=== PATIENT | male | born 1965 | race Caucasian/White ===

== ENCOUNTER 2016-12-26 12:13 | Outpatient (CLI) | payer MEDICARE ==
[~2016-12-26] VITALS: Ht 175.3 cm; Wt 89.4 kg
[~2016-12-26 12:13] MED LIST: GABAPENTIN; GLIPIZIDE; IMITREX; LEVO500T80 PO; LEVO750T9 PO; LISI-552 PO; LISINOPRIL; METFORMIN; NEURONTIN; OMEP20CA12 PO; OXC10TCR PO; PRD20T PO; SUCR1ORA5 PO; SULF1TAB35 PO; SYMBALTA; TOPAMAX; [UNRECOGNIZED DRUG - OTHER]
[2016-12-26] MEDS ORDERED: FENO160T12 PO (12:31)
[2016-12-26] MEDS ORDERED: DULO30CA48 PO (12:31)
[2016-12-26] MEDS ORDERED: TOPI100T11 PO (12:31)
[2016-12-26] MEDS ORDERED: GABA600T2 PO ×2 (12:31)
[2016-12-26] MEDS ORDERED: GLIP10TA13 PO (12:31)
[2016-12-26] MEDS ORDERED: METF500T4 PO (12:31)
[2016-12-26] MEDS ORDERED: DULO60CA58 PO (12:31)
[2016-12-26] MEDS ORDERED: PANT40TA3 PO (12:31)
[2016-12-26] MEDS ORDERED: IBUP-1780 PO (12:31)
[2016-12-26] MEDS ORDERED: ASPI-586 PO (12:31)
[2016-12-26] MEDS ORDERED: SIMV20TA3 PO (12:31)
[2016-12-26] MEDS ORDERED: OMEP40CA36 PO (12:31)
[2016-12-26 12:38] VITALS: BP 121/87
[2016-12-31] MEDS ORDERED: OXYC5TAB71 PO (11:07)
== END 2016-12-26 13:00 | disposition home or self-care (01) ==
LOC: PREOP 12:13
PROVIDERS: ATTEND Orthopaedic Surgery
DX: Z01.818 Encounter for other preprocedural examination (principal); M75.102 Unspecified rotator cuff tear or rupture of left shoulder, not specified as traumatic; S43.402A Unspecified sprain of left shoulder joint, initial encounter; X58.XXXA Exposure to other specified factors, initial encounter; Y99.8 Other external cause status
CPT/HCPCS: 87081

== ENCOUNTER 2016-12-31 08:20 | Day surgery (SDC) | payer MEDICAID, MEDICARE ==
--- NOTE | 2016-12-22 17:51 | HISTORY AND PHYSICAL ---
DATE OF SERVICE: 12/31/2016 This will be for outpatient surgery on 12/31/16 for left shoulder arthroscopy, rotator cuff repair, biceps tenodesis. HISTORY: The patient is a 51-year-old right hand dominant gentleman with complaints of left shoulder pain, worse with overactivity. He reports pain on the lateral aspect of the shoulders. He reports difficulty with raising his arms above his head. He denies paresthesias. He has undergone treatment with injections which provided temporary relief of the symptoms and reports progressively worsening pain and weakness and due to functional impairment and failure to improve with conservative measures, the patient has elected to proceed with surgical intervention. REVIEW OF SYSTEMS: No chest pain, no shortness of breath, no dysuria. PAST MEDICAL HISTORY: 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, neuropathy, lung cancer, hyperlipidemia, depression, anxiety, reflux. PAST SURGICAL HISTORY: Lung, cholecystectomy, appendectomy, ACL, sinus, left knee internal fixation, left knee arthroscopy, bilateral carpal tunnel. FAMILY HISTORY: Significant for cerebrovascular accident, diabetes, and hypertension. PRIMARY CARE PROVIDER: [facility]. MEDICATIONS: 1. Gabapentin. 2. Metformin. 3. Fenofibrate. 4. Topiramate. 5. Glipizide. 6. Duloxetine. 7. Pantoprazole. 8. Omeprazole. 9. Aspirin. 10. Ibuprofen. 11. Simvastatin. No known drug allergies. The patient smokes 1-1/2 packs per day. Denies alcohol use. PHYSICAL EXAMINATION: The patient is well-developed, well-nourished, no acute distress. HEENT: Normocephalic, atraumatic. Pupils equal, round, and reactive to light. Oropharynx is clear. NECK: Supple. No lymphadenopathy. LUNGS: Clear to auscultation bilaterally. HEART: Regular rate and rhythm. ABDOMEN: Soft, nontender, nondistended. EXTREMITIES: The left shoulder demonstrates active forward elevation by 110 degrees, external rotation of 80 degrees, internal rotation to his upper lumbar spine. He has a positive varus and a positive valgus sign. Positive Hendley's maneuver. Pain with apprehension. Pain with mild weakness with resisted abduction and external rotation. He is nontender to his acromioclavicular joint. IMPRESSION: Left shoulder impingement, possible rotator cuff tear and SLAP tear. PLAN: Left shoulder arthroscopy, acromioplasty, biceps tenodesis, rotator cuff repair. The risks, benefits, options and ramifications to recovery were discussed at length with the patient. He understands and wishes to proceed. Job ID: [id number] DocumentID: [id number] Dictated Date: 12/22/2016 16:38:02 Plating Operator Date: 12/22/2016 17:50:38 Dictated By: ROSALBA HANSON MD
[~2016-12-31] VITALS: Ht 175.3 cm; Wt 89.4 kg
[~2016-12-31 08:20] MED LIST changes: +ASPI-586 PO; +DULO30CA48 PO; +DULO60CA58 PO; +FENO160T12 PO; +GABA600T2 PO; +GLIP10TA13 PO; +IBUP-1780 PO; +METF500T4 PO; +OMEP40CA36 PO; +PANT40TA3 PO; +SIMV20TA3 PO; +TOPI100T11 PO
--- OUTSIDE RECORDS SUMMARY | 2016-12-31 08:28 | XMS REPORT ---
Author ELIZABETH Montero [facility] eClinicalWorks Address Unknown Phone Unavailable Care Team Providers Care Supervisor Harvesting Name Role Phone ELIZABETH ORELLANA CP Unavailable Allergies, Adverse Reactions, Alerts Substance Reaction Event Type Zofran Info Not Available Drug Allergy Penicillin V Potassium Info Not Available Drug Allergy Latex tape Info Not Available Non Drug Allergy Problems Problem Type Condition Code Onset Dates Condition Status Problem Right knee pain 719.46 Active Problem Depression 311 Active Problem Chronic thoracic spine pain 724.1 Active Problem Other chronic pain G89.29 Active Problem Diabetes mellitus type 2 with neurological manifestations 250.60 Active Problem Uncontrolled type 2 diabetes mellitus 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, without long-term current use of insulin E11.65 Active Problem Migraine headache 346.90 Active Problem GERD (gastroesophageal reflux disease) 530.81 Active Problem Hypertension 401.9 Active Problem Hyperlipidemia 272.4 Active Assessment Diabetes mellitus type 2 with neurological manifestations 250.60 Active Assessment Pain in left shoulder M25.512 Active Assessment Hypotension, unspecified hypotension type I95.9 Active Assessment Other chronic pain G89.29 Active Assessment Uncontrolled type 2 diabetes mellitus 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, without long-term current use of insulin E11.65 Active Assessment Pain in right shoulder M25.511 Active Problem Routine adult health maintenance V70.0 Active Medications Medication Code System Code Instructions Start Date End Date Status Dosage Topamax [facility] [address]-47 100 MG Orally Twice a day 1 tablet Omeprazole [facility] [address]-42 40 mg Orally Once a day 1 capsule Prochlorperazine [facility] [address]-18 10 mg Orally Three times a day as needed for nausea 1 tablet Cymbalta [facility] [address]-30 30 MG Orally Once a day 2 capsules Nortriptyline HCl [facility] [address]-62 75 MG Orally Once a day at hs 1 capsule Fenofibrate [facility] [address]-81 160 MG Orally Once a day 1 tablet with a meal Imitrex [facility] [address]-99 50 mg Orally Once a day as needed, max 3/week 1 tablet as needed one time Martha [facility] [address]-38 10-325 MG Orally every 6 hrs Jan 04, 2016 1 tablet as needed Aspirin [facility] [address]-73 81 MG Orally Once a day 1 tablet Diclofenac Sodium [facility] 2001 [address]-18 75 MG Orally Twice a day Feb 04, 2016 Apr 04, 2016 1 tablet with food or milk Metformin HCl [facility] [address]-72 1000 MG Orally Twice a day 1 tablet with meals GlipiZIDE ER [facility] 2001 [address]-73 10 mg Orally Once a day 1 tablet Procedures Procedure Coding System Code Date COMPLETE CBC W/AUTO DIFF WBC CPT-4 27203 Feb 04, 2016 COMPREHEN METABOLIC PANEL CPT-4 14835 Feb 04, 2016 Office Visit, Est Pt., Level 3 CPT-4 96487 Feb 04, 2016 VENIPUNCT, ROUTINE* CPT-4 19590 Feb 04, 2016 LIPID PANEL CPT-4 21065 Feb 04, 2016 Vital Signs Date/Time: Feb 04, 2016 Cardiac Monitoring Heart Rate 78 bpm Weight 193 lbs Height 69 in BMI 28.50 Index Blood Pressure Diastolic 82 mmHg Blood Pressure Systolic 122 mmHg Results Name Result Date Reference Range Unit Abnormality Flag CMP ----Calcium, Serum 9.8 00182407 8.7-10.2 mg/dL ----Carbon Dioxide, Total 21 [id number] 18-29 mmol/L ----ALT (SGPT) 13 [id number] 0-44 IU/L ----Creatinine, Serum 0.98 53590305 0.76-1.27 mg/dL ----AST (SGOT) 13 [id number] 0-40 IU/L ----eGFR If NonAfricn Am 89 [id number] >59 mL/min/1.73 ----Alkaline Phosphatase, S 83 [id number] 39-117 IU/L ----eGFR If Africn Am 103 [id number] >59 mL/min/1.73 ----Bilirubin, Total 0.3 96161151 0.0-1.2 mg/dL ----BUN/Creatinine Ratio 11 20160204 9-20 ----A/G Ratio 1.7 55822053 1.1-2.5 ----Sodium, Serum 140 [id number] 134-144 mmol/L ----Globulin, Total 2.8 14932285 1.5-4.5 g/dL ----Potassium, Serum 5.0 65272739 3.5-5.2 mmol/L ----Glucose, Serum 154 28219342 65-99 mg/dL H ----Chloride, Serum 104 07894632 97-108 mmol/L ----Albumin, Serum 4.7 22866909 3.5-5.5 g/dL ----BUN 11 02508189 6-24 mg/dL ----Protein, Total, Serum 7.5 03519733 6.0-8.5 g/dL ROUTINE VENIPUNCTURE CBC ----MCHC 33.0 56649681 31.5-35.7 g/dL ----MCH 29.1 [id number] 26.6-33.0 pg ----Platelets 397 04191786 150-379 x10E3/uL H ----RDW 13.8 03343783 12.3-15.4 % ----Immature Granulocytes 0 27948534 % ----Immature Grans (Abs) 0.0 48853023 0.0-0.1 x10E3/uL ----Lymphs 35 34653272 % ----Monocytes 5 27741177 % ----Neutrophils 52 77713006 % ----Neutrophils (Absolute) 6.9 64076484 1.4-7.0 x10E3/uL ----Hematocrit 41.2 88403051 37.5-51.0 % ----Lymphs (Absolute) 4.6 01464874 0.7-3.1 x10E3/uL H ----MCV 88 75744945 79-97 fL ----RBC 4.67 82890405 4.14-5.80 x10E6/uL ----Eos 7 93406733 % ----Basos 1 37183193 % ----Hemoglobin 13.6 06912542 12.6-17.7 g/dL ----Baso (Absolute) 0.1 [id number] 0.0-0.2 x10E3/uL ----WBC 13.1 18677914 3.4-10.8 x10E3/uL H ----Monocytes(Absolute) 0.6 62891716 0.1-0.9 x10E3/uL ----Eos (Absolute) 0.9 [id number] 0.0-0.4 x10E3/uL H Summary Purpose eClinicalWorks Submission
--- OUTSIDE RECORDS SUMMARY | 2016-12-31 08:29 | XMS REPORT ---
Author ELIZABETH Montero [facility] eClinicalWorks Address Unknown Phone Unavailable Care Team Providers Care Veterinary Poultry Inspector Name Role Phone ELIZABETH ORELLANA CP Unavailable Allergies No Known Allergies Problems Problem Type Condition Code Onset Dates Condition Status Problem Right knee pain 719.46 Active Problem Depression 311 Active Problem Chronic thoracic spine pain 724.1 Active Problem Routine adult health maintenance V70.0 Active Problem Other chronic pain G89.29 Active Problem Diabetes mellitus type 2 with neurological manifestations 250.60 Active Problem Uncontrolled type 2 diabetes mellitus 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, without long-term current use of insulin E11.65 Active Problem Migraine headache 346.90 Active Problem GERD (gastroesophageal reflux disease) 530.81 Active Problem Hypertension 401.9 Active Problem Hyperlipidemia 272.4 Active Medications Medication Code System Code Instructions Start Date End Date Status Dosage Simvastatin [facility] [address]-60 20 mg Orally Once a day Feb 05, 2016 1 tablet in the evening Results No Known Results Summary Purpose eClinicalWorks Submission
--- OUTSIDE RECORDS SUMMARY | 2016-12-31 08:29 | XMS REPORT ---
Author Author VIJAYA NELSON [facility] eClinicalWorks Address Unknown Phone Unavailable Care Team Providers Care Monument Mason Name Role Phone VIJAYA NELSON CP Unavailable Allergies, Adverse Reactions, Alerts Substance Reaction Event Type Zofran Info Not Available Drug Allergy Penicillin V Potassium Info Not Available Drug Allergy Latex tape Info Not Available Non Drug Allergy Problems Problem Type Condition Code Onset Dates Condition Status Assessment Encounter for dental examination Z01.20 Active Problem Right knee pain 719.46 Active Problem Routine adult health maintenance V70.0 Active Assessment Dental examination Z01.20 Active Problem Hypertension 401.9 Active Problem Hyperlipidemia 272.4 Active Problem Diabetes mellitus type 2 with neurological manifestations 250.60 Active Problem Depression 311 Active Problem Chronic thoracic spine pain 724.1 Active Problem Migraine headache 346.90 Active Problem GERD (gastroesophageal reflux disease) 530.81 Active Medications Medication Code System Code Instructions Start Date End Date Status Dosage Lisinopril [facility] [address]-19 20 MG Orally Once a day 1 tablet Imitrex [facility] [address]-77 50 MG Orally Once a day as needed, max 3/week 1 tablet as needed one time Metformin HCl [facility] [address]-29 1000 MG Orally Twice a day 1 tablet with meals Prochlorperazine [facility] [address]-35 10 MG Orally Three times a day as needed for nausea 1 tablet Neurontin [facility] [address]-65 600 MG Orally 2 times a day 2 tabs qAm , 3 tabs at HS Fenofibrate [facility] [address]-45 160 MG Orally Once a day 1 tablet with a meal Gabapentin NDC 0 not defined Meclizine HCl [facility] [address]-77 25 MG Orally 3 times a day 1 tablet as needed OxyContin [facility] [address]-14 10 MG Orally every 12 hrs 1 tablet Cymbalta [facility] [address]-77 30 MG Orally Once a day 2 capsules Flexeril [facility] [address]-49 10 MG Orally Three times a day May 29, 2015 1 tablet Nortriptyline HCl [facility] [address]-03 75 MG Orally Once a day at hs 1 capsule Oxycodone HCl [facility] [address]-84 5 MG Orally every 4-6 hrs PRN breakthrough pain 1 tablet GlipiZIDE ER [facility] [address]-44 10 MG Orally Once a day 1 tablet Omeprazole [facility] [address]-80 40 MG Orally Once a day 1 capsule Topamax [facility] [address]-11 100 MG Orally Twice a day 1 tablet Aspirin [facility] [address]-41 81 MG Orally Once a day 1 tablet Procedures Procedure Coding System Code Date INTRAORL-PERIAPICAL 1 FILM 06941 CPT-4 D0220 Apr 03, 2015 BITEWING - SINGLE FILM CPT-4 D0270 Apr 03, 2015 LTD ORAL EVALUATION - PROBLEM FOCUS CPT-4 D0140 Apr 03, 2015 Vital Signs Date/Time: Apr 03, 2015 Blood Pressure Diastolic 72 mmHg Blood Pressure Systolic 115 mmHg Results No Known Results Summary Purpose eClinicalWorks Submission
--- OUTSIDE RECORDS SUMMARY | 2016-12-31 08:29 | XMS REPORT ---
Author Author ELIZABETH ORELLANA [facility] Address [address] [place] [address] Care Team Providers Care Patient Resource Specialist Name Role Phone ELIZABETH ORELLANA Unavailable PROBLEMS Type Condition ICD9-CM Code OFN56-OB Code Onset Dates Condition Status SNOMED Code Problem Routine adult health maintenance V70.0 Active 442431228 Problem Chronic thoracic spine pain 724.1 Active 498602137 Problem Right knee pain 719.46 Active 86139517 Problem Diabetes mellitus type 2 with neurological manifestations 250.60 Active 83921866 Problem Hypertension 401.9 Active 23792196 Problem GERD (gastroesophageal reflux disease) 530.81 Active 208820881 Problem Depression 311 Active 124581544 Problem Hyperlipidemia 272.4 Active 23216261 Problem Migraine headache 346.90 Active 56388390 Assessment Primary insomnia F51.01 Dec, Active 8616232 Assessment Neuropathy G62.9 Dec, Active 417717614 Assessment 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 mellitus 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, unspecified fpc insulin use status E11.9 Dec, Active 44519445 Assessment Migraine without status migrainosus, not intractable, unspecified migraine type G43.909 Dec, Active 86397745 Assessment Diabetes mellitus type 2 with neurological manifestations 250.60 Dec, Active 786673945 ALLERGIES Substance Reaction Event Type Date Status Zofran Unknown Drug Allergy Dec, Active Penicillin V Potassium Unknown Drug Allergy Dec, Active Latex tape Unknown Non Drug Allergy Dec, Active SOCIAL HISTORY No smoking Hx information available PLAN OF CARE VITAL SIGNS Height 69 in 2016-01-04 Weight 189 lbs 2016-01-04 Heart Rate 80 bpm 2016-01-04 Respiratory Rate 18 2016-01-04 BMI 27.91 kg/m2 2016-01-04 Blood pressure systolic 120 mmHg 2016-01-04 Blood pressure diastolic 80 mmHg 2016-01-04 MEDICATIONS Medication Instructions Dosage Frequency Start Date End Date Duration Status Neurontin 600 MG Orally 2 times a day 2 capsules 12h 30 days Active Omeprazole 40 mg Orally Once a day 1 capsule 24h 30 days Active Prochlorperazine 10 mg Orally Three times a day as needed for nausea 1 tablet 30 days Active [facility] 10-325 MG Orally every 6 hrs 1 tablet as needed 6h Dec, Active Lisinopril 20 mg Orally Once a day 1 tablet 24h 30 days Active Nortriptyline HCl 75 MG Orally Once a day at hs 1 capsule 30 days Active Cymbalta 30 MG Orally Once a day 2 capsules 24h 30 days Active Metformin HCl 1000 MG Orally Twice a day 1 tablet with meals 12h 30 days Active GlipiZIDE ER 10 mg Orally Once a day 1 tablet 24h 30 days Active Imitrex 50 mg Orally Once a day as needed, max 3/week 1 tablet as needed one time 30 days Active Aspirin 81 MG Orally Once a day 1 tablet 24h Active Fenofibrate 160 MG Orally Once a day 1 tablet with a meal 24h 30 days Active Topamax 100 MG Orally Twice a day 1 tablet 12h 30 days Active RESULTS Name Result Date Reference Range A1C (IN HOUSE) 2016-01-04 A1C IN HOUSE >14 4.3 - 5.6 % Previous A1c na Lot [id number] Exp date 10/2017 PROCEDURES Procedure Date Ordered Related Diagnosis Body Site GLYCATED HEMOGLOBIN TEST Jan 04, 2016 Office Visit, Est Pt., Level 3 Jan 04, 2016 IMMUNIZATIONS No Known Immunizations
--- OUTSIDE RECORDS SUMMARY | 2016-12-31 08:29 | XMS REPORT ---
Author ELIZABETH Montero Organization eClinicalWorks Address Unknown Phone Unavailable Care Team Providers Care Lumber Driver Name Role Phone ELIZABETH ORELLANA CP Unavailable [...] Instructions Start Date End Date Status Dosage [facility] [address]-61 10-325 MG Orally every 6 hrs Jan 04, 2016 1 tablet as needed Results No Known Results Summary Purpose [employer] Submission
--- OUTSIDE RECORDS SUMMARY | 2016-12-31 08:29 | XMS REPORT ---
Author Author MALORIE GALO [facility] eClinicalWorks Address Unknown Phone Unavailable Care Team Providers Care Costume Seamstress Name Role Phone MALORIE GALO CP Unavailable Allergies No Known Allergies Problems Problem Type Condition Code Onset Dates Condition Status Problem Right knee pain 719.46 Active Problem Routine adult health maintenance V70.0 Active Problem Hypertension 401.9 Active Problem Hyperlipidemia 272.4 Active Problem Diabetes mellitus type 2 with neurological manifestations 250.60 Active Problem Depression 311 Active Problem Chronic thoracic spine pain 724.1 Active Problem Migraine headache 346.90 Active Problem GERD (gastroesophageal reflux disease) 530.81 Active Medications No Known Medications Results No Known Results Summary Purpose eClinicalWorks Submission
--- OUTSIDE RECORDS SUMMARY | 2016-12-31 08:29 | XMS REPORT ---
Author ELIZABETH Montero Organization eClinicalWorks Address Unknown Phone Unavailable Care Team Providers Care Caterer'S Aide Name Role Phone ELIZABETH ORELLANA CP Unavailable [...] 401.9 Active Problem Hyperlipidemia 272.4 Active Medications No Known Medications Results No Known Results Summary Purpose eClinicalWorks Submission
--- OUTSIDE RECORDS SUMMARY | 2016-12-31 08:29 | XMS REPORT ---
Author Author ELIZABETH ORELLANA [facility] Address [address] [place] [address] Care Team Providers Care Rent Collector Name Role Phone ELIZABETH ORELLANA Unavailable PROBLEMS Type Condition ICD9-CM Code PSP94-BG Code Onset Dates Condition Status SNOMED Code Problem Chronic thoracic spine pain 724.1 Active 716899899 Problem GERD (gastroesophageal reflux disease) 530.81 Active 123900409 Problem Depression 311 Active 414434657 Problem Routine adult health maintenance V70.0 Active 410859986 Problem Right knee pain 719.46 Active 25573273 Problem Uncontrolled type 2 diabetes mellitus 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, without long-term current use of insulin E11.65 Active 057265921 Problem Other chronic pain G89.29 Active 47139214 Problem Hyperlipidemia 272.4 Active 45229484 Problem Migraine headache 346.90 Active 22256835 Problem Diabetes mellitus type 2 with neurological manifestations 250.60 Active 86917939 Problem Hypertension 401.9 Active 88234813 ALLERGIES Unknown Allergies SOCIAL HISTORY No smoking Hx information available PLAN OF CARE VITAL SIGNS MEDICATIONS Unknown Medications RESULTS No Results PROCEDURES No Known procedures IMMUNIZATIONS No Known Immunizations
--- OUTSIDE RECORDS SUMMARY | 2016-12-31 08:29 | XMS REPORT ---
Author ELIZABETH Montero Organization eClinicalWorks Address Unknown Phone Unavailable Care Team Providers Care Limnologist Name Role Phone ELIZABETH ORELLANA CP Unavailable [...] Instructions Start Date End Date Status Dosage [facility] [address]-72 10-325 MG Orally every 6 hrs Jan 04, 2016 1 tablet as needed Results No Known Results Summary Purpose [employer] Submission
--- OUTSIDE RECORDS SUMMARY | 2016-12-31 08:29 | XMS REPORT ---
Author Author ELIZABETH ORELLANA Organization [facility] Address [address] [place] [address] Care Team Providers Care Storage Receipt Poster Name Role Phone ESTEBAN ELIZABETH Unavailable PROBLEMS Type Condition ICD9-CM Code AIV22-GM Code Onset Dates Condition Status SNOMED Code Problem Other chronic pain G89.29 Active 56055264 Problem 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 mellitus 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, unspecified snf insulin use status E11.9 Active 007559047 Problem Gastritis, unspecified, without bleeding K29.70 Active 9399415 Problem Tear of left rotator cuff, unspecified tear extent M75.102 Active 0464073 Problem Uncontrolled type 2 diabetes mellitus 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, without long-term current use of insulin E11.65 Active 757538807 Problem Mood disorder F39 Active 79765526 Problem Tear of right rotator cuff, unspecified tear extent M75.101 Active 508880620 ALLERGIES Substance Reaction Event Type Date Status Zofran Unknown Drug Allergy Mar, Active Penicillin V Potassium Unknown Drug Allergy Mar, Active Latex tape Unknown Non Drug Allergy Mar, Active SOCIAL HISTORY No smoking Hx information available PLAN OF CARE VITAL SIGNS Height 69 in 2016-04-15 Weight 201 lbs 2016-04-15 Temperature 98.1 degrees Fahrenheit 2016-04-15 Heart Rate 76 bpm 2016-04-15 Respiratory Rate 18 2016-04-15 BMI 29.68 kg/m2 2016-04-15 Blood pressure systolic 134 mmHg 2016-04-15 Blood pressure diastolic 90 mmHg 2016-04-15 MEDICATIONS Medication Instructions Dosage Frequency Start Date End Date Duration Status Imitrex 50 mg Orally Once a day as needed, max 3/week 1 tablet as needed one time 30 days Active Topamax 100 MG Orally Twice a day 1 tablet 12h 30 days Active Omeprazole 40 mg Orally Once a day 1 capsule 24h 30 days Active GlipiZIDE ER 10 mg Orally Once a day 1 tablet 24h 30 days Active Cymbalta 30 MG Orally Once a day 2 capsules 24h 30 days Active Metformin HCl 1000 MG Orally Twice a day 1 tablet with meals 12h 30 days Active Prochlorperazine 10 mg Orally Three times a day as needed for nausea 1 tablet 30 days Active Simvastatin 20 mg Orally Once a day 1 tablet in the evening 24h Jan, 30 day(s) Active [facility] 10-325 MG Orally every 6 hrs 1 tablet as needed 6h Mar, Active Fenofibrate 160 MG Orally Once a day 1 tablet with a meal 24h 30 days Active Nortriptyline HCl 75 MG Orally Once a day at hs 2 capsules Active Aspirin 81 MG Orally Once a day 1 tablet 24h Active RESULTS No Results PROCEDURES Procedure Date Ordered Related Diagnosis Body Site JOINT INJECTION-LARGE JOINT 2016-04-15 N/A DRAIN/INJECT, JOINT/BURSA Apr 15, 2016 Office Visit, Est Pt., Level 2 Apr 15, 2016 IMMUNIZATIONS No Known Immunizations
--- OUTSIDE RECORDS SUMMARY | 2016-12-31 08:29 | XMS REPORT ---
Author Author ELIZABETH ORELLANA Organization [facility] Address [address] [place] [address] Care Team Providers Care Pecan Huller Name Role Phone ESTEBAN ELIZABETH Unavailable PROBLEMS Type Condition ICD9-CM Code LRA32-BT Code Onset Dates Condition Status SNOMED Code Problem Other chronic pain G89.29 Active 46732570 Problem 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 mellitus 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, unspecified terminal carman insulin use status E11.9 Active 645939639 Problem Gastritis, unspecified, without bleeding K29.70 Active 1393136 Problem Tear of left rotator cuff, unspecified tear extent M75.102 Active 3310131 Problem Uncontrolled type 2 diabetes mellitus 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, without long-term current use of insulin E11.65 Active 604834457 Problem Mood disorder F39 Active 20901705 Problem Tear of right rotator cuff, unspecified tear extent M75.101 Active 217602695 ALLERGIES Substance Reaction Event Type Date Status Zofran Unknown Drug Allergy Mar, Active Penicillin V Potassium Unknown Drug Allergy Mar, Active Latex tape Unknown Non Drug Allergy Mar, Active SOCIAL HISTORY No smoking Hx information available PLAN OF CARE Activity Details Follow Up 4 Weeks Reason:insomnia VITAL SIGNS Height 69 in 2016-04-14 Weight 201 lbs 2016-04-14 Temperature 98.0 degrees Fahrenheit 2016-04-14 Heart Rate 78 bpm 2016-04-14 Respiratory Rate 20 2016-04-14 BMI 29.68 kg/m2 2016-04-14 Blood pressure systolic 128 mmHg 2016-04-14 Blood pressure diastolic 78 mmHg 2016-04-14 MEDICATIONS Medication Instructions Dosage Frequency Start Date End Date Duration Status Nortriptyline HCl 75 MG Orally Once a day at hs 2 capsules Active Simvastatin 20 mg Orally Once a day 1 tablet in the evening 24h Jan, 30 day(s) Active Metformin HCl 1000 MG Orally Twice a day 1 tablet with meals 12h 30 days Active Aspirin 81 MG Orally Once a day 1 tablet 24h Active Topamax 100 MG Orally Twice a day 1 tablet 12h 30 days Active [place] 10-325 MG Orally every 6 hrs 1 tablet as needed 6h Mar, Active Fenofibrate 160 MG Orally Once a day 1 tablet with a meal 24h 30 days Active Omeprazole 40 mg Orally Once a day 1 capsule 24h 30 days Active Prochlorperazine 10 mg Orally Three times a day as needed for nausea 1 tablet 30 days Active GlipiZIDE ER 10 mg Orally Once a day 1 tablet 24h 30 days Active Cymbalta 30 MG Orally Once a day 2 capsules 24h 30 days Active Imitrex 50 mg Orally Once a day as needed, max 3/week 1 tablet as needed one time 30 days Active RESULTS No Results PROCEDURES Procedure Date Ordered Related Diagnosis Body Site Office Visit, Est Pt., Level 3 Apr 14, 2016 IMMUNIZATIONS No Known Immunizations
--- OUTSIDE RECORDS SUMMARY | 2016-12-31 08:30 | XMS REPORT ---
Author ELIZABETH Montero Organization [employer] Address Unknown Phone Unavailable Care Team Providers Care Business Banking Relationship Manager Name Role Phone ELIZABETH ORELLANA CP Unavailable [...]
[2016-12-31 08:35] VITALS: BP 140/82
[2016-12-31] MEDS ORDERED: ROPIVACAINE 5MG/ML 30ML VIAL ONE (08:38)
[2016-12-31] MEDS ORDERED: MIDAZOLAM 2 MG/2 ML (VERSED) VIAL ONE (08:39)
[2016-12-31] MEDS ORDERED: BUPIVACAINE 0.25% 30 ML (SENSORCAINE) VIAL ONE (08:46)
[2016-12-31] MEDS ORDERED: NS (IVPB) 50 ML ONE (08:51)
[2016-12-31] MEDS ORDERED: ceFAZolin 1,000 MG (ANCEF) VIAL ONE (08:51)
[2016-12-31] MEDS ORDERED: FAMOTIDINE 20MG/2ML IV (PEPCID) ONE (08:56)
[2016-12-31] MEDS ORDERED: fentaNYL INJECTION 100 MCG/2 ML AMP ONE (08:59)
[2016-12-31] MEDS ORDERED: proPOfol 200 MG/20 ML (DIPRIVAN) VIAL IV ONE (08:59)
[2016-12-31] MEDS ORDERED: LIDOCAINE PF 2% 5 ML (XYLOCAINE) VIAL ONE (08:59)
[2016-12-31] MEDS ORDERED: SEVOFLURANE (ULTANE) 15 ML INHAL SOLN ONE ×4 (08:59→10:15)
[2016-12-31] MEDS ORDERED: LACTATED RINGERS 1,000 ML IV PRN (09:03)
[2016-12-31] MEDS ORDERED: oxyCODONE/APAP 5/325MG (PERCOCET 5) TABLET PO PRN (09:15)
[2016-12-31] MEDS ORDERED: FAMOTIDINE 20MG/2ML IV (PEPCID) IV ONE (09:15)
--- NOTE | 2016-12-31 09:15 | Anesthesia-Peripheral Nerve Bl ---
Procedure Start/Stop Time Date of Procedure: Dec 31, 2016 Start Time: 08:55 Stop Time: 09:05 Peripheral Nerve Block Peripheral Nerve Blockade Risk/Benefits/Alternatives discussed, including IV injection leading to complications or seizures, nerve irritation or damage, pneumothorax, total spinal anesthesia, injection, and/or bleeding. Side Confirmed: LEFT Indication: Surgical Anesthesia Specifically requested for management of pain by: Patient Condition Vital Signs Vital Signs Date Time Temp Pulse Resp B/P (MAP) Pulse Ox O2 Delivery O2 Flow Rate FiO2 12/31/16 08:35 97.3 94 18 140/82 97 Room Air Patient Condition: Sedate/contact maintained Indication post op pain Procedure Prepartation: Alcohol, Chlorhexidine Position: Supine Needle (s) Size: 22g 2" Technique: Injection through needle, Nerve Stimulation Motor response or parethesia o: loss of twitches at .6 ma mA: 0.6 Depth (cm): 1 Sedation Given: Midazolam Dose (mg/mcg): 2 Injectate: ropivacaine Concentration %: .5 Volume (ml): 30 Epinephrine used: No Narrative Injection was made incrementally with constant monitoring. Blood Aspirated: No Events Events: None:easy well tolerated Sucess: Complete Patient Conditon Post Peripheral Nerve Block Post Peripheral Nerve Block Vital Signs: Blood Pressure: Systolic Diastolic Heart Rate Blood Pressure Systolic: 140 Blood Pressure Diastolic: 82 Pulse Rate (adult): 94 MADDY VELEZ CRNA Dec 31, 2016 09:14
--- NOTE | 2016-12-31 09:16 | Progress Note-Pre Operative ---
Pre-Operative Progress Note H&P Reviewed The H&P was reviewed, patient examined and no changes noted. Date Seen by Provider: Dec 31, 2016 Time Seen by Provider: 09:15 Date H&P Reviewed: Dec 31, 2016 Time H&P Reviewed: 09:15 Pre-Operative Diagnosis: left shoulder SLAP tear and rotator cuff tear ROSALBA HANSON MD Dec 31, 2016 09:16
--- NOTE | 2016-12-31 09:17 | Progress Note-Post Operative ---
Post-Operative Progess Note Surgeon (s)/Tie Tamper (s) Surgeon ROSALBA HANSON MD Tie Tamper: Josh Vega Pre-Operative Diagnosis left shoulder SLAP tear and rotator cuff tear Post-Operative Diagnosis left shoulder SLAP tear, impingement and synovitis Procedure & Operative Findings Date of Procedure 12/31/16 Procedure Performed/Findings left shoulder arthroscopic partial synovectomy, acromioplasty and biceps tenodesis Anesthesia Type GETA plus interscalene nerve block Estimated Blood Loss Estimated blood loss (mL): minimal Specimens/Packing Specimens Removed none Packing: none ROSALBA HANSON MD Dec 31, 2016 09:17
[2016-12-31] MEDS ORDERED: fentaNYL INJECTION 100 MCG/2 ML AMP IVP PRN (11:00)
[2016-12-31] MEDS ORDERED: PROMETHAZINE INJ 25 MG/ML (PHENERGAN) AMP IVP PRN (11:00)
[2016-12-31] MEDS ORDERED: HYDROmorphone (DILAUDID) 2 MG/ML VIAL ONE (11:02)
[2016-12-31] MEDS ORDERED: OXYC-529 PO (11:07)
[2016-12-31] MEDS ORDERED: HYDR4TAB49 PO (11:07)
[2016-12-31] MEDS: HYDROmorphone (DILAUDID) 2 MG/ML VIAL IVP PRN ×3 (11:12→11:31)
--- NOTE | 2016-12-31 11:15 | OPERATIVE REPORT ---
DATE OF SERVICE: 12/31/2016 PREOPERATIVE DIAGNOSES: 1. Left shoulder superior labrum anterior and posterior tear. 2. Left shoulder rotator cuff tear. POSTOPERATIVE DIAGNOSES: 1. Left shoulder superior labrum anterior and posterior tear. 2. Left shoulder impingement. 3. Left shoulder synovitis. PROCEDURE: 1. Left shoulder arthroscopic partial synovectomy. 2. Left shoulder arthroscopic acromioplasty. 3. Left shoulder arthroscopic-assisted biceps tenodesis. SURGEON: Adán Lambert MD ADMISSIONS SUPERVISOR: MIKE Florentino who assisted throughout the procedure and closed the incisions. ANESTHESIA: General endotracheal plus interscalene nerve block by Reva Vieyra CRNA. ESTIMATED BLOOD LOSS: Minimal. DRAINS: None. COMPLICATIONS: None. POSTOPERATIVE PLAN: Sling wear with passive range of motion for 2 weeks. The patient was transported to the recovery room awake, and in stable condition. STATEMENT OF MEDICAL NECESSITY: The patient is a 51-year-old right-hand dominant gentleman with complaints of left shoulder pain, worse with overhead activities. He had a positive Neer and positive Vega sign. He had a positive [place] maneuver. He had failed to respond to extensive conservative management and due to functional impairment, the patient elected to proceed with surgical intervention. Examination under anesthesia revealed forward elevation in the shoulder of 170 degrees, external rotation of 85 degrees and internal rotation of 70 degrees. Arthroscopic findings demonstrated a type 2 SLAP tear with marked thickening of the long head of the biceps near its groove with associated synovitis in the area. The rotator cuff demonstrated mild fraying of the anterior aspect of the supraspinatus, otherwise no significant tearing was noted. The remainder of the labrum was intact. There was no significant glenoid or humeral head articular wear, though there was some mild fissuring noted superiorly in the glenoid, but no unstable chondral flaps. PROCEDURE: After risks and benefits of the procedure were discussed and questions were answered and informed consent was signed and placed in the chart, the operative site was confirmed in the preop holding area and initialed by the surgeon and the patient was then transported to the operating room. After adequate levels of regional plus general endotracheal anesthetic were obtained, a timeout was called confirming the operative site. An examination under anesthesia was performed with the above findings noted. The left shoulder aperture was then prepped and draped in the usual sterile fashion. The shoulder joint was injected with 20 mL of fluid as was the subacromial space. A posterior portal was placed into the glenohumeral joint and a diagnostic arthroscopy was carried out with the above findings noted. An anterior portal was created and the biceps was released. The stump was debrided with a shaver and a partial synovectomy was performed. The scope was redirected into the subacromial space and a lateral portal was created, bursectomy was performed and the acromion was planed to a type 1 acromion. The portal sites were closed and an incision was then made just distal to the pectoralis major insertion on the upper medial arm. The underlying soft tissues were carefully dissected. The long head of the biceps was identified and pulled into the wound. There was marked thickening of the proximal aspect of the biceps tendon. This was then whip stitched using a fiberwire suture from the musculotendinous junction extending proximally 2.5 cm. This was then passed through the Endobutton device. A unicortical hole was then made in the bicipital groove just distal to the pectoralis insertion. The Endobutton was then passed and flipped. This brought the tendon down to the cortical surface. This was then oversewn and tied on itself. Excess tendon was removed. The elbow and shoulder were taken through a range of motion and the repair was found to be stable. The wound was copiously irrigated, 2-0 Vicryl was used to reapproximate the subcutaneous tissue and the skin was closed with 4-0 nylon in running alternating horizontal and mattress fashion. A soft dressing and sling were applied and the patient was transported to the recovery room awake, in stable condition. Job ID: [id number] DocumentID: [id number] Dictated Date: 12/31/2016 10:35:19 Perinatal Nurse Date: 12/31/2016 11:15:03 Dictated By: ADÁN LAMBERT MD
[2016-12-31 12:00] VITALS: BP 136/82
[2016-12-31] MEDS ORDERED: ceFAZolin 1 GM/NS 50 ML IVPB IV ONE ×2 (12:15)
[2016-12-31 12:30] VITALS: BP 140/85
== END 2016-12-31 12:50 | disposition home or self-care (01) ==
LOC: SDC 08:20
PROVIDERS: ATTEND Orthopaedic Surgery
DX: M65.812 Other synovitis and tenosynovitis, left shoulder (principal); M75.42 Impingement syndrome of left shoulder; M24.112 Other articular cartilage disorders, left shoulder; E11.40 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 mellitus with diabetic neuropathy, unspecified; E78.5 Hyperlipidemia, unspecified; I10 Essential (primary) hypertension; G47.33 Obstructive sleep apnea (adult) (pediatric); F32.9 Major depressive disorder, single episode, unspecified; F41.9 Anxiety disorder, unspecified; K21.9 Gastro-esophageal reflux disease without esophagitis; Z85.118 Personal history of other malignant neoplasm of bronchus and lung; Z79.899 Other long term (current) drug therapy; Z79.82 Long term (current) use of aspirin; F17.210 Nicotine dependence, cigarettes, uncomplicated
CPT/HCPCS: 82962

== ENCOUNTER 2017-01-22 10:15 | Outpatient (RCR) | payer MEDICARE ==
[~2017-01-22 10:15] MED LIST changes: +HYDR4TAB49 PO; +OXYC5TAB71 PO
== END 2017-01-24 | disposition home or self-care (01) ==
PROVIDERS: ATTEND Orthopaedic Surgery
DX: S43.432D Superior glenoid labrum lesion of left shoulder, subsequent encounter (principal)

== ENCOUNTER 2017-02-16 08:58 | Outpatient (RCR) | payer MEDICARE | END 2017-02-20 13:12 | disposition home or self-care (01) | PROVIDERS: ATTEND Orthopaedic Surgery | DX: Z47.89 Encounter for other orthopedic aftercare (principal); M25.512 Pain in left shoulder ==

== ENCOUNTER 2017-04-30 13:32 | Outpatient (CLI) | payer MEDICARE ==
[~2017-04-30] VITALS: Ht 175.3 cm; Wt 91.2 kg
[~2017-04-30 13:32] MED LIST changes: +OXYC-529 PO; -OXYC5TAB71 PO
[2017-04-30 13:39] VITALS: BP 140/84
[2017-04-30] MEDS ORDERED: HYDR-3820 PO (13:45)
[2017-04-30] MEDS ORDERED: VNL75T PO (13:45)
[2017-04-30] MEDS ORDERED: DICL75TA2 PO (13:45)
[2017-04-30] MEDS ORDERED: LIRA0.6P3 SQ (13:46)
== END 2017-04-30 13:55 | disposition home or self-care (01) ==
LOC: PREOP 13:32
PROVIDERS: ATTEND Orthopaedic Surgery
DX: Z01.818 Encounter for other preprocedural examination (principal); Z11.2 Encounter for screening for other bacterial diseases; M75.102 Unspecified rotator cuff tear or rupture of left shoulder, not specified as traumatic
CPT/HCPCS: 87081

== ENCOUNTER 2017-05-06 07:40 | Day surgery (SDC) | payer MEDICARE ==
--- NOTE | 2017-04-30 15:21 | HISTORY AND PHYSICAL ---
DATE OF SERVICE: ADMISSION HISTORY AND PHYSICAL DATE OF ADMISSION: 05/06/2017. REASON FOR ADMISSION: This will be for preadmission history and physical for surgery date 05/06/2017 for left rotator cuff repair. HISTORY OF PRESENT ILLNESS: The patient is a 51-year-old right hand dominant gentleman, who previously underwent a left biceps tenotomy and was doing well until he had to move. He then experienced increasing left shoulder pain and weakness. He underwent an MRI, which showed a full thickness supraspinatus and infraspinatus tear. Due to functional impairment and failure to improve with conservative measures, the patient elected to proceed with surgical intervention. REVIEW OF SYSTEMS: No chest pain. No shortness of breath. No dysuria. PAST MEDICAL HISTORY: 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, neuropathy, lung cancer, hyperlipidemia, depression, anxiety, reflux. PAST SURGICAL HISTORY: cholecystectomy, appendectomy, right ACL, sinus, bilateral carpal tunnel, left knee ORIF. FAMILY HISTORY: Significant for stroke, hypertension, diabetes. PRIMARY CARE PROVIDER: [facility]. MEDICATIONS: Gabapentin, metformin, fenofibrate, topiramate, glipizide, duloxetine, pantoprazole, omeprazole, aspirin, ibuprofen, simvastatin, oxycodone. ALLERGIES: No known drug allergies. SOCIAL HISTORY: The patient smokes a kzye-omh-b-half of cigarettes a day. Denies alcohol use. PHYSICAL EXAMINATION: GENERAL: The patient is well developed, well nourished, in no acute distress. HEENT: Normocephalic, atraumatic. Pupils are equal, round and reactive to light. Oropharynx is clear. NECK: Supple, no lymphadenopathy. LUNGS: Clear to auscultation bilaterally. HEART: Regular rate and rhythm. ABDOMEN: Soft, nontender, nondistended. EXTREMITIES: The left shoulder demonstrates weakness with abduction and external rotation. He has a positive Neer's and positive Vega sign. He is nontender at his acromioclavicular joint. He has no pain with cross-body adduction. Active forward elevation is 170 degrees, external rotation is 70 degrees, internal rotation is to his mid lumbar spine. IMPRESSION: Left rotator cuff tear. PLAN: Left shoulder arthroscopy with rotator cuff repair. The risks, benefits, options, ramifications and recovery have been discussed at length. The patient understands and wishes to proceed. Job ID: [id number] DocumentID: [id number] Dictated Date: 04/30/2017 09:59:48 Human Resources Analyst Date: 04/30/2017 12:18:45 Dictated By: ROSALBA HANSON MD
[~2017-05-06] VITALS: Ht 175.3 cm; Wt 91.2 kg
[~2017-05-06 07:40] MED LIST changes: +DICL75TA2 PO; +HYDR-3820 PO; +LIRA0.6P3 SQ; +VNL75T PO
[2017-05-06] MEDS ORDERED: LACTATED RINGERS 1,000 ML IV PRN (07:55)
[2017-05-06 08:00] VITALS: BP 132/95
[2017-05-06] MEDS ORDERED: ceFAZolin INJECTION 1,000 MG in NS (IVPB) 50 ML IV ONE (08:00)
[2017-05-06] MEDS ORDERED: ceFAZolin 1,000 MG (ANCEF) VIAL ONE (08:04)
[2017-05-06] MEDS ORDERED: NS (IVPB) 50 ML ONE (08:05)
[2017-05-06] MEDS ORDERED: fentaNYL INJECTION 100 MCG/2 ML AMP IVP ONE (08:15)
[2017-05-06] MEDS ORDERED: MIDAZOLAM 2 MG/2 ML (VERSED) VIAL ONE (08:44)
[2017-05-06] MEDS ORDERED: ROPIVACAINE 5MG/ML 30ML VIAL ONE (08:45)
[2017-05-06] MEDS ORDERED: MUPIROCIN 2% OINT 22 GM (BACTROBAN) TUBE NSEACH SCH (09:00)
--- NOTE | 2017-05-06 09:02 | Progress Note-Pre Operative ---
Pre-Operative Progress Note H&P Reviewed The H&P was reviewed, patient examined and no changes noted. Date Seen by Provider: May 06, 2017 Time Seen by Provider: 09:01 Date H&P Reviewed: May 06, 2017 Time H&P Reviewed: 09:01 Pre-Operative Diagnosis: left rotator cuff tear ROSALBA HANSON MD May 06, 2017 09:02
--- NOTE | 2017-05-06 09:05 | Progress Note-Post Operative ---
Post-Operative Progess Note Surgeon (s)/Glue Reel Operator (s) Surgeon ROSALBA HANSON MD Glue Reel Operator: Josh Vega Pre-Operative Diagnosis left rotator cuff tear Post-Operative Diagnosis left rotator cuff tear left shoulder labral tear Procedure & Operative Findings Date of Procedure 05/06/17 Procedure Performed/Findings left shoulder arthroscopic labral debridement and acromioplasty and open rotator cuff repair Anesthesia Type GETA plus interscalene Estimated Blood Loss Estimated blood loss (mL): minimal Specimens/Packing Specimens Removed none Packing: none ROSALBA HANSON MD May 06, 2017 09:05
[2017-05-06] MEDS ORDERED: FAMOTIDINE 20MG/2ML IV (PEPCID) ONE (09:14)
[2017-05-06] MEDS ORDERED: BUPIVACAINE 0.25% 30 ML (SENSORCAINE) VIAL ONE (09:14)
[2017-05-06] MEDS ORDERED: oxyCODONE/APAP 5/325MG (PERCOCET 5) TABLET PO PRN (09:30)
[2017-05-06] MEDS ORDERED: proPOfol 200 MG/20 ML (DIPRIVAN) VIAL IV ONE (09:48)
[2017-05-06] MEDS ORDERED: LIDOCAINE PF 2% 5 ML (XYLOCAINE) VIAL ONE (09:48)
[2017-05-06] MEDS ORDERED: ROCURONIUM 50 MG/5 ML (ZEMURON) VIAL IV ONE (09:48)
[2017-05-06] MEDS ORDERED: fentaNYL INJECTION 100 MCG/2 ML AMP ONE (09:49)
[2017-05-06] MEDS ORDERED: SEVOFLURANE (ULTANE) 15 ML INHAL SOLN ONE ×5 (09:52→10:53)
[2017-05-06] MEDS ORDERED: DEXAMETHASONE 10 MG/ML (DECADRON) 1 ML VIAL ONE (09:52)
[2017-05-06] MEDS ORDERED: SUCCINYLCHOLINE INJ 100 MG/5 ML SYR ONE (09:52)
[2017-05-06] MEDS ORDERED: ONDANSETRON 4 MG/2 ML (SDV) Z0FRAN ONE (09:52)
[2017-05-06] MEDS ORDERED: GLYCOPYRROLATE 0.2 MG/ML (ROBINUL) 2 ML VIAL ONE (10:26)
[2017-05-06] MEDS ORDERED: NEOSTIGMINE (BLOXIVERZ ) 1 MG/1ML 10 ML VIAL ONE (10:26)
--- NOTE | 2017-05-06 11:00 | Progress Note-Post Operative ---
Post-Operative Progess Note Surgeon (s)/Fish Egg Packer (s) Surgeon ROSALBA HANSON MD Fish Egg Packer: Josh Vega Pre-Operative Diagnosis left rotator cuff tear Post-Operative Diagnosis left rotator cuff and labral tear Procedure & Operative Findings Date of Procedure 05/06/17 Procedure Performed/Findings left shoulder arthroscopic labral debridement, acromioplasty and open rotator cuff repair Anesthesia Type GETA plus interscalene Estimated Blood Loss Estimated blood loss (mL): minimal Specimens/Packing Specimens Removed none Packing: none ROSALBA HASNON MD May 06, 2017 11:00
[2017-05-06] MEDS ORDERED: fentaNYL INJECTION 100 MCG/2 ML AMP IVP PRN (11:30)
[2017-05-06] MEDS ORDERED: MEPERIDINE (DEMEROL) INJ 50 MG/ML IVP PRN (11:30)
[2017-05-06 12:00] VITALS: BP 144/85
[2017-05-06 12:30] VITALS: BP 140/83
[2017-05-06 12:51] VITALS: BP 144/85
--- NOTE | 2017-05-06 20:12 | OPERATIVE REPORT ---
DATE OF SERVICE: 05/06/2017 PREOPERATIVE DIAGNOSES: 1. Left rotator cuff tear. 2. Left shoulder labral tear. POSTOPERATIVE DIAGNOSES: 1. Left rotator cuff tear. 2. Left shoulder labral tear. PROCEDURES: 1. Left shoulder arthroscopic labral debridement. 2. Left shoulder arthroscopic acromioplasty. 3. Left shoulder open rotator cuff repair. SURGEON: Adán Hanson MD. DIRECTOR OF DIGITAL PLATFORMS: MIKE Florentino, who assisted throughout the procedure and closed the incisions. ANESTHESIA: General endotracheal plus interscalene nerve block. ESTIMATED BLOOD LOSS: Minimal. DRAINS: None. COMPLICATIONS: None. POSTOPERATIVE PLAN: Passive range of motion and sling wear for 4 weeks. The patient was transferred to the recovery room, awake and in stable condition. STATEMENT OF MEDICAL NECESSITY: The patient is a 51-year-old right hand dominant gentleman who previously underwent a left shoulder biceps tenodesis. He has been doing very well from this until while moving his place of residence, he was lifting and felt pain in his shoulder and since then he has had weakness and MRI confirmed a full thickness supraspinatus tear and due to failure to improve with conservative measures, the patient elected to proceed with surgical intervention. Examination under anesthesia revealed forward elevation 170 degrees, external rotation of 90 degrees, internal rotation of 70 degrees. Arthroscopic findings demonstrated a 75% tear of the supraspinatus at its midportion insertion site. The remainder of the rotator cuff was intact. The biceps anchor was absent. There was a flap tear of the anterior labrum at the 9 o'clock position. The remainder of the labrum was intact. There was no significant glenoid or humeral head articular wear. There was moderate bursitis in the subacromial space with moderate sloping in the anterolateral acromion. DESCRIPTION OF PROCEDURE: After risks and benefits of procedure were discussed and questions were answered, an informed consent was signed and placed on chart. The operative site was confirmed in the preoperative holding area initialed by the surgeon. The patient was then transported to the operating room and after adequate levels of regional plus general endotracheal anesthetic were obtained, a timeout was called confirming the operative site. The left upper extremity was then prepped and draped in the usual sterile fashion. Shoulder joint was injected with 20 mL of fluid as was the subacromial space. Standard posterior portal was placed under direct visualization. Anterior portal was created in the interval between the subscapularis, glenoid and superior aspect of the labrum at the previous biceps attachment site. The labrum was then debrided with a shaver after performing diagnostic arthroscopy and the scope was redirected into the subacromial space and lateral portal was created. Bursectomy was performed and the acromion was planed to a flat type 1 acromion. Lateral portal was then extended and the deltoid was leaving attached to the acromion. The rotator cuff was sharply incised at its near full thickness tear site and then repaired to a bleeding bony bed using a single corkscrew anchor in a modified Marcellus -- Richard repair. An excellent repair was obtained with no undue tension noted at the arm site. The wound was copiously irrigated. The deltoid was repaired in a cdpm-fx-disn fashion using #2 FiberWire in [id number] interrupted fashion. The wound was further irrigated. A 2-0 Vicryl was used to reapproximate subcutaneous tissue and skin was closed with 4-0 nylon in a running alternating horizontal mattress fashion. The portal sites were closed with 4-0 nylon in a simple interrupted fashion. The incision was infiltrated with plain Marcaine. Shoulder joint was injected with Duramorph. A soft dressing and sling were applied. The patient was transferred to the recovery room awake in stable condition. Job ID: [id number] DocumentID: [id number] Dictated Date: 05/06/2017 10:59:17 Netezza Developer Date: 05/06/2017 20:11:53 Dictated By: ADÁN HANSON MD
[2017-05-07] MEDS ORDERED: 0.9% SODIUM CHLORIDE PF INJ 20 ML VIAL ONE (14:46)
--- OUTSIDE RECORDS SUMMARY | 2017-05-07 18:04 | XMS REPORT ---
Author Author MADDY LOBO [facility] Address [address] [place] [address] Care Team Providers Care Medical Artist Name Role Phone MADDY LOBO Unavailable PROBLEMS Type Condition ICD9-CM Code GDW26-PI Code Onset Dates Condition Status SNOMED Code Problem Other chronic pain G89.29 Active 82573129 Problem 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 mellitus 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, unspecified termite technician insulin use status E11.9 Active 760839694 Problem Gastritis, unspecified, without bleeding K29.70 Active 5711538 Problem Tear of left rotator cuff, unspecified tear extent M75.102 Active 1891109 Problem Uncontrolled type 2 diabetes mellitus 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, without long-term current use of insulin E11.65 Active 969069569 Problem Mood disorder F39 Active 68665034 Problem Tear of right rotator cuff, unspecified tear extent M75.101 Active 451857851 ALLERGIES No Information SOCIAL HISTORY Never Assessed PLAN OF CARE VITAL SIGNS MEDICATIONS Unknown Medications RESULTS No Results PROCEDURES No Known procedures IMMUNIZATIONS No Known Immunizations MEDICAL (GENERAL) HISTORY Type Description Date Medical History type II diabetes Medical History diabetic neuropathy--stage 7-8 per neurologist Medical History hypertension Medical History hyperlipidemia Medical History migraine headaches-recently treated with nreve injections/ botox injections Medical History 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, recurrent infection in 1993 but trach not needed then Medical History gerd Medical History Hx of lung cancer July 2015 Medical History sleep apnea Surgical History cholecystectomy Surgical History appendectomy Surgical History Left leg fracture age 14 Surgical History carpal tunnel release (B) 1999 Surgical History Sinus surgery 2014 Surgical History temporary trachiotomy s/p staph infection of epiglottis 1992 Surgical History ACL repair (R) 2007 Surgical History left knee arthroscopy 1995 Surgical History 20% of left lung removed due to cancer july 2015 Surgical History shoulder surgery 12/31/2016 Hospitalization History [facility]-staph infection of epiglottis 1992 Hospitalization History [facility]-staph infection of epiglottis 1993 Hospitalization History x1 week post op -lung cancer july 2015
--- OUTSIDE RECORDS SUMMARY | 2017-05-07 18:04 | XMS REPORT ---
Author Author ELIZABETH ORELLANA [facility] Address [address] [place] [address] Care Team Providers Care Marzipan Maker Name Role Phone ESTEBAN ELIZABETH Unavailable PROBLEMS Type Condition ICD9-CM Code GKL12-MW Code Onset Dates Condition Status SNOMED Code Problem Uncontrolled type 2 diabetes mellitus 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, without long-term current use of insulin E11.65 Active 289314988 Problem Other chronic pain G89.29 Active 80746675 Problem Hyperlipidemia, unspecified E78.5 Active 59860583 Problem 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 mellitus 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, unspecified caddy master insulin use status E11.9 Active 875947214 Problem Tear of right rotator cuff, unspecified tear extent M75.101 Active 259779714 Problem Tear of left rotator cuff, unspecified tear extent M75.102 Active 5056298 Problem Gastritis, unspecified, without bleeding K29.70 Active 2742913 Problem Mood disorder F39 Active 00133688 ALLERGIES No Information SOCIAL HISTORY Never Assessed PLAN OF CARE VITAL SIGNS MEDICATIONS Medication Instructions Dosage Frequency Start Date End Date Duration Status [place] 10-325 MG Orally every 6 hrs 1 tablet as needed 6h Jun, 28 days Active RESULTS No Results PROCEDURES No Known procedures [...]
--- OUTSIDE RECORDS SUMMARY | 2017-05-07 18:04 | XMS REPORT | Clinical Summary ---
Author Author [facility] Address Unknown Phone Unavailable Support Name Relationship Address Phone , Yaima Ramos ECON [address] [address] , Lucia Ramos ECON [address] [place], [place] Allergies No Known Allergies Current Medications Not on file Active Problems Problem Noted Date Renal failure 12/11/2010 Anoxic brain injury (HCC) 12/11/2010 Pulmonary contusion 12/11/2010 Pulmonary embolus, right (HCC) 11/28/2010 Ribs, multiple fractures 11/11/2010 Overview: R # 1-12, L # 1 Concussion 11/11/2010 Acute alcohol intoxication (HCC) 11/11/2010 Immunizations Name Dates Previously Given Next Due Td(adult), adsorbed 11/26/2010 Social History Tobacco Use Types Packs/Day Years Used Date Current Some Day Smoker Alcohol Use Drinks/Week oz/Week Comments Yes 7 Cans of 4.2 beer Sex Assigned at Date Recorded Not on file Last Filed Vital Signs Vital Sign Reading Time Taken Blood Pressure 83/48 12/13/2010 3:28 PM CDT Pulse 0 12/13/2010 3:42 PM CDT Temperature 37.1 C (98.8 F) 12/13/2010 3:28 PM CDT Respiratory Rate 0 12/13/2010 3:42 PM CDT Oxygen Saturation 100% 12/13/2010 3:28 PM CDT Inhaled Oxygen - - Concentration Weight 93.7 kg (206 lb 9.1 oz) 12/13/2010 6:00 AM CDT Height 167.6 cm (5' 6") 11/22/2010 4:59 AM CDT Body Mass Index 33.34 12/13/2010 6:00 AM CDT Plan of Treatment Not on file Results Not on filefrom Last 3 Months
--- OUTSIDE RECORDS SUMMARY | 2017-05-07 18:04 | XMS REPORT ---
Author Author ELIZABETH ORELLANA [facility] Address [address] [place] [address] Care Team Providers Care Room Attendants Name Role Phone ELIZABETH ORELLANA Unavailable PROBLEMS Type Condition ICD9-CM Code [id number] Code Onset Dates Condition Status SNOMED Code Problem Other chronic pain G89.29 Active 23521832 Problem 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 mellitus 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, unspecified exterminator helper insulin use status E11.9 Active 563999702 Problem Gastritis, unspecified, without bleeding K29.70 Active 7942099 Problem Tear of left rotator cuff, unspecified tear extent M75.102 Active 9303778 Problem Uncontrolled type 2 diabetes mellitus 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, without long-term current use of insulin E11.65 Active 467341167 Problem Mood disorder F39 Active 00317792 Problem Tear of right rotator cuff, unspecified tear extent M75.101 Active 572274862 ALLERGIES Unknown Allergies SOCIAL HISTORY No smoking Hx information available PLAN OF CARE VITAL SIGNS MEDICATIONS Unknown Medications RESULTS No Results PROCEDURES No Known procedures IMMUNIZATIONS No Known Immunizations
--- OUTSIDE RECORDS SUMMARY | 2017-05-07 18:05 | XMS REPORT ---
Author Author MADDY LOBO [facility] Address [address] [place] [address] Care Team Providers Care Ramp Manager Name Role Phone MADDY LOBO Unavailable PROBLEMS Type Condition ICD9-CM Code [id number] Code Onset Dates Condition Status SNOMED Code Problem Uncontrolled type 2 diabetes mellitus 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, without long-term current use of insulin E11.65 Active 854965053 Problem Other chronic pain G89.29 Active 13093831 Problem Hyperlipidemia, unspecified E78.5 Active 51434834 Problem 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 mellitus 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, unspecified marine oil terminal superintendent insulin use status E11.9 Active 383153559 Problem Tear of right rotator cuff, unspecified tear extent M75.101 Active 982538125 Problem Tear of left rotator cuff, unspecified tear extent M75.102 Active 7035441 Problem Gastritis, unspecified, without bleeding K29.70 Active 8780908 Problem Mood disorder F39 Active 40038030 ALLERGIES No Information SOCIAL HISTORY Never Assessed [...]
--- OUTSIDE RECORDS SUMMARY | 2017-05-07 18:05 | XMS REPORT ---
Author Author ELIZABETH ORELLANA [facility] Address [address] [place] [address] Care Team Providers Care Commercial Airplane Pilot Name Role Phone ELIZABETH ORELLANA Unavailable PROBLEMS Type Condition ICD9-CM Code PZL49-[id number] Code Onset Dates Condition Status SNOMED Code Problem Uncontrolled type 2 diabetes mellitus 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, without long-term current use of insulin E11.65 Active 432245018 Problem Other chronic pain G89.29 Active 21222768 Problem Hyperlipidemia, unspecified E78.5 Active 84925411 Problem 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 mellitus 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, unspecified terminal make up operator insulin use status E11.9 Active 010686911 Problem Tear of right rotator cuff, unspecified tear extent M75.101 Active 645520493 Problem Tear of left rotator cuff, unspecified tear extent M75.102 Active 3815423 Problem Gastritis, unspecified, without bleeding K29.70 Active 8560141 Problem Mood disorder F39 Active 31352439 ALLERGIES No Information SOCIAL HISTORY Never Assessed PLAN OF CARE VITAL SIGNS MEDICATIONS Unknown Medications RESULTS Name Result Date Reference Range CBC 2016-09-23 WBC 11.8 3.4-10.8 RBC 5.03 4.14-5.80 Hemoglobin 14.8 12.6-17.7 Hematocrit 45.5 37.5-51.0 MCV 91 79-97 MCH 29.4 26.6-33.0 MCHC 32.5 31.5-35.7 RDW 13.2 12.3-15.4 Platelets 313 150-379 Neutrophils 54 Lymphs 33 Monocytes 6 Eos 6 Basos 1 Immature Cells Neutrophils (Absolute) 6.3 1.4-7.0 Lymphs (Absolute) 3.9 0.7-3.1 Monocytes(Absolute) 0.8 0.1-0.9 Eos (Absolute) 0.7 0.0-0.4 Baso (Absolute) 0.1 0.0-0.2 Immature Granulocytes 0 Immature Grans (Abs) 0.0 0.0-0.1 NRBC Hematology Comments: LIPID PANEL 2016-09-23 Cholesterol, Total 186 100-199 Triglycerides 453 0-149 HDL Cholesterol 32 >39 VLDL Cholesterol Perico 5-40 LDL Cholesterol Calc 0-99 Comment: CMP 2016-09-23 Glucose, Serum 304 65-99 BUN 15 6-24 Creatinine, Serum 1.10 0.76-1.27 eGFR If NonAfricn Am 77 >59 eGFR If Africn Am 89 >59 BUN/Creatinine Ratio 14 9-20 Sodium, Serum 137 134-144 Potassium, Serum 4.2 3.5-5.2 Chloride, Serum 97 96-106 Carbon Dioxide, Total 23 18-29 Calcium, Serum 9.4 8.7-10.2 Protein, Total, Serum 7.4 6.0-8.5 Albumin, Serum 4.7 3.5-5.5 Globulin, Total 2.7 1.5-4.5 A/G Ratio 1.7 1.2-2.2 Bilirubin, Total <0.2 0.0-1.2 Alkaline Phosphatase, S 116 39-117 AST (SGOT) 13 0-40 ALT (SGPT) 15 0-44 PROCEDURES Procedure Date Ordered Result Body Site LAB NOT BILLED BY [facility] September 23, 2016 VENIPUNCT, ROUTINE* September 23, 2016 IMMUNIZATIONS No Known Immunizations MEDICAL (GENERAL) HISTORY [...]
--- OUTSIDE RECORDS SUMMARY | 2017-05-07 18:05 | XMS REPORT ---
Author Author ELIZABETH ORELLANA Organization [facility] Address [address] [place] [address] Care Team Providers Care Vice President Global Digital Marketing Name Role Phone ESTEBAN ELIZABETH Unavailable PROBLEMS Type Condition ICD9-CM Code [id number] Code Onset Dates Condition Status SNOMED Code Problem Other chronic pain G89.29 Active 74892480 Problem 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 mellitus 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, unspecified care home insulin use status E11.9 Active 829651827 Problem Gastritis, unspecified, without bleeding K29.70 Active 5595656 Problem Tear of left rotator cuff, unspecified tear extent M75.102 Active 1259303 Problem Uncontrolled type 2 diabetes mellitus 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, without long-term current use of insulin E11.65 Active 906568241 Problem Mood disorder F39 Active 91309220 Problem Tear of right rotator cuff, unspecified tear extent M75.101 Active 103452575 ALLERGIES No Information SOCIAL HISTORY Never Assessed PLAN OF CARE VITAL SIGNS MEDICATIONS Medication Instructions Dosage Frequency Start Date End Date Duration Status [place] 10-325 MG Orally every 6 hrs 1 tablet as needed 6h May, 28 days Active RESULTS No Results PROCEDURES [...]
--- OUTSIDE RECORDS SUMMARY | 2017-05-07 18:05 | XMS REPORT ---
Author Author ELIZABETH ORELLANA Organization [facility] Address [address] [place] [address] Care Team Providers Care Oncology Coordinator Name Role Phone ESTEBAN ELIZABETH Unavailable PROBLEMS Type Condition ICD9-CM Code PYB87-OA Code Onset Dates Condition Status SNOMED Code Problem Other chronic pain G89.29 Active 09644196 Problem 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 mellitus 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, unspecified fdc insulin use status E11.9 Active 318003705 Problem Gastritis, unspecified, without bleeding K29.70 Active 7563895 Problem Tear of left rotator cuff, unspecified tear extent M75.102 Active 4520938 Problem Uncontrolled type 2 diabetes mellitus 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, without long-term current use of insulin E11.65 Active 678951527 Problem Mood disorder F39 Active 69256507 Problem Tear of right rotator cuff, unspecified tear extent M75.101 Active 185743263 ALLERGIES Substance Reaction Event Type Date Status Zofran Unknown Drug Allergy Apr, Active Penicillin V Potassium Unknown Drug Allergy Apr, Active Latex tape Unknown Non Drug Allergy Apr, Active SOCIAL HISTORY No smoking Hx information available PLAN OF CARE VITAL SIGNS Height 69 in 2016-05-15 Weight 199 lbs 2016-05-15 Temperature 98.1 degrees Fahrenheit 2016-05-15 Heart Rate 82 bpm 2016-05-15 Respiratory Rate 16 2016-05-15 BMI 29.38 kg/m2 2016-05-15 Blood pressure systolic 120 mmHg 2016-05-15 Blood pressure diastolic 80 mmHg 2016-05-15 MEDICATIONS Medication Instructions Dosage Frequency Start Date End Date Duration Status Imitrex 50 mg Orally Once a day as needed, max 3/week 1 tablet as needed one time 30 days Active Prochlorperazine 10 mg Orally Three times a day as needed for nausea 1 tablet 30 days Active Metformin HCl 1000 MG Orally Twice a day 1 tablet with meals 12h 30 days Active Nortriptyline HCl 75 MG Orally Once a day at hs 2 capsules Active Omeprazole 40 mg Orally Once a day 1 capsule 24h 30 days Active Aspirin 81 MG Orally Once a day 1 tablet 24h Active GlipiZIDE ER 10 mg Orally Once a day 1 tablet 24h 30 days Active [place] 10-325 MG Orally every 6 hrs 1 tablet as needed 6h Apr, Active Simvastatin 20 mg Orally Once a day 1 tablet in the evening 24h Jan, 30 day(s) Active Fenofibrate 160 MG Orally Once a day 1 tablet with a meal 24h 30 days Active Cymbalta 30 MG Orally Once a day 2 capsules 24h 30 days Active Topamax 100 MG Orally Twice a day 1 tablet 12h 30 days Active RESULTS Name Result Date Reference Range A1C (IN HOUSE) 2016-05-15 A1C IN HOUSE 9.4 4.3 - 5.6 % Previous A1c 14 Lot [id number] Exp date 02/2018 MICROALBUMIN, URINE (IN HOUSE) 2016-05-15 MICROALBUMIN Abnormal Lot # [id number] Exp date 11/2016 Clarity clear Color yellow ALB 30mg/l CRE 50mg/dl A:C (IN HOUSE) 30-300mg/g Control Control Lot # Exp date [employer] 2016-05-15 PROCEDURES Procedure Date Ordered Related Diagnosis Body Site GLYCATED HEMOGLOBIN TEST May 15, 2016 No Charge May 15, 2016 MICROALBUMIN, SEMIQUANT May 15, 2016 IMMUNIZATIONS No Known Immunizations
--- OUTSIDE RECORDS SUMMARY | 2017-05-07 18:06 | XMS REPORT | Continuity of Care Document ---
Author Author [facility] Organization [facility] Address Unknown Phone Unavailable Allergies Active Description Code Type Severity Reaction Onset Reported/Identified Relationship to Patient Clinical Status Yes latex [id number] Drug Allergy Moderate RASH 12/26/2016 Yes morphine [id number] Drug Allergy Unknown BECK 12/26/2016 Yes ondansetron [id number] Drug Allergy Unknown N/A 12/26/2016 Yes Penicillins [id number] Drug Allergy Unknown N/A 12/26/2016 Medications There is no data. Problems Date Dx Coded Attending Type Code Diagnosis Diagnosed By 12/04/2014 LAINEY HICKS, AMADOR Garces Ot 338.29 OTHER CHRONIC PAIN 12/04/2014 LAINEY HICKS, AMADOR Garces Ot 346.90 MIGRAINE UNSPECIFIED W/O INTRACT MGRN W/ 12/04/2014 AMADOR RETANA MD Ot 784.0 HEADACHE 12/26/2014 PLACIDO GOMEZ MD Ot 473.9 CHRONIC SINUSITIS NOS 12/26/2014 PLACIDO GOMEZ MD Ot 786.2 COUGH 12/26/2014 PLACIDO GOMEZ MD Ot 847.0 SPRAIN OF NECK 12/26/2014 PLACIDO GOMEZ MD Ot E000.8 OTHER EXTERNAL CAUSE STATUS 12/26/2014 PLACIDO GOMEZ MD Ot E927.0 OVEREXERTION FROM SUDDEN STRENUOUS MOVEM 06/19/2015 AMADOR RETANA MD Ot D72.829 ELEVATED WHITE BLOOD CELL COUNT, UNSPECI 06/19/2015 AMADOR RETANA MD Ot K20.9 ESOPHAGITIS, UNSPECIFIED 06/19/2015 AMADOR RETANA MD Ot K76.0 FATTY (CHANGE OF) LIVER, NOT ELSEWHERE C 06/19/2015 AMADOR RETANA MD Ot R07.89 OTHER CHEST PAIN 06/19/2015 AMADOR RETANA MD Ot R91.1 SOLITARY PULMONARY NODULE 11/23/2015 SELENA AVENDANO APRN Ot E11.65 TYPE 2 DIABETES MELLITUS WITH HYPERGLYCE 11/23/2015 SELENA AVENDANO APRN Ot L02.212 CUTANEOUS ABSCESS OF BACK [ANY PART, EXC 11/23/2015 SELENA AVENDANO APRN Ot Z79.899 OTHER PRIZE JACKER (CURRENT) DRUG THERAPY 11/23/2015 SELENA AVENDANO APRN Ot Z86.14 PERSONAL HISTORY OF METHICILLIN RESIS ST 12/29/2015 SELENA AVENDANO APRN, Ot E11.65 TYPE 2 DIABETES MELLITUS WITH HYPERGLYCE 12/29/2015 SELENA AVENDANO APRN Ot L02.212 CUTANEOUS ABSCESS OF BACK [ANY PART, EXC 12/29/2015 SELENA AVENDANO APRN, Ot Z79.899 OTHER USP (CURRENT) DRUG THERAPY 12/29/2015 SELENA AVENDANO APRN, Ot Z86.14 PERSONAL HISTORY OF METHICILLIN RESIS ST 12/26/2016 ROSALBA HANSON MD, Ot M75.102 UNSP ROTATR-CUFF TEAR/RUPTR OF LEFT SHOU 12/26/2016 ROSALBA HANSON MD, Ot S43.402A UNSPECIFIED SPRAIN OF LEFT SHOULDER JOIN 12/26/2016 ROSALBA HANSON MD, Ot X58.XXXA EXPOSURE TO OTHER SPECIFIED FACTORS, INI 12/26/2016 ROSALBA HANSON MD, Ot Y99.8 OTHER EXTERNAL CAUSE STATUS 12/26/2016 ROSALBA HANSON MD, Ot Z01.818 ENCOUNTER FOR OTHER PREPROCEDURAL EXAMIN 12/31/2016 ROSALBA HANSON MD, Ot E11.40 TYPE 2 DIABETES MELLITUS WITH DIABETIC N 12/31/2016 ROSALBA HANSON MD, Ot E78.5 HYPERLIPIDEMIA, UNSPECIFIED 12/31/2016 ROSALBA HANSON MD, Ot F17.210 NICOTINE DEPENDENCE, CIGARETTES, UNCOMPL 12/31/2016 ROSALBA HANSON MD, Ot F32.9 MAJOR DEPRESSIVE DISORDER, SINGLE EPISOD 12/31/2016 ROSALBA HANSON MD, Ot F41.9 ANXIETY DISORDER, UNSPECIFIED 12/31/2016 ROSALBA HANSON MD, Ot G47.33 OBSTRUCTIVE SLEEP APNEA (ADULT) (PEDIATR 12/31/2016 ROSALBA HANSON MD, Ot I10 ESSENTIAL (PRIMARY) HYPERTENSION 12/31/2016 ROSALBA HANSON MD, Ot K21.9 GASTRO-ESOPHAGEAL REFLUX DISEASE WITHOUT 12/31/2016 ROSALBA HANSON MD, Ot 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, LEF 12/31/2016 ROSALBA HANSON MD, Ot M65.812 OTHER SYNOVITIS AND TENOSYNOVITIS, LEFT 12/31/2016 ROSALBA HANSON MD, Ot M75.42 IMPINGEMENT SYNDROME OF LEFT SHOULDER 12/31/2016 ROSALBA HANSON MD, Ot Z79.82 PRIZE JACKER (CURRENT) USE OF ASPIRIN 12/31/2016 ROSALBA HANSON MD, Ot Z79.899 OTHER PRIZE JACKER (CURRENT) DRUG THERAPY 12/31/2016 ROSALBA HANSON MD, Ot Z85.118 PERSONAL HISTORY OF MALIGNANT NEOPLASM O 01/01/2017 ROSALBA HANSON MD, Ot M75.102 UNSP ROTATR-CUFF TEAR/RUPTR OF LEFT SHOU 01/01/2017 ROSALBA HANSON MD, Ot S43.402A UNSPECIFIED SPRAIN OF LEFT SHOULDER JOIN 01/01/2017 ROSALBA HANSON MD, Ot X58.XXXA EXPOSURE TO OTHER SPECIFIED FACTORS, INI 01/01/2017 ROSALBA HANSON MD, Ot Y99.8 OTHER EXTERNAL CAUSE STATUS 01/01/2017 ROSALBA HANSON MD, Ot Z01.818 ENCOUNTER FOR OTHER PREPROCEDURAL EXAMIN 01/01/2017 ROSALBA HANSON MD, Ot E11.40 TYPE 2 DIABETES MELLITUS WITH DIABETIC N 01/01/2017 ROSALBA HANSON MD, Ot E78.5 HYPERLIPIDEMIA, UNSPECIFIED 01/01/2017 ROSALBA HANSON MD, Ot F17.210 NICOTINE DEPENDENCE, CIGARETTES, UNCOMPL 01/01/2017 ROSALBA HANSON MD, Ot F32.9 MAJOR DEPRESSIVE DISORDER, SINGLE EPISOD 01/01/2017 ROSALBA HANSON MD, Ot F41.9 ANXIETY DISORDER, UNSPECIFIED 01/01/2017 ROSALBA HANSON MD, Ot G47.33 OBSTRUCTIVE SLEEP APNEA (ADULT) (PEDIATR 01/01/2017 ROSALBA HANSON MD, Ot I10 ESSENTIAL (PRIMARY) HYPERTENSION 01/01/2017 ROSALBA HANSON MD, Ot K21.9 GASTRO-ESOPHAGEAL REFLUX DISEASE WITHOUT 01/01/2017 ROSALBA HANSON MD, Ot 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, LEF 01/01/2017 ROSALBA HANSON MD, Ot M65.812 OTHER SYNOVITIS AND TENOSYNOVITIS, LEFT 01/01/2017 ROSALBA HANSON MD, Ot M75.42 IMPINGEMENT SYNDROME OF LEFT SHOULDER 01/01/2017 ROSALBA HANSON MD, Ot Z79.82 PRIZE JACKER (CURRENT) USE OF ASPIRIN 01/01/2017 ROSALBA HANSON MD, Ot Z79.899 OTHER USP (CURRENT) DRUG THERAPY 01/01/2017 ROSALBA HANSON MD, Ot Z85.118 PERSONAL HISTORY OF MALIGNANT NEOPLASM O 01/02/2017 ROSALBA HANSON MD, Ot M25.512 PAIN IN LEFT SHOULDER 01/02/2017 ROSALBA HANSON MD, Ot Z47.89 ENCOUNTER FOR OTHER ORTHOPEDIC AFTERCARE 01/06/2017 ROSALBA HANSON MD, Ot E11.40 TYPE 2 DIABETES MELLITUS WITH DIABETIC N 01/06/2017 ROSALBA HANSON MD, Ot E78.5 HYPERLIPIDEMIA, UNSPECIFIED 01/06/2017 ROSALBA HANSON MD, Ot F17.210 NICOTINE DEPENDENCE, CIGARETTES, UNCOMPL 01/06/2017 ROSALBA HANSON MD, Ot F32.9 MAJOR DEPRESSIVE DISORDER, SINGLE EPISOD 01/06/2017 ROSALBA HANSON MD, Ot F41.9 ANXIETY DISORDER, UNSPECIFIED 01/06/2017 ROSALBA HANSON MD, Ot G47.33 OBSTRUCTIVE SLEEP APNEA (ADULT) (PEDIATR 01/06/2017 ROSALBA HANSON MD, Ot I10 ESSENTIAL (PRIMARY) HYPERTENSION 01/06/2017 ROSALBA HANSON MD, Ot K21.9 GASTRO-ESOPHAGEAL REFLUX DISEASE WITHOUT 01/06/2017 ROSALBA HANSON MD, Ot 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, LEF 01/06/2017 ROSALBA HANSON MD, Ot M65.812 OTHER SYNOVITIS AND TENOSYNOVITIS, LEFT 01/06/2017 ROSALBA HANSON MD, Ot M75.42 IMPINGEMENT SYNDROME OF LEFT SHOULDER 01/06/2017 RSOALBA HANSON MD, Ot Z79.82 PRIZE JACKER (CURRENT) USE OF ASPIRIN 01/06/2017 ROSALBA HANSON MD, Ot Z79.899 OTHER PRIZE JACKER (CURRENT) DRUG THERAPY 01/06/2017 ROSALBA HANSON MD, Ot Z85.118 PERSONAL HISTORY OF MALIGNANT NEOPLASM O 01/09/2017 ROSALBA HANSON MD, Ot E11.40 TYPE 2 DIABETES MELLITUS WITH DIABETIC N 01/09/2017 ROSALBA HANSON MD, Ot E78.5 HYPERLIPIDEMIA, UNSPECIFIED 01/09/2017 ROSALBA HANSON MD, Ot F17.210 NICOTINE DEPENDENCE, CIGARETTES, UNCOMPL 01/09/2017 ROSALBA HANSON MD, Ot F32.9 MAJOR DEPRESSIVE DISORDER, SINGLE EPISOD 01/09/2017 ROSALBA HANSON MD, Ot F41.9 ANXIETY DISORDER, UNSPECIFIED 01/09/2017 ROSALBA HANSON MD, Ot G47.33 OBSTRUCTIVE SLEEP APNEA (ADULT) (PEDIATR 01/09/2017 ROSALBA HANSON MD, Ot I10 ESSENTIAL (PRIMARY) HYPERTENSION 01/09/2017 ROSALBA HANSON MD, Ot K21.9 GASTRO-ESOPHAGEAL REFLUX DISEASE WITHOUT 01/09/2017 ROSALBA HANSON MD, Ot 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, LEF 01/09/2017 ROSALBA HANSON MD, Ot M65.812 OTHER SYNOVITIS AND TENOSYNOVITIS, LEFT 01/09/2017 ROSLABA HANSON MD, Ot M75.42 IMPINGEMENT SYNDROME OF LEFT SHOULDER 01/09/2017 ROSALBA HANSON MD, Ot Z79.82 PRIZE JACKER (CURRENT) USE OF ASPIRIN 01/09/2017 ROSALBA HANSON MD, Ot Z79.899 OTHER USP (CURRENT) DRUG THERAPY 01/09/2017 ROSALBA HANSON MD, Ot Z85.118 PERSONAL HISTORY OF MALIGNANT NEOPLASM O 01/24/2017 ROSALBA HANSON MD, Ot M25.512 PAIN IN LEFT SHOULDER 01/24/2017 ROSALBA HANSON MD, Ot S43.432D SUPERIOR GLENOID LABRUM LESION OF LEFT S 01/24/2017 ROSALBA HANSON MD, Ot Z47.89 ENCOUNTER FOR OTHER ORTHOPEDIC AFTERCARE 01/26/2017 ROSALBA HANSON MD, Ot M25.512 PAIN IN LEFT SHOULDER 01/26/2017 ROSALBA HANSON MD, Ot Z47.89 ENCOUNTER FOR OTHER ORTHOPEDIC AFTERCARE 01/30/2017 ROSALBA HANSON MD, Ot S43.432D SUPERIOR GLENOID LABRUM LESION OF LEFT S 02/20/2017 ROSALBA HANSON MD, Ot M25.512 PAIN IN LEFT SHOULDER 02/20/2017 ROSALBA HANSON MD, Ot Z47.89 ENCOUNTER FOR OTHER ORTHOPEDIC AFTERCARE 05/04/2017 ROSALBA HANSON MD, Ot M75.102 UNSP ROTATR-CUFF TEAR/RUPTR OF LEFT SHOU 05/04/2017 ROSALBA HANSON MD, Ot Z01.818 ENCOUNTER FOR OTHER PREPROCEDURAL EXAMIN 05/04/2017 ROSALBA HANSON MD, Ot Z11.2 ENCOUNTER FOR SCREENING FOR OTHER BACTER Procedures There is no data. Results Test Result Range Complete blood count (CBC) with automated white blood cell (WBC) differential - 11/23/15 14:50 Blood leukocytes automated count (number/volume) 16.7 10*3/uL 4.3-11.0 Blood erythrocytes automated count (number/volume) 4.57 10*6/uL 4.35-5.85 Venous blood hemoglobin measurement (mass/volume) 13.7 g/dL 13.3-17.7 Blood hematocrit (volume fraction) 40 % 40-54 Automated erythrocyte mean corpuscular volume 87 [foz_us] 80-99 Automated erythrocyte mean corpuscular hemoglobin (mass per erythrocyte) 30 pg 25-34 Automated erythrocyte mean corpuscular hemoglobin concentration measurement ( mass/volume) 34 g/dL 32-36 Automated erythrocyte distribution width ratio 12.6 % 10.0-14.5 Automated blood platelet count (count/volume) 240 10*3/uL 130-400 Automated blood platelet mean volume measurement 11.3 [foz_us] 7.4-10.4 Automated blood neutrophils/100 leukocytes 77 % 42-75 Automated blood lymphocytes/100 leukocytes 14 % 12-44 Blood monocytes/100 leukocytes 7 % 0-12 Automated blood eosinophils/100 leukocytes 3 % 0-10 Automated blood basophils/100 leukocytes 0 % 0-10 Blood neutrophils automated count (number/volume) 12.8 10*3 1.8-7.8 Blood lymphocytes automated count (number/volume) 2.3 10*3 1.0-4.0 Blood monocytes automated count (number/volume) 1.1 10*3 0.0-1.0 Automated eosinophil count 0.4 10*3/uL 0.0-0.3 Automated blood basophil count (count/volume) 0.1 10*3/uL 0.0-0.1 Blood manual differential performed detection - 11/23/15 14:50 Blood monocytes/100 leukocytes 1 % NRG Manual blood segmented neutrophils/100 leukocytes 87 % NRG Blood band neutrophils/100 leukocytes 0 % NRG Manual blood lymphocytes/100 leukocytes 5 % NRG Manual eosinophils/100 leukocytes in nose 3 % NRG Manual blood basophils/100 leukocytes 0 % NRG Blood lymphocytes variant/100 leukocytes 4 % NR Blood erythrocyte morphology finding identification NORMAL NR Comprehensive metabolic panel - 11/23/15 14:50 Serum or plasma sodium measurement (moles/volume) 132 mmol/L 135-145 Serum or plasma potassium measurement (moles/volume) 4.0 mmol/L 3.6-5.0 Serum or plasma chloride measurement (moles/volume) 99 mmol/L 98-107 Carbon dioxide 22 mmol/L 21-32 Serum or plasma anion gap determination (moles/volume) 11 mmol/L 5-14 Serum or plasma urea nitrogen measurement (mass/volume) 14 mg/dL 7-18 Serum or plasma creatinine measurement (mass/volume) 1.27 mg/dL 0.60-1.30 Serum or plasma urea nitrogen/creatinine mass ratio 11 NRG Serum or plasma creatinine measurement with calculation of estimated glomerular filtration rate 60 NRG Serum or plasma glucose measurement (mass/volume) 683 mg/dL 70-105 Serum or plasma calcium measurement (mass/volume) 8.9 mg/dL 8.5-10.1 Serum or plasma total bilirubin measurement (mass/volume) 0.3 mg/dL 0.1-1.0 Serum or plasma alkaline phosphatase measurement (enzymatic activity/volume) 123 U/L 40-136 Serum or plasma aspartate aminotransferase measurement (enzymatic activity/ volume) 8 U/L 5-34 Serum or plasma alanine aminotransferase measurement (enzymatic activity/volume ) 12 U/L 0-55 Serum or plasma protein measurement (mass/volume) 7.2 g/dL 6.4-8.2 Serum or plasma albumin measurement (mass/volume) 4.2 g/dL 3.2-4.5 Gram stain microscopy - 11/23/15 16:00 GRAM STAIN RESULT FEW GRAM POSITIVE COCCI RESEMBLING STAPH [facility] Bacteria identification in wound by culture - 11/23/15 16:00 Bacteria identification in wound by culture [id number] [facility] FREE TEXT EXTERNAL SENSITIVITY REPORTED 11/23 15:30 NRG QUANTITY OF GROWTH Abundant Growth NR MRSA AGAR MRSA isolated (Screening test for MRSA is positive) NRG CALL POSITIVES (F1 HELP) CALLED TO BLUE IN ER 11/23 08:10 NRG Bacterial susceptibility panel - 11/23/15 16:00 Oxacillin susceptibility test by minimum inhibitory concentration > = NRG Gentamicin susceptibility test by minimum inhibitory concentration < = NRG Clindamycin susceptibility test by minimum inhibitory concentration <= NRG Erythromycin susceptibility test by minimum inhibitory concentration >= NRG Trimethoprim/sulfamethoxazole susceptibility test by minimum inhibitoryconcentration 20 NRG Vancomycin susceptibility test by minimum inhibitory concentration < = NRG Levofloxacin susceptibility test by minimum inhibitory concentration 4 NRG Rifampin susceptibility test by minimum inhibitory concentration <= NRG Tetracycline susceptibility test by minimum inhibitory concentration <= NRG Ciprofloxacin susceptibility test by minimum inhibitory concentration R NRG Capillary blood glucose measurement by glucometer (mass/volume) - 11/23/15 16: 36 Capillary blood glucose measurement by glucometer (mass/volume) 341 mg/dL 70-110 Complete urinalysis with reflex to culture - 11/23/15 17:15 Urine color determination YELLOW NRG Urine clarity determination CLEAR NRG Urine pH measurement by test strip 5 5-9 Specific gravity of urine by test strip 1.015 1.016- 1.022 Urine protein assay by test strip, semi-quantitative NEGATIVE NEGATIVE Urine glucose detection by automated test strip 4+ NEGATIVE Erythrocytes detection in urine sediment by light microscopy NEGATIVE NEGATIVE Urine ketones detection by automated test strip NEGATIVE NEGATIVE Urine nitrite detection by test strip NEGATIVE NEGATIVE Urine total bilirubin detection by test strip NEGATIVE NEGATIVE Urine urobilinogen measurement by automated test strip (mass/volume) NORMAL NORMAL Urine leukocyte esterase detection by dipstick NEGATIVE NEGATIVE Automated urine sediment erythrocyte count by microscopy (number/high power field) NONE NRG Automated urine sediment leukocyte count by microscopy (number/high power field ) NONE NRG Bacteria detection in urine sediment by light microscopy NEGATIVE NRG Squamous epithelial cells detection in urine sediment by light microscopy NONE NRG Crystals detection in urine sediment by light microscopy NONE NRG Casts detection in urine sediment by light microscopy NONE NRG Mucus detection in urine sediment by light microscopy NEGATIVE NRG Complete urinalysis with reflex to culture NO NRG Capillary blood glucose measurement by glucometer (mass/volume) - 11/23/15 17: 25 Capillary blood glucose measurement by glucometer (mass/volume) 265 mg/dL 70-110 Methicillin resistant Staphylococcus aureus (MRSA) screening culture - 12:45 Methicillin resistant Staphylococcus aureus (MRSA) screening culture NEG NRG Capillary blood glucose measurement by glucometer (mass/volume) - 12/31/16 08: 29 Capillary blood glucose measurement by glucometer (mass/volume) 202 mg/dL 70-110 Methicillin resistant Staphylococcus aureus (MRSA) screening culture - 13:54 MRSA SCREEN RESULT MRSA ISOLATED NRG Capillary blood glucose measurement by glucometer (mass/volume) - 05/06/17 07: 48 Capillary blood glucose measurement by glucometer (mass/volume) 253 mg/dL 70-110 Capillary blood glucose measurement by glucometer (mass/volume) - 05/06/17 11: 22 Capillary blood glucose measurement by glucometer (mass/volume) 205 mg/dL 70-110 Encounters ACCT No. Visit Date/Time Discharge Status Pt. Type Provider Facility Loc./Unit Complaint [id number] 05/06/2017 07:40:00 05/06/2017 12:51:00 DIS Outpatient ROSALBA HANSON MD [facility] LEFT SHOULDER ROTATOR CUFF TEAR [id number] 04/30/2017 13:32:00 04/30/2017 13:55:00 DIS Outpatient ROSALBA HANSON MD [facility] PREOP LEFT SHOULDER ROTATOR CUFF TEAR [id number] 02/16/2017 08:58:00 02/20/2017 13:12:00 DIS Outpatient ROSALBA HANSON MD [facility] REHAB S/P L SHOULDER SCOPE,OPEN RCR [id number] 01/22/2017 10:15:00 01/24/2017 00:01:00 DIS Outpatient ROSALBA HANSON MD [facility] REHAB S/P L SHOULDER SCOPE,OPEN RCR [id number] 12/31/2016 08:20:00 12/31/2016 12:50:00 DIS Outpatient ROSALBA HANSON MD [facility] IMPINGEMENT SYNDROME , POSS RC LABRAL TEAR [id number] 12/26/2016 12:13:00 12/26/2016 13:00:00 DIS Outpatient ROSALBA HANSON MD [facility] PREOP IMPINGEMENT SYNDROME, POSS RC LABRAL TEAR [id number] 11/23/2015 14:29:00 11/23/2015 17:55:00 DIS Emergency SELENA AVENDANO APRN [facility] ER ELEVATED BLOOD SUGAR/ PAINFUL SORE ON BACK [id number] 06/19/2015 17:56:00 06/19/2015 21:26:00 DIS Emergency LAINEY HICKS, AMADOR Garces [facility] ER CP [id number] 12/26/2014 15:01:00 12/26/2014 16:27:00 DIS Emergency PATRICIA HICKS, PLACIDO Bai [facility] ER BACK/NECK PAIN COUGH [id number] 12/04/2014 16:51:00 12/04/2014 18:56:00 DIS Emergency LAINEY HICKS, AMADOR Garces [facility] ER BECK
--- OUTSIDE RECORDS SUMMARY | 2017-05-07 18:06 | XMS REPORT ---
Author Author MADDY LOBO [facility] Address [address] [place] [address] Care Team Providers Care Plant Technician/Control Room Operator Name Role Phone MADDY LOBO Unavailable PROBLEMS Type Condition ICD9-CM Code VSG74-RY Code Onset Dates Condition Status SNOMED Code Problem Other chronic pain G89.29 Active 89331730 Problem 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 mellitus 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, unspecified termite treater insulin use status E11.9 Active 808139137 Problem Gastritis, unspecified, without bleeding K29.70 Active 9287546 Problem Tear of left rotator cuff, unspecified tear extent M75.102 Active 5354273 Problem Uncontrolled type 2 diabetes mellitus 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, without long-term current use of insulin E11.65 Active 631092898 Problem Mood disorder F39 Active 09172576 Problem Tear of right rotator cuff, unspecified tear extent M75.101 Active 737252895 ALLERGIES No Information SOCIAL HISTORY Never Assessed PLAN OF CARE Activity Details Follow Up after MRI Reason: VITAL SIGNS Height 69 in 2016-06-19 Blood pressure systolic 128 mmHg 2016-06-19 Blood pressure diastolic 88 mmHg 2016-06-19 MEDICATIONS Unknown Medications RESULTS No Results PROCEDURES [...]
--- OUTSIDE RECORDS SUMMARY | 2017-05-07 18:06 | XMS REPORT ---
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
== END 2017-05-06 12:51 | disposition home or self-care (01) ==
LOC: SDC 07:40
PROVIDERS: ATTEND Orthopaedic Surgery
DX: S46.012A Strain of muscle(s) and tendon(s) of the rotator cuff of left shoulder, initial encounter (principal); X50.0XXA Overexertion from strenuous movement or load, initial encounter; Y93.E6 Activity, residential relocation; E11.40 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 mellitus with diabetic neuropathy, unspecified; E78.5 Hyperlipidemia, unspecified; F32.9 Major depressive disorder, single episode, unspecified; F41.9 Anxiety disorder, unspecified; K21.9 Gastro-esophageal reflux disease without esophagitis; Z85.118 Personal history of other malignant neoplasm of bronchus and lung; F17.210 Nicotine dependence, cigarettes, uncomplicated; Z79.84 Long term (current) use of oral hypoglycemic drugs
CPT/HCPCS: 82962

== ENCOUNTER 2018-01-07 10:25 | Outpatient (CLI) | payer MEDICARE ==
[~2018-01-07] VITALS: Ht 175.3 cm; Wt 82.6 kg
[~2018-01-07 10:25] MED LIST changes: +METF-397 PO; -METF500T4 PO
[2018-01-07 10:40] VITALS: BP 133/98
[2018-01-07] MEDS ORDERED: INSU100V6 SQ (10:44)
[2018-01-07] MEDS ORDERED: PAMI30VI8 SQ (10:44)
[2018-01-07] MEDS ORDERED: HYDR-3820 PO (10:44)
== END 2018-01-07 11:41 | disposition home or self-care (01) ==
LOC: PREOP 10:25
PROVIDERS: ATTEND Orthopaedic Surgery
DX: Z01.818 Encounter for other preprocedural examination (principal)
CPT/HCPCS: 87081

== ENCOUNTER 2018-01-13 10:00 | Day surgery (SDC) | payer MEDICARE ==
--- NOTE | 2018-01-05 16:43 | HISTORY AND PHYSICAL ---
DATE OF SERVICE: 01/13/2018 This will be for outpatient surgery on 01/13/2018 for left shoulder arthroscopy with rotator cuff repair. HISTORY OF PRESENT ILLNESS: The patient is a 52-year-old gentleman who underwent left rotator cuff repair and was doing well until an injury a month and a half ago. He underwent an MRI, which revealed a full-thickness supraspinatus tear. He reports weakness and functional impairment and pain with overhead activities; and due to functional impairment and failure to improve with conservative measures, he elected to proceed with surgical intervention. REVIEW OF SYSTEMS: No chest pain. No shortness of breath. No dysuria. PAST MEDICAL HISTORY: 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 mellitus, neuropathy, lung cancer, hyperlipidemia, depression, anxiety, and reflux. PAST SURGICAL HISTORY: As above. Lung cancer, cholecystectomy, appendectomy, ACL, sinus, bilateral carpal tunnel, left knee, right hip, right ankle. FAMILY HISTORY: Significant for hypertension, stroke. PRIMARY CARE PROVIDER: [facility]. MEDICATIONS: Flomax, diclofenac, venlafaxine, glipizide, simvastatin, topiramate, Victoza, Humalog, gabapentin, metformin, aspirin, ibuprofen, amitriptyline. ALLERGIES: PENICILLIN, ZOFRAN, MORPHINE AND LATEX. SOCIAL HISTORY: The patient smokes a pack and half a day. Denies alcohol use. PHYSICAL EXAMINATION: GENERAL: The patient is well-developed, well-nourished, no acute distress. HEENT: Normocephalic, atraumatic. Pupils equal, round, reactive to light. Oropharynx is clear. NECK: Supple, no lymphadenopathy. LUNGS: Clear to auscultation bilaterally. HEART: Regular rate and rhythm. ABDOMEN: Soft, nontender, nondistended. EXTREMITIES: He has active forward elevation of 170 degrees but painful beyond 140 degrees. He has a positive Neer's, positive Hawkin sign. He has slight weakness with abduction and external rotation pain with negative Spurling's maneuver. Active external rotation to 70 degrees. Internal rotation is to his midlumbar spine. IMPRESSION: Left recurrent rotator cuff tear. PLAN: Left rotator cuff repair. The risks, benefits, options, ramifications and recovery were discussed at length with the patient. He understands and wishes to proceed. Job ID: [id number] DocumentID: [id number] Dictated Date: 01/04/2018 11:20:05 Hydraulic Press Operator Date: 01/04/2018 12:30:16 Dictated By: ROSALBA HANSON MD
--- NOTE | 2018-01-08 09:24 | HISTORY AND PHYSICAL ---
DATE OF SERVICE: ADDENDUM This will be the addendum for the admission history and physical for 01/13/2018. The patient also complains of left hand pain and paresthesias. He underwent an EMG nerve conduction study, which showed evidence of carpal tunnel syndrome. On exam, he has a positive Tinel's carpal tunnel with positive Phalen's maneuver. PLAN: To perform a left carpal tunnel as well as the shoulder procedure. The risks, benefits, options, ramifications and recovery were discussed at length with the patient. He understands and wishes to proceed. Job ID: [id number] DocumentID: [id number] Dictated Date: 01/08/2018 08:26:36 [employer] Date: 01/08/2018 09:24:13 Dictated By: ROSALBA HANSON MD
[~2018-01-13] VITALS: Ht 175.3 cm; Wt 82.6 kg
[~2018-01-13 10:00] MED LIST changes: +INSU100V6 SQ; +PAMI30VI8 SQ
--- NOTE | 2018-01-13 10:11 | Progress Note-Pre Operative ---
Pre-Operative Progress Note H&P Reviewed The H&P was reviewed, patient examined and no changes noted. Date Seen by Provider: Jan 13, 2018 Time Seen by Provider: 10:11 Date H&P Reviewed: Jan 13, 2018 Time H&P Reviewed: 10:11 Pre-Operative Diagnosis: left rotator cuff tear and carpal tunnel syndrome ROSALBA HANSON MD Jan 13, 2018 10:11
--- NOTE | 2018-01-13 10:13 | Progress Note-Post Operative ---
Post-Operative Progess Note Surgeon (s)/Oil And Gas Superintendent (s) Surgeon ROSALBA HANSON MD Oil And Gas Superintendent: Josh Vega Pre-Operative Diagnosis left rotator cuff tear and carpal tunnel syndrome Post-Operative Diagnosis left rotator cuff tear and labral tear and carpal tunnel syndrome Procedure & Operative Findings Date of Procedure 01/13/18 Procedure Performed/Findings left shoulder arthroscopic labral debridement, open rotator cuff repair and right carpal tunnel release Anesthesia Type GETA plus interscalene Estimated Blood Loss Estimated blood loss (mL): minimal Specimens/Packing Specimens Removed none Packing: none ROSALBA HANSON MD Jan 13, 2018 10:13
[2018-01-13] MEDS: LACTATED RINGERS 1,000 ML IV PRN ×3 (10:14→13:22)
[2018-01-13 10:15] VITALS: BP 127/85
[2018-01-13] MEDS ORDERED: oxyCODONE/APAP 5/325MG (PERCOCET 5) TABLET PO PRN (10:15)
[2018-01-13] MEDS ORDERED: CLINDAMYCIN 600 MG/50 ML IVPB 50 ML IV ONE (10:15)
[2018-01-13] MEDS ORDERED: inSUlin ASPART (NovoLOG) 1 UNIT/0.01 ML (CHARGE PER UNIT) IV ONE ×2 (10:15→11:00)
[2018-01-13] MEDS ORDERED: BUPIVACAINE 0.25% 30 ML (SENSORCAINE) VIAL ONE (10:26)
[2018-01-13] MEDS ORDERED: morphine PF (DURAMORPH) 10 MG/10 ML AMP ONE (10:26)
[2018-01-13] MEDS ORDERED: MIDAZOLAM 2 MG/2 ML (VERSED) VIAL ONE ×2 (10:52)
[2018-01-13] MEDS ORDERED: ROPIVACAINE 5MG/ML 30ML VIAL ONE (10:54)
--- OUTSIDE RECORDS SUMMARY | 2018-01-13 10:59 | XMS REPORT | Clinical Summary ---
Author Author [facility] Address Unknown Phone Unavailable Care Team Providers Care Controls Operator Molded Goods Name Role Phone PP Unavailable Allergies No Known Allergies Current Medications Not [...]
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
--- OUTSIDE RECORDS SUMMARY | 2018-01-13 11:00 | XMS REPORT ---
Author Author ELIZABETH ORELLANA Organization [facility] Address [address] [place] [address] Care Team Providers Care Director Oracle Database Name Role Phone ELIZABETH ORELLANA Unavailable PROBLEMS Type Condition ICD9-CM Code CPG11-VH Code Onset Dates Condition Status SNOMED Code Problem Uncontrolled type 2 diabetes mellitus 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, without long-term current use of insulin E11.65 Active 648080415 Problem Tear of right rotator cuff, unspecified tear extent M75.101 Active 735881339 Problem Tear of left rotator cuff, unspecified tear extent M75.102 Active 5303611 Problem Other chronic pain G89.29 Active 50807831 Problem manager intermediate current use of insulin Z79.4 Active 672233737 Problem 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 mellitus with unspecified complications E11.8 Active 80754336 Problem Gastritis, unspecified, without bleeding K29.70 Active 5219876 Problem Mood disorder F39 Active 69150364 Problem Hyperlipidemia, unspecified E78.5 Active 33288185 Problem 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 mellitus 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, unspecified fci insulin use status E11.9 Active 761967296 ALLERGIES No Information ENCOUNTERS Encounter Location Date Diagnosis [place] [address] [address]- 2882 Nov, 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 mellitus with unspecified complications E11.8 [facility] [address] [address]- 6909 Oct, 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 mellitus with unspecified complications E11.8 ; manager intermediate current use of insulin Z79.4 ; Mood disorder F39 ; Other chronic pain G89.29 and Pain in right hip M25.551 [facility] [address], [place] [address]- 7625 Oct, [facility] [address] [address]- 6557 Sep, 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 mellitus 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, unspecified fci insulin use status E11.9 [facility] [address] [address]- 8452 August, 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 mellitus 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, unspecified fci insulin use status E11.9 [facility] [address] [address]- 8937 Jul, 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 mellitus 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, unspecified fci insulin use status E11.9 [facility] [address], [place] [address]- 1783 May, 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 mellitus 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, unspecified fci insulin use status E11.9 ; Acute non-recurrent maxillary sinusitis J01.00 and Other chronic pain G89.29 [facility] [address], [place] [address]- 6686 Apr, Other chronic pain G89.29 [facility] [id number] [place] [address] 76414- 4129 Mar, [facility] [id number] [place] [address] 45787- 9370 Mar, [facility] [id number] [place] [address] 09763- 4009 Mar, [facility] [address], [place] [address]- 8565 Feb, [facility] [id number] [place] [address] 66430- 9421 Feb, [facility] [address], [place] [address]- 1154 Jan, Tear of left rotator cuff, unspecified tear extent M75.102 ; Tear of right rotator cuff, unspecified tear extent M75.101 and Mood disorder F39 [facility] [address], [place] [address]- 7017 Jan, Other chronic pain G89.29 and Hyperlipidemia, unspecified E78.5 [place] [address], [place] [address]- 6803 Jan, [place] [id number] [place] [address] 92835- 9829 29 Dec, 2016 Pain in left shoulder M25.512 [place] [id number] [place] [address] 99030- 3138 22 Dec, 2016 [place] [id number] [place] [address] 68054- 2034 19 Dec, 2016 Other chronic pain G89.29 [place] [id number] [place] [address] 14933- 7139 18 Dec, 2016 Bronchitis J40 [place] [id number] [place] [address] 81077- 7625 07 Dec, 2016 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 mellitus 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, 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.9 [place] [id number] [place] [address] 03026- 1163 06 Dec, 2016 [place] [id number] [place] [address] 45434- 0807 Nov, Pain in left shoulder M25.512 [place] [id number] [place] [address] 44484- 0577 Nov, Superior glenoid labrum lesion of right shoulder, subsequent encounter S43.431D ; Superior glenoid labrum lesion of left shoulder , subsequent encounter S43.432D ; Rotator cuff impingement syndrome of right shoulder M75.41 and Rotator cuff impingement syndrome of left shoulder M75.42 [place] [address], [place] [address]- 2659 Nov, Pain in left shoulder M25.512 [facility] [id number] [place] [address] 61825- 3743 07 Nov, 2016 Pain in left shoulder M25.512 [place] [id number] [place] [address] 63752- 4527 Oct, Pain in left shoulder M25.512 [facility] [id number] [place] [address] 64130- 4763 Oct, Uncontrolled type 2 diabetes mellitus 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, without long-term current use of insulin E11.65 and Chest pain in adult R07.9 [facility] [id number] [place] [address] 93812- 4264 Oct, [place] [id number] [place] [address] 39137- 4348 Sep, Pain in left shoulder M25.512 [place] [id number] [place] [address] 09523- 1855 Sep, Pain in left shoulder M25.512 ; Gastritis, unspecified, without bleeding K29.70 and Mood disorder F39 [place] [id number] [place] [address] 36659- 3623 August, 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 mellitus 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, 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.9 [place] [id number] [place] [address] 72359- 5774 August, Other chronic pain G89.29 [place] [id number] [place] [address] 47495- 2277 Jul, Other chronic pain G89.29 [place] [id number] [place] [address] 78824- 0945 Jun, Other chronic pain G89.29 [place] [id number] [place] [address] 76598- 1718 May, [place] [id number] [place] [address] 14356- 9306 May, [place] [id number] [place] [address] 07772- 3630 May, Tear of right rotator cuff, unspecified tear extent M75.101 and Tear of left rotator cuff, unspecified tear extent M75.102 [place] [id number] [place] [address] 41812- 6333 May, Uncontrolled type 2 diabetes mellitus 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, without long-term current use of insulin E11.65 [place] [id number] [place] [address] 02394- 7512 Apr, Pain in right shoulder M25.511 ; Pain in left shoulder M25.512 ; Impingement syndrome, shoulder, left M75.42 and SLAP lesion of right shoulder S43.431A [place] [address] 91306- 2077 Apr, [place] [address] 10818- 8603 Apr, Uncontrolled type 2 diabetes mellitus 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, without long-term current use of insulin E11.65 ; Viral gastroenteritis A08.4 and Encounter for drug screening Z02.83 [place] [address] 07919- 2654 Mar, Other chronic pain G89.29 and Pain in left shoulder M25.512 [place] [id number] [place] [address] 20328- 5037 Mar, Acute pain of left shoulder M25.512 [place] [id number] [place] [address] 23926- 1086 Feb, [place] [address] 66918- 2699 Feb, Other chronic pain G89.29 ; Pain in right shoulder M25.511 ; Pain in left shoulder M25.512 and Uncontrolled type 2 diabetes mellitus 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, without long-term current use of insulin E11.65 [place] [address] 74695- 3034 Feb, [place] [address] 11177- 1625 Jan, [place] [address] 23488- 8924 Jan, [facility] [id number] [place] [address] 77407- 1659 Jan, [place] [id number] [place] [address] 89836- 2319 Jan, Uncontrolled type 2 diabetes mellitus 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, without long-term current use of insulin E11.65 ; Hypotension, unspecified hypotension type I95.9 ; Pain in left shoulder M25.512 ; Pain in right shoulder M25.511 ; Other chronic pain G89.29 and Diabetes mellitus type 2 with neurological manifestations 250.60 [place] [id number] [place] [address] 36000- 1358 Dec, Hypotension, unspecified hypotension type I95.9 [place] [id number] [place] [address] 34492- 5655 Dec, [place] [id number] [place] [address] 85546- 2107 Dec, Diabetes mellitus type 2 with neurological manifestations 250.60 ; 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 mellitus 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, 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.9 ; Neuropathy G62.9 ; Primary insomnia F51.01 and Migraine without status migrainosus, not intractable, unspecified migraine type G43.909 [facility] [id number] [place] [address] [id number] Mar, Encounter for dental examination Z01.20 and Dental examination Z01.20 [place] [address] [place] [address] 50893- 0420 Feb, [place] [address] [place] [address] 74921- 0890 Nov, [place] [id number] [place] [address] 63167- 0328 Nov, [place] [address] [place] [address] 80676- 4194 Nov, Diabetes mellitus type 2 with neurological [...] Frequency Start Date End Date Duration Status [place] 10-325 MG Orally every 6 hrs 1 [...]
--- OUTSIDE RECORDS SUMMARY | 2018-01-13 11:00 | XMS REPORT ---
Author Author ELIZABETH ORELLANA Organization [facility], [place] Address [address] [place] [address] Care Team Providers Care Production Support Specialist Name Role Phone ELIZABETH ORELLANA Unavailable PROBLEMS Type Condition ICD9-CM Code CCU82-LZ Code Onset Dates Condition Status SNOMED Code Problem Uncontrolled type 2 diabetes mellitus 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, without long-term current use of insulin E11.65 Active 624730653 Problem Tear of right rotator cuff, unspecified tear extent M75.101 Active 114775446 Problem Tear of left rotator cuff, unspecified tear extent M75.102 Active 1214120 Problem Other chronic pain G89.29 Active 89440935 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 Active 881711580 Problem 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 mellitus with unspecified complications E11.8 Active 61017196 Problem Gastritis, unspecified, without bleeding K29.70 Active 5231927 Problem Mood disorder F39 Active 15425693 Problem Hyperlipidemia, unspecified E78.5 Active 79208161 Problem 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 mellitus 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, unspecified senior care insulin use status E11.9 Active 707227254 ALLERGIES Substance Reaction Event Type Date Status Zofran Unknown Drug Allergy Oct, Active Penicillin V Potassium Unknown Drug Allergy Oct, Active Latex tape Unknown Non Drug Allergy Oct, Active ENCOUNTERS Encounter Location Date Diagnosis [facility], [place] [id number] [address] Nov, 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 mellitus with unspecified complications E11.8 [facility] [place] [id number] [place] [address] 70114- 3957 Nov, 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 mellitus with unspecified complications E11.8 [facility] [place] [id number] [address] Oct, 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 mellitus with unspecified complications E11.8 ; [facility]PC current use of insulin Z79.4 ; Mood disorder F39 ; Other chronic pain G89.29 and Pain in right hip M25.551 [facility] [place] [address] [address] Oct, [facility] [place] [id number] [place] [address] 21842- 5404 Sep, 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 mellitus 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, unspecified senior care insulin use status E11.9 [facility] [place] [id number] [place] [address] 48144- 8731 August, 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 mellitus 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, unspecified senior care insulin use status E11.9 [facility] [place] [id number] [place] [address] 00033- 4381 Jul, 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 mellitus 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, unspecified senior care insulin use status E11.9 [facility] [place] [id number] [place] [address] 13106- 9358 May, 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 mellitus 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, unspecified long term care pharmacist insulin use status E11.9 ; Acute non-recurrent maxillary sinusitis J01.00 and Other chronic pain G89.29 [facility] [place] [id number] [place] [address] 88617- 1885 Apr, Other chronic pain G89.29 [facility] [place] [id number] [place] [address] 43256- 8426 Mar, [facility] [place] [id number] [place] [address] 59927- 8774 Mar, [facility] [place] [address] [address] Mar, [facility] [place] [id number] [place] [address] 37428- 7602 Feb, [facility] [place] [id number] [place] [address] 11302- 4686 Feb, [facility] [place] [id number] [place] [address] 69409- 8489 Jan, Tear of left rotator cuff, unspecified tear extent M75.102 ; Tear of right rotator cuff, unspecified tear extent M75.101 and Mood disorder F39 [id number] [place] [address] 74246- 6832 Jan, Other chronic pain G89.29 and Hyperlipidemia, unspecified E78.5 [facility] [place] [id number] [place] [address] 57761- 1686 Jan, [address] [address] 29 Dec, 2016 Pain in left shoulder M25.512 [address] [address]- [address] Dec, [address] [id number] [place] [address] 36250- 1455 19 Dec, 2016 Other chronic pain G89.29 [place] [address] [address]34- [address]657 18 Dec, 2016 Bronchitis J40 [place] [id number] [place] [address] 22666- 2087 07 Dec, 2016 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 mellitus 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, unspecified senior care insulin use status E11.9 [place] [id number] [place] [address] 87140- 6856 Dec, [place] [id number] [place] [address] 04858- 2207 Nov, Pain in left shoulder M25.512 [address] [id number] [place] [address] 38651- 0429 Nov, Superior glenoid labrum lesion of right shoulder, subsequent encounter S43.431D ; Superior glenoid labrum lesion of left shoulder , subsequent encounter S43.432D ; Rotator cuff impingement syndrome of right shoulder M75.41 and Rotator cuff impingement syndrome of left shoulder M75.42 [place] [id number] [place] [address] 82186- 5096 Nov, Pain in left shoulder M25.512 [facility] [place] [id number] [place] [address] 99692- 9640 Nov, Pain in left shoulder M25.512 [facility] [place] [id number] [place] [address] 13012- 7125 Oct, Pain in left shoulder M25.512 [facility] [place] [id number] [place] [address] 18303- 4337 Oct, Uncontrolled type 2 diabetes mellitus 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, without long-term current use of insulin E11.65 and Chest pain in adult R07.9 [facility] [place] [address] [address]- [address] Oct, [place] [id number] [place] [address] 61346- 6652 Sep, Pain in left shoulder M25.512 [address] [address] 6[address]23- [address]107 Sep, Pain in left shoulder M25.512 ; Gastritis, unspecified, without bleeding K29.70 and Mood disorder F39 [address] [id number] [place] [address] 98067- 3907 August, 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 mellitus 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, unspecified senior care insulin use status E11.9 [place] [id number] [place] [address] 95111- 4461 August, Other chronic pain G89.29 [facility] [place] [id number] [place] [address] 56875- 7581 Jul, Other chronic pain G89.29 [address] [id number] [place] [address] 62746- 8748 Jun, Other chronic pain G89.29 [place] [id number] [place] [address] 89352- 2845 May, [facility] [place] [address] [address]- [address] May, [place] [id number] [place] [address] 75849- 6516 May, Tear of right rotator cuff, unspecified tear extent M75.101 and Tear of left rotator cuff, unspecified tear extent M75.102 [place] [id number] [place] [address] 62135- 1048 May, Uncontrolled type 2 diabetes mellitus 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, without long-term current use of insulin E11.65 [place] [id number] [place] [address] 84067- 0387 Apr, Pain in right shoulder M25.511 ; Pain in left shoulder M25.512 ; Impingement syndrome, shoulder, left M75.42 and SLAP lesion of right shoulder S43.431A [place] [id number] [place] [address] 96039- 2521 Apr, [place] [id number] [place] [address] 71475- 3480 Apr, Uncontrolled type 2 diabetes mellitus 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, without long-term current use of insulin E11.65 ; Viral gastroenteritis A08.4 and Encounter for drug screening Z02.83 [place] [id number] [place] [address] 51404- 7409 Mar, Other chronic pain G89.29 and Pain in left shoulder M25.512 [place] [id number] [place] [address] 63644- 5177 Mar, Acute pain of left shoulder M25.512 [place] [id number] [place] [address] 65685- 4924 Feb, [place] [id number] [place] [address] 23820- 6383 Feb, Other chronic pain G89.29 ; Pain in right shoulder M25.511 ; Pain in left shoulder M25.512 and Uncontrolled type 2 diabetes mellitus 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, without long-term current use of insulin E11.65 [place] [address] [address] 10 Feb, 2016 [facility] [place] [id number] [place] [address] 12059- 7498 Jan, [facility] [place] [id number] [place] [address] 05373- 0289 Jan, [facility] [place] [id number] [place] [address] 19366- 3563 Jan, [facility] [place] [id number] [place] [address] 52226- 0596 Jan, Uncontrolled type 2 diabetes mellitus 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, without long-term current use of insulin E11.65 ; Hypotension, unspecified hypotension type I95.9 ; Pain in left shoulder M25.512 ; Pain in right shoulder M25.511 ; Other chronic pain G89.29 and Diabetes mellitus type 2 with neurological manifestations 250.60 [facility] [place] [id number] [place] [address] 08476- 3666 Dec, Hypotension, unspecified hypotension type I95.9 [facility] [place] [id number] [place] [address] 15678- 6647 Dec, [facility] [place] [id number] [place] [address] 24834- 4066 09 Dec, 2015 Diabetes mellitus type 2 with neurological manifestations 250.60 ; 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 mellitus 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, unspecified long term care pharmacist insulin use status E11.9 ; Neuropathy G62.9 ; Primary insomnia F51.01 and Migraine without status migrainosus, not intractable, unspecified migraine type G43.909 [facility] [id number] [place] [address] [id number] Mar, 2015 Encounter for dental examination Z01.20 and Dental examination Z01.20 [facility] [place] [id number] [place] [address] 79433- 4509 Feb, [facility] [place] [id number] [place] [address] 18784- 6077 Nov, [address] [facility] [id number] [place] [address]- 0872 Nov, [facility] [place] [address] [facility] [id number] [address] 4[address] Nov, Diabetes mellitus type 2 with neurological manifestations 250.60 ; Routine adult health maintenance V70.0 ; Hypertension 401.9 ; Hyperlipidemia 272.4 ; Migraine headache 346.90 ; GERD (gastroesophageal reflux disease) 530.81 ; Depression 311 ; Chronic thoracic spine pain 724.1 and Right knee pain 719.46 IMMUNIZATIONS No Known Immunizations SOCIAL HISTORY Never Assessed REASON FOR VISIT Pain management (chronic)----RIKI Sheffield in July, persistant pain, PCP Dr. Andrews, fills medications at [facility] in [place], [place], verified with pharmacy PLAN OF CARE VITAL SIGNS Height 69 in 2017-10-29 Weight 190 lbs 2017-10-29 Temperature 98.3 degrees Fahrenheit 2017-10-29 Heart Rate 80 bpm 2017-10-29 Respiratory Rate 20 2017-10-29 BMI 28.06 kg/m2 2017-10-29 Blood pressure systolic 132 mmHg 2017-10-29 Blood pressure diastolic 80 mmHg 2017-10-29 MEDICATIONS Medication Instructions Dosage Frequency Start Date End Date Duration Status Simvastatin 20 mg Orally Once a day 1 tablet in the evening 24h Jan, 30 day(s) Active Fenofibrate 160 MG Orally Once a day 1 tablet with a meal 24h 30 days Active Topamax 100 MG Orally Twice a day 1 tablet 12h 30 days Active Pantoprazole Sodium 40 mg Orally Once a day 1 tablet 24h Sep, 30 day(s) Active Neurontin 600 MG Orally Twice a day 2 tablet 12h Active Tamsulosin HCl 0.4 MG 30 Active GlipiZIDE ER 10 mg Orally Once a day 1 tablet 24h 30 days Active Humalog KwikPen 100 UNIT/ML Subcutaneous 3 times a day per sliding scale 8h Active Nortriptyline HCl 75 MG Orally Once a day at hs 2 capsules Not- Taking Imitrex 50 mg Orally Once a day as needed, max 3/week 1 tablet as needed one time 30 days Active ProAir HFA 108 (90 Base) MCG/ACT Inhalation 4 times a day 2 puffs as needed 6h Dec, Active Venlafaxine HCl 75 MG Orally 2 times a day 1 tablet with food 12h Jan, Active [place] 10-325 MG Orally every 6 hrs 1 tablet as needed 6h Oct, Nov, 28 days Active Ibuprofen 600 MG Orally 4 times a day as needed 1 tablet with food or milk Dec, 30 day(s) Not-Taking MetFORMIN HCl ER 500 mg Orally 2 times a day 2 tablets 12h Sep, Active Prochlorperazine 10 mg Orally Three times a day as needed for nausea 1 tablet 30 days Active Victoza 18 MG/3ML Subcutaneous Once a day Inject 1.8mg 24h Dec, Active Aspirin 81 MG Orally Once a day 1 tablet 24h Active Lantus SoloStar 100 UNIT/ML Subcutaneous Once a day 25 units 24h Active RESULTS No Results PROCEDURES Procedure Date Ordered Result Body Site [facility] VISIT ESTABLISHED PATIENT October 29, 2017 INSTRUCTIONS MEDICATIONS ADMINISTERED No Known Medications MEDICAL [...]
--- OUTSIDE RECORDS SUMMARY | 2018-01-13 11:00 | XMS REPORT ---
Author Author ELIZABETH ORELLANA Organization [facility] [place] Address [address] [place] [address] Care Team Providers Care Bending Shed Worker Name Role Phone ELIZABETH ORELLANA Unavailable PROBLEMS Type Condition ICD9-CM Code TLK34-DV Code Onset Dates Condition Status SNOMED Code Problem Uncontrolled type 2 diabetes mellitus 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, without long-term current use of insulin E11.65 Active 460436584 Problem Tear of right rotator cuff, unspecified tear extent M75.101 Active 086252956 Problem Tear of left rotator cuff, unspecified tear extent M75.102 Active 2753890 Problem Other chronic pain G89.29 Active 70280868 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 Active 648212532 Problem 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 mellitus with unspecified complications E11.8 Active 16045262 Problem Gastritis, unspecified, without bleeding K29.70 Active 0912852 Problem Mood disorder F39 Active 27184625 Problem Hyperlipidemia, unspecified E78.5 Active 95969738 Problem 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 mellitus 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, unspecified snf insulin use status E11.9 Active 688546368 ALLERGIES No Information ENCOUNTERS Encounter Location Date Diagnosis [place] [address], [place] [address] Nov, 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 mellitus with unspecified complications E11.8 [facility] [place] [address], [place] [address] Oct, 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 mellitus with unspecified complications E11.8 ; 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 ; Mood disorder F39 ; Other chronic pain G89.29 and Pain in right hip M25.551 [facility] [place] [address], [place] [address] Oct, [facility] [place] [address], [place] [address] Sep, 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 mellitus 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, unspecified snf insulin use status E11.9 [facility] [place] [address], [place] [address] August, 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 mellitus 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, unspecified snf insulin use status E11.9 [facility] [place] [address], [place] [address] Jul, 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 mellitus 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, unspecified snf insulin use status E11.9 [facility] [place] [address], [place] [address] May, 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 mellitus 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, unspecified snf insulin use status E11.9 ; Acute non-recurrent maxillary sinusitis J01.00 and Other chronic pain G89.29 [facility] [place] [address], [place] [address] Apr, Other chronic pain G89.29 [facility] [place] [id number] [place] [address] 21774- 1701 Mar, [facility] [place] [id number] [place] [address] 86576- 0087 Mar, [facility] [place] [id number] [place] [address] 21900- 6737 Mar, [facility] [place] [address], [place] [address] Feb, [facility] [place] [id number] [place] [address] 81326- 2972 Feb, [facility] [place] [address], [place] [address] Jan, Tear of left rotator cuff, unspecified tear extent M75.102 ; Tear of right rotator cuff, unspecified tear extent M75.101 and Mood disorder F39 [facility] [place] [address], [place] [address] Jan, Other chronic pain G89.29 and Hyperlipidemia, unspecified E78.5 [place] [address], [place] [address] Jan, [place] [address] [id number] [place] [address] 40571- 0889 29 Dec, 2016 Pain in left shoulder M25.512 [place] [id number] [place] [address] 22820- 6510 22 Dec, 2016 [place] [id number] [place] [address] 87687- 1258 19 Dec, 2016 Other chronic pain G89.29 [place] [id number] [place] [address] 49557- 9323 18 Dec, 2016 Bronchitis J40 [place] [id number] [place] [address] 57907- 5006 07 Dec, 2016 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 mellitus 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, unspecified reinsurance 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.9 [place] [id number] [place] [address] 67429- 6363 06 Dec, 2016 [place] [id number] [place] [address] 47360- 1114 Nov, Pain in left shoulder M25.512 [place] [id number] [place] [address] 19229- 6797 Nov, Superior glenoid labrum lesion of right shoulder, subsequent encounter S43.431D ; Superior glenoid labrum lesion of left shoulder , subsequent encounter S43.432D ; Rotator cuff impingement syndrome of right shoulder M75.41 and Rotator cuff impingement syndrome of left shoulder M75.42 [place] [address], [place] [address] 389[address] Nov, Pain in left shoulder M25.512 [facility] [place] [id number] [place] [address] 41356- 6975 07 Nov, 2016 Pain in left shoulder M25.512 [place] [id number] [place] [address] 65921- 1850 Oct, Pain in left shoulder M25.512 [facility] [place] [id number] [place] [address] 53270- 0433 Oct, Uncontrolled type 2 diabetes mellitus 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, without long-term current use of insulin E11.65 and Chest pain in adult R07.9 [facility] [place] [id number] [place] [address] 06383- 4468 Oct, [place] [address] [id number] [place] [address] 13842- 8601 Sep, Pain in left shoulder M25.512 [place] [id number] [place] [address] 58034- 4675 Sep, Pain in left shoulder M25.512 ; Gastritis, unspecified, without bleeding K29.70 and Mood disorder F39 [place] [address] [id number] [place] [address] 27889- 2917 August, 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 mellitus 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, unspecified reinsurance 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.9 [place] [address] [id number] [place] [address] 29262- 4801 August, Other chronic pain G89.29 [place] [id number] [place] [address] 29998- 8127 Jul, Other chronic pain G89.29 [place] [address] [id number] [place] [address] 22297- 5971 Jun, Other chronic pain G89.29 [place] [id number] [place] [address] 07891- 8715 May, [place] [id number] [place] [address] 45970- 6293 May, [place] [address] [id number] [place] [address] 92907- 9374 May, Tear of right rotator cuff, unspecified tear extent M75.101 and Tear of left rotator cuff, unspecified tear extent M75.102 [place] [id number] [place] [address] 82942- 7020 May, Uncontrolled type 2 diabetes mellitus 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, without long-term current use of insulin E11.65 [place] [id number] [place] [address] 59770- 0225 Apr, Pain in right shoulder M25.511 ; Pain in left shoulder M25.512 ; Impingement syndrome, shoulder, left M75.42 and SLAP lesion of right shoulder S43.431A [place] [address] [address]- 7546 Apr, [place] [address] [address]- 1899 Apr, Uncontrolled type 2 diabetes mellitus 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, without long-term current use of insulin E11.65 ; Viral gastroenteritis A08.4 and Encounter for drug screening Z02.83 [place] [address] 72033- 4314 Mar, Other chronic pain G89.29 and Pain in left shoulder M25.512 [place] [address] [id number] [place] [address] 33702- 0571 Mar, Acute pain of left shoulder M25.512 [place] [address] [address] [id number] [place] [address] 78067- 2050 Feb, [place] [address] 36427- 3071 Feb, Other chronic pain G89.29 ; Pain in right shoulder M25.511 ; Pain in left shoulder M25.512 and Uncontrolled type 2 diabetes mellitus 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, without long-term current use of insulin E11.65 [place] [address] 24387- 7993 Feb, [place] [address] 79568- 7572 Jan, [place] [address] 66265- 5233 Jan, [facility] [place] [address] [place] [id number] [place] [address] 83753- 9514 Jan, [place] [address] [address] [id number] [place] [address] 88098- 4566 Jan, Uncontrolled type 2 diabetes mellitus 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, without long-term current use of insulin E11.65 ; Hypotension, unspecified hypotension type I95.9 ; Pain in left shoulder M25.512 ; Pain in right shoulder M25.511 ; Other chronic pain G89.29 and Diabetes mellitus type 2 with neurological manifestations 250.60 [place] [address] [id number] [place] [address] 20082- 2556 Dec, Hypotension, unspecified hypotension type I95.9 [place] [address] [id number] [place] [address] 45429- 9173 Dec, [place] [address] [address] [id number] [place] [address] 80954- 7053 Dec, Diabetes mellitus type 2 with neurological manifestations 250.60 ; 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 mellitus 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, unspecified reinsurance 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.9 ; Neuropathy G62.9 ; Primary insomnia F51.01 and Migraine without status migrainosus, not intractable, unspecified migraine type G43.909 [facility] [address] [place] [id number] [place] [address] [id number] Mar, Encounter for dental examination Z01.20 and Dental examination Z01.20 [place] [address] [place] [address] 28681- 8445 Feb, [place] [address] [place] [address] 14918- 4596 Nov, [place] [address] [address] [id number] [place] [address] 43666- 6514 Nov, [place] [id number] [place] [address] 85704- 3779 Nov, Diabetes mellitus type 2 with neurological [...] Frequency Start Date End Date Duration Status [place] 10-325 MG Orally every 6 hrs 1 tablet as needed 6h Sep, 28 days Active RESULTS No Results PROCEDURES [...]
--- OUTSIDE RECORDS SUMMARY | 2018-01-13 11:00 | XMS REPORT ---
Author Author ELIZABETH ORELLANA Organization [facility] Address [address] [place] [address] Care Team Providers Care Photographer Portrait Name Role Phone ELIZABETH ORELLANA Unavailable PROBLEMS Type Condition ICD9-CM Code QMQ80-IB Code Onset Dates Condition Status SNOMED Code Problem Uncontrolled type 2 diabetes mellitus 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, without long-term current use of insulin E11.65 Active 473615725 Problem Tear of right rotator cuff, unspecified tear extent M75.101 Active 730577177 Problem Tear of left rotator cuff, unspecified tear extent M75.102 Active 6533165 Problem Other chronic pain G89.29 Active 90540089 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 Active 994639005 Problem 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 mellitus with unspecified complications E11.8 Active 91593435 Problem Gastritis, unspecified, without bleeding K29.70 Active 0118894 Problem Mood disorder F39 Active 16982781 Problem Hyperlipidemia, unspecified E78.5 Active 59207623 Problem 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 mellitus 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, unspecified retirement insulin use status E11.9 Active 593594233 ALLERGIES No Information ENCOUNTERS Encounter Location Date Diagnosis [place] [address] [place] [id number] [place] [address] 20443- 5450 Nov, 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 mellitus with unspecified complications E11.8 [facility] [address] [place] [address] 09125- 9773 Nov, 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 mellitus with unspecified complications E11.8 [facility] [address] [place] [address] 51845- 1883 Oct, 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 mellitus with unspecified complications E11.8 ; [facility] current use of insulin Z79.4 ; Mood disorder F39 ; Other chronic pain G89.29 and Pain in right hip M25.551 [facility] [address] 40392- [address]997 Oct, [facility] [address] [address] Sep, 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 mellitus 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, unspecified retirement insulin use status E11.9 [facility] [address], [place] [address]- 3366 August, 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 mellitus 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, unspecified 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 computer terminal 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 insulin use status 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.9 [facility] [address], [place] [address]- 8763 Jul, 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 mellitus 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, unspecified remote computer terminal operator insulin use status E11.9 [facility] [address] [place] [address] 349674- 9526 May, 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 mellitus 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, unspecified remote computer terminal operator insulin use status E11.9 ; Acute non-recurrent maxillary sinusitis J01.00 and Other chronic pain G89.29 [facility] [address] [place] [id number] [place] [address] 72921- 4898 Apr, Other chronic pain G89.29 [facility] [address], [place] [address]- 1004 Mar, [facility] [address] [place] [address] [id number] [place] [address] 599612- 5036 Mar, [place] [address], [place] [address]- 4132 Mar, [facility] [address] [id number] 9778 Feb, [facility] [address] 1063 Feb, [facility] [address] [id number] [place] [address] 127497- 8586 Jan, Tear of left rotator cuff, unspecified tear extent M75.102 ; Tear of right rotator cuff, unspecified tear extent M75.101 and Mood disorder F39 [facility] [address] [id number] [place] [address] 36560- 0247 Jan, Other chronic pain G89.29 and Hyperlipidemia, unspecified E78.5 [facility] [address] [id number] [place] [address] 84246- 9655 Jan, [facility] [address] [id number] [place] [address] 34340- 5258 Dec, Pain in left shoulder M25.512 [facility] [address] [id number] [place] [address] 42724- 9643 22 Dec, 2016 [place] [address] [address] [id number] [place] [address] 20343- 7016 19 Dec, 2016 Other chronic pain G89.29 [place] [address] [address] [id number] [place] [address] 78916- 6670 18 Dec, 2016 Bronchitis J40 [place] [address] [address] [id number] [place] [address] 93363- 5079 07 Dec, 2016 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 mellitus 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, unspecified retirement insulin use status E11.9 [place] [address] [address] [id number] [place] [address] 30536- 8078 Dec, [place] [address] [id number] [place] [address] 99711- 9460 Nov, Pain in left shoulder M25.512 [place] [address] [address] [id number] [place] [address] 90767- 3154 Nov, Superior glenoid labrum lesion of right shoulder, subsequent encounter S43.431D ; Superior glenoid labrum lesion of left shoulder , subsequent encounter S43.432D ; Rotator cuff impingement syndrome of right shoulder M75.41 and Rotator cuff impingement syndrome of left shoulder M75.42 [place] [address] [place] [address] [id number] [place] [address] 23836- 4386 Nov, Pain in left shoulder M25.512 [place] [address] [address] [id number] [place] [address] 78737- 7606 Nov, Pain in left shoulder M25.512 [facility] [address], [place] [address]- [address] Oct, Pain in left shoulder M25.512 [facility] [id number] [place] [address] 50506- 7830 Oct, Uncontrolled type 2 diabetes mellitus 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, without long-term current use of insulin E11.65 and Chest pain in adult R07.9 [facility] [id number] [place] [address] 62739- 9663 Oct, [facility] [address] [id number] [place] [address] 85932- 4122 Sep, Pain in left shoulder M25.512 [facility] [id number] [place] [address] 75950- 7912 Sep, Pain in left shoulder M25.512 ; Gastritis, unspecified, without bleeding K29.70 and Mood disorder F39 [facility] [id number] [place] [address] 50418- 3699 August, 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 mellitus 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, unspecified retirement insulin use status E11.9 [facility] [address] [place] [address] 62061- 3004 August, Other chronic pain G89.29 [facility] [id number] [place] [address] 48878- 9364 Jul, Other chronic pain G89.29 [facility] [address] [place] [address] 79915- 0598 Jun, Other chronic pain G89.29 [facility] [address] [id number] [place] [address] 85365- 5774 May, [facility] [address] [id number] [place] [address] 77730- 3369 May, [facility] [id number] [place] [address] 31784- 9472 May, Tear of right rotator cuff, unspecified tear extent M75.101 and Tear of left rotator cuff, unspecified tear extent M75.102 [place] [id number] [place] [address] 62422- 8762 May, Uncontrolled type 2 diabetes mellitus 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, without long-term current use of insulin E11.65 [place] [address] [address] [id number] [place] [address] 06662- 2411 Apr, Pain in right shoulder M25.511 ; Pain in left shoulder M25.512 ; Impingement syndrome, shoulder, left M75.42 and SLAP lesion of right shoulder S43.431A [place] [address] 27611- 8823 Apr, [place] [address] [address] [id number] [place] [address] 58357- 2896 Apr, Uncontrolled type 2 diabetes mellitus 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, without long-term current use of insulin E11.65 ; Viral gastroenteritis A08.4 and Encounter for drug screening Z02.83 [place] [id number] [place] [address] 17712- 6741 Mar, Other chronic pain G89.29 and Pain in left shoulder M25.512 [place] [id number] [place] [address] 66146- 6202 Mar, Acute pain of left shoulder M25.512 [place] [id number] [place] [address] 68256- 9885 Feb, [place] [id number] [place] [address] 75862- 4268 Feb, Other chronic pain G89.29 ; Pain in right shoulder M25.511 ; Pain in left shoulder M25.512 and Uncontrolled type 2 diabetes mellitus 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, without long-term current use of insulin E11.65 [place] [id number] [place] [address] 52715- 7628 Feb, [place] [address] [id number] [address]- 9722 Jan, [facility] [address] [place] [address] 19525- 5436 Jan, [facility] [id number] [place] [address] 45252- 3962 Jan, [place] [id number] [place] [address] 67475- 5267 Jan, Uncontrolled type 2 diabetes mellitus 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, without long-term current use of insulin E11.65 ; Hypotension, unspecified hypotension type I95.9 ; Pain in left shoulder M25.512 ; Pain in right shoulder M25.511 ; Other chronic pain G89.29 and Diabetes mellitus type 2 with neurological manifestations 250.60 [place] [address] [place] [address] 21903- 8311 Dec, Hypotension, unspecified hypotension type I95.9 [place] [id number] [place] [address] 91163- 6358 Dec, [facility] [address] [place] [address] 76699- 7251 09 Dec, 2015 Diabetes mellitus type 2 with neurological manifestations 250.60 ; 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 mellitus 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, unspecified remote computer terminal operator insulin use status E11.9 ; Neuropathy G62.9 ; Primary insomnia F51.01 and Migraine without status migrainosus, not intractable, unspecified migraine type G43.[address] [facility] [address] [place] [address] [id number] Mar, Encounter for dental examination Z01.20 and Dental examination Z01.20 [place] [address] [place] [address] 53400- 2050 Feb, [place] [id number] [place] [address] 95813- 0676 Nov, [place] [address] [place] [address] 82919- 8043 Nov, [place] [address] [id number] [address]- 5147 Nov, Diabetes mellitus type 2 with neurological [...] Refill PLAN OF CARE VITAL SIGNS MEDICATIONS Unknown [...]
--- OUTSIDE RECORDS SUMMARY | 2018-01-13 11:01 | XMS REPORT ---
Author Author ELIZABETH ORELLANA Organization [facility] Address [address] [place] [address] Care Team Providers Care Tank Insulator Rubber Name Role Phone ELIZABETH ORELLANA Unavailable PROBLEMS Type Condition ICD9-CM Code HWC16-RI Code Onset Dates Condition Status SNOMED Code Problem Uncontrolled type 2 diabetes mellitus 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, without long-term current use of insulin E11.65 Active 303177116 Problem Other chronic pain G89.29 Active 24659048 Problem Hyperlipidemia, unspecified E78.5 Active 77182530 Problem 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 mellitus 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, unspecified intermediate insulin use status E11.9 Active 129495915 Problem Tear of right rotator cuff, unspecified tear extent M75.101 Active 980526060 Problem Tear of left rotator cuff, unspecified tear extent M75.102 Active 7754818 Problem Gastritis, unspecified, without bleeding K29.70 Active 2564978 Problem Mood disorder F39 Active 64377226 ALLERGIES No Information ENCOUNTERS Encounter Location Date Diagnosis [place] [id number] [place] [address] 01251- 9504 August, 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 mellitus 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, unspecified intermodal customer service insulin use status E11.9 [facility] [address] [address] Jul, 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 mellitus 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, unspecified intermodal customer service insulin use status E11.9 [facility] [address] [place] [address] 40952- 1492 May, 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 mellitus 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, unspecified intermediate insulin use status E11.9 ; Acute non-recurrent maxillary sinusitis J01.00 and Other chronic pain G89.29 [facility] [address] [address] 6[address] Apr, Other chronic pain G89.29 [facility] [address] [address] 1788 Mar, [facility] [id number] [place] [address] 28080- 6727 Mar, [facility] [id number] [place] [address] 01136- 7899 Mar, [facility] [id number] [place] [address] 41109- 1883 Feb, [facility] [id number] [place] [address] 89978- 4567 Feb, [facility] [id number] [place] [address] 62066- 5717 Jan, Tear of left rotator cuff, unspecified tear extent M75.102 ; Tear of right rotator cuff, unspecified tear extent M75.101 and Mood disorder F39 [facility] [id number] [place] [address] 92520- 2767 Jan, Other chronic pain G89.29 and Hyperlipidemia, unspecified E78.5 [facility] [id number] [place] [address] 19780- 0234 Jan, [facility] [id number] [place] [address] 24691- 4591 Dec, Pain in left shoulder M25.512 [facility] [id number] [place] [address] 20158- 1356 Dec, [facility] [id number] [place] [address] 77963- 1923 Dec, Other chronic pain G89.29 [facility] [id number] [place] [address] 22860- 2848 18 Dec, 2016 Bronchitis J40 [facility] [address] [place] [address] 62182- 9231 07 Dec, 2016 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 mellitus 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, unspecified intermediate insulin use status E11.9 [facility] [id number] [place] [address] 67988- 6731 Dec, [place] [address] [id number] [place] [address] 98424- 0143 Nov, Pain in left shoulder M25.512 [place] [address] [place] [address] [id number] [place] [address] 81272- 7428 Nov, Superior glenoid labrum lesion of right shoulder, subsequent encounter S43.431D ; Superior glenoid labrum lesion of left shoulder , subsequent encounter S43.432D ; Rotator cuff impingement syndrome of right shoulder M75.41 and Rotator cuff impingement syndrome of left shoulder M75.42 [facility] [address] [place] [id number] [place] [address] 63530- 6502 Nov, Pain in left shoulder M25.512 [place] [address] [place] [id number] [place] [address] 65732- 9844 Nov, Pain in left shoulder M25.512 [place] [address] [place] [id number] [place] [address] 56976- 5746 Oct, Pain in left shoulder M25.512 [place] [address] [place] [id number] [place] [address] 70015- 7614 Oct, Uncontrolled type 2 diabetes mellitus 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, without long-term current use of insulin E11.65 and Chest pain in adult R07.9 [place] [address] [place] [id number] [place] [address] 00301- 2220 Oct, [place] [address] [place] [id number] [place] [address] 37596- 4714 Sep, Pain in left shoulder M25.512 [place] [address] [place] [id number] [place] [address] 75406- 3162 Sep, Pain in left shoulder M25.512 ; Gastritis, unspecified, without bleeding K29.70 and Mood disorder F39 [facility] [address] [place] [address] [id number] [place] [address] 93920- 8363 August, 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 mellitus 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, unspecified intermediate insulin use status E11.9 [place] [address] [place] [address] 19227- 3591 August, Other chronic pain G89.29 [place] [address] [place] [id number] [place] [address] 31119- 6747 Jul, Other chronic pain G89.29 [place] [address] [place] [id number] [place] [address] 30525- 5564 Jun, Other chronic pain G89.29 [place] [address] [place] [id number] [place] [address] 73039- 7575 May, [place] [address] [place] [id number] [place] [address] 23447- 9278 May, [place] [address] [place] [id number] [place] [address] 12323- 3168 May, Tear of right rotator cuff, unspecified tear extent M75.101 and Tear of left rotator cuff, unspecified tear extent M75.102 [place] [address] [place] [address] 19402- 0141 May, Uncontrolled type 2 diabetes mellitus 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, without long-term current use of insulin E11.65 [place] [address] [place] [id number] [place] [address] 39662- 3925 Apr, Pain in right shoulder M25.511 ; Pain in left shoulder M25.512 ; Impingement syndrome, shoulder, left M75.42 and SLAP lesion of right shoulder S43.431A [place] [address] [place] [address] 98822- 6525 Apr, [place] [address] [place] [id number] [place] [address] 00905- 9421 Apr, Uncontrolled type 2 diabetes mellitus 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, without long-term current use of insulin E11.65 ; Viral gastroenteritis A08.4 and Encounter for drug screening Z02.83 [place] [address] [place] [id number] [place] [address] 53971- 9861 Mar, Other chronic pain G89.29 and Pain in left shoulder M25.512 [place] [address] [place] [id number] [place] [address] 55092- 6980 Mar, Acute pain of left shoulder M25.512 [place] [address] [place] [id number] [place] [address] 53963- 6375 Feb, [place] [address] [place] [address] [id number] [place] [address] 17524- 2660 Feb, Other chronic pain G89.29 ; Pain in right shoulder M25.511 ; Pain in left shoulder M25.512 and Uncontrolled type 2 diabetes mellitus 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, without long-term current use of insulin E11.65 [place] [address] [place] [id number] [place] [address] 06089- 7224 Feb, [place] [address] [place] [id number] [place] [address] 39277- 3029 Jan, [place] [address] [place] [id number] [place] [address] 87463- 3271 Jan, [place] [address] [place] [id number] [place] [address] 16321- 5736 Jan, [place] [address] [place] [id number] [place] [address] 09386- 0346 Jan, Uncontrolled type 2 diabetes mellitus 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, without long-term current use of insulin E11.65 ; Hypotension, unspecified hypotension type I95.9 ; Pain in left shoulder M25.512 ; Pain in right shoulder M25.511 ; Other chronic pain G89.29 and Diabetes mellitus type 2 with neurological manifestations 250.60 [place] [address] [place] [id number] [place] [address] 29141- 9171 Dec, Hypotension, unspecified hypotension type I95.9 [place] [address] [place] [id number] [place] [address] 35677- 3650 Dec, [place] [address] [place] [id number] [place] [address]36 Dec, Diabetes mellitus type 2 with neurological manifestations 250.60 ; 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 mellitus 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, unspecified intermodal customer service insulin use status E11.9 ; Neuropathy G62.9 ; Primary insomnia F51.01 and Migraine without status migrainosus, not intractable, unspecified migraine type G43.909 [facility] [address] [facility] [id number] [id number] Mar, Encounter for dental examination Z01.20 and Dental examination Z01.20 [facility] [id number] [address]- 1466 Feb, [facility] [address] [place] [address] 17300- 3876 Nov, [facility] [id number], [place] [address]- 4786 Nov, [facility] [id number], [place] [address]- 7286 Nov, Diabetes mellitus type 2 with neurological [...] Frequency Start Date End Date Duration Status [place] 10-325 MG Orally every 6 hrs 1 tablet as needed 6h Mar, 28 days Active RESULTS No Results PROCEDURES [...]
--- OUTSIDE RECORDS SUMMARY | 2018-01-13 11:01 | XMS REPORT ---
Author Author ELIZABETH ORELLANA Organization [facility] Address [address] [place] [address] Care Team Providers Care Fit Model Name Role Phone ELIZABETH ORELLANA Unavailable PROBLEMS Type Condition ICD9-CM Code FMS98-KQ Code Onset Dates Condition Status SNOMED Code Problem Uncontrolled type 2 diabetes mellitus 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, without long-term current use of insulin E11.65 Active 123283022 Problem Tear of right rotator cuff, unspecified tear extent M75.101 Active 952637583 Problem Tear of left rotator cuff, unspecified tear extent M75.102 Active 0853348 Problem Other chronic pain G89.29 Active 13412963 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 Active 477734269 Problem 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 mellitus with unspecified complications E11.8 Active 07160582 Problem Gastritis, unspecified, without bleeding K29.70 Active 6538511 Problem Mood disorder F39 Active 63711198 Problem Hyperlipidemia, unspecified E78.5 Active 32518121 Problem 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 mellitus 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, unspecified alf insulin use status E11.9 Active 662008371 ALLERGIES No Information ENCOUNTERS Encounter Location Date Diagnosis [facility] [address], [place] [address] Oct, 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 mellitus with unspecified complications E11.8 ; 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 ; Mood disorder F39 ; Other chronic pain G89.29 and Pain in right hip M25.551 [facility] [address], [place] [address]- 8670 Oct, [facility] [id number] [place] [address] 06688- 0854 Sep, 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 mellitus 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, unspecified meterman insulin use status E11.9 [facility] [address] [place] [address] 85964- 5576 August, 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 mellitus 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, unspecified meterman insulin use status E11.9 [facility] [address] [place] [address] 24502- 5545 Jul, 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 mellitus 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, unspecified meterman insulin use status E11.9 [facility] [id number] [place] [address] 07643- 3133 May, 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 mellitus 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, unspecified alf insulin use status E11.9 ; Acute non-recurrent maxillary sinusitis J01.00 and Other chronic pain G89.29 [facility] [id number] [place] [address] 00924- 8839 Apr, Other chronic pain G89.29 [facility] [id number] [place] [address] 60941- 5769 Mar, [facility] [id number] [place] [address] 73763- 8510 Mar, [facility] [id number] [place] [address] 47578- 8246 Mar, [facility] [id number] [place] [address] 34735- 8921 Feb, [facility] [id number] [place] [address] 67643- 3571 Feb, [facility] [id number] [place] [address] 04414- 3723 Jan, Tear of left rotator cuff, unspecified tear extent M75.102 ; Tear of right rotator cuff, unspecified tear extent M75.101 and Mood disorder F39 [facility] [id number] [place] [address] 62484- 2376 Jan, Other chronic pain G89.29 and Hyperlipidemia, unspecified E78.5 [facility] [id number] [place] [address] 24991- 3823 Jan, [facility] [id number] [address]- 9241 29 Dec, 2016 Pain in left shoulder M25.512 [facility] [address] [id number] [place] [address] 13597- 9927 22 Dec, 2016 [facility] [address] [place] [address] 02190- 6609 19 Dec, 2016 Other chronic pain G89.29 [facility] [address] [id number] [place] [address] 64192- 4667 18 Dec, 2016 Bronchitis J40 [facility] [address] [id number] [place] [address] 13472- 9156 07 Dec, 2016 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 mellitus 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, unspecified alf insulin use status E11.9 [place] [address] [id number] [place] [address] 41361- 1321 06 Dec, 2016 [place] [address] [place] [id number] [place] [address] 34455- 6287 Nov, Pain in left shoulder M25.512 [place] [address] [place] [id number] [place] [address] 08013- 8529 Nov, Superior glenoid labrum lesion of right shoulder, subsequent encounter S43.431D ; Superior glenoid labrum lesion of left shoulder , subsequent encounter S43.432D ; Rotator cuff impingement syndrome of right shoulder M75.41 and Rotator cuff impingement syndrome of left shoulder M75.42 [place] [address], [place] [address]- 6958 Nov, Pain in left shoulder M25.512 [place] [address] [place] [address] 89810- 3479 Nov, Pain in left shoulder M25.512 [facility] [address] [id number] [place] [address] 78853- 8333 Oct, Pain in left shoulder M25.512 [facility] [address] [id number] [place] [address] 13355- 0218 Oct, Uncontrolled type 2 diabetes mellitus 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, without long-term current use of insulin E11.65 and Chest pain in adult R07.9 [place] [address] [place] [id number] [place] [address] 67772- 0981 Oct, [place] [address] [place] [address] [id number] [place] [address] 92752- 1216 Sep, Pain in left shoulder M25.512 [place] [address] 61604- 4989 Sep, Pain in left shoulder M25.512 ; Gastritis, unspecified, without bleeding K29.70 and Mood disorder F39 [place] [address] [place] [address] [id number] [place] [address] 81520- 9681 August, 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 mellitus 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, unspecified meterman insulin use status E11.9 [place] [address] [place] [address] [id number] [place] [address] 27227- 2114 August, Other chronic pain G89.29 [place] [address] [place] [address] [id number] [place] [address] 53999- 1753 Jul, Other chronic pain G89.29 [place] [address] [place] [address] [id number] [place] [address] 03950- 9725 Jun, Other chronic pain G89.29 [place] [address] [place] [id number] [place] [address] 76145- 1760 May, [place] [address] [place] [id number] [place] [address] 99246- 9262 May, [place] [address] [id number] [place] [address] 83460- 1018 May, Tear of right rotator cuff, unspecified tear extent M75.101 and Tear of left rotator cuff, unspecified tear extent M75.102 [place] [address] [place] [address] 99387- 3561 May, Uncontrolled type 2 diabetes mellitus 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, without long-term current use of insulin E11.65 [place] [address] [place] [id number] [place] [address] 84605- 5702 Apr, Pain in right shoulder M25.511 ; Pain in left shoulder M25.512 ; Impingement syndrome, shoulder, left M75.42 and SLAP lesion of right shoulder S43.431A [place] [address] [id number] [place] [address] 62794- 8634 Apr, [place] [address] 23126- 5633 Apr, Uncontrolled type 2 diabetes mellitus 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, without long-term current use of insulin E11.65 ; Viral gastroenteritis A08.4 and Encounter for drug screening Z02.83 [place] [address] 04745- 6440 Mar, Other chronic pain G89.29 and Pain in left shoulder M25.512 [place] [address] 15132- 1242 Mar, Acute pain of left shoulder M25.512 [place] [address] 69898- 6452 Feb, [place] [address] 09741- 2600 Feb, Other chronic pain G89.29 ; Pain in right shoulder M25.511 ; Pain in left shoulder M25.512 and Uncontrolled type 2 diabetes mellitus 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, without long-term current use of insulin E11.65 [place] [address] [place] [id number] [place] [address] 03702- 8889 Feb, [place] [address] 76237- 0617 Jan, [place] [address] [place] [id number] [place] [address] 35191- 1913 Jan, [place] [address] 40086- 1778 Jan, [place] [address] [place] [address] 30807- 3703 Jan, Uncontrolled type 2 diabetes mellitus 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, without long-term current use of insulin E11.65 ; Hypotension, unspecified hypotension type I95.9 ; Pain in left shoulder M25.512 ; Pain in right shoulder M25.511 ; Other chronic pain G89.29 and Diabetes mellitus type 2 with neurological manifestations 250.60 [place] [address] [place] [id number] [place] [address] 31430- 0629 Dec, Hypotension, unspecified hypotension type I95.9 [place] [address] [id number] [place] [address] 05299- 8753 Dec, [place] [address] [place] [address] [id number] [place] [address] 49385- 9787 09 Dec, 2015 Diabetes mellitus type 2 with neurological manifestations 250.60 ; 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 mellitus 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, unspecified meterman insulin use status E11.9 ; Neuropathy G62.9 ; Primary insomnia F51.01 and Migraine without status migrainosus, not intractable, unspecified migraine type G43.909 [facility] [address] [place] [address] [id number] 08 Mar, 2015 Encounter for dental examination Z01.20 and Dental examination Z01.20 [place] [address] [place] [id number] [place] [address] 69275- 8849 Feb, [place] [address] [place] [address] [id number] [place] [address] 22330- 5324 Nov, [place] [address] [place] [id number] [place] [address] 23879- 9434 Nov, [place] [address] 81905- 1613 Nov, Diabetes mellitus type 2 with neurological manifestations 250.60 ; Routine adult health maintenance V70.0 ; Hypertension 401.9 ; Hyperlipidemia 272.4 ; Migraine headache 346.90 ; GERD (gastroesophageal reflux disease) 530.81 ; Depression 311 ; Chronic thoracic spine pain 724.1 and Right knee pain 719.46 IMMUNIZATIONS No Known Immunizations SOCIAL HISTORY Never Assessed REASON FOR VISIT med refill PLAN OF CARE VITAL SIGNS MEDICATIONS Medication Instructions Dosage Frequency Start Date End Date Duration Status [place] 10-325 MG Orally every 6 hrs 1 tablet as needed 6h Jul, 28 days Active RESULTS No Results PROCEDURES [...]
--- OUTSIDE RECORDS SUMMARY | 2018-01-13 11:01 | XMS REPORT ---
Author Author ELIZABETH ORELLANA Organization [facility] Address [address] [place] [address] Care Team Providers Care Nutrition Representative Name Role Phone ELIZABETH ORELLANA Unavailable PROBLEMS Type Condition ICD9-CM Code LEI88-CR Code Onset Dates Condition Status SNOMED Code Problem Uncontrolled type 2 diabetes mellitus 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, without long-term current use of insulin E11.65 Active 106654632 Problem Other chronic pain G89.29 Active 14274526 Problem Hyperlipidemia, unspecified E78.5 Active 61462370 Problem 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 mellitus 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, unspecified alf insulin use status E11.9 Active 874736769 Problem Tear of right rotator cuff, unspecified tear extent M75.101 Active 303725936 Problem Tear of left rotator cuff, unspecified tear extent M75.102 Active 1018344 Problem Gastritis, unspecified, without bleeding K29.70 Active 6927348 Problem Mood disorder F39 Active 02566185 ALLERGIES No Information ENCOUNTERS Encounter Location Date Diagnosis [place] [id number] [place] [address] 43947- 5875 August, 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 mellitus 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, 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 [facility] [address], [place] [address] Jul, 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 mellitus 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, 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 [facility] [id number] [place] [address] 12427- 9219 May, 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 mellitus 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, unspecified alf insulin use status E11.9 ; Acute non-recurrent maxillary sinusitis J01.00 and Other chronic pain G89.29 [facility] [address] [address] 9[address] Apr, Other chronic pain G89.29 [facility] [id number] [address] Mar, [facility] [id number] [place] [address] 91336- 0843 Mar, [facility] [id number] [place] [address] 45712- 8598 Mar, [facility] [address] [place] [id number] [place] [address] 17613- 9786 Feb, [facility] [id number] [place] [address] 47620- 6627 Feb, [facility] [address] [place] [id number] [place] [address] 62020- 6668 Jan, Tear of left rotator cuff, unspecified tear extent M75.102 ; Tear of right rotator cuff, unspecified tear extent M75.101 and Mood disorder F39 [facility] [address] [place] [id number] [place] [address] 89258- 2765 Jan, Other chronic pain G89.29 and Hyperlipidemia, unspecified E78.5 [facility] [id number] [place] [address] 24882- 4740 Jan, [facility] [address] [place] [address] [id number] [place] [address] 16515- 6300 Dec, Pain in left shoulder M25.512 [facility] [id number] [place] [address] 52653- 9013 Dec, [facility] [id number] [place] [address] 50463- 3798 Dec, Other chronic pain G89.29 [facility] [id number] [place] [address] 18754- 9760 18 Dec, 2016 Bronchitis J40 [facility] [address] [place] [address] 93165- 2932 07 Dec, 2016 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 mellitus 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, unspecified alf insulin use status E11.9 [facility] [id number] [place] [address] 37981- 9272 Dec, [place] [address] [place] [id number] [place] [address] 75466- 5048 Nov, Pain in left shoulder M25.512 [place] [address] [place] [id number] [place] [address] 38514- 1743 Nov, Superior glenoid labrum lesion of right shoulder, subsequent encounter S43.431D ; Superior glenoid labrum lesion of left shoulder , subsequent encounter S43.432D ; Rotator cuff impingement syndrome of right shoulder M75.41 and Rotator cuff impingement syndrome of left shoulder M75.42 [place] [address] [place] [id number] [place] [address] 41046- 1890 Nov, Pain in left shoulder M25.512 [place] [address] [place] [id number] [place] [address] 89287- 7933 Nov, Pain in left shoulder M25.512 [place] [address] [place] [id number] [place] [address] 28704- 4072 Oct, Pain in left shoulder M25.512 [place] [address] [place] [id number] [place] [address] 64936- 0093 Oct, Uncontrolled type 2 diabetes mellitus 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, without long-term current use of insulin E11.65 and Chest pain in adult R07.9 [place] [address] [place] [id number] [place] [address] 36633- 4324 Oct, [place] [address] [place] [id number] [place] [address] 48128- 1571 Sep, Pain in left shoulder M25.512 [place] [address] [place] [id number] [place] [address] 02975- 7043 Sep, Pain in left shoulder M25.512 ; Gastritis, unspecified, without bleeding K29.70 and Mood disorder F39 [place] [address] [place] [id number] [place] [address] 37130- 3171 August, 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 mellitus 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, unspecified alf insulin use status E11.9 [place] [address] [place] [address] 35964- 2108 August, Other chronic pain G89.29 [place] [address] [place] [id number] [place] [address] 28874- 7282 Jul, Other chronic pain G89.29 [place] [address] [place] [id number] [place] [address] 02845- 8821 Jun, Other chronic pain G89.29 [place] [address] [place] [id number] [place] [address] 63796- 4657 May, [place] [address] [place] [id number] [place] [address] 44288- 9584 May, [place] [address] [place] [id number] [place] [address] 55319- 9788 May, Tear of right rotator cuff, unspecified tear extent M75.101 and Tear of left rotator cuff, unspecified tear extent M75.102 [place] [address] [place] [address] 84066- 9613 May, Uncontrolled type 2 diabetes mellitus 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, without long-term current use of insulin E11.65 [place] [address] [place] [id number] [place] [address] 33649- 9473 Apr, Pain in right shoulder M25.511 ; Pain in left shoulder M25.512 ; Impingement syndrome, shoulder, left M75.42 and SLAP lesion of right shoulder S43.431A [place] [address] [place] [address] 80515- 5049 Apr, [place] [address] [place] [id number] [place] [address] 96869- 3875 Apr, Uncontrolled type 2 diabetes mellitus 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, without long-term current use of insulin E11.65 ; Viral gastroenteritis A08.4 and Encounter for drug screening Z02.83 [place] [address] [place] [id number] [place] [address] 21773- 3794 Mar, Other chronic pain G89.29 and Pain in left shoulder M25.512 [place] [address] [place] [id number] [place] [address] 51566- 4137 Mar, Acute pain of left shoulder M25.512 [place] [address] [place] [id number] [place] [address] 76612- 1649 Feb, [place] [address] [place] [id number] [place] [address] 48341- 9119 Feb, Other chronic pain G89.29 ; Pain in right shoulder M25.511 ; Pain in left shoulder M25.512 and Uncontrolled type 2 diabetes mellitus 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, without long-term current use of insulin E11.65 [place] [address] [place] [id number] [place] [address] 35724- 2314 Feb, [place] [address] [place] [id number] [place] [address] 59895- 8761 Jan, [place] [address] [place] [id number] [place] [address] 59709- 0419 Jan, [place] [address] [place] [id number] [place] [address] 47003- 3991 Jan, [place] [address] [place] [id number] [place] [address] 95826- 9753 Jan, Uncontrolled type 2 diabetes mellitus 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, without long-term current use of insulin E11.65 ; Hypotension, unspecified hypotension type I95.9 ; Pain in left shoulder M25.512 ; Pain in right shoulder M25.511 ; Other chronic pain G89.29 and Diabetes mellitus type 2 with neurological manifestations 250.60 [place] [address] [place] [id number] [place] [address] 96881- 9380 Dec, Hypotension, unspecified hypotension type I95.9 [place] [address] [place] [id number] [place] [address] 69758- 3081 Dec, [place] [address] [place] [id number] [place] [address] [address] Dec, Diabetes mellitus type 2 with neurological manifestations 250.60 ; 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 mellitus 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, 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 [id number] [id number] Mar, Encounter for dental examination Z01.20 and Dental examination Z01.20 [facility] [address] [place] [id number] [address]110 Feb, [facility] [address] [place] [id number] [place] [address] 85309- 0361 Nov, [facility] [id number] 6937 Nov, [facility] [id number] [address]- 8467 Nov, Diabetes mellitus type 2 with neurological [...]
--- OUTSIDE RECORDS SUMMARY | 2018-01-13 11:02 | XMS REPORT ---
Author Author ELIZABETH ORELLANA Organization [facility] Address [address] [place] [address] Care Team Providers Care Environmental Services Worker Name Role Phone ELIZABETH ORELLANA Unavailable PROBLEMS Type Condition ICD9-CM Code VRD11-PY Code Onset Dates Condition Status SNOMED Code Problem Uncontrolled type 2 diabetes mellitus 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, without long-term current use of insulin E11.65 Active 001594023 Problem Other chronic pain G89.29 Active 76554335 Problem Hyperlipidemia, unspecified E78.5 Active 71701250 Problem 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 mellitus 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, unspecified prison insulin use status E11.9 Active 154896541 Problem Tear of right rotator cuff, unspecified tear extent M75.101 Active 570485836 Problem Tear of left rotator cuff, unspecified tear extent M75.102 Active 6602539 Problem Gastritis, unspecified, without bleeding K29.70 Active 1597886 Problem Mood disorder F39 Active 76106241 ALLERGIES Substance Reaction Event Type Date Status Zofran Unknown Drug Allergy Dec, Active Penicillin V Potassium Unknown Drug Allergy Dec, Active Latex tape Unknown Non Drug Allergy Dec, Active ENCOUNTERS Encounter Location Date Diagnosis [facility] [address], [place] [address] 3035 Jul, 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 mellitus 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, unspecified prison insulin use status E11.9 [facility] [id number] [place] [address] 30255- 5494 May, 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 mellitus 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, unspecified prison insulin use status E11.9 ; Acute non-recurrent maxillary sinusitis J01.00 and Other chronic pain G89.29 [facility] [address], [place] [address]- 6107 Apr, Other chronic pain G89.29 [facility] [address] [place] [id number] [place] [address] 70826- 1353 Mar, [facility] [id number] [place] [address] 49945- 0539 Mar, [facility] [address] [place] [address] [id number] [place] [address] 73818- 2899 Mar, [facility] [address] [place] [address] [id number] [place] [address] 18794- 9112 Feb, [facility] [address] [place] [address] [id number] [place] [address] 70549- 3700 Feb, [facility] [address] [place] [address] [id number] [place] [address] 59540- 2054 Jan, Tear of left rotator cuff, unspecified tear extent M75.102 ; Tear of right rotator cuff, unspecified tear extent M75.101 and Mood disorder F39 [facility] [address] [place] [id number] [place] [address] 77981- 0244 Jan, Other chronic pain G89.29 and Hyperlipidemia, unspecified E78.5 [facility] [address] [place] [address] [id number] [place] [address] 10229- 5498 Jan, [facility] [address] [place] [id number] [place] [address] 14342- 8747 Dec, Pain in left shoulder M25.512 [facility] [address] [place] [address] [id number] [place] [address] 01692- 7797 Dec, [facility] [address] [place] [address] [id number] [place] [address] 93807- 4180 Dec, Other chronic pain G89.29 [facility] [address] [place] [id number] [place] [address] 74695- 3200 18 Dec, 2016 Bronchitis J40 [facility] [address] [place] [id number] [place] [address] 28936- 5880 07 Dec, 2016 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 mellitus 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, unspecified prison insulin use status E11.9 [facility] [address] [place] [id number] [place] [address] 36979- 3022 Dec, [facility] [address], [place] [address]- 3862 Nov, Pain in left shoulder M25.512 [facility] [address], [place] [address]- 2071 Nov, Superior glenoid labrum lesion of right shoulder, subsequent encounter S43.431D ; Superior glenoid labrum lesion of left shoulder , subsequent encounter S43.432D ; Rotator cuff impingement syndrome of right shoulder M75.41 and Rotator cuff impingement syndrome of left shoulder M75.42 [facility] [address] [place] [id number] [place] [address] 56582- 6255 Nov, Pain in left shoulder M25.512 [facility] [address] [place] [id number] [place] [address] 49579- 6580 Nov, Pain in left shoulder M25.512 [place] [address] [place] [id number] [place] [address] 30059- 1793 Oct, Pain in left shoulder M25.512 [facility] [address] [place] [id number] [place] [address] 51568- 7584 Oct, Uncontrolled type 2 diabetes mellitus 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, without long-term current use of insulin E11.65 and Chest pain in adult R07.9 [facility] [address], [place] [address]- 2394 Oct, [place] [address] [place] [id number] [place] [address] 60478- 6052 Sep, Pain in left shoulder M25.512 [facility] [address] [place] [id number] [place] [address] 17416- 1600 Sep, Pain in left shoulder M25.512 ; Gastritis, unspecified, without bleeding K29.70 and Mood disorder F39 [facility] [id number] [place] [address] 72669- 7988 August, 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 mellitus 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, unspecified prison insulin use status E11.9 [place] [address], [place] [address]- 3408 August, Other chronic pain G89.29 [place] [address] [place] [id number] [place] [address] 93937- 8299 Jul, Other chronic pain G89.29 [place] [address] [place] [id number] [place] [address] 64809- 3027 Jun, Other chronic pain G89.29 [place] [address] [place] [id number] [place] [address] 82322- 6697 May, [place] [address] [place] [id number] [place] [address] 51972- 0043 May, [place] [address] [place] [id number] [place] [address] 12690- 2473 May, Tear of right rotator cuff, unspecified tear extent M75.101 and Tear of left rotator cuff, unspecified tear extent M75.102 [place] [address] [place] [id number] [place] [address] 90225- 5517 May, Uncontrolled type 2 diabetes mellitus 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, without long-term current use of insulin E11.65 [place] [address] [place] [address] 08098- 4833 Apr, Pain in right shoulder M25.511 ; Pain in left shoulder M25.512 ; Impingement syndrome, shoulder, left M75.42 and SLAP lesion of right shoulder S43.431A [place] [address] [place] [id number] [place] [address] 06585- 6883 Apr, [place] [address] [place] [id number] [place] [address] 58328- 7424 Apr, Uncontrolled type 2 diabetes mellitus 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, without long-term current use of insulin E11.65 ; Viral gastroenteritis A08.4 and Encounter for drug screening Z02.83 [place] [id number] [place] [address] 26972- 0293 Mar, Other chronic pain G89.29 and Pain in left shoulder M25.512 [facility] [address] [place] [id number] [place] [address] 52035- 6087 Mar, Acute pain of left shoulder M25.512 [facility] [address] [place] [id number] [place] [address] 27374- 3906 Feb, [facility] [address] 48296- 1740 Feb, Other chronic pain G89.29 ; Pain in right shoulder M25.511 ; Pain in left shoulder M25.512 and Uncontrolled type 2 diabetes mellitus 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, without long-term current use of insulin E11.65 [place] [address] [place] [id number] [place] [address] 00594- 3962 Feb, [place] [address] [place] [id number] [place] [address] 88945- 3618 Jan, [facility] [address] [place] [address] [id number] [place] [address] 28422- 3798 Jan, [facility] [address] [place] [address] [id number] [place] [address] 22890- 7045 Jan, [facility] [address] [place] [id number] [place] [address] 37279- 0686 Jan, Uncontrolled type 2 diabetes mellitus 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, without long-term current use of insulin E11.65 ; Hypotension, unspecified hypotension type I95.9 ; Pain in left shoulder M25.512 ; Pain in right shoulder M25.511 ; Other chronic pain G89.29 and Diabetes mellitus type 2 with neurological manifestations 250.60 [place] [address] [place] [id number] [place] [address] 79725- 4655 Dec, Hypotension, unspecified hypotension type I95.9 [facility] [address] [place] [id number] [place] [address] 94251- 4043 Dec, [place] [address] [place] [id number] [place] [address] 84948- 3496 Dec, Diabetes mellitus type 2 with neurological manifestations 250.60 ; 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 mellitus 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, unspecified prison insulin use status E11.9 ; Neuropathy G62.9 ; Primary insomnia F51.01 and Migraine without status migrainosus, not intractable, unspecified migraine type G43.909 [facility] [address] [facility] [id number] [id number] Mar, Encounter for dental examination Z01.20 and Dental examination Z01.20 [facility] [address] [place] [address] 85602318- 1679 Feb, [facility] [id number] [place] [address] 86773- 2859 Nov, [facility] [id number] [place] [address] 58320- 6055 Nov, [facility] [id number] [place] [address] 58130- 8362 Nov, Diabetes mellitus type 2 with neurological manifestations 250.60 ; Routine adult health maintenance V70.0 ; Hypertension 401.9 ; Hyperlipidemia 272.4 ; Migraine headache 346.90 ; GERD (gastroesophageal reflux disease) 530.81 ; Depression 311 ; Chronic thoracic spine pain 724.1 and Right knee pain 719.46 IMMUNIZATIONS No Known Immunizations SOCIAL HISTORY Never Assessed REASON FOR VISIT Refill request PLAN OF CARE VITAL SIGNS MEDICATIONS Medication Instructions Dosage Frequency Start Date End Date Duration Status Ibuprofen 600 MG Orally 4 times a day as needed 1 tablet with food or milk Dec, 30 day(s) Active RESULTS No Results PROCEDURES No Known [...]
--- OUTSIDE RECORDS SUMMARY | 2018-01-13 11:02 | XMS REPORT ---
Author Author ELIZABETH ORELLANA Organization [facility] Address [address] [place] [address] Care Team Providers Care Vp Ad Sales West Name Role Phone ELIZABETH ORELLANA Unavailable PROBLEMS Type Condition ICD9-CM Code NWG91-HO Code Onset Dates Condition Status SNOMED Code Problem Uncontrolled type 2 diabetes mellitus 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, without long-term current use of insulin E11.65 Active 927287713 Problem Other chronic pain G89.29 Active 90567033 Problem Hyperlipidemia, unspecified E78.5 Active 78221425 Problem 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 mellitus 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, unspecified intermediate insulin use status E11.9 Active 070055338 Problem Tear of right rotator cuff, unspecified tear extent M75.101 Active 692201770 Problem Tear of left rotator cuff, unspecified tear extent M75.102 Active 5102461 Problem Gastritis, unspecified, without bleeding K29.70 Active 4588636 Problem Mood disorder F39 Active 20943224 ALLERGIES No Information ENCOUNTERS Encounter Location Date Diagnosis [place] [id number] [place] [address] 61552- 2857 August, 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 mellitus 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, unspecified manager of recruiting insulin use status E11.9 [facility] [address] [address] 279[address] Jul, 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 mellitus 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, unspecified manager of recruiting insulin use status E11.9 [facility] [address] [place] [address] 48276- 6626 May, 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 mellitus 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, unspecified intermediate insulin use status E11.9 ; Acute non-recurrent maxillary sinusitis J01.00 and Other chronic pain G89.29 [facility] [address] [address] 98[address] Apr, Other chronic pain G89.29 [facility] [address] [place] [id number] [address] 7457 Mar, [facility] [address] [id number] [place] [address] 78208- 0518 Mar, [facility] [id number] [place] [address] 95483- 6080 Mar, [facility] [address] [id number] [place] [address] 43791- 8577 Feb, [facility] [id number] [place] [address] 23210- 4696 Feb, [facility] [address] [id number] [place] [address] 00756- 5219 Jan, Tear of left rotator cuff, unspecified tear extent M75.102 ; Tear of right rotator cuff, unspecified tear extent M75.101 and Mood disorder F39 [facility] [address] [place] [id number] [place] [address] 68735- 8620 Jan, Other chronic pain G89.29 and Hyperlipidemia, unspecified E78.5 [facility] [address] [id number] [place] [address] 52806- 4003 Jan, [facility] [address] [address] [id number] [place] [address] 84232- 3900 Dec, Pain in left shoulder M25.512 [facility] [address] [place] [address] [id number] [place] [address] 55930- 6460 Dec, [facility] [id number] [place] [address] 72532- 2622 Dec, Other chronic pain G89.29 [facility] [address] [place] [address] [id number] [place] [address] 05794- 5371 18 Dec, 2016 Bronchitis J40 [facility] [address] [place] [address] 46185- 8963 07 Dec, 2016 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 mellitus 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, unspecified intermediate insulin use status E11.9 [facility] [id number] [place] [address] 64903- 6957 Dec, [place] [address] [place] [id number] [place] [address] 36860- 8999 Nov, Pain in left shoulder M25.512 [place] [address] [place] [id number] [place] [address] 13279- 0787 Nov, Superior glenoid labrum lesion of right shoulder, subsequent encounter S43.431D ; Superior glenoid labrum lesion of left shoulder , subsequent encounter S43.432D ; Rotator cuff impingement syndrome of right shoulder M75.41 and Rotator cuff impingement syndrome of left shoulder M75.42 [place] [address] [place] [id number] [place] [address] 18962- 6433 Nov, Pain in left shoulder M25.512 [place] [address] [place] [id number] [place] [address] 36112- 4721 Nov, Pain in left shoulder M25.512 [place] [address] [place] [id number] [place] [address] 98736- 0451 Oct, Pain in left shoulder M25.512 [place] [address] [place] [id number] [place] [address] 58127- 1011 Oct, Uncontrolled type 2 diabetes mellitus 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, without long-term current use of insulin E11.65 and Chest pain in adult R07.9 [place] [address] [place] [id number] [place] [address] 59828- 2823 Oct, [place] [address] [place] [id number] [place] [address] 39517- 0488 Sep, Pain in left shoulder M25.512 [place] [address] [place] [id number] [place] [address] 72995- 1247 Sep, Pain in left shoulder M25.512 ; Gastritis, unspecified, without bleeding K29.70 and Mood disorder F39 [place] [address] [place] [id number] [place] [address] 31954- 2082 August, 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 mellitus 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, unspecified intermediate insulin use status E11.9 [place] [address] [place] [address] 23179- 9172 August, Other chronic pain G89.29 [place] [address] [place] [id number] [place] [address] 50175- 6230 Jul, Other chronic pain G89.29 [place] [address] [place] [id number] [place] [address] 75768- 4501 Jun, Other chronic pain G89.29 [place] [address] [place] [id number] [place] [address] 71073- 2713 May, [place] [address] [place] [id number] [place] [address] 88049- 4251 May, [place] [address] [place] [id number] [place] [address] 34890- 6175 May, Tear of right rotator cuff, unspecified tear extent M75.101 and Tear of left rotator cuff, unspecified tear extent M75.102 [place] [address] [place] [address] 71575- 6177 May, Uncontrolled type 2 diabetes mellitus 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, without long-term current use of insulin E11.65 [place] [address] [place] [id number] [place] [address] 41779- 2579 Apr, Pain in right shoulder M25.511 ; Pain in left shoulder M25.512 ; Impingement syndrome, shoulder, left M75.42 and SLAP lesion of right shoulder S43.431A [place] [address] [place] [address] 86423- 3292 Apr, [place] [address] [place] [id number] [place] [address] 38904- 4725 Apr, Uncontrolled type 2 diabetes mellitus 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, without long-term current use of insulin E11.65 ; Viral gastroenteritis A08.4 and Encounter for drug screening Z02.83 [place] [address] [place] [id number] [place] [address] 71649- 1692 Mar, Other chronic pain G89.29 and Pain in left shoulder M25.512 [place] [address] [place] [id number] [place] [address] 85687- 2610 Mar, Acute pain of left shoulder M25.512 [place] [address] [place] [id number] [place] [address] 39645- 9520 Feb, [place] [address] [place] [id number] [place] [address] 57659- 1195 Feb, Other chronic pain G89.29 ; Pain in right shoulder M25.511 ; Pain in left shoulder M25.512 and Uncontrolled type 2 diabetes mellitus 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, without long-term current use of insulin E11.65 [place] [address] [place] [id number] [place] [address] 49223- 4753 Feb, [place] [address] [place] [id number] [place] [address] 77849- 5217 Jan, [place] [address] [place] [id number] [place] [address] 77203- 2114 Jan, [place] [address] [place] [id number] [place] [address] 19312- 9344 Jan, [place] [address] [place] [id number] [place] [address] 12334- 9705 Jan, Uncontrolled type 2 diabetes mellitus 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, without long-term current use of insulin E11.65 ; Hypotension, unspecified hypotension type I95.9 ; Pain in left shoulder M25.512 ; Pain in right shoulder M25.511 ; Other chronic pain G89.29 and Diabetes mellitus type 2 with neurological manifestations 250.60 [place] [address] [place] [id number] [place] [address] 24445- 6758 Dec, Hypotension, unspecified hypotension type I95.9 [place] [address] [place] [id number] [place] [address] 93633- 4184 Dec, [place] [address] [place] [id number] [place] [address] 2456 Dec, Diabetes mellitus type 2 with neurological manifestations 250.60 ; 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 mellitus 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, unspecified manager of recruiting insulin use status E11.9 ; Neuropathy G62.9 ; Primary insomnia F51.01 and Migraine without status migrainosus, not intractable, unspecified migraine type G43.909 [facility] [address] [facility] [id number] [id number] Mar, Encounter for dental examination Z01.20 and Dental examination Z01.20 [facility] [address] [place] [id number] [place] [address] 705609- 1690 Feb, [facility] [address] [place] [id number] [place] [address] 44552- 2511 Nov, [facility] [address] [place] [id number] 6523 Nov, [facility] [address] [place] [id number] [place] [address] 10925- 9126 Nov, Diabetes mellitus type 2 with neurological manifestations 250.60 ; Routine adult health maintenance V70.0 ; Hypertension 401.9 ; Hyperlipidemia 272.4 ; Migraine headache 346.90 ; GERD (gastroesophageal reflux disease) 530.81 ; Depression 311 ; Chronic thoracic spine pain 724.1 and Right knee pain 719.46 IMMUNIZATIONS No Known Immunizations SOCIAL HISTORY Never Assessed REASON FOR VISIT Controlled Med Refill 02/27/17 PLAN OF CARE VITAL SIGNS MEDICATIONS Medication Instructions Dosage Frequency Start Date End Date Duration Status Dover 10-325 MG Orally every 6 hrs 1 tablet as needed 6h Feb, 28 days Active RESULTS No Results PROCEDURES [...]
--- OUTSIDE RECORDS SUMMARY | 2018-01-13 11:02 | XMS REPORT ---
Author Author ELIZABETH ORELLANA Organization [facility] Address [address] [place] [address] Care Team Providers Care Lavatory Attendant Name Role Phone ELIZABETH ORELLANA Unavailable PROBLEMS Type Condition ICD9-CM Code JSS61-XP Code Onset Dates Condition Status SNOMED Code Problem Uncontrolled type 2 diabetes mellitus 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, without long-term current use of insulin E11.65 Active 167737588 Problem Other chronic pain G89.29 Active 60715915 Problem Hyperlipidemia, unspecified E78.5 Active 12214925 Problem 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 mellitus 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, unspecified senior care insulin use status E11.9 Active 918705611 Problem Tear of right rotator cuff, unspecified tear extent M75.101 Active 176565559 Problem Tear of left rotator cuff, unspecified tear extent M75.102 Active 8215615 Problem Gastritis, unspecified, without bleeding K29.70 Active 7282286 Problem Mood disorder F39 Active 22919096 ALLERGIES No Information ENCOUNTERS Encounter Location Date Diagnosis [place] [address] [place] [address] 60592- 3048 August, 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 mellitus 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, unspecified last turner insulin use status E11.9 [facility] [address], [place] [address]- 2386 Jul, 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 mellitus 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, unspecified last turner insulin use status E11.9 [facility] [address] [place] [address] 30508- 4804 May, 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 mellitus 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, unspecified senior care insulin use status E11.9 ; Acute non-recurrent maxillary sinusitis J01.00 and Other chronic pain G89.29 [facility] [address], [place] [address]- 6499 Apr, Other chronic pain G89.29 [facility] [address] [place] [id number] [address]- 9090 Mar, [facility] [address] [place] [id number] [place] [address] 09840- 4986 Mar, [facility] [address] [place] [id number] [place] [address] 63635- 0393 Mar, [facility] [address] [place] [id number] [place] [address] 56517- 6235 Feb, [facility] [address] [place] [id number] [place] [address] 84279- 5736 Feb, [facility] [address] [place] [id number] [place] [address] 12858- 0854 Jan, Tear of left rotator cuff, unspecified tear extent M75.102 ; Tear of right rotator cuff, unspecified tear extent M75.101 and Mood disorder F39 [facility] [address] [place] [id number] [place] [address] 73011- 1997 Jan, Other chronic pain G89.29 and Hyperlipidemia, unspecified E78.5 [facility] [address] [place] [id number] [place] [address] 76730- 5100 Jan, [facility] [address] [place] [id number] [place] [address] 51260- 2926 Dec, Pain in left shoulder M25.512 [facility] [address] [place] [id number] [place] [address] 06336- 2022 Dec, [facility] [address] [place] [id number] [place] [address] 73587- 7838 Dec, Other chronic pain G89.29 [facility] [address] [place] [id number] [place] [address] 11561- 4275 18 Dec, 2016 Bronchitis J40 [facility] [address] [place] [address] 68094- 9068 07 Dec, 2016 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 mellitus 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, unspecified senior care insulin use status E11.9 [facility] [address] [place] [id number] [place] [address] 66191- 1389 Dec, [place] [address] [place] [id number] [place] [address] 93551- 5023 Nov, Pain in left shoulder M25.512 [place] [address] [place] [id number] [place] [address] 00555- 1584 Nov, Superior glenoid labrum lesion of right shoulder, subsequent encounter S43.431D ; Superior glenoid labrum lesion of left shoulder , subsequent encounter S43.432D ; Rotator cuff impingement syndrome of right shoulder M75.41 and Rotator cuff impingement syndrome of left shoulder M75.42 [place] [address] [place] [id number] [place] [address] 68517- 5620 Nov, Pain in left shoulder M25.512 [place] [address] [place] [id number] [place] [address] 63643- 4604 Nov, Pain in left shoulder M25.512 [place] [address] [place] [id number] [place] [address] 95595- 7920 Oct, Pain in left shoulder M25.512 [place] [address] [place] [id number] [place] [address] 88718- 8458 Oct, Uncontrolled type 2 diabetes mellitus 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, without long-term current use of insulin E11.65 and Chest pain in adult R07.9 [place] [address] [place] [id number] [place] [address] 60419- 4284 Oct, [place] [address] [place] [id number] [place] [address] 17050- 1446 Sep, Pain in left shoulder M25.512 [place] [address] [place] [id number] [place] [address] 02990- 5934 Sep, Pain in left shoulder M25.512 ; Gastritis, unspecified, without bleeding K29.70 and Mood disorder F39 [place] [address] [place] [id number] [place] [address] 85905- 2915 August, 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 mellitus 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, unspecified senior care insulin use status E11.9 [place] [address] [place] [address] 28164- 8994 August, Other chronic pain G89.29 [place] [address] [place] [id number] [place] [address] 93252- 6364 Jul, Other chronic pain G89.29 [place] [address] [place] [id number] [place] [address] 46864- 9207 Jun, Other chronic pain G89.29 [place] [address] [place] [id number] [place] [address] 15149- 7244 May, [place] [address] [place] [id number] [place] [address] 73848- 2182 May, [place] [address] [place] [id number] [place] [address] 23548- 9466 May, Tear of right rotator cuff, unspecified tear extent M75.101 and Tear of left rotator cuff, unspecified tear extent M75.102 [place] [address] [place] [address] 79614- 6306 May, Uncontrolled type 2 diabetes mellitus 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, without long-term current use of insulin E11.65 [place] [address] [place] [id number] [place] [address] 20832- 0690 Apr, Pain in right shoulder M25.511 ; Pain in left shoulder M25.512 ; Impingement syndrome, shoulder, left M75.42 and SLAP lesion of right shoulder S43.431A [place] [address] [place] [address] 71120- 6755 Apr, [place] [address] [place] [id number] [place] [address] 68439- 5990 Apr, Uncontrolled type 2 diabetes mellitus 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, without long-term current use of insulin E11.65 ; Viral gastroenteritis A08.4 and Encounter for drug screening Z02.83 [place] [address] [place] [id number] [place] [address] 13511- 0843 Mar, Other chronic pain G89.29 and Pain in left shoulder M25.512 [place] [address] [place] [id number] [place] [address] 93422- 5154 Mar, Acute pain of left shoulder M25.512 [place] [address] [place] [id number] [place] [address] 14218- 0689 Feb, [facility] [address] [place] [id number] [place] [address] 70376- 1037 Feb, Other chronic pain G89.29 ; Pain in right shoulder M25.511 ; Pain in left shoulder M25.512 and Uncontrolled type 2 diabetes mellitus 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, without long-term current use of insulin E11.65 [place] [address] [place] [id number] [place] [address] 51760- 0370 Feb, [place] [address] [place] [id number] [place] [address] 15354- 3935 Jan, [facility] [address] [place] [id number] [place] [address] 34495- 1836 Jan, [place] [address] [place] [id number] [place] [address] 08284- 2769 Jan, [facility] [address] [place] [address] 08341- 2349 Jan, Uncontrolled type 2 diabetes mellitus 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, without long-term current use of insulin E11.65 ; Hypotension, unspecified hypotension type I95.9 ; Pain in left shoulder M25.512 ; Pain in right shoulder M25.511 ; Diabetes mellitus type 2 with neurological manifestations 250.60 and Other chronic pain G89.29 [place] [address] [place] [id number] [place] [address] 57369- 1366 Dec, Hypotension, unspecified hypotension type I95.9 [place] [address] [place] [address] 34457- 3231 Dec, [place] [address] [place] [id number] [place] [address] 89137- 7346 Dec, Diabetes mellitus type 2 with neurological manifestations 250.60 ; 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 mellitus 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, unspecified last turner insulin use status E11.9 ; Neuropathy G62.9 ; Primary insomnia F51.01 and Migraine without status migrainosus, not intractable, unspecified migraine type G43.909 [facility] [address] [facility] [id number] [address] Mar, Dental examination Z01.20 and Encounter for dental examination Z01.20 [facility] [address] [place] [id number] 4183 Feb, [facility] [address] [place] [address] 97549- 4371 Nov, [facility] [address] [place] [id number] [address]- 9137 Nov, [facility] [address] [place] [id number] [address]- 3916 Nov, Diabetes mellitus type 2 with neurological [...]
--- OUTSIDE RECORDS SUMMARY | 2018-01-13 11:02 | XMS REPORT ---
Author Author ELIZABETH ORELLANA Organization [facility] Address [address] [place] [address] Care Team Providers Care Zoning Administrator Name Role Phone ELIZABETH ORELLANA Unavailable PROBLEMS Type Condition ICD9-CM Code PXO13-TO Code Onset Dates Condition Status SNOMED Code Problem Uncontrolled type 2 diabetes mellitus 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, without long-term current use of insulin E11.65 Active 751158314 Problem Other chronic pain G89.29 Active 48756154 Problem Hyperlipidemia, unspecified E78.5 Active 06223895 Problem 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 mellitus 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, unspecified senior living insulin use status E11.9 Active 422654376 Problem Tear of right rotator cuff, unspecified tear extent M75.101 Active 042603486 Problem Tear of left rotator cuff, unspecified tear extent M75.102 Active 3526165 Problem Gastritis, unspecified, without bleeding K29.70 Active 5662355 Problem Mood disorder F39 Active 13851351 ALLERGIES No Information ENCOUNTERS Encounter Location Date Diagnosis [place] [id number] [place] [address] 95451- 0708 Jul, 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 mellitus 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, unspecified host/hostess insulin use status E11.9 [facility] [id number] [place] [address] 64091- 9502 May, 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 mellitus 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, unspecified host/hostess insulin use status E11.9 ; Acute non-recurrent maxillary sinusitis J01.00 and Other chronic pain G89.29 [facility] [address] [place] [address] 10165- 2891 Apr, Other chronic pain G89.29 [facility] [address] [place] [id number] [place] [address] 22204- 8239 Mar, [place] [address] [place] [id number] [place] [address] 12383- 8927 Mar, [facility] [id number] [place] [address] 17698- 6375 Mar, [facility] [address] [place] [id number] [place] [address] 76502- 6939 Feb, [facility] [address] [place] [address] [id number] [place] [address] 22864- 0869 Feb, [facility] [address] [place] [id number] [place] [address] 65736- 4624 Jan, Tear of left rotator cuff, unspecified tear extent M75.102 ; Tear of right rotator cuff, unspecified tear extent M75.101 and Mood disorder F39 [facility] [address] [place] [id number] [place] [address] 01001- 0333 Jan, Other chronic pain G89.29 and Hyperlipidemia, unspecified E78.5 [facility] [address] [place] [id number] [place] [address] 64685- 0546 Jan, [facility] [address] [place] [id number] [place] [address] 05332- 6728 Dec, Pain in left shoulder M25.512 [facility] [address] [place] [id number] [place] [address] 32216- 7090 Dec, [facility] [address] [place] [id number] [place] [address] 54734- 1896 Dec, Other chronic pain G89.29 [facility] [address] [place] [id number] [place] [address] 29874- 8935 18 Dec, 2016 Bronchitis J40 [facility] [address] [place] [id number] [place] [address] 96899- 3361 07 Dec, 2016 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 mellitus 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, unspecified senior living insulin use status E11.9 [facility] [address] [place] [id number] [place] [address] 06328- 3661 06 Dec, 2016 [facility] [address] [place] [id number] [place] [address] 07364- 1231 Nov, Pain in left shoulder M25.512 [facility] [address] [place] [address] 27226- 8981 Nov, Superior glenoid labrum lesion of right shoulder, subsequent encounter S43.431D ; Superior glenoid labrum lesion of left shoulder , subsequent encounter S43.432D ; Rotator cuff impingement syndrome of right shoulder M75.41 and Rotator cuff impingement syndrome of left shoulder M75.42 [place] [address] [place] [id number] [place] [address] 90309- 5574 Nov, Pain in left shoulder M25.512 [place] [address] [place] [id number] [place] [address] 21998- 1871 Nov, Pain in left shoulder M25.512 [place] [address] [place] [id number] [place] [address] 78149- 7307 Oct, Pain in left shoulder M25.512 [place] [address] 78105- 6552 Oct, Uncontrolled type 2 diabetes mellitus 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, without long-term current use of insulin E11.65 and Chest pain in adult R07.9 [place] [address] [place] [id number] [place] [address] 05290- 7517 Oct, [place] [address] [place] [id number] [place] [address] 98390- 9173 Sep, Pain in left shoulder M25.512 [place] [address] [place] [id number] [place] [address] 92387- 0006 Sep, Pain in left shoulder M25.512 ; Gastritis, unspecified, without bleeding K29.70 and Mood disorder F39 [place] [address] [place] [id number] [place] [address] 74385- 9775 August, 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 mellitus 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, unspecified host/hostess insulin use status E11.9 [place] [address] [place] [id number] [place] [address] 14644- 9564 August, Other chronic pain G89.29 [place] [address] [place] [address] 73595- 6146 Jul, Other chronic pain G89.29 [place] [address] [place] [id number] [place] [address] 09007- 8573 Jun, Other chronic pain G89.29 [place] [address] [place] [id number] [place] [address] 66234- 1258 May, [place] [address] [place] [id number] [place] [address] 43594- 2896 May, [place] [address] 94825- 6311 May, Tear of right rotator cuff, unspecified tear extent M75.101 and Tear of left rotator cuff, unspecified tear extent M75.102 [place] [address] 47722- 6503 May, Uncontrolled type 2 diabetes mellitus 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, without long-term current use of insulin E11.65 [place] [address] [place] [id number] [place] [address] 18273- 1796 Apr, Pain in right shoulder M25.511 ; Pain in left shoulder M25.512 ; Impingement syndrome, shoulder, left M75.42 and SLAP lesion of right shoulder S43.431A [place] [address] [place] [id number] [place] [address] 60700- 9851 Apr, [place] [address] [place] [id number] [place] [address] 86538- 9465 Apr, Uncontrolled type 2 diabetes mellitus 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, without long-term current use of insulin E11.65 ; Viral gastroenteritis A08.4 and Encounter for drug screening Z02.83 [place] [address] [place] [id number] [place] [address] 44520- 7310 Mar, Other chronic pain G89.29 and Pain in left shoulder M25.512 [place] [address] [place] [id number] [place] [address] 26515- 1323 Mar, Acute pain of left shoulder M25.512 [place] [address] [place] [id number] [place] [address] 92095- 0929 Feb, [facility] [address] [place] [id number] [place] [address] 64751- 0350 Feb, Other chronic pain G89.29 ; Pain in right shoulder M25.511 ; Pain in left shoulder M25.512 and Uncontrolled type 2 diabetes mellitus 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, without long-term current use of insulin E11.65 [place] [address] [place] [address] 57790- 6532 Feb, [place] [address] [place] [id number] [place] [address] 89212- 3481 Jan, [place] [address] [place] [id number] [place] [address] 86656- 2243 Jan, [place] [address] [place] [id number] [place] [address] 09409- 5600 Jan, [facility] [address] [place] [address] 40383- 2036 Jan, Uncontrolled type 2 diabetes mellitus 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, without long-term current use of insulin E11.65 ; Hypotension, unspecified hypotension type I95.9 ; Pain in left shoulder M25.512 ; Pain in right shoulder M25.511 ; Other chronic pain G89.29 and Diabetes mellitus type 2 with neurological manifestations 250.60 [place] [address] [place] [address] 40241- 0861 Dec, Hypotension, unspecified hypotension type I95.9 [place] [address] [place] [address] 43383- 0782 Dec, [place] [address] [place] [address] 40173- 3125 Dec, Diabetes mellitus type 2 with neurological manifestations 250.60 ; 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 mellitus 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, unspecified senior living insulin use status E11.9 ; Neuropathy G62.9 ; Primary insomnia F51.01 and Migraine without status migrainosus, not intractable, unspecified migraine type G43.909 [facility] [address] [facility] [id number] [id number] Mar, Encounter for dental examination Z01.20 and Dental examination Z01.20 [facility] [address] [place] [id number] [address]- 7249 Feb, [facility] [address] [place] [id number] [address]- 2525 Nov, [facility] [address] [place] [id number] [address]- 6141 Nov, [facility] [address] [place] [id number] [place] [address] 93825- 7499 Nov, Diabetes mellitus type 2 with neurological manifestations 250.60 ; Routine adult health maintenance V70.0 ; Hypertension 401.9 ; Hyperlipidemia 272.4 ; Migraine headache 346.90 ; GERD (gastroesophageal reflux disease) 530.81 ; Depression 311 ; Chronic thoracic spine pain 724.1 and Right knee pain 719.46 IMMUNIZATIONS No Known Immunizations SOCIAL HISTORY Never Assessed REASON FOR VISIT inhaler request PLAN OF CARE VITAL SIGNS MEDICATIONS Medication Instructions Dosage Frequency Start Date End Date Duration Status ProAir HFA 108 (90 Base) MCG/ACT Inhalation 4 times a day 2 puffs as needed 6h Dec, Active RESULTS No Results PROCEDURES No Known [...]
--- OUTSIDE RECORDS SUMMARY | 2018-01-13 11:03 | XMS REPORT ---
Author Author ELIZABETH ORELLANA Organization [facility] Address [address] [place] [address] Care Team Providers Care Shallot Packer Name Role Phone ELIZABETH ORELLANA Unavailable PROBLEMS Type Condition ICD9-CM Code YPN47-XB Code Onset Dates Condition Status SNOMED Code Problem Uncontrolled type 2 diabetes mellitus 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, without long-term current use of insulin E11.65 Active 257217124 Problem Other chronic pain G89.29 Active 80204562 Problem Hyperlipidemia, unspecified E78.5 Active 76161396 Problem 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 mellitus 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, unspecified fci insulin use status E11.9 Active 550686196 Problem Tear of right rotator cuff, unspecified tear extent M75.101 Active 392982527 Problem Tear of left rotator cuff, unspecified tear extent M75.102 Active 8744333 Problem Gastritis, unspecified, without bleeding K29.70 Active 5154254 Problem Mood disorder F39 Active 20824878 ALLERGIES No Information ENCOUNTERS Encounter Location Date Diagnosis [place] [address] [place] [id number] [place] [address] 16209- 2678 Oct, [place] [address] [place] [id number] [place] [address] 03918- 5692 Sep, 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 mellitus 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, unspecified supervisor long goods insulin use status E11.9 [facility] [address] [place] [id number] [place] [address] 82729- 3206 August, 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 mellitus 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, unspecified supervisor long goods insulin use status E11.9 [place] [address] 75935- 6933 Jul, 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 mellitus 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, unspecified supervisor long goods insulin use status E11.9 [facility] [address] [place] [id number] [place] [address] 47092- 3560 May, 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 mellitus 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, unspecified supervisor long goods insulin use status E11.9 ; Acute non-recurrent maxillary sinusitis J01.00 and Other chronic pain G89.29 [facility] [address] [place] [id number] [place] [address] 47176- 4866 Apr, Other chronic pain G89.29 [facility] [address] [place] [id number] [place] [address] 33539- 6819 Mar, [facility] [address] [place] [id number] [place] [address] 42702- 3977 Mar, [facility] [address] [place] [id number] [place] [address] 68338- 1154 Mar, [facility] [address] [place] [id number] [place] [address] 74654- 4537 Feb, [facility] [address] [place] [id number] [place] [address] 92108- 1230 Feb, [facility] [address] [place] [id number] [place] [address] 97593- 8130 Jan, Tear of left rotator cuff, unspecified tear extent M75.102 ; Tear of right rotator cuff, unspecified tear extent M75.101 and Mood disorder F39 [facility] [address] [place] [id number] [place] [address] 58805- 6130 Jan, Other chronic pain G89.29 and Hyperlipidemia, unspecified E78.5 [facility] [address] [place] [id number] [place] [address] 40551- 9185 Jan, [facility] [address] [place] [id number] [place] [address] 42322- 2228 Dec, Pain in left shoulder M25.512 [facility] [address] [place] [id number] [place] [address] 96030- 5352 Dec, [facility] [address] [place] [id number] [place] [address] 22355- 8714 Dec, Other chronic pain G89.29 [facility] [address] [place] [address]- 4799 18 Dec, 2016 Bronchitis J40 [facility] [address] [place] [id number] [place] [address] 74494- 7485 07 Dec, 2016 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 mellitus 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, unspecified supervisor long goods insulin use status E11.9 [facility] [address] [address]- 6284 Dec, [facility] [address] [place] [id number] [place] [address] 26157- 3691 Nov, Pain in left shoulder M25.512 [facility] [address] [place] [id number] [place] [address] 92663- 0400 Nov, Superior glenoid labrum lesion of right shoulder, subsequent encounter S43.431D ; Superior glenoid labrum lesion of left shoulder , subsequent encounter S43.432D ; Rotator cuff impingement syndrome of right shoulder M75.41 and Rotator cuff impingement syndrome of left shoulder M75.42 [place] [address] [place] [address] 02869- 3868 Nov, Pain in left shoulder M25.512 [facility] [address] [place] [address] 04490- 0086 Nov, Pain in left shoulder M25.512 [place] [address], [place] [address]- 1485 Oct, Pain in left shoulder M25.512 [facility] [address] [place] [address] 51450- 8279 Oct, Uncontrolled type 2 diabetes mellitus 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, without long-term current use of insulin E11.65 and Chest pain in adult R07.9 [facility] [address] [place] [id number] [place] [address] 15289- 2175 05 Oct, 2016 [facility] [address] [address]- 6369 Sep, Pain in left shoulder M25.512 [facility] [address] [place] [id number] [place] [address] 05534- 4839 Sep, Pain in left shoulder M25.512 ; Gastritis, unspecified, without bleeding K29.70 and Mood disorder F39 [place] [address] [place] [id number] [place] [address] 11368- 6098 August, 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 mellitus 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, unspecified supervisor long goods insulin use status E11.9 [place] [address] 49815- 1669 August, Other chronic pain G89.29 [place] [address] 24853- 8688 Jul, Other chronic pain G89.29 [place] [address] 11243- 8891 Jun, Other chronic pain G89.29 [place] [address] 12325- 2156 May, [place] [address] 72226- 2162 May, [place] [address] 94860- 6376 May, Tear of right rotator cuff, unspecified tear extent M75.101 and Tear of left rotator cuff, unspecified tear extent M75.102 [place] [address] [place] [id number] [place] [address] 92382- 8145 May, Uncontrolled type 2 diabetes mellitus 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, without long-term current use of insulin E11.65 [place] [address] [place] [id number] [place] [address] 49388- 8740 Apr, Pain in right shoulder M25.511 ; Pain in left shoulder M25.512 ; Impingement syndrome, shoulder, left M75.42 and SLAP lesion of right shoulder S43.431A [place] [address] 72513- 2006 Apr, [place] [address] [place] [id number] [place] [address] 38636- 6526 Apr, Uncontrolled type 2 diabetes mellitus 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, without long-term current use of insulin E11.65 ; Viral gastroenteritis A08.4 and Encounter for drug screening Z02.83 [place] [address] [place] [id number] [place] [address] 82108- 8969 Mar, Other chronic pain G89.29 and Pain in left shoulder M25.512 [place] [address] [place] [id number] [place] [address] 46898- 0625 Mar, Acute pain of left shoulder M25.512 [place] [address] [place] [id number] [place] [address] 88634- 6474 Feb, [place] [address] [place] [id number] [place] [address] 29309- 9103 Feb, Other chronic pain G89.29 ; Pain in right shoulder M25.511 ; Pain in left shoulder M25.512 and Uncontrolled type 2 diabetes mellitus 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, without long-term current use of insulin E11.65 [place] [address] [place] [id number] [place] [address] 32665- 6696 Feb, [place] [address] [place] [id number] [place] [address] 42509- 1330 Jan, [place] [address] [place] [id number] [place] [address] 46360- 5830 Jan, [place] [address] [place] [id number] [place] [address] 29048- 2568 Jan, [place] [address] [place] [id number] [place] [address] 83305- 1220 Jan, Uncontrolled type 2 diabetes mellitus 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, without long-term current use of insulin E11.65 ; Hypotension, unspecified hypotension type I95.9 ; Pain in left shoulder M25.512 ; Pain in right shoulder M25.511 ; Other chronic pain G89.29 and Diabetes mellitus type 2 with neurological manifestations 250.60 [place] [address] [place] [address] [address]- 2024 Dec, Hypotension, unspecified hypotension type I95.9 [place] [address] [place] [id number] [place] [address] 05677- 6506 Dec, [facility] [address] [place] [id number] [place] [address] 49917- 5645 Dec, Diabetes mellitus type 2 with neurological manifestations 250.60 ; 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 mellitus without complication, unspecified fci insulin use status E11.9 ; Neuropathy G62.9 ; Primary insomnia F51.01 and Migraine without status migrainosus, not intractable, unspecified migraine type G43.909 [facility] [address] [place] [id number] [place] [address] [id number] Mar, Encounter for dental examination Z01.20 and Dental examination Z01.20 [place] [id number] [place] [address] 78410- 0696 Feb, [place] [address] [place] [id number] [place] [address] 57850- 4060 Nov, [place] [address] [place] [id number] [place] [address] 79164- 0450 Nov, [place] [address] [place] [id number] [place] [address] 69332- 3891 Nov, Diabetes mellitus type 2 with neurological manifestations 250.60 ; Routine adult health maintenance V70.0 ; Hypertension 401.9 ; Hyperlipidemia 272.4 ; Migraine headache 346.90 ; GERD (gastroesophageal reflux disease) 530.81 ; Depression 311 ; Chronic thoracic spine pain 724.1 and Right knee pain 719.46 IMMUNIZATIONS No Known Immunizations SOCIAL HISTORY Never Assessed REASON FOR VISIT Controlled Med Refill05/22/17 PLAN OF CARE VITAL SIGNS MEDICATIONS Medication Instructions Dosage Frequency Start Date End Date Duration Status Point Clear 10-325 MG Orally every 6 hrs 1 tablet as needed Apr, 28 days Active RESULTS No Results PROCEDURES [...]
--- OUTSIDE RECORDS SUMMARY | 2018-01-13 11:03 | XMS REPORT ---
Author Author LEILANI ARCHULETA [facility] Address [address] [place] [address] Care Team Providers Care Department Director Name Role Phone LEILANI ARCHULETA Unavailable PROBLEMS Type Condition ICD9-CM Code SDP15-GJ Code Onset Dates Condition Status SNOMED Code Problem Uncontrolled type 2 diabetes mellitus without complication, without long-term current use of insulin E11.65 Active 205766529 Problem Other chronic pain G89.29 Active 75786072 Problem Hyperlipidemia, unspecified E78.5 Active 18677613 Problem 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 mellitus without complication, unspecified usp insulin use status E11.9 Active 140169261 Problem Tear of right rotator cuff, unspecified tear extent M75.101 Active 049930122 Problem Tear of left rotator cuff, unspecified tear extent M75.102 Active 9804502 Problem Gastritis, unspecified, without bleeding K29.70 Active 0151384 Problem Mood disorder F39 Active 21847272 ALLERGIES No Information ENCOUNTERS Encounter Location Date Diagnosis [place] [id number] [place] [address] 61068- 6353 Jul, 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 mellitus without complication, unspecified termite treater helper insulin use status E11.9 [facility] [id number] [place] [address] 82942- 2793 May, 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 mellitus without complication, unspecified termite treater helper insulin use status E11.9 ; Acute non-recurrent maxillary sinusitis J01.00 and Other chronic pain G89.29 [facility] [id number] [place] [address] 92657- 3243 Apr, Other chronic pain G89.29 [facility] [id number] [place] [address] 70198- 6093 Mar, [facility] [address] 38605- 0413 Mar, [facility] [id number] [place] [address] 92871- 8067 Mar, [facility] [id number] [place] [address] 87590- 1343 Feb, [facility] [id number] [place] [address] 24112- 2910 Feb, [facility] [address] 47686- 7199 Jan, Tear of left rotator cuff, unspecified tear extent M75.102 ; Tear of right rotator cuff, unspecified tear extent M75.101 and Mood disorder F39 [facility] [id number] [place] [address] 10245- 7013 Jan, Other chronic pain G89.29 and Hyperlipidemia, unspecified E78.5 [facility] [address] 94105- 3015 Jan, [facility] [id number] [place] [address] 40647- 5030 29 Dec, 2016 Pain in left shoulder M25.512 [facility] [id number] [place] [address] 39978- 2576 22 Dec, 2016 [facility] [id number] [place] [address] 77916- 0088 19 Dec, 2016 Other chronic pain G89.29 [facility] [id number] [place] [address] 52704- 3758 18 Dec, 2016 Bronchitis J40 [facility] [id number] [place] [address] 10495- 4690 07 Dec, 2016 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 mellitus without complication, unspecified termite treater helper insulin use status E11.9 [facility] [id number] [place] [address] 54280- 8583 06 Dec, 2016 [facility] [address] 00561- 5002 Nov, Pain in left shoulder M25.512 [facility] [id number] [place] [address] 86832- 9136 Nov, Superior glenoid labrum lesion of right shoulder, subsequent encounter S43.431D ; Superior glenoid labrum lesion of left shoulder , subsequent encounter S43.432D ; Rotator cuff impingement syndrome of right shoulder M75.41 and Rotator cuff impingement syndrome of left shoulder M75.42 [place] [id number] [place] [address] 67657- 9295 Nov, Pain in left shoulder M25.512 [place] [address] 55696- 0097 Nov, Pain in left shoulder M25.512 [place] [id number] [place] [address] 17276- 5531 Oct, Pain in left shoulder M25.512 [place] [id number] [place] [address] 40016- 7736 Oct, Uncontrolled type 2 diabetes mellitus without complication, without long-term current use of insulin E11.65 and Chest pain in adult R07.9 [place] [id number] [place] [address] 29808- 8844 Oct, [place] [id number] [place] [address] 61952- 0539 Sep, Pain in left shoulder M25.512 [place] [address] 25499- 8824 Sep, Pain in left shoulder M25.512 ; Gastritis, unspecified, without bleeding K29.70 and Mood disorder F39 [place] [id number] [place] [address] 84220- 0787 August, 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 mellitus without complication, unspecified termite treater helper insulin use status E11.9 [place] [id number] [place] [address] 61726- 0035 August, Other chronic pain G89.29 [place] [id number] [place] [address] 60449- 0939 Jul, Other chronic pain G89.29 [place] [id number] [place] [address] 94382- 6272 Jun, Other chronic pain G89.29 [place] [address] 23304- 0244 May, [place] [address] 75492- 1373 May, [place] [address] 95133- 5384 May, Tear of right rotator cuff, unspecified tear extent M75.101 and Tear of left rotator cuff, unspecified tear extent M75.102 [place] [address] 49526- 8639 May, Uncontrolled type 2 diabetes mellitus without complication, without long-term current use of insulin E11.[address] 50889- 7110 Apr, Pain in right shoulder M25.511 ; Pain in left shoulder M25.512 ; Impingement syndrome, shoulder, left M75.42 and SLAP lesion of right shoulder S43.431A [place] [id number] [place] [address] 34989- 4996 Apr, [place] [id number] [place] [address] 51901- 2492 Apr, Uncontrolled type 2 diabetes mellitus without complication, without long-term current use of insulin E11.65 ; Viral gastroenteritis A08.4 and Encounter for drug screening Z02.[address] 33301- 0521 Mar, Other chronic pain G89.29 and Pain in left shoulder M25.512 [place] [address] [place] [address]- 8007 Mar, Acute pain of left shoulder M25.512 [place] [id number] [place] [address] 03109- 9836 Feb, [facility] [id number] [place] [address] 34176- 0197 Feb, Other chronic pain G89.29 ; Pain in right shoulder M25.511 ; Pain in left shoulder M25.512 and Uncontrolled type 2 diabetes mellitus without complication, without long-term current use of insulin E11.65 [place] [id number] [address]- 8428 Feb, [facility] [id number] [place] [address] 49221- 1686 Jan, [place] [id number] [place] [address] 43645- 2782 Jan, [facility] [id number] [place] [address] 78529- 5518 Jan, [facility] [id number] [place] [address] 54872- 5078 Jan, Uncontrolled type 2 diabetes mellitus without complication, without long-term current use of insulin E11.65 ; Hypotension, unspecified hypotension type I95.9 ; Pain in left shoulder M25.512 ; Pain in right shoulder M25.511 ; Other chronic pain G89.29 and Diabetes mellitus type 2 with neurological manifestations 250.60 [place] [address] [address]- 7174 Dec, Hypotension, unspecified hypotension type I95.9 [place] [id number] [place] [address] 60705- 7827 Dec, [facility] [address] [place] [address] 51614- 5692 Dec, Diabetes mellitus type 2 with neurological manifestations 250.60 ; 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 mellitus without complication, unspecified termite treater helper insulin use status E11.9 ; Neuropathy G62.9 ; Primary insomnia F51.01 and Migraine without status migrainosus, not intractable, unspecified migraine type G43.909 [facility] [address] [facility] [id number] [id number] Mar, Encounter for dental examination Z01.20 and Dental examination Z01.20 [facility] [id number] [address]- 8340 Feb, [facility] [id number] [address] 4073 Nov, [facility] [address] [facility] [id number] [address] 5180 Nov, [facility] [id number] [address] 6890 Nov, Diabetes mellitus type 2 with neurological manifestations 250.60 ; Routine adult health maintenance V70.0 ; Hypertension 401.9 ; Hyperlipidemia 272.4 ; Migraine headache 346.90 ; GERD (gastroesophageal reflux disease) 530.81 ; Depression 311 ; Chronic thoracic spine pain 724.1 and Right knee pain 719.46 IMMUNIZATIONS No Known Immunizations SOCIAL HISTORY Never Assessed REASON FOR VISIT Controlled Med Refill 12/26/16* PLAN OF CARE VITAL SIGNS MEDICATIONS Medication Instructions Dosage Frequency Start Date End Date Duration Status [place] 10-325 MG Orally every 6 hrs 1 tablet as needed 6h Dec, 28 days Active RESULTS No Results PROCEDURES [...]
--- OUTSIDE RECORDS SUMMARY | 2018-01-13 11:03 | XMS REPORT ---
Author Author ELIZABETH ORELLANA Organization [facility] Address [address] [place] [address] Care Team Providers Care Radiology Asst Name Role Phone ELIZABETH ORELLANA Unavailable PROBLEMS Type Condition ICD9-CM Code UHF10-LP Code Onset Dates Condition Status SNOMED Code Problem Uncontrolled type 2 diabetes mellitus without complication, without long-term current use of insulin E11.65 Active 877570563 Problem Other chronic pain G89.29 Active 84015330 Problem Hyperlipidemia, unspecified E78.5 Active 99509485 Problem 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 mellitus without complication, unspecified fci insulin use status E11.9 Active 451803331 Problem Tear of right rotator cuff, unspecified tear extent M75.101 Active 828226555 Problem Tear of left rotator cuff, unspecified tear extent M75.102 Active 9120584 Problem Gastritis, unspecified, without bleeding K29.70 Active 1852805 Problem Mood disorder F39 Active 92711665 ALLERGIES No Information ENCOUNTERS Encounter Location Date Diagnosis [place] [id number] [place] [address] 79645- 2287 Oct, [place] [id number] [place] [address] 40040- 4211 Sep, 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 mellitus without complication, unspecified terminal supervisor insulin use status E11.9 [facility] [id number] [place] [address] 91983- 9329 August, 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 mellitus without complication, unspecified terminal supervisor insulin use status E11.9 [place] [address] 87197- 7935 Jul, 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 mellitus without complication, unspecified terminal supervisor insulin use status E11.9 [place] [id number] [place] [address] 19066- 8492 May, 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 mellitus without complication, unspecified terminal supervisor insulin use status E11.9 ; Acute non-recurrent maxillary sinusitis J01.00 and Other chronic pain G89.29 [facility] [id number] [place] [address] 75991- 7489 Apr, Other chronic pain G89.29 [facility] [id number] [place] [address] 99627- 7836 Mar, [facility] [id number] [place] [address] 73885- 9735 Mar, [facility] [id number] [place] [address] 14689- 8264 Mar, [facility] [id number] [place] [address] 85113- 2349 Feb, [facility] [id number] [place] [address] 89980- 4134 Feb, [facility] [id number] [place] [address] 76800- 4683 Jan, Tear of left rotator cuff, unspecified tear extent M75.102 ; Tear of right rotator cuff, unspecified tear extent M75.101 and Mood disorder F39 [facility] [id number] [place] [address] 90860- 4207 Jan, Other chronic pain G89.29 and Hyperlipidemia, unspecified E78.5 [facility] [id number] [place] [address] 59599- 6534 Jan, [facility] [id number] [place] [address] 33808- 2611 Dec, Pain in left shoulder M25.512 [facility] [id number] [place] [address] 34119- 4932 Dec, [facility] [id number] [place] [address] 74031- 7684 Dec, Other chronic pain G89.29 [facility] [address] [address]- 2536 18 Dec, 2016 Bronchitis J40 [facility] [id number] [place] [address] 28605- 6887 07 Dec, 2016 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 mellitus without complication, unspecified terminal supervisor insulin use status E11.9 [facility] [address], [place] [address]- 9671 Dec, [facility] [id number] [place] [address] 25082- 6278 Nov, Pain in left shoulder M25.512 [facility] [id number] [place] [address] 79504- 9517 Nov, Superior glenoid labrum lesion of right shoulder, subsequent encounter S43.431D ; Superior glenoid labrum lesion of left shoulder , subsequent encounter S43.432D ; Rotator cuff impingement syndrome of right shoulder M75.41 and Rotator cuff impingement syndrome of left shoulder M75.42 [place] [address] [place] [address] 63089- 4485 Nov, Pain in left shoulder M25.512 [facility] [address] [place] [address] 88405- 7976 Nov, Pain in left shoulder M25.512 [place] [address], [place] [address]- 8651 Oct, Pain in left shoulder M25.512 [facility] [id number] [place] [address] 97498- 8800 Oct, Uncontrolled type 2 diabetes mellitus without complication, without long-term current use of insulin E11.65 and Chest pain in adult R07.9 [facility] [id number] [place] [address] 13238- 6292 05 Oct, 2016 [facility] [address], [place] [address]- 0530 Sep, Pain in left shoulder M25.512 [facility] [id number] [place] [address] 10917- 7933 Sep, Pain in left shoulder M25.512 ; Gastritis, unspecified, without bleeding K29.70 and Mood disorder F39 [place] [id number] [place] [address] 87606- 0434 August, 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 mellitus without complication, unspecified terminal supervisor insulin use status E11.9 [place] [address] 68450- 9693 August, Other chronic pain G89.29 [place] [address] 33449- 1217 Jul, Other chronic pain G89.29 [place] [address] 86067- 1093 Jun, Other chronic pain G89.29 [place] [address] 96059- 1788 May, [place] [address] 22549- 1339 May, [place] [address] 70532- 6745 May, Tear of right rotator cuff, unspecified tear extent M75.101 and Tear of left rotator cuff, unspecified tear extent M75.102 [place] [id number] [place] [address] 55056- 2145 May, Uncontrolled type 2 diabetes mellitus without complication, without long-term current use of insulin E11.65 [place] [id number] [place] [address] 86118- 8105 Apr, Pain in right shoulder M25.511 ; Pain in left shoulder M25.512 ; Impingement syndrome, shoulder, left M75.42 and SLAP lesion of right shoulder S43.431A [place] [address] 98902- 1377 Apr, [place] [id number] [place] [address] 04837- 4979 Apr, Uncontrolled type 2 diabetes mellitus without complication, without long-term current use of insulin E11.65 ; Viral gastroenteritis A08.4 and Encounter for drug screening Z02.83 [place] [id number] [place] [address] 95108- 7641 Mar, Other chronic pain G89.29 and Pain in left shoulder M25.512 [place] [id number] [place] [address] 48716- 8215 Mar, Acute pain of left shoulder M25.512 [place] [id number] [place] [address] 42783- 6027 Feb, [place] [id number] [place] [address] 36817- 1864 Feb, Other chronic pain G89.29 ; Pain in right shoulder M25.511 ; Pain in left shoulder M25.512 and Uncontrolled type 2 diabetes mellitus without complication, without long-term current use of insulin E11.65 [place] [id number] [place] [address] 14185- 6736 Feb, [place] [id number] [place] [address] 49111- 9897 Jan, [place] [id number] [place] [address] 75638- 8965 Jan, [place] [id number] [place] [address] 98847- 1974 Jan, [place] [id number] [place] [address] 84156- 4073 Jan, Uncontrolled type 2 diabetes mellitus without complication, without long-term current use of insulin E11.65 ; Hypotension, unspecified hypotension type I95.9 ; Pain in left shoulder M25.512 ; Pain in right shoulder M25.511 ; Diabetes mellitus type 2 with neurological manifestations 250.60 and Other chronic pain G89.29 [place] [address] [address]- 0958 Dec, Hypotension, unspecified hypotension type I95.9 [facility] [id number] [place] [address] 86003- 4073 Dec, [facility] [id number] [place] [address] 34538- 5048 Dec, Diabetes mellitus type 2 with neurological manifestations 250.60 ; 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 mellitus without complication, unspecified fci insulin use status E11.9 ; Neuropathy G62.9 ; Primary insomnia F51.01 and Migraine without status migrainosus, not intractable, unspecified migraine type G43.909 [facility] [id number] [place] [address] [id number] Mar, Dental examination Z01.20 and Encounter for dental examination Z01.20 [place] [id number] [place] [address] 76499- 9633 Feb, [place] [id number] [place] [address] 04626- 4373 Nov, [place] [id number] [place] [address] 28739- 5744 Nov, [place] [id number] [place] [address] 38052- 6026 Nov, Diabetes mellitus type 2 with neurological [...] Frequency Start Date End Date Duration Status [place] 10-325 MG Orally every 6 hrs 1 [...]
--- OUTSIDE RECORDS SUMMARY | 2018-01-13 11:03 | XMS REPORT ---
Author Author ELIZABETH ORELLANA Organization [facility] Address [address] [place] [address] Care Team Providers Care Correspondence Review Clerk Name Role Phone ELIZABETH ORELLANA Unavailable PROBLEMS Type Condition ICD9-CM Code PMR35-KQ Code Onset Dates Condition Status SNOMED Code Problem Uncontrolled type 2 diabetes mellitus without complication, without long-term current use of insulin E11.65 Active 429459616 Problem Other chronic pain G89.29 Active 90840646 Problem Hyperlipidemia, unspecified E78.5 Active 88939291 Problem 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 mellitus without complication, unspecified senior living insulin use status E11.9 Active 505224535 Problem Tear of right rotator cuff, unspecified tear extent M75.101 Active 075827431 Problem Tear of left rotator cuff, unspecified tear extent M75.102 Active 5413708 Problem Gastritis, unspecified, without bleeding K29.70 Active 2688925 Problem Mood disorder F39 Active 16473961 ALLERGIES Substance Reaction Event Type Date Status Zofran Unknown Drug Allergy Jan, Active Penicillin V Potassium Unknown Drug Allergy Jan, Active Latex tape Unknown Non Drug Allergy Jan, Active ENCOUNTERS Encounter Location Date Diagnosis [place] [address] [address] August, 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 mellitus without complication, unspecified senior living insulin use status E11.9 [facility] [address] [address] Jul, 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 mellitus without complication, unspecified senior living insulin use status E11.9 [place] [address] [place] [address] [id number] [address] May, 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 mellitus 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, 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 ; Acute non-recurrent maxillary sinusitis J01.00 and Other chronic pain G89.29 [place] [address] [id number] [address] Apr, Other chronic pain G89.29 [facility] [id number] [place] [address] 14199- 1428 Mar, [facility] [address] [address] Mar, [facility] [address] [id number] [place] [address] 52922- 3724 Mar, [facility] [id number] [place] [address] 37211- 4547 Feb, [facility] [id number] [place] [address] 38013- 8594 Feb, [facility] [id number] [place] [address] 74131- 4481 Jan, Tear of left rotator cuff, unspecified tear extent M75.102 ; Tear of right rotator cuff, unspecified tear extent M75.101 and Mood disorder F39 [facility] [id number] [place] [address] 78827- 0586 Jan, Other chronic pain G89.29 and Hyperlipidemia, unspecified E78.5 [facility] [id number] [place] [address] 91225- 5944 Jan, [facility] [id number] [place] [address] 08484- 9530 Dec, Pain in left shoulder M25.512 [facility] [address] [address] 136[address] Dec, [facility] [id number] [place] [address] 73749- 9967 19 Dec, 2016 Other chronic pain G89.29 [facility] [id number] [place] [address] 77274- 9242 Dec, Bronchitis J40 [facility] [id number] [place] [address] 78933- 6978 07 Dec, 2016 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 mellitus without complication, unspecified senior living insulin use status E11.9 [facility] [id number] [place] [address] 32770- 7061 06 Dec, 2016 [facility] [id number] [place] [address] 99908- 8721 Nov, Pain in left shoulder M25.512 [facility] [address] [place] [id number] [place] [address] 61471- 4342 Nov, Superior glenoid labrum lesion of right shoulder, subsequent encounter S43.431D ; Superior glenoid labrum lesion of left shoulder , subsequent encounter S43.432D ; Rotator cuff impingement syndrome of right shoulder M75.41 and Rotator cuff impingement syndrome of left shoulder M75.42 [place] [id number] [place] [address] 96044- 5858 Nov, Pain in left shoulder M25.512 [place] [address] [place] [address] [id number] [place] [address] 07306- 5496 Nov, Pain in left shoulder M25.512 [place] [address] [address] [id number] [place] [address] 99339- 7202 Oct, Pain in left shoulder M25.512 [place] [address] [address] [id number] [place] [address] 36301- 5955 Oct, Uncontrolled type 2 diabetes mellitus without complication, without long-term current use of insulin E11.65 and Chest pain in adult R07.9 [facility] [address] [id number] [place] [address] 46561- 6750 Oct, [place] [address] [address] [id number] [place] [address] 13765- 4993 Sep, Pain in left shoulder M25.512 [place] [address] [place] [id number] [place] [address] 76893- 3052 Sep, Pain in left shoulder M25.512 ; Gastritis, unspecified, without bleeding K29.70 and Mood disorder F39 [place] [id number] [place] [address] 65356- 8422 August, 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 mellitus 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 complication, 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 [place] [address] [id number] [address] August, Other chronic pain G89.29 [place] [address] [address] [id number] [place] [address] 28922- 1074 Jul, Other chronic pain G89.29 [place] [address] [address] [id number] [place] [address] 45325- 3498 Jun, Other chronic pain G89.29 [place] [address] [place] [address] [id number] [place] [address] 64587- 8621 May, [place] [address] [place] [address] [id number] [place] [address] 69295- 6741 May, [place] [address] [place] [address] [id number] [place] [address] 22671- 7607 May, Tear of right rotator cuff, unspecified tear extent M75.101 and Tear of left rotator cuff, unspecified tear extent M75.102 [place] [address] [place] [address] [id number] [place] [address] 98434- 4464 May, Uncontrolled type 2 diabetes mellitus without complication, without long-term current use of insulin E11.65 [place] [address] [place] [address] 13499- 0303 Apr, Pain in right shoulder M25.511 ; Pain in left shoulder M25.512 ; Impingement syndrome, shoulder, left M75.42 and SLAP lesion of right shoulder S43.431A [place] [address] [place] [address] [id number] [place] [address] 10023- 1371 Apr, [place] [address] [place] [address] 04805- 7413 Apr, Uncontrolled type 2 diabetes mellitus without complication, without long-term current use of insulin E11.65 ; Viral gastroenteritis A08.4 and Encounter for drug screening Z02.83 [place] [address] [place] [address] [id number] [place] [address] 05729- 9563 Mar, Other chronic pain G89.29 and Pain in left shoulder M25.512 [place] [address] [place] [address] [id number] [place] [address] 81357- 6885 Mar, Acute pain of left shoulder M25.512 [place] [address] [address]- 2848 Feb, [place] [address] 00001- 6917 Feb, Other chronic pain G89.29 ; Pain in right shoulder M25.511 ; Pain in left shoulder M25.512 and Uncontrolled type 2 diabetes mellitus without complication, without long-term current use of insulin E11.65 [place] [address] 78290- 8952 Feb, [place] [address] [place] [id number] [place] [address] 43582- 0347 Jan, [place] [address] 52981- 9868 Jan, [place] [address] [place] [address] [id number] [place] [address] 31003- 2581 Jan, [place] [address] [place] [id number] [place] [address] 35908- 0746 Jan, Uncontrolled type 2 diabetes mellitus without complication, without long-term current use of insulin E11.65 ; Hypotension, unspecified hypotension type I95.9 ; Pain in left shoulder M25.512 ; Pain in right shoulder M25.511 ; Other chronic pain G89.29 and Diabetes mellitus type 2 with neurological manifestations 250.60 [place] [address] [place] [address] [id number] [place] [address] 70077- 8765 12 Dec, 2015 Hypotension, unspecified hypotension type I95.9 [place] [address] [place] [address] 12 Dec, 2015 [facility] [address] [place] [address] [id number] [place] [address] [id number]- 4332 Dec, Diabetes mellitus type 2 with neurological manifestations 250.60 ; 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 mellitus without complication, 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 ; Neuropathy G62.9 ; Primary insomnia F51.01 and Migraine without status migrainosus, not intractable, unspecified migraine type G43.909 [facility] [address] [place] [id number] [place] [address] [id number] Mar, 2015 Encounter for dental examination Z01.20 and Dental examination Z01.20 [facility] [address] 14633- 5446 Feb, [facility] [address] 96638- 9594 Nov, [facility] [address] 96760- 8974 Nov, [facility] [address] [place] [id number] [place] [address] 00728- 4126 Nov, Diabetes mellitus type 2 with neurological [...] Frequency Start Date End Date Duration Status [place] 10-325 MG Orally every 6 hrs 1 tablet as needed 6h Jan, 28 days Active RESULTS No Results PROCEDURES [...]
--- OUTSIDE RECORDS SUMMARY | 2018-01-13 11:04 | XMS REPORT ---
Author Author ELIZABETH ORELLANA Organization [facility] [place] Address [address] [place] [address] Care Team Providers Care Mirror Inspector Name Role Phone ELIZABETH ORELLANA Unavailable PROBLEMS Type Condition ICD9-CM Code VXW30-EB Code Onset Dates Condition Status SNOMED Code Problem Uncontrolled type 2 diabetes mellitus without complication, without long-term current use of insulin E11.65 Active 981080096 Problem Other chronic pain G89.29 Active 87255042 Problem Hyperlipidemia, unspecified E78.5 Active 67799462 Problem 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 mellitus without complication, unspecified alf insulin use status E11.9 Active 800491324 Problem Tear of right rotator cuff, unspecified tear extent M75.101 Active 306177509 Problem Tear of left rotator cuff, unspecified tear extent M75.102 Active 6660689 Problem Gastritis, unspecified, without bleeding K29.70 Active 2878744 Problem Mood disorder F39 Active 91875772 ALLERGIES No Information ENCOUNTERS Encounter Location Date Diagnosis [place] [id number] [place] [address] 51185- 4814 Jul, 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 mellitus without complication, unspecified terminal manager insulin use status E11.9 [facility] [place] [id number] [place] [address] 76264- 9463 May, 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 mellitus without complication, unspecified terminal manager insulin use status E11.9 ; Acute non-recurrent maxillary sinusitis J01.00 and Other chronic pain G89.29 [facility] [place] [address] [place] [address] 11459- 6779 Apr, Other chronic pain G89.29 [facility] [place] [address] [place] [id number] [place] [address] 01793- 2882 Mar, [place] [address] [place] [id number] [place] [address] 78885- 6405 Mar, [facility] [place] [id number] [place] [address] 75259- 0515 Mar, [facility] [place] [address] [place] [address] [id number] [place] [address] 48215- 5378 Feb, [facility] [place] [address] [place] [address] [id number] [place] [address] 93521- 5812 Feb, [facility] [place] [address] [place] [address] [id number] [place] [address] 81654- 1913 Jan, Tear of left rotator cuff, unspecified tear extent M75.102 ; Tear of right rotator cuff, unspecified tear extent M75.101 and Mood disorder F39 [facility] [place] [address] [place] [id number] [place] [address] 03938- 6674 Jan, Other chronic pain G89.29 and Hyperlipidemia, unspecified E78.5 [facility] [place] [address] [place] [id number] [place] [address] 54534- 0460 Jan, [facility] [place] [address] [place] [address] [id number] [place] [address] 50556- 7822 Dec, Pain in left shoulder M25.512 [facility] [place] [address] [place] [id number] [place] [address] 09693- 0639 Dec, [facility] [place] [address] [place] [address] [id number] [place] [address] 05556- 9437 Dec, Other chronic pain G89.29 [facility] [place] [address] [place] [id number] [place] [address] 00746- 0942 18 Dec, 2016 Bronchitis J40 [facility] [place] [address] [place] [id number] [place] [address] 50066- 6809 07 Dec, 2016 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 mellitus without complication, unspecified alf insulin use status E11.9 [facility] [place] [address] [place] [id number] [place] [address] 37687- 7270 06 Dec, 2016 [facility] [place] [address] [place] [id number] [place] [address] 09571- 5098 Nov, Pain in left shoulder M25.512 [facility] [place] [address] [place] [address] 37104- 0378 Nov, Superior glenoid labrum lesion of right shoulder, subsequent encounter S43.431D ; Superior glenoid labrum lesion of left shoulder , subsequent encounter S43.432D ; Rotator cuff impingement syndrome of right shoulder M75.41 and Rotator cuff impingement syndrome of left shoulder M75.42 [place] [address] [place] [address] [id number] [place] [address] 83738- 5223 Nov, Pain in left shoulder M25.512 [place] [address] [place] [id number] [place] [address] 79868- 1722 Nov, Pain in left shoulder M25.512 [place] [address] [place] [id number] [place] [address] 19647- 9445 Oct, Pain in left shoulder M25.512 [place] [address] 51951- 9929 Oct, Uncontrolled type 2 diabetes mellitus without complication, without long-term current use of insulin E11.65 and Chest pain in adult R07.9 [place] [address] [place] [id number] [place] [address] 48720- 5401 Oct, [place] [address] [place] [id number] [place] [address] 53935- 9998 Sep, Pain in left shoulder M25.512 [place] [address] [place] [id number] [place] [address] 04377- 7260 Sep, Pain in left shoulder M25.512 ; Gastritis, unspecified, without bleeding K29.70 and Mood disorder F39 [place] [address] [place] [id number] [place] [address] 46504- 6157 August, 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 mellitus without complication, unspecified terminal manager insulin use status E11.9 [place] [address] [place] [id number] [place] [address] 75192- 2715 August, Other chronic pain G89.29 [place] [address] [place] [address] 17625- 3886 Jul, Other chronic pain G89.29 [place] [address] [place] [id number] [place] [address] 98634- 7292 Jun, Other chronic pain G89.29 [place] [address] [place] [id number] [place] [address] 89452- 0170 May, [place] [address] [place] [id number] [place] [address] 70458- 0247 May, [place] [address] 55983- 8832 May, Tear of right rotator cuff, unspecified tear extent M75.101 and Tear of left rotator cuff, unspecified tear extent M75.102 [place] [address] 70945- 0916 May, Uncontrolled type 2 diabetes mellitus without complication, without long-term current use of insulin E11.65 [place] [address] [place] [id number] [place] [address] 97109- 9814 Apr, Pain in right shoulder M25.511 ; Pain in left shoulder M25.512 ; Impingement syndrome, shoulder, left M75.42 and SLAP lesion of right shoulder S43.431A [place] [address] [place] [id number] [place] [address] 55687- 0498 Apr, [place] [address] [place] [id number] [place] [address] 14007- 5422 Apr, Uncontrolled type 2 diabetes mellitus without complication, without long-term current use of insulin E11.65 ; Viral gastroenteritis A08.4 and Encounter for drug screening Z02.83 [place] [address] [place] [id number] [place] [address] 72611- 6786 Mar, Other chronic pain G89.29 and Pain in left shoulder M25.512 [place] [address] [place] [address] [id number] [place] [address] 92824- 2670 Mar, Acute pain of left shoulder M25.512 [place] [address] [place] [id number] [place] [address] 44286- 9241 Feb, [facility] [place] [address] [id number] [place] [address] 45996- 5697 Feb, Other chronic pain G89.29 ; Pain in right shoulder M25.511 ; Pain in left shoulder M25.512 and Uncontrolled type 2 diabetes mellitus without complication, without long-term current use of insulin E11.65 [place] [address] [place] [address] 59151- 6995 Feb, [place] [address] [place] [id number] [place] [address] 88990- 5817 Jan, [place] [address] [place] [id number] [place] [address] 25643- 5494 Jan, [place] [address] [place] [id number] [place] [address] 24199- 6723 Jan, [facility] [place] [address] [place] [address] 31405- 2681 Jan, Uncontrolled type 2 diabetes mellitus without complication, without long-term current use of insulin E11.65 ; Hypotension, unspecified hypotension type I95.9 ; Pain in left shoulder M25.512 ; Pain in right shoulder M25.511 ; Other chronic pain G89.29 and Diabetes mellitus type 2 with neurological manifestations 250.60 [place] [address] [place] [address] 21523- 9530 Dec, Hypotension, unspecified hypotension type I95.9 [place] [address] [place] [address] 21806- 8616 Dec, [place] [address] [place] [address] 48332- 1418 Dec, Diabetes mellitus type 2 with neurological manifestations 250.60 ; 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 mellitus without complication, unspecified alf insulin use status E11.9 ; Neuropathy G62.9 ; Primary insomnia F51.01 and Migraine without status migrainosus, not intractable, unspecified migraine type G43.909 [facility] [address] [facility] [id number] [id number] Mar, Encounter for dental examination Z01.20 and Dental examination Z01.20 [facility] [place] [address] [id number] [address]- 4082 Feb, [facility] [place] [id number] [address]- 3585 Nov, [facility] [place] [id number] [address]- 9309 Nov, [facility] [place] [id number] [place] [address] 86249- 0363 Nov, Diabetes mellitus type 2 with neurological [...] Frequency Start Date End Date Duration Status [place] 10-325 MG Orally every 6 hrs 1 [...]
--- OUTSIDE RECORDS SUMMARY | 2018-01-13 11:04 | XMS REPORT ---
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 Phone ELIZABETH ORELLANA Unavailable PROBLEMS Type Condition ICD9-CM Code PSR85-LI Code Onset Dates Condition Status SNOMED Code Problem Uncontrolled type 2 diabetes mellitus without complication, without long-term current use of insulin E11.65 Active 992980387 Problem Other chronic pain G89.29 Active 80200123 Problem Hyperlipidemia, unspecified E78.5 Active 00393727 Problem 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 mellitus without complication, unspecified fci insulin use status E11.9 Active 434054402 Problem Tear of right rotator cuff, unspecified tear extent M75.101 Active 655119063 Problem Tear of left rotator cuff, unspecified tear extent M75.102 Active 1909019 Problem Gastritis, unspecified, without bleeding K29.70 Active 4180500 Problem Mood disorder F39 Active 73284496 ALLERGIES Substance Reaction Event Type Date Status Zofran Unknown Drug Allergy Dec, Active Penicillin V Potassium Unknown Drug Allergy Dec, Active Latex tape Unknown Non Drug Allergy Dec, Active ENCOUNTERS Encounter Location Date Diagnosis [facility] [address] [address] Jul, 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 mellitus without complication, unspecified fci insulin use status E11.9 [facility] [id number] [place] [address] 73064- 7293 May, 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 mellitus without complication, unspecified fci insulin use status E11.9 ; Acute non-recurrent maxillary sinusitis J01.00 and Other chronic pain G89.29 [facility] [address] [address] Apr, Other chronic pain G89.29 [facility] [id number] [place] [address] 24764- 1801 Mar, [facility] [id number] [place] [address] 51024- 2418 Mar, [facility] [id number] [place] [address] 51105- 5908 Mar, [facility] [id number] [place] [address] 72635- 4469 Feb, [facility] [id number] [place] [address] 24045- 9210 Feb, [facility] [id number] [place] [address] 47281- 8463 Jan, Tear of left rotator cuff, unspecified tear extent M75.102 ; Tear of right rotator cuff, unspecified tear extent M75.101 and Mood disorder F39 [facility] [id number] [place] [address] 21866- 8350 Jan, Other chronic pain G89.29 and Hyperlipidemia, unspecified E78.5 [facility] [id number] [place] [address] 67048- 9468 Jan, [facility] [id number] [place] [address] 19701- 0348 Dec, Pain in left shoulder M25.512 [facility] [id number] [place] [address] 90925- 7408 Dec, [facility] [id number] [place] [address] 22069- 0136 Dec, Other chronic pain G89.29 [facility] [id number] [place] [address] 21597- 8117 18 Dec, 2016 Bronchitis J40 [facility] [id number] [place] [address] 47426- 1699 07 Dec, 2016 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 mellitus without complication, unspecified fci insulin use status E11.9 [facility] [id number] [place] [address] 59991- 1871 Dec, [facility] [address] [address] 4[address] Nov, Pain in left shoulder M25.512 [facility] [address] [address] 67[address] Nov, Superior glenoid labrum lesion of right shoulder, subsequent encounter S43.431D ; Superior glenoid labrum lesion of left shoulder , subsequent encounter S43.432D ; Rotator cuff impingement syndrome of right shoulder M75.41 and Rotator cuff impingement syndrome of left shoulder M75.42 [facility] [id number] [place] [address] 62258- 4501 Nov, Pain in left shoulder M25.512 [facility] [id number] [place] [address] 86153- 2229 Nov, Pain in left shoulder M25.512 [place] [id number] [place] [address] 49936- 7120 Oct, Pain in left shoulder M25.512 [facility] [id number] [place] [address] 25047- 4465 Oct, Uncontrolled type 2 diabetes mellitus without complication, without long-term current use of insulin E11.65 and Chest pain in adult R07.9 [facility] [address] [address] 5765 Oct, [place] [id number] [place] [address] 71387- 7643 Sep, Pain in left shoulder M25.512 [facility] [id number] [place] [address] 37028- 6421 Sep, Pain in left shoulder M25.512 ; Gastritis, unspecified, without bleeding K29.70 and Mood disorder F39 [facility] [address] [place] [address] 51718- 1663 August, 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 mellitus without complication, unspecified fci insulin use status E11.9 [place] [address] [address] 0427 August, Other chronic pain G89.29 [place] [id number] [place] [address] 43960- 5048 Jul, Other chronic pain G89.29 [place] [id number] [place] [address] 25380- 4077 Jun, Other chronic pain G89.29 [place] [id number] [place] [address] 50692- 0750 May, [place] [id number] [place] [address] 90103- 0317 May, [place] [id number] [place] [address] 25764- 4178 May, Tear of right rotator cuff, unspecified tear extent M75.101 and Tear of left rotator cuff, unspecified tear extent M75.102 [place] [id number] [place] [address] 87799- 1843 May, Uncontrolled type 2 diabetes mellitus without complication, without long-term current use of insulin E11.65 [place] [address] [place] [address] 64956- 7814 Apr, Pain in right shoulder M25.511 ; Pain in left shoulder M25.512 ; Impingement syndrome, shoulder, left M75.42 and SLAP lesion of right shoulder S43.431A [place] [address] [place] [address] 68767- 2204 Apr, [place] [address] [place] [address] 83363- 8468 Apr, Uncontrolled type 2 diabetes mellitus without complication, without long-term current use of insulin E11.65 ; Viral gastroenteritis A08.4 and Encounter for drug screening Z02.83 [place] [id number] [place] [address] 19379- 0099 Mar, Other chronic pain G89.29 and Pain in left shoulder M25.512 [facility] [id number] [place] [address] 09561- 2293 Mar, Acute pain of left shoulder M25.512 [facility] [id number] [place] [address] 00459- 0755 Feb, [facility] [address] 5[address]- 5079 Feb, Other chronic pain G89.29 ; Pain in right shoulder M25.511 ; Pain in left shoulder M25.512 and Uncontrolled type 2 diabetes mellitus without complication, without long-term current use of insulin E11.65 [place] [id number] [place] [address] 00468- 2581 Feb, [place] [id number] [place] [address] 00255- 7718 Jan, [facility] [id number] [place] [address] 33673- 6891 Jan, [facility] [id number] [place] [address] 99781- 1853 Jan, [facility] [id number] [place] [address] 50334- 1846 Jan, Uncontrolled type 2 diabetes mellitus without complication, without long-term current use of insulin E11.65 ; Hypotension, unspecified hypotension type I95.9 ; Pain in left shoulder M25.512 ; Pain in right shoulder M25.511 ; Other chronic pain G89.29 and Diabetes mellitus type 2 with neurological manifestations 250.60 [place] [id number] [place] [address] 10832- 4915 Dec, Hypotension, unspecified hypotension type I95.9 [facility] [id number] [place] [address] 85026- 2605 Dec, [place] [id number] [place] [address] 55368- 6595 Dec, Diabetes mellitus type 2 with neurological manifestations 250.60 ; 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 mellitus without complication, unspecified fci insulin use status E11.9 ; Neuropathy G62.9 ; Primary insomnia F51.01 and Migraine without status migrainosus, not intractable, unspecified migraine type G43.909 [facility] [address] [facility] [id number] [id number] Mar, Encounter for dental examination Z01.20 and Dental examination Z01.20 [facility] [address] [place] [address] 95343- 9248 Feb, [facility] [id number] [place] [address] 48203- 7959 Nov, [facility] [address] [place] [address] 51748- 0618 Nov, [facility] [id number] [place] [address] 49591- 3656 Nov, Diabetes mellitus type 2 with neurological manifestations 250.60 ; Routine adult health maintenance V70.0 ; Hypertension 401.9 ; Hyperlipidemia 272.4 ; Migraine headache 346.90 ; GERD (gastroesophageal reflux disease) 530.81 ; Depression 311 ; Chronic thoracic spine pain 724.1 and Right knee pain 719.46 IMMUNIZATIONS No Known Immunizations SOCIAL HISTORY Never Assessed REASON FOR VISIT Diabetes f/u--H Sidney RICH PLAN OF CARE VITAL SIGNS Height 69 in 2017-01-12 Weight 194.6 lbs 2017-01-12 Temperature 98.2 degrees Fahrenheit 2017-01-12 Heart Rate 78 bpm 2017-01-12 Respiratory Rate 20 2017-01-12 BMI 28.73 kg/m2 2017-01-12 Blood pressure systolic 120 mmHg 2017-01-12 Blood pressure diastolic 88 mmHg 2017-01-12 MEDICATIONS Medication Instructions Dosage Frequency Start Date End Date Duration Status Prochlorperazine 10 mg Orally Three times a day as needed for nausea 1 tablet 30 days Active MetFORMIN HCl ER 500 mg Orally 2 times a day 2 tablets 12h Sep, 30 day(s) Active GlipiZIDE ER 10 mg Orally Once a day 1 tablet 24h 30 days Active Aspirin 81 MG Orally Once a day 1 tablet 24h Active Simvastatin 20 mg Orally Once a day 1 tablet in the evening 24h Jan, 30 day(s) Active [place] 10-325 MG Orally every 6 hrs 1 tablet as needed 6h Dec, 28 days Active Victoza 18 MG/3ML Subcutaneous Once a day Inject 1.2mg 24h Dec, Active Cymbalta 30 MG Orally Once a day 1 capsule 24h 30 days Active Imitrex 50 mg Orally Once a day as needed, max 3/week 1 tablet as needed one time 30 days Active Nortriptyline HCl 75 MG Orally Once a day at hs 2 capsules Active Levaquin 500 mg Orally Once a day 1 tablet 24h Dec, Dec, 10 day(s) Active Neurontin Active Fenofibrate 160 MG Orally Once a day 1 tablet with a meal 24h 30 days Active Topamax 100 MG Orally Twice a day 1 tablet 12h 30 days Active Pantoprazole Sodium 40 mg Orally Once a day 1 tablet 24h Sep, 30 day(s) Active PredniSONE 20 mg Orally Once a day 2 tablets 24h Dec, Dec, 05 days Active Cymbalta 60 mg Orally Once a day 1 capsule 24h Sep, 30 day(s) Active RESULTS No Results PROCEDURES Procedure Date Ordered Result Body Site [facility] VISIT ESTABLISHED PATIENT Jan 12, 2017 INSTRUCTIONS MEDICATIONS ADMINISTERED No Known Medications [...]
--- OUTSIDE RECORDS SUMMARY | 2018-01-13 11:04 | XMS REPORT ---
Author Author ELIZABETH ORELLANA Organization 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 Phone ELIZABETH ORELLANA Unavailable PROBLEMS Type Condition ICD9-CM Code AWD03-LD Code Onset Dates Condition Status SNOMED Code Problem Uncontrolled type 2 diabetes mellitus without complication, without long-term current use of insulin E11.65 Active 576698786 Problem Other chronic pain G89.29 Active 70241385 Problem Hyperlipidemia, unspecified E78.5 Active 23983615 Problem 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 mellitus without complication, unspecified prison insulin use status E11.9 Active 127111436 Problem Tear of right rotator cuff, unspecified tear extent M75.101 Active 328694299 Problem Tear of left rotator cuff, unspecified tear extent M75.102 Active 5030385 Problem Gastritis, unspecified, without bleeding K29.70 Active 6099725 Problem Mood disorder F39 Active 72143491 ALLERGIES No Information ENCOUNTERS Encounter Location Date Diagnosis [place] [address] [place] [address] 32374- 6352 Jul, 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 mellitus without complication, unspecified termite treater insulin use status E11.9 [facility] [address] [place] [address] 04638- 5655 May, 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 mellitus without complication, unspecified termite treater insulin use status E11.9 ; Acute non-recurrent maxillary sinusitis J01.00 and Other chronic pain G89.29 [facility] [address] [place] [address] 33065- 5400 Apr, Other chronic pain G89.29 [facility] [id number] [place] [address] 47659- 1213 Mar, [place] [id number] [place] [address] 92538- 2115 Mar, [facility] [address] [place] [address] 03904- 4575 Mar, [facility] [id number] [place] [address] 33582- 3999 Feb, [facility] [id number] [place] [address] 22533- 7925 Feb, [facility] [id number] [place] [address] 68816- 8507 Jan, Tear of left rotator cuff, unspecified tear extent M75.102 ; Tear of right rotator cuff, unspecified tear extent M75.101 and Mood disorder F39 [facility] [id number] [place] [address] 99940- 0840 Jan, Other chronic pain G89.29 and Hyperlipidemia, unspecified E78.5 [facility] [id number] [place] [address] 84542- 2690 Jan, [facility] [id number] [place] [address] 80517- 9247 Dec, Pain in left shoulder M25.512 [facility] [id number] [place] [address] 94852- 4311 Dec, [facility] [id number] [place] [address] 58905- 7961 Dec, Other chronic pain G89.29 [facility] [id number] [place] [address] 66247- 8922 18 Dec, 2016 Bronchitis J40 [facility] [id number] [place] [address] 37732- 1353 07 Dec, 2016 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 mellitus without complication, unspecified prison insulin use status E11.9 [facility] [id number] [place] [address] 13724- 9602 06 Dec, 2016 [facility] [id number] [place] [address] 75011- 6248 Nov, Pain in left shoulder M25.512 [facility] [address] [place] [address] 59545- 2936 Nov, Superior glenoid labrum lesion of right shoulder, subsequent encounter S43.431D ; Superior glenoid labrum lesion of left shoulder , subsequent encounter S43.432D ; Rotator cuff impingement syndrome of right shoulder M75.41 and Rotator cuff impingement syndrome of left shoulder M75.42 [place] [id number] [place] [address] 76756- 5035 Nov, Pain in left shoulder M25.512 [place] [id number] [place] [address] 70698- 9730 Nov, Pain in left shoulder M25.512 [place] [id number] [place] [address] 29105- 2556 Oct, Pain in left shoulder M25.512 [place] [address] 69145- 3804 Oct, Uncontrolled type 2 diabetes mellitus without complication, without long-term current use of insulin E11.65 and Chest pain in adult R07.9 [place] [id number] [place] [address] 23131- 8373 Oct, [place] [id number] [place] [address] 94530- 8280 Sep, Pain in left shoulder M25.512 [place] [id number] [place] [address] 01954- 9488 Sep, Pain in left shoulder M25.512 ; Gastritis, unspecified, without bleeding K29.70 and Mood disorder F39 [place] [id number] [place] [address] 89184- 2675 August, 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 mellitus without complication, unspecified termite treater insulin use status E11.9 [place] [id number] [place] [address] 76733- 5171 August, Other chronic pain G89.29 [place] [address] [place] [address] 19515- 7340 Jul, Other chronic pain G89.29 [place] [id number] [place] [address] 80326- 6993 Jun, Other chronic pain G89.29 [place] [id number] [place] [address] 49259- 7970 May, [place] [id number] [place] [address] 81099- 5320 May, [place] [address] 35477- 8296 May, Tear of right rotator cuff, unspecified tear extent M75.101 and Tear of left rotator cuff, unspecified tear extent M75.102 [place] [address] 26665- 5075 May, Uncontrolled type 2 diabetes mellitus without complication, without long-term current use of insulin E11.65 [place] [id number] [place] [address] 71395- 3214 Apr, Pain in right shoulder M25.511 ; Pain in left shoulder M25.512 ; Impingement syndrome, shoulder, left M75.42 and SLAP lesion of right shoulder S43.431A [place] [id number] [place] [address] 20472- 6627 Apr, [place] [id number] [place] [address] 07078- 4794 Apr, Uncontrolled type 2 diabetes mellitus without complication, without long-term current use of insulin E11.65 ; Viral gastroenteritis A08.4 and Encounter for drug screening Z02.83 [place] [address] [id number] [place] [address] 02464- 4166 Mar, Other chronic pain G89.29 and Pain in left shoulder M25.512 [place] [id number] [place] [address] 06268- 6603 Mar, Acute pain of left shoulder M25.512 [place] [address] [place] [address] 79652- 2274 Feb, [place] [id number] [place] [address] 36462- 2219 Feb, Other chronic pain G89.29 ; Pain in right shoulder M25.511 ; Pain in left shoulder M25.512 and Uncontrolled type 2 diabetes mellitus without complication, without long-term current use of insulin E11.65 [place] [address] [place] [address] 88479- 8796 Feb, [place] [address] [place] [id number] [place] [address] 08367- 4457 Jan, [place] [address] [id number] [place] [address] 79460- 4335 Jan, [place] [address] [id number] [place] [address] 36921- 8117 Jan, [place] [address] [place] [address] 11555- 4532 Jan, Uncontrolled type 2 diabetes mellitus without complication, without long-term current use of insulin E11.65 ; Hypotension, unspecified hypotension type I95.9 ; Pain in left shoulder M25.512 ; Pain in right shoulder M25.511 ; Diabetes mellitus type 2 with neurological manifestations 250.60 and Other chronic pain G89.29 [place] [address] [place] [address] 08490- 3125 Dec, Hypotension, unspecified hypotension type I95.9 [place] [address] [place] [address] 89983- 5167 Dec, [place] [address] [place] [address] 03095- 2882 Dec, Diabetes mellitus type 2 with neurological manifestations 250.60 ; 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 mellitus without complication, unspecified prison insulin use status E11.9 ; Neuropathy G62.9 ; Primary insomnia F51.01 and Migraine without status migrainosus, not intractable, unspecified migraine type G43.909 [facility] [address] [facility] [id number] [id number] Mar, Dental examination Z01.20 and Encounter for dental examination Z01.20 [facility] [address] [place] [id number] [address]- 6413 Feb, [facility] [address] [place] [id number] [address]- 4734 Nov, [facility] [address] [place] [id number] [address]- 5438 Nov, [facility] [address] [place] [id number] [place] [address] 03798- 3076 Nov, Diabetes mellitus type 2 with neurological manifestations 250.60 ; Routine adult health maintenance V70.0 ; Hypertension 401.9 ; Hyperlipidemia 272.4 ; Migraine headache 346.90 ; GERD (gastroesophageal reflux disease) 530.81 ; Depression 311 ; Chronic thoracic spine pain 724.1 and Right knee pain 719.46 IMMUNIZATIONS No Known Immunizations SOCIAL HISTORY Never Assessed REASON FOR VISIT FYI PLAN OF CARE VITAL SIGNS MEDICATIONS Unknown [...]
--- OUTSIDE RECORDS SUMMARY | 2018-01-13 11:05 | XMS REPORT ---
Author Author ELIZABETH ORELLANA Organization [facility] Address [address] [place] [address] Care Team Providers Care Special Education Administrator Name Role Phone ELIZABETH ORELLANA Unavailable PROBLEMS Type Condition ICD9-CM Code DVL52-XA Code Onset Dates Condition Status SNOMED Code Problem Uncontrolled type 2 diabetes mellitus without complication, without long-term current use of insulin E11.65 Active 919753099 Problem Other chronic pain G89.29 Active 67882374 Problem Hyperlipidemia, unspecified E78.5 Active 04022402 Problem 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 mellitus without complication, unspecified snf insulin use status E11.9 Active 624409055 Problem Tear of right rotator cuff, unspecified tear extent M75.101 Active 653185911 Problem Tear of left rotator cuff, unspecified tear extent M75.102 Active 6453792 Problem Gastritis, unspecified, without bleeding K29.70 Active 7812658 Problem Mood disorder F39 Active 58565699 ALLERGIES No Information ENCOUNTERS Encounter Location Date Diagnosis [place] [id number] [place] [address] 89453- 4097 May, 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 mellitus without complication, unspecified long term care pharmacist insulin use status E11.9 ; Acute non-recurrent maxillary sinusitis J01.00 and Other chronic pain G89.29 [facility] [id number] [place] [address] 99978- 4582 Apr, Other chronic pain G89.29 [facility] [address], [place] [address] 9843 Mar, [facility] [id number] [place] [address] 02310- 0786 Mar, [facility] [id number] [address] 0664 Mar, [place] [id number] [place] [address] 15333- 1212 Feb, [facility] [id number] [place] [address] 19910- 2495 Feb, [facility] [id number] [place] [address] 11445- 8965 Jan, Tear of left rotator cuff, unspecified tear extent M75.102 ; Tear of right rotator cuff, unspecified tear extent M75.101 and Mood disorder F39 [facility] [id number] [place] [address] 11341- 4761 Jan, Other chronic pain G89.29 and Hyperlipidemia, unspecified E78.5 [facility] [id number] [place] [address] 52707- 9899 Jan, [facility] [id number] [place] [address] 93154- 9617 Dec, Pain in left shoulder M25.512 [facility] [id number] [place] [address] 54185- 6926 22 Dec, 2016 [facility] [id number] [place] [address] 33787- 7125 19 Dec, 2016 Other chronic pain G89.29 [facility] [id number] [place] [address] 58411- 6502 18 Dec, 2016 Bronchitis J40 [facility] [id number] [place] [address] 71665- 3594 07 Dec, 2016 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 mellitus without complication, unspecified long term care pharmacist insulin use status E11.9 [facility] [id number] [place] [address] 06462- 0149 06 Dec, 2016 [facility] [id number] [place] [address] 13544- 8134 Nov, Pain in left shoulder M25.512 [facility] [id number] [place] [address] 46301- 8407 Nov, Superior glenoid labrum lesion of right shoulder, subsequent encounter S43.431D ; Superior glenoid labrum lesion of left shoulder , subsequent encounter S43.432D ; Rotator cuff impingement syndrome of right shoulder M75.41 and Rotator cuff impingement syndrome of left shoulder M75.42 [facility] [address], [place] [address] 7676 Nov, Pain in left shoulder M25.512 [facility] [id number] [place] [address] 62908- 9192 Nov, Pain in left shoulder M25.512 [place] [id number] [place] [address] 78067- 2390 Oct, Pain in left shoulder M25.512 [place] [id number] [place] [address] 49700- 9415 Oct, Uncontrolled type 2 diabetes mellitus without complication, without long-term current use of insulin E11.65 and Chest pain in adult R07.9 [place] [id number] [place] [address] 22656- 2136 Oct, [place] [id number] [place] [address] 22706- 8815 Sep, Pain in left shoulder M25.512 [place] [id number] [place] [address] 28580- 0566 Sep, Pain in left shoulder M25.512 ; Gastritis, unspecified, without bleeding K29.70 and Mood disorder F39 [place] [id number] [place] [address] 58696- 1246 August, 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 mellitus without complication, unspecified snf insulin use status E11.9 [place] [address] [id number] [place] [address] 54560- 5281 August, Other chronic pain G89.29 [place] [address] [id number] [place] [address] 89068- 6437 Jul, Other chronic pain G89.29 [place] [id number] [place] [address] 37799- 2041 Jun, Other chronic pain G89.29 [place] [id number] [place] [address] 71369- 4566 May, [place] [id number] [place] [address] 64216- 8975 May, [place] [id number] [place] [address] 15700- 7894 May, Tear of right rotator cuff, unspecified tear extent M75.101 and Tear of left rotator cuff, unspecified tear extent M75.102 [place] [id number] [place] [address] 65336- 1288 May, Uncontrolled type 2 diabetes mellitus without complication, without long-term current use of insulin E11.65 [place] [address] 11940- 0718 Apr, Pain in right shoulder M25.511 ; Pain in left shoulder M25.512 ; Impingement syndrome, shoulder, left M75.42 and SLAP lesion of right shoulder S43.431A [place] [id number] [place] [address] 68439- 1963 Apr, [place] [address] [address] [id number] [place] [address] 73846- 9431 Apr, Uncontrolled type 2 diabetes mellitus without complication, without long-term current use of insulin E11.65 ; Viral gastroenteritis A08.4 and Encounter for drug screening Z02.83 [place] [id number] [place] [address] 89350- 6605 Mar, Other chronic pain G89.29 and Pain in left shoulder M25.512 [place] [id number] [place] [address] 49972- 6545 Mar, Acute pain of left shoulder M25.512 [place] [id number] [place] [address] 68972- 4624 Feb, [facility] [address] [place] [address] 94873- 5472 Feb, Other chronic pain G89.29 ; Pain in right shoulder M25.511 ; Pain in left shoulder M25.512 and Uncontrolled type 2 diabetes mellitus without complication, without long-term current use of insulin E11.65 [place] [id number] [place] [address] 30736- 1099 Feb, [facility] [address] [id number] [place] [address] 78578- 2412 Jan, [place] [address] [address] [id number] [place] [address] 62359- 6170 Jan, [place] [address] [address] [id number] [place] [address] 94350- 6349 Jan, [place] [address] [id number] [place] [address] 91376- 2742 Jan, Uncontrolled type 2 diabetes mellitus without complication, without long-term current use of insulin E11.65 ; Hypotension, unspecified hypotension type I95.9 ; Pain in left shoulder M25.512 ; Pain in right shoulder M25.511 ; Other chronic pain G89.29 and Diabetes mellitus type 2 with neurological manifestations 250.60 [facility] [address] [place] [id number] [place] [address] 30869- 5985 Dec, Hypotension, unspecified hypotension type I95.9 [place] [address] [address] [id number] [place] [address] 33463- 3782 Dec, [place] [address] [id number] [place] [address] 23615- 3249 Dec, Diabetes mellitus type 2 with neurological manifestations 250.60 ; 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 mellitus without complication, unspecified long term care pharmacist insulin use status E11.9 ; Neuropathy G62.9 ; Primary insomnia F51.01 and Migraine without status migrainosus, not intractable, unspecified migraine type G43.909 [facility] [id number] [place] [address] [id number] Mar, Encounter for dental examination Z01.20 and Dental examination Z01.20 [facility] [address] [facility] [id number] [place] [address]- 2546 Feb, [facility] [address] [facility] [id number] [place] [address]- 2546 Nov, [facility] [address] [facility] [id number] [address]- 2546 Nov, [facility] [address] [facility] [id number], [place] [address]- 2546 Nov, Diabetes mellitus type 2 with neurological [...] Frequency Start Date End Date Duration Status [place] 10-325 MG Orally every 6 hrs 1 tablet as needed 6h Oct, 28 days Active RESULTS No Results PROCEDURES [...]
--- OUTSIDE RECORDS SUMMARY | 2018-01-13 11:05 | XMS REPORT ---
Author Author ELIZABETH ORELLANA Organization [facility] Address [address] [place] [address] Care Team Providers Care Iron Installer Name Role Phone ELIZABETH ORELLANA Unavailable PROBLEMS Type Condition ICD9-CM Code BGO30-MQ Code Onset Dates Condition Status SNOMED Code Problem Uncontrolled type 2 diabetes mellitus without complication, without long-term current use of insulin E11.65 Active 231442460 Problem Other chronic pain G89.29 Active 68035482 Problem Hyperlipidemia, unspecified E78.5 Active 52842014 Problem 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 mellitus without complication, unspecified shelter insulin use status E11.9 Active 682457763 Problem Tear of right rotator cuff, unspecified tear extent M75.101 Active 493661410 Problem Tear of left rotator cuff, unspecified tear extent M75.102 Active 6803174 Problem Gastritis, unspecified, without bleeding K29.70 Active 6225531 Problem Mood disorder F39 Active 33106833 ALLERGIES No Information ENCOUNTERS Encounter Location Date Diagnosis [place] [id number] [place] [address] 20179- 4510 Jul, 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 mellitus without complication, unspecified biogeographer insulin use status E11.9 [facility] [id number] [place] [address] 26902- 8969 May, 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 mellitus without complication, unspecified biogeographer insulin use status E11.9 ; Acute non-recurrent maxillary sinusitis J01.00 and Other chronic pain G89.29 [facility] [address] [place] [address] 46585- 0907 Apr, Other chronic pain G89.29 [facility] [address] [id number] [place] [address] 60893- 0025 Mar, [place] [address] [place] [id number] [place] [address] 00084- 6919 Mar, [facility] [address] [place] [address] 00582- 4465 Mar, [facility] [id number] [place] [address] 90203- 8661 Feb, [facility] [address] [id number] [place] [address] 84197- 3568 Feb, [facility] [address] [place] [address] [id number] [place] [address] 90958- 6629 Jan, Tear of left rotator cuff, unspecified tear extent M75.102 ; Tear of right rotator cuff, unspecified tear extent M75.101 and Mood disorder F39 [facility] [address] [place] [id number] [place] [address] 34051- 4953 Jan, Other chronic pain G89.29 and Hyperlipidemia, unspecified E78.5 [facility] [address] [place] [id number] [place] [address] 43956- 2234 Jan, [facility] [address] [place] [id number] [place] [address] 91408- 9358 Dec, Pain in left shoulder M25.512 [facility] [address] [place] [id number] [place] [address] 46860- 9641 Dec, [facility] [address] [id number] [place] [address] 76875- 3082 Dec, Other chronic pain G89.29 [facility] [address] [id number] [place] [address] 51192- 0382 18 Dec, [address] [facility] [address] [id number] [place] [address] 63627- 3913 07 Dec, 2016 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 mellitus without complication, unspecified shelter insulin use status E11.9 [facility] [id number] [place] [address] 40666- 4301 06 Dec, 2016 [facility] [address] [id number] [place] [address] 41025- 5774 Nov, Pain in left shoulder M25.512 [facility] [address] [place] [address] 70305- 0251 Nov, Superior glenoid labrum lesion of right shoulder, subsequent encounter S43.431D ; Superior glenoid labrum lesion of left shoulder , subsequent encounter S43.432D ; Rotator cuff impingement syndrome of right shoulder M75.41 and Rotator cuff impingement syndrome of left shoulder M75.42 [place] [address] [id number] [place] [address] 07763- 2440 Nov, Pain in left shoulder M25.512 [place] [address] [id number] [place] [address] 22065- 7763 Nov, Pain in left shoulder M25.512 [place] [address] [place] [id number] [place] [address] 23302- 7447 Oct, Pain in left shoulder M25.512 [place] [address] 67008- 3385 Oct, Uncontrolled type 2 diabetes mellitus without complication, without long-term current use of insulin E11.65 and Chest pain in adult R07.9 [place] [address] [place] [id number] [place] [address] 69746- 8478 Oct, [place] [address] [address] [id number] [place] [address] 41559- 1439 Sep, Pain in left shoulder M25.512 [place] [address] [place] [id number] [place] [address] 28270- 3367 Sep, Pain in left shoulder M25.512 ; Gastritis, unspecified, without bleeding K29.70 and Mood disorder F39 [place] [id number] [place] [address] 61590- 6683 August, 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 mellitus without complication, unspecified biogeographer insulin use status E11.9 [place] [address] [id number] [place] [address] 50120- 5064 August, Other chronic pain G89.29 [place] [address] [place] [address] 80008- 8840 Jul, Other chronic pain G89.29 [place] [address] [place] [id number] [place] [address] 65518- 1400 Jun, Other chronic pain G89.29 [place] [address] [place] [id number] [place] [address] 99078- 1545 May, [place] [address] [place] [id number] [place] [address] 10252- 7255 May, [place] [address] 63414- 0511 May, Tear of right rotator cuff, unspecified tear extent M75.101 and Tear of left rotator cuff, unspecified tear extent M75.102 [place] [address] 78036- 7765 May, Uncontrolled type 2 diabetes mellitus without complication, without long-term current use of insulin E11.65 [place] [id number] [place] [address] 56497- 7590 Apr, Pain in right shoulder M25.511 ; Pain in left shoulder M25.512 ; Impingement syndrome, shoulder, left M75.42 and SLAP lesion of right shoulder S43.431A [place] [address] [id number] [place] [address] 28419- 5223 Apr, [place] [address] [id number] [place] [address] 04579- 2114 Apr, Uncontrolled type 2 diabetes mellitus without complication, without long-term current use of insulin E11.65 ; Viral gastroenteritis A08.4 and Encounter for drug screening Z02.83 [place] [address] [id number] [place] [address] 11187- 4693 Mar, Other chronic pain G89.29 and Pain in left shoulder M25.512 [place] [address] [id number] [place] [address] 01068- 6291 Mar, Acute pain of left shoulder M25.512 [place] [address] [place] [address] 75697- 5938 Feb, [place] [address] [place] [id number] [place] [address] 07315- 5045 Feb, Other chronic pain G89.29 ; Pain in right shoulder M25.511 ; Pain in left shoulder M25.512 and Uncontrolled type 2 diabetes mellitus without complication, without long-term current use of insulin E11.65 [place] [address] [place] [address] 91222- 3638 Feb, [place] [address] [id number] [place] [address] 65327- 4479 Jan, [place] [address] [place] [id number] [place] [address] 44520- 5471 Jan, [place] [id number] [place] [address] 81934- 7749 Jan, [place] [id number] [place] [address] 03109- 0118 Jan, Uncontrolled type 2 diabetes mellitus without complication, without long-term current use of insulin E11.65 ; Hypotension, unspecified hypotension type I95.9 ; Pain in left shoulder M25.512 ; Pain in right shoulder M25.511 ; Diabetes mellitus type 2 with neurological manifestations 250.60 and Other chronic pain G89.29 [place] [id number] [place] [address] 17294- 8367 Dec, Hypotension, unspecified hypotension type I95.9 [place] [id number] [place] [address] 21652- 4984 Dec, [place] [address] [place] [address] 69037- 5395 Dec, Diabetes mellitus type 2 with neurological manifestations 250.60 ; 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 mellitus without complication, unspecified shelter insulin use status E11.9 ; Neuropathy G62.9 ; Primary insomnia F51.01 and Migraine without status migrainosus, not intractable, unspecified migraine type G43.909 [facility] [address] [facility] [id number] [id number] Mar, Dental examination Z01.20 and Encounter for dental examination Z01.20 [facility] [id number] [address]- 8277 Feb, [facility] [id number] [address]- 0232 Nov, [facility] [id number] [address]- 3680 Nov, [facility] [id number] [place] [address] 41815- 0626 Nov, Diabetes mellitus type 2 with neurological manifestations 250.60 ; Routine adult health maintenance V70.0 ; Hypertension 401.9 ; Hyperlipidemia 272.4 ; Migraine headache 346.90 ; GERD (gastroesophageal reflux disease) 530.81 ; Depression 311 ; Chronic thoracic spine pain 724.1 and Right knee pain 719.46 IMMUNIZATIONS No Known Immunizations SOCIAL HISTORY Never Assessed REASON FOR VISIT Victoza and Pen needles PLAN OF CARE VITAL SIGNS MEDICATIONS Medication Instructions Dosage Frequency Start Date End Date Duration Status Victoza 18 MG/3ML Subcutaneous Once a day Inject 1.2mg 24h Dec, Active RESULTS No Results PROCEDURES No [...]
--- OUTSIDE RECORDS SUMMARY | 2018-01-13 11:05 | XMS REPORT ---
Author Author ELIZABETH ORELLANA Organization [facility] Address [address] [place] [address] Care Team Providers Care Reservoir Engineering Advisor Name Role Phone ELIZABETH ORELLANA Unavailable PROBLEMS Type Condition ICD9-CM Code ZCL04-GT Code Onset Dates Condition Status SNOMED Code Problem Uncontrolled type 2 diabetes mellitus without complication, without long-term current use of insulin E11.65 Active 694179692 Problem Other chronic pain G89.29 Active 71414335 Problem Hyperlipidemia, unspecified E78.5 Active 05675885 Problem 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 mellitus without complication, unspecified assisted insulin use status E11.9 Active 564013252 Problem Tear of right rotator cuff, unspecified tear extent M75.101 Active 693422578 Problem Tear of left rotator cuff, unspecified tear extent M75.102 Active 2668398 Problem Gastritis, unspecified, without bleeding K29.70 Active 0377768 Problem Mood disorder F39 Active 40623619 ALLERGIES No Information ENCOUNTERS Encounter Location Date Diagnosis [place] [id number] [place] [address] 62284- 2262 August, 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 mellitus without complication, unspecified long line teamster insulin use status E11.9 [facility] [address], [place] [address] Jul, 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 mellitus without complication, unspecified long line teamster insulin use status E11.9 [facility] [id number] [place] [address] 20578- 4566 May, 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 mellitus without complication, unspecified assisted insulin use status E11.9 ; Acute non-recurrent maxillary sinusitis J01.00 and Other chronic pain G89.29 [facility] [address], [place] [address] 7676 Apr, Other chronic pain G89.29 [facility] [id number], [place] [address] 4263 Mar, [facility] [id number] [place] [address] 75394- 9915 Mar, [facility] [id number] [place] [address] 46895- 9769 Mar, [facility] [id number] [place] [address] 69151- 3294 Feb, [facility] [id number] [place] [address] 83570- 2850 Feb, [facility] [id number] [place] [address] 95266- 5484 Jan, Tear of left rotator cuff, unspecified tear extent M75.102 ; Tear of right rotator cuff, unspecified tear extent M75.101 and Mood disorder F39 [facility] [id number] [place] [address] 41122- 0983 Jan, Other chronic pain G89.29 and Hyperlipidemia, unspecified E78.5 [facility] [id number] [place] [address] 72052- 3427 Jan, [facility] [id number] [place] [address] 75442- 2306 Dec, Pain in left shoulder M25.512 [facility] [id number] [place] [address] 97708- 5631 Dec, [facility] [id number] [place] [address] 77686- 8818 Dec, Other chronic pain G89.29 [facility] [id number] [place] [address] 84196- 1510 18 Dec, 2016 Bronchitis J40 [facility] [address] [place] [address] 67420- 3874 07 Dec, 2016 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 mellitus without complication, unspecified assisted insulin use status E11.9 [facility] [id number] [place] [address] 23402- 1878 Dec, [place] [id number] [place] [address] 77740- 1464 Nov, Pain in left shoulder M25.512 [place] [address] [id number] [place] [address] 73536- 2218 Nov, Superior glenoid labrum lesion of right shoulder, subsequent encounter S43.431D ; Superior glenoid labrum lesion of left shoulder , subsequent encounter S43.432D ; Rotator cuff impingement syndrome of right shoulder M75.41 and Rotator cuff impingement syndrome of left shoulder M75.42 [place] [address] [address] [id number] [place] [address] 65018- 0067 Nov, Pain in left shoulder M25.512 [place] [address] [place] [address] [id number] [place] [address] 27350- 6386 Nov, Pain in left shoulder M25.512 [place] [address] [address] [id number] [place] [address] 72011- 4885 Oct, Pain in left shoulder M25.512 [place] [address] [place] [address] [id number] [place] [address] 88375- 9644 Oct, Uncontrolled type 2 diabetes mellitus without complication, without long-term current use of insulin E11.65 and Chest pain in adult R07.9 [place] [address] [place] [address] [id number] [place] [address] 05010- 7348 Oct, [place] [address] [place] [address] [id number] [place] [address] 62734- 1591 Sep, Pain in left shoulder M25.512 [place] [address] [place] [address] [id number] [place] [address] 64008- 7765 Sep, Pain in left shoulder M25.512 ; Gastritis, unspecified, without bleeding K29.70 and Mood disorder F39 [place] [address] [place] [address] [id number] [place] [address] 00616- 2266 August, 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 mellitus without complication, unspecified assisted insulin use status E11.9 [place] [address] [place] [address] 81600- 9589 August, Other chronic pain G89.29 [place] [address] [place] [id number] [place] [address] 95322- 8256 Jul, Other chronic pain G89.29 [place] [address] [place] [id number] [place] [address] 94229- 5378 Jun, Other chronic pain G89.29 [place] [address] [place] [address] [id number] [place] [address] 77821- 8642 May, [place] [address] [place] [id number] [place] [address] 43572- 6118 May, [place] [address] [place] [id number] [place] [address] 95272- 3263 May, Tear of right rotator cuff, unspecified tear extent M75.101 and Tear of left rotator cuff, unspecified tear extent M75.102 [place] [address] [place] [address] 61446- 0865 May, Uncontrolled type 2 diabetes mellitus without complication, without long-term current use of insulin E11.65 [place] [address] [place] [id number] [place] [address] 09576- 1537 Apr, Pain in right shoulder M25.511 ; Pain in left shoulder M25.512 ; Impingement syndrome, shoulder, left M75.42 and SLAP lesion of right shoulder S43.431A [place] [address] [place] [address] 10412- 4348 Apr, [place] [address] [place] [address] [id number] [place] [address] 60750- 0208 Apr, Uncontrolled type 2 diabetes mellitus without complication, without long-term current use of insulin E11.65 ; Viral gastroenteritis A08.4 and Encounter for drug screening Z02.83 [place] [address] [place] [id number] [place] [address] 08149- 0875 Mar, Other chronic pain G89.29 and Pain in left shoulder M25.512 [place] [address] [place] [id number] [place] [address] 08255- 1292 Mar, Acute pain of left shoulder M25.512 [place] [address] [place] [id number] [place] [address] 83884- 8213 Feb, [facility] [address] [place] [address] [id number] [place] [address] 69524- 5712 Feb, Other chronic pain G89.29 ; Pain in right shoulder M25.511 ; Pain in left shoulder M25.512 and Uncontrolled type 2 diabetes mellitus without complication, without long-term current use of insulin E11.65 [place] [address] [place] [id number] [place] [address] 05346- 5764 Feb, [place] [address] [place] [address] [id number] [place] [address] 00545- 5239 Jan, [facility] [address] [place] [address] [id number] [place] [address] 25115- 6288 Jan, [place] [address] [place] [id number] [place] [address] 46475- 2435 Jan, [facility] [address] [place] [address] 85529- 6174 Jan, Uncontrolled type 2 diabetes mellitus without complication, without long-term current use of insulin E11.65 ; Hypotension, unspecified hypotension type I95.9 ; Pain in left shoulder M25.512 ; Pain in right shoulder M25.511 ; Diabetes mellitus type 2 with neurological manifestations 250.60 and Other chronic pain G89.29 [place] [address] [place] [id number] [place] [address] 32027- 4050 Dec, Hypotension, unspecified hypotension type I95.9 [place] [address] [place] [address] 55747- 4372 Dec, [place] [address] [place] [address] [id number] [place] [address] 46190- 3086 Dec, Diabetes mellitus type 2 with neurological manifestations 250.60 ; 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 mellitus without complication, unspecified long line teamster insulin use status E11.9 ; Neuropathy G62.9 ; Primary insomnia F51.01 and Migraine without status migrainosus, not intractable, unspecified migraine type G43.909 [facility] [address] [facility] [id number] [id number] Mar, Dental examination Z01.20 and Encounter for dental examination Z01.20 [facility] [id number] 6198 Feb, [facility] [id number] [place] [address] 02382- 4245 Nov, [facility] [id number] 2658 Nov, [facility] [id number], [place] [address]- 0486 Nov, Diabetes mellitus type 2 with neurological manifestations 250.60 ; Routine adult health maintenance V70.0 ; Hypertension 401.9 ; Hyperlipidemia 272.4 ; Migraine headache 346.90 ; GERD (gastroesophageal reflux disease) 530.81 ; Depression 311 ; Chronic thoracic spine pain 724.1 and Right knee pain 719.46 IMMUNIZATIONS No Known Immunizations SOCIAL HISTORY Never Assessed REASON FOR VISIT Controlled Med Refill 01/26/17 PLAN OF CARE VITAL SIGNS MEDICATIONS Unknown [...]
--- OUTSIDE RECORDS SUMMARY | 2018-01-13 11:06 | XMS REPORT ---
Author Author ELIZABETH ORELLANA Organization [facility] Address [address] [place] [address] Care Team Providers Care Business Continuity Global Director Name Role Phone ELIZABETH ORELLANA Unavailable PROBLEMS Type Condition ICD9-CM Code GLE19-AH Code Onset Dates Condition Status SNOMED Code Problem Uncontrolled type 2 diabetes mellitus without complication, without long-term current use of insulin E11.65 Active 196008536 Problem Other chronic pain G89.29 Active 48439849 Problem Hyperlipidemia, unspecified E78.5 Active 56220011 Problem 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 mellitus without complication, unspecified prison insulin use status E11.9 Active 976721260 Problem Tear of right rotator cuff, unspecified tear extent M75.101 Active 415890589 Problem Tear of left rotator cuff, unspecified tear extent M75.102 Active 3492868 Problem Gastritis, unspecified, without bleeding K29.70 Active 5702120 Problem Mood disorder F39 Active 87351261 ALLERGIES No Information ENCOUNTERS Encounter Location Date Diagnosis [place] [address] [place] [address] 04801- 8574 August, 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 mellitus without complication, unspecified officer captain insulin use status E11.9 [facility] [address], [place] [address]- 1679 Jul, 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 mellitus without complication, unspecified officer captain insulin use status E11.9 [facility] [address] [place] [address] 71247- 7497 May, 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 mellitus without complication, unspecified prison insulin use status E11.9 ; Acute non-recurrent maxillary sinusitis J01.00 and Other chronic pain G89.29 [facility] [address], [place] [address]- 3107 Apr, Other chronic pain G89.29 [facility] [address] [address], [place] [address]- 1598 Mar, [facility] [id number] [place] [address] 13704- 8046 Mar, [facility] [id number] [place] [address] 80708- 7056 Mar, [facility] [address] [id number] [place] [address] 53090- 2635 Feb, [facility] [address] [id number] [place] [address] 75142- 0962 Feb, [facility] [address] [id number] [place] [address] 41366- 6872 Jan, Tear of left rotator cuff, unspecified tear extent M75.102 ; Tear of right rotator cuff, unspecified tear extent M75.101 and Mood disorder F39 [facility] [address] [id number] [place] [address] 70186- 4890 Jan, Other chronic pain G89.29 and Hyperlipidemia, unspecified E78.5 [facility] [address] [id number] [place] [address] 63106- 2962 Jan, [facility] [address] [id number] [place] [address] 76862- 7252 Dec, Pain in left shoulder M25.512 [facility] [address] [id number] [place] [address] 81121- 1441 Dec, [facility] [id number] [place] [address] 16494- 8630 Dec, Other chronic pain G89.29 [facility] [address] [id number] [place] [address] 66628- 4243 18 Dec, 2016 Bronchitis J40 [facility] [address] [place] [address] 62715- 0510 07 Dec, 2016 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 mellitus without complication, unspecified prison insulin use status E11.9 [facility] [id number] [place] [address] 22989- 4001 Dec, [place] [address] [id number] [place] [address] 28568- 9132 Nov, Pain in left shoulder M25.512 [place] [address] [place] [id number] [place] [address] 36707- 2559 Nov, Superior glenoid labrum lesion of right shoulder, subsequent encounter S43.431D ; Superior glenoid labrum lesion of left shoulder , subsequent encounter S43.432D ; Rotator cuff impingement syndrome of right shoulder M75.41 and Rotator cuff impingement syndrome of left shoulder M75.42 [place] [address] [place] [id number] [place] [address] 39722- 3523 Nov, Pain in left shoulder M25.512 [place] [address] [place] [id number] [place] [address] 38629- 1537 Nov, Pain in left shoulder M25.512 [place] [address] [place] [id number] [place] [address] 33778- 5939 Oct, Pain in left shoulder M25.512 [place] [address] [place] [id number] [place] [address] 61361- 9300 Oct, Uncontrolled type 2 diabetes mellitus without complication, without long-term current use of insulin E11.65 and Chest pain in adult R07.9 [place] [address] [place] [id number] [place] [address] 13233- 2089 Oct, [place] [address] [place] [id number] [place] [address] 93400- 3829 Sep, Pain in left shoulder M25.512 [place] [address] [place] [address] [place] [address] 53966- 3373 Sep, Pain in left shoulder M25.512 ; Gastritis, unspecified, without bleeding K29.70 and Mood disorder F39 [place] [address] [place] [id number] [place] [address] 35311- 4105 August, 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 mellitus without complication, unspecified prison insulin use status E11.9 [place] [address] [place] [address] 05223- 9707 August, Other chronic pain G89.29 [place] [address] [place] [id number] [place] [address] 46983- 8931 Jul, Other chronic pain G89.29 [place] [address] [place] [id number] [place] [address] 91311- 0568 Jun, Other chronic pain G89.29 [place] [address] [place] [id number] [place] [address] 12582- 6012 May, [place] [address] [place] [id number] [place] [address] 06061- 2557 May, [place] [address] [place] [address] [address] [place] [address] 46947- 1584 May, Tear of right rotator cuff, unspecified tear extent M75.101 and Tear of left rotator cuff, unspecified tear extent M75.102 [place] [address] [place] [address] 33439- 2093 May, Uncontrolled type 2 diabetes mellitus without complication, without long-term current use of insulin E11.65 [place] [address] [place] [address] [place] [address] 85013- 9703 Apr, Pain in right shoulder M25.511 ; Pain in left shoulder M25.512 ; Impingement syndrome, shoulder, left M75.42 and SLAP lesion of right shoulder S43.431A [place] [address] [place] [address] 15943- 8995 Apr, [place] [address] [place] [address] [id number] [place] [address] 33077- 9111 Apr, Uncontrolled type 2 diabetes mellitus without complication, without long-term current use of insulin E11.65 ; Viral gastroenteritis A08.4 and Encounter for drug screening Z02.83 [place] [address] [place] [id number] [place] [address] 01842- 1438 Mar, Other chronic pain G89.29 and Pain in left shoulder M25.512 [place] [address] [place] [address] [place] [address] 32864- 9623 Mar, Acute pain of left shoulder M25.512 [place] [address] [place] [id number] [place] [address] 70165- 6465 Feb, [place] [address] [place] [address] [place] [address] 75365- 0512 Feb, Other chronic pain G89.29 ; Pain in right shoulder M25.511 ; Pain in left shoulder M25.512 and Uncontrolled type 2 diabetes mellitus without complication, without long-term current use of insulin E11.65 [place] [address] [place] [id number] [place] [address] 37393- 0208 Feb, [place] [address] [id number] [place] [address] 93530- 0277 Jan, [place] [address] [place] [id number] [place] [address] 95975- 6458 Jan, [place] [address] [place] [id number] [place] [address] 84450- 5740 Jan, [place] [address] [place] [address] [place] [address] 05806- 5200 Jan, Uncontrolled type 2 diabetes mellitus without complication, without long-term current use of insulin E11.65 ; Hypotension, unspecified hypotension type I95.9 ; Pain in left shoulder M25.512 ; Pain in right shoulder M25.511 ; Other chronic pain G89.29 and Diabetes mellitus type 2 with neurological manifestations 250.60 [place] [address] [place] [id number] [place] [address] 26899- 0138 Dec, Hypotension, unspecified hypotension type I95.9 [place] [address] [place] [id number] [place] [address] 85813- 9138 Dec, [place] [address] [place] [address] [place] [address]- 3316 Dec, Diabetes mellitus type 2 with neurological manifestations 250.60 ; 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 mellitus without complication, unspecified officer captain insulin use status E11.9 ; Neuropathy G62.9 ; Primary insomnia F51.01 and Migraine without status migrainosus, not intractable, unspecified migraine type G43.909 [facility] [address] [facility] [id number] [id number] Mar, Encounter for dental examination Z01.20 and Dental examination Z01.20 [facility] [id number] 7243 Feb, [facility] [address] [place] [address] 81956- 8121 Nov, [facility] [id number] 7120 Nov, [facility] [id number], [place] [address]- 5370 Nov, Diabetes mellitus type 2 with neurological manifestations 250.60 ; Routine adult health maintenance V70.0 ; Hypertension 401.9 ; Hyperlipidemia 272.4 ; Migraine headache 346.90 ; GERD (gastroesophageal reflux disease) 530.81 ; Depression 311 ; Chronic thoracic spine pain 724.1 and Right knee pain 719.46 IMMUNIZATIONS No Known Immunizations SOCIAL HISTORY Never Assessed REASON FOR VISIT Questions medications PLAN OF CARE VITAL SIGNS MEDICATIONS Unknown [...]
--- OUTSIDE RECORDS SUMMARY | 2018-01-13 11:07 | XMS REPORT | Continuity of Care Document ---
Author Author [facility] Organization [facility] Address Unknown Phone Unavailable Allergies Active Description Code Type Severity Reaction Onset Reported/Identified Relationship to Patient Clinical Status Yes latex [id number] Drug Allergy Moderate RASH 01/07/2018 Yes morphine [id number] Drug Allergy Unknown BECK 01/07/2018 Yes ondansetron [id number] Drug Allergy Unknown N/A 01/07/2018 Yes Penicillins [id number] Drug Allergy Unknown N/A 01/07/2018 Medications There is no data. Problems Date [...] 11/23/2015 SELENA AVENDANO APRN Ot Z79.899 OTHER ULTIMATE HOOPS TRAINER (CURRENT) DRUG THERAPY 11/23/2015 SELENA AVENDANO APRN Ot Z86.14 PERSONAL HISTORY OF METHICILLIN RESIS ST 12/29/2015 SELENA AVENDANO APRN, Ot E11.65 TYPE 2 DIABETES MELLITUS WITH HYPERGLYCE 12/29/2015 SELENA AVENDANO APRN Ot L02.212 CUTANEOUS ABSCESS OF BACK [ANY PART, EXC 12/29/2015 SELENA AVENDANO APRN, Ot Z79.899 OTHER SENIOR CARE (CURRENT) DRUG THERAPY 12/29/2015 SELENA AVENDANO APRN, [...] SHOULDER 12/31/2016 ROSALBA HANSON MD, Ot Z79.82 SENIOR CARE (CURRENT) USE OF ASPIRIN 12/31/2016 ROSALBA HANSON MD, Ot Z79.899 OTHER ULTIMATE HOOPS TRAINER (CURRENT) DRUG THERAPY 12/31/2016 ROSALBA HANSON MD, [...] SHOULDER 01/01/2017 ROSALBA HANSON MD, Ot Z79.82 ULTIMATE HOOPS TRAINER (CURRENT) USE OF ASPIRIN 01/01/2017 ROSALBA HANSON MD, Ot Z79.899 OTHER ULTIMATE HOOPS TRAINER (CURRENT) DRUG THERAPY 01/01/2017 ROSALBA HANSON MD, Ot Z85.118 PERSONAL HISTORY OF MALIGNANT NEOPLASM O 01/02/2017 ROSALBA HANSON MD, Ot M25.512 PAIN IN LEFT SHOULDER 01/02/2017 ROSALBA HANSON MD, Ot Z47.89 ENCOUNTER FOR OTHER ORTHOPEDIC AFTERCARE 01/06/2017 ROSALBA HANSON MD, Ot E11.40 TYPE 2 DIABETES MELLITUS WITH DIABETIC N 01/06/2017 ROSALAB HANSON MD, Ot E78.5 HYPERLIPIDEMIA, UNSPECIFIED 01/06/2017 [...] M75.42 IMPINGEMENT SYNDROME OF LEFT SHOULDER 01/06/2017 ROSALBA HANSON MD, Ot Z79.82 ULTIMATE HOOPS TRAINER (CURRENT) USE OF ASPIRIN 01/06/2017 ROSALBA HANSON MD, Ot Z79.899 OTHER SENIOR CARE (CURRENT) DRUG THERAPY 01/06/2017 ROSALBA HANSON MD, Ot Z85.118 PERSONAL HISTORY OF MALIGNANT NEOPLASM O 01/09/2017 ROSALBA HANSON MD Ot E11.40 TYPE 2 DIABETES MELLITUS WITH [...] M65.812 OTHER SYNOVITIS AND TENOSYNOVITIS, LEFT 01/09/2017 ROSALBA HANSON MD, Ot M75.42 IMPINGEMENT SYNDROME OF LEFT SHOULDER 01/09/2017 ROSALBA HANSON MD, Ot Z79.82 SENIOR CARE (CURRENT) USE OF ASPIRIN 01/09/2017 ROSALBA HANSON MD, Ot Z79.899 OTHER SENIOR CARE (CURRENT) DRUG THERAPY 01/09/2017 ROSALBA HANSON MD, Ot Z85.118 PERSONAL HISTORY OF MALIGNANT NEOPLASM O 01/24/2017 ROSALBA HANSON MD, Ot M25.512 PAIN IN LEFT SHOULDER 01/24/2017 ROSALBA HANSON MD, Ot S43.432D SUPERIOR GLENOID LABRUM LESION OF LEFT S 01/24/2017 ROSALBA HANSON MD Ot Z47.89 ENCOUNTER FOR OTHER ORTHOPEDIC AFTERCARE 01/26/2017 ROSALBA HANSON MD, Ot M25.512 PAIN IN LEFT SHOULDER 01/26/2017 ROSALBA HANSON MD, Ot Z47.89 ENCOUNTER FOR OTHER ORTHOPEDIC AFTERCARE 01/30/2017 ROSALBA HANSON MD, Ot S43.432D SUPERIOR GLENOID LABRUM LESION OF LEFT S 02/20/2017 ROSALBA HANSON MD, Ot M25.512 PAIN IN LEFT SHOULDER 02/20/2017 ROSALBA HANSON MD, Ot Z47.89 ENCOUNTER FOR OTHER ORTHOPEDIC AFTERCARE 04/30/2017 ROSALBA HANSON MD, Ot M75.102 UNSP ROTATR-CUFF TEAR/RUPTR OF LEFT SHOU 04/30/2017 ROSALBA HANSON MD, Ot Z01.818 ENCOUNTER FOR OTHER PREPROCEDURAL EXAMIN 04/30/2017 ROSALBA HANSON MD, Ot Z11.2 ENCOUNTER FOR SCREENING FOR OTHER BACTER 05/04/2017 ROSALBA HANSON MD, Ot M75.102 UNSP ROTATR-CUFF TEAR/RUPTR OF LEFT SHOU 05/04/2017 ROSALBA HANSON MD, Ot Z01.818 ENCOUNTER FOR OTHER PREPROCEDURAL EXAMIN 05/04/2017 ROSALBA HANSON MD, Ot Z11.2 ENCOUNTER FOR SCREENING FOR OTHER BACTER 05/06/2017 ROSALBA HANSON MD, Ot E11.40 TYPE 2 DIABETES MELLITUS WITH DIABETIC N 05/06/2017 ROSALBA HANSON MD, Ot E78.5 HYPERLIPIDEMIA, UNSPECIFIED 05/06/2017 ROSALBA HANSON MD, Ot F17.210 NICOTINE DEPENDENCE, CIGARETTES, UNCOMPL 05/06/2017 ROSALBA HANSON MD, Ot F32.9 MAJOR DEPRESSIVE DISORDER, SINGLE EPISOD 05/06/2017 ROSALBA HANSON MD, Ot F41.9 ANXIETY DISORDER, UNSPECIFIED 05/06/2017 ROSALBA HANSON MD, Ot K21.9 GASTRO-ESOPHAGEAL REFLUX DISEASE WITHOUT 05/06/2017 ROSALBA HANSON MD, Ot S46.012A STRAIN OF MUSC/TEND THE ROTATOR CUFF OF 05/06/2017 ROSALBA HANSON MD, Ot X50.0XXA OVEREXERTION FROM STRENUOUS MOVEMENT OR 05/06/2017 ROSALBA HANSON MD, Ot Y93.E6 ACTIVITY, RESIDENTIAL RELOCATION 05/06/2017 ROSALBA HANSON MD, Ot Z79.84 SENIOR CARE (CURRENT) USE OF ORAL HYPOGLYC 05/06/2017 ROSALBA HANSON MD, Ot Z85.118 PERSONAL HISTORY OF MALIGNANT NEOPLASM O 05/07/2017 ROSALBA HANSON MD Ot E11.40 TYPE 2 DIABETES MELLITUS WITH DIABETIC N 05/07/2017 ROSALBA HANSON MD, Ot E78.5 HYPERLIPIDEMIA, UNSPECIFIED 05/07/2017 ZAFUTA MD, ROSALBA P Ot F17.210 NICOTINE DEPENDENCE, CIGARETTES, UNCOMPL 05/07/2017 ROSALBA HANSON MD Ot F32.9 MAJOR DEPRESSIVE DISORDER, SINGLE EPISOD 05/07/2017 ROSALBA HANSON MD, Ot F41.9 ANXIETY DISORDER, UNSPECIFIED 05/07/2017 ROSALBA HANSON MD, Ot K21.9 GASTRO-ESOPHAGEAL REFLUX DISEASE WITHOUT 05/07/2017 ROSALBA HANSON MD Ot S46.012A STRAIN OF [facility]/TEND THE ROTATOR CUFF OF 05/07/2017 ROSALBA HANSON MD, Ot X50.0XXA OVEREXERTION FROM STRENUOUS MOVEMENT OR 05/07/2017 ROSALBA HANSON MD Ot Y93.E6 ACTIVITY, RESIDENTIAL RELOCATION 05/07/2017 ROSALBA HANSON MD, Ot Z79.84 ULTIMATE HOOPS TRAINER (CURRENT) USE OF ORAL HYPOGLYC 05/07/2017 ROSALBA HANSON MD Ot Z85.118 PERSONAL HISTORY OF MALIGNANT NEOPLASM O 05/12/2017 ROSALBA HANSON MD, Ot E11.40 TYPE 2 DIABETES MELLITUS WITH DIABETIC N 05/12/2017 ROSALBA HANSON MD Ot E78.5 HYPERLIPIDEMIA, UNSPECIFIED 05/12/2017 ROSALBA HANSON MD Ot F17.210 NICOTINE DEPENDENCE, CIGARETTES, UNCOMPL 05/12/2017 ROSALBA HANSON MD, Ot F32.9 MAJOR DEPRESSIVE DISORDER, SINGLE EPISOD 05/12/2017 ROSALBA HANSON MD, Ot F41.9 ANXIETY DISORDER, UNSPECIFIED 05/12/2017 ROSALBA HANSON MD Ot K21.9 GASTRO-ESOPHAGEAL REFLUX DISEASE WITHOUT 05/12/2017 ROSALBA HANSON MD Ot S46.012A STRAIN OF [facility]/TEND THE ROTATOR CUFF OF 05/12/2017 ROSALBA HANSON MD Ot X50.0XXA OVEREXERTION FROM STRENUOUS MOVEMENT OR 05/12/2017 ROSALBA HANSON MD, Ot Y93.E6 ACTIVITY, RESIDENTIAL RELOCATION 05/12/2017 ROSALBA HANSON MD, Ot Z79.84 ULTIMATE HOOPS TRAINER (CURRENT) USE OF ORAL HYPOGLYC 05/12/2017 ROSALBA HANSON MD Ot Z85.118 PERSONAL HISTORY OF MALIGNANT NEOPLASM O 01/08/2018 ROSALBA HANSON MD Ot Z01.818 ENCOUNTER FOR OTHER PREPROCEDURAL EXAMIN 01/08/2018 MARGIE HICKS, ROSALBA Hankins Ot Z01.818 ENCOUNTER FOR OTHER PREPROCEDURAL EXAMIN Procedures There is no data. Results Test [...] NRG Blood lymphocytes variant/100 leukocytes 4 % NRG Blood erythrocyte morphology finding identification NORMAL [facility] Comprehensive metabolic panel - 11/23/15 14:50 Serum [...] RESULT FEW GRAM POSITIVE COCCI RESEMBLING STAPH [facility] Bacteria identification in wound by culture - 11/23/15 16:00 Bacteria identification in wound by culture [id number] [facility] FREE TEXT EXTERNAL SENSITIVITY REPORTED 11/23 15:30 NR QUANTITY OF GROWTH Abundant Growth [facility] MRSA AGAR MRSA isolated (Screening test for MRSA is positive) [facility] CALL POSITIVES (F1 HELP) CALLED TO BLUE IN ER 11/23 08:10 [facility] Bacterial susceptibility panel - 11/23/15 16:00 Oxacillin [...] measurement by glucometer (mass/volume) 265 mg/dL 70-110 CBC With Differential/Platelet - 09/23/16 08:44 WBC 11.8 x10E3/uL 3.4-10.8 RBC 5.03 x10E6/uL 4.14-5.80 Hemoglobin 14.8 g/dL 12.6-17.7 Hematocrit 45.5 % 37.5-51.0 MCV 91 fL 79-97 MCH 29.4 pg 26.6-33.0 MCHC 32.5 g/dL 31.5-35.7 RDW 13.2 % 12.3-15.4 Platelets 313 x10E3/uL 150-379 Neutrophils 54 % Lymphs 33 % Monocytes 6 % Eos 6 % Basos 1 % Neutrophils (Absolute) 6.3 x10E3/uL 1.4-7.0 Lymphs (Absolute) 3.9 x10E3/uL 0.7-3.1 Monocytes(Absolute) 0.8 x10E3/uL 0.1-0.9 Eos (Absolute) 0.7 x10E3/uL 0.0-0.4 Baso (Absolute) 0.1 x10E3/uL 0.0-0.2 Immature Granulocytes 0 % Immature Grans (Abs) 0.0 x10E3/uL 0.0-0.1 Comp. Metabolic Panel (14) - 09/23/16 08:44 Glucose, Serum 304 mg/dL 65-99 BUN 15 mg/dL 6-24 Creatinine, Serum 1.10 mg/dL 0.76-1.27 eGFR If NonAfricn Am 77 mL/min/1.73 >59 eGFR If Africn Am 89 mL/min/1.73 >59 BUN/Creatinine Ratio 14 9-20 Sodium, Serum 137 mmol/L 134-144 Potassium, Serum 4.2 mmol/L 3.5-5.2 Chloride, Serum 97 mmol/L 96-106 Carbon Dioxide, Total 23 mmol/L 18-29 Calcium, Serum 9.4 mg/dL 8.7-10.2 Protein, Total, Serum 7.4 g/dL 6.0-8.5 Albumin, Serum 4.7 g/dL 3.5-5.5 Globulin, Total 2.7 g/dL 1.5-4.5 A/G Ratio 1.7 1.2-2.2 Bilirubin, Total <0.2 mg/dL 0.0-1.2 Alkaline Phosphatase, S 116 IU/L 39-117 AST (SGOT) 13 IU/L 0-40 ALT (SGPT) 15 IU/L 0-44 Lipid Panel - 09/23/16 08:44 Cholesterol, Total 186 mg/dL 100-199 Triglycerides 453 mg/dL 0-149 HDL Cholesterol 32 mg/dL >39 VLDL Cholesterol [place] Comment mg/dL 5-40 LDL Cholesterol Calc Comment mg/dL 0-99 C-Reactive Protein, Cardiac - 11/03/16 09:49 C-Reactive Protein, Cardiac 2.36 mg/L 0.00-3.00 Methicillin resistant Staphylococcus aureus (MRSA) screening culture [...] measurement by glucometer (mass/volume) 205 mg/dL 70-110 Methicillin resistant Staphylococcus aureus (MRSA) screening culture - 10:45 MRSA SCREEN RESULT MRSA ISOLATED NRG Capillary blood glucose measurement by glucometer (mass/volume) - 01/13/18 10: 06 Capillary blood glucose measurement by glucometer (mass/volume) 429 mg/dL 70-110 Encounters ACCT No. Visit Date/Time Discharge Status Pt. Type Provider Facility Loc./Unit Complaint [id number] 01/07/2018 10:25:00 01/07/2018 11:41:00 DIS Outpatient ROSALBA HANSON MD [facility] PREOP LEFT SHOULDER ROTATOR CUFF TEAR [id number] 05/06/2017 07:40:00 05/06/2017 12:51:00 DIS Outpatient ROSALBA HANSON MD [facility] LEFT SHOULDER ROTATOR CUFF TEAR [id number] 04/30/2017 13:32:00 04/30/2017 13:55:00 DIS Outpatient ROSALBA HANSON MD [facility] PREOP LEFT SHOULDER ROTATOR CUFF TEAR [id number] 02/16/2017 08:58:00 02/20/2017 13:12:00 DIS Outpatient ROSALBA HANSON MD [facility] REHAB S/P L SHOULDER SCOPE,OPEN RCR [id number] 01/22/2017 10:15:00 01/24/2017 00:01:00 DIS Outpatient ROSALBA HANSON MD [facility] REHAB S/P L SHOULDER SCOPE,OPEN RCR [id number] 12/31/2016 08:20:00 12/31/2016 12:50:00 DIS Outpatient ROSALBA HANSON MD [facility] IMPINGEMENT SYNDROME , POSS RC LABRAL TEAR [id number] 12/26/2016 12:13:00 12/26/2016 13:00:00 DIS Outpatient ROSALBA HANSON MD [facility] PREOP IMPINGEMENT SYNDROME, POSS RC LABRAL TEAR [id number] 11/23/2015 14:29:00 11/23/2015 17:55:00 DIS Emergency SELENA AVENDANO APRN [facility] ER ELEVATED BLOOD SUGAR/ PAINFUL SORE ON BACK [id number] 06/19/2015 17:56:00 06/19/2015 21:26:00 DIS Emergency LAINEY HICKS, AMADOR Garces [facility] ER CP [id number] 12/26/2014 15:01:00 12/26/2014 16:27:00 DIS Emergency PATRICIA HICKS, PLACIDO Bai [facility] ER BACK/NECK PAIN COUGH [id number] 12/04/2014 16:51:00 12/04/2014 18:56:00 DIS Emergency LAINEY HICKS, AMADOR Garces [facility] ER BECK [id number] 01/13/2018 11:00:00 PEN Preadeduardo HANSON MD, ROSALBA Hankins [facility] LEFT TORN ROTATOR CUFF [id number] 10/29/2017 10:40:00 10/29/2017 23:59:59 CLS Outpatient ELIZABETH ORELLANA APRN [facility] [id number] 09/24/2016 08:07:00 Document Registration [id number] 11/04/2016 12:08:00 Document Registration
[2018-01-13] MEDS ORDERED: fentaNYL INJECTION 100 MCG/2 ML AMP ONE (11:51)
[2018-01-13] MEDS ORDERED: LIDOCAINE PF 2% 2 ML (XYLOCAINE) VIAL ONE (12:11)
[2018-01-13] MEDS ORDERED: ROCURONIUM 10 MG/ML 5 ML SYRINGE IV ONE (12:11)
[2018-01-13] MEDS ORDERED: proPOfol 200 MG/20 ML (DIPRIVAN) VIAL IV ONE (12:11)
[2018-01-13] MEDS ORDERED: ONDANSETRON 4 MG/2 ML (SDV) Z0FRAN ONE (12:11)
[2018-01-13] MEDS ORDERED: PHENYLEPHRINE INJ 10 MG/ML (NEO-SYNEPHRINE 1%) ONE (12:30)
[2018-01-13] MEDS ORDERED: NEOSTIGMINE 1 MG/ML 5 ML SYRINGE ONE (12:44)
[2018-01-13] MEDS ORDERED: GLYCOPYRROLATE 0.2 MG/ML (ROBINUL) 2 ML VIAL ONE (12:44)
[2018-01-13] MEDS ORDERED: SEVOFLURANE (ULTANE) 15 ML INHAL SOLN ONE (12:47)
[2018-01-13] MEDS ORDERED: fentaNYL INJECTION 100 MCG/2 ML AMP IVP ONE (13:15)
[2018-01-13] MEDS ORDERED: HYDROmorphone 2 MG/ML VIAL (DILAUDID) IV ONE (13:15)
[2018-01-13] MEDS ORDERED: PROMETHAZINE INJ 25 MG/ML (PHENERGAN) AMP IVP ONE (13:15)
[2018-01-13] MEDS ORDERED: OXYC-471 PO (13:26)
[2018-01-13 13:55] VITALS: BP 123/78
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
[2018-01-13 14:25] VITALS: BP 129/80
--- NOTE | 2018-01-13 15:04 | Anesthesia-General Post-Op ---
General Patient Condition Mental Status/LOC: Same as Preop Cardiovascular: Satisfactory Nausea/Vomiting: Absent Respiratory: Satisfactory Pain: Controlled Complications: Absent Post Op Complications Complications None Follow Up Care/Instructions Patient Instructions None needed. Anesthesia/Patient Condition Patient Condition Patient was seen after surgery and he was doing well, no complaints, stable vital signs, no apparent adverse anesthesia problems. Pt had no shoulder pain, but did have some wrist discomfort, which is expected. This is not covered by an interscalene block. CARLOS GOMEZ DO Jan 13, 2018 15:04
== END 2018-01-13 14:40 | disposition home or self-care (01) ==
LOC: SDC 10:00
PROVIDERS: ATTEND Orthopaedic Surgery
DX: S46.012A Strain of muscle(s) and tendon(s) of the rotator cuff of left shoulder, initial encounter (principal); V89.2XXA Person injured in unspecified motor-vehicle accident, traffic, initial encounter; G56.02 Carpal tunnel syndrome, left upper limb; E11.40 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 mellitus with diabetic neuropathy, unspecified; E78.5 Hyperlipidemia, unspecified; F32.9 Major depressive disorder, single episode, unspecified; F41.9 Anxiety disorder, unspecified; K21.9 Gastro-esophageal reflux disease without esophagitis; Z85.118 Personal history of other malignant neoplasm of bronchus and lung; Z79.4 Long term (current) use of insulin; Z79.82 Long term (current) use of aspirin; Z79.899 Other long term (current) drug therapy; G47.33 Obstructive sleep apnea (adult) (pediatric); F17.210 Nicotine dependence, cigarettes, uncomplicated
CPT/HCPCS: 82962

== ENCOUNTER → 2019-02-22 | Outpatient (CLI) | payer MEDICARE ==
[~2019-02-22] MED LIST changes: -DULO30CA48 PO; +DULO30CA49 PO; -DULO60CA58 PO; +DULO60CA59 PO; -GABA600T2 PO; +GBPN600T PO; -OMEP20CA12 PO; +OMEP20CA13 PO; +OXYC-471 PO
--- NOTE | 2019-02-22 15:56 | Diagnostic Imaging Report ---
MRI RT LOWER EXT JOINT W/O TECHNIQUE: Multiplanar, multisequence MR imaging of the right knee was performed without contrast. COMPARISON: None available. INDICATION: Right knee pain. FINDINGS: MENISCI Medial meniscus: Increased signal within the posterior horn of the medial meniscus is likely due to intrasubstance degeneration. There are no signal abnormalities contact in the articular surface to confirm tear in the posterior horn of the medial meniscus. Lateral meniscus: Complex tear in the posterior horn of the lateral meniscus includes a complete or near complete radial tear near its posterior root insertion. There is no extrusion of the body of the lateral meniscus into the gutter. LIGAMENTS ACL: Prior ACL reconstruction has a complete tear of the ACL graft in its mid aspect. PCL: Abnormal appearance of the mid and proximal PCL may relate to partial thickness tearing. MCL: Intact. LCL: The lateral collateral ligamentous complex is intact. EXTENSOR MECHANISM The extensor mechanism is intact. CARTILAGE Medial compartment: Medial compartment articular cartilage is well preserved without focal high-grade chondromalacia. Lateral compartment: The lateral compartment articular cartilage is preserved without high-grade chondromalacia. Patellofemoral compartment: Low-grade partial thickness chondromalacia involving the lateral patellar facet near the patellar apex. BONE No fracture, stress fracture or osteonecrosis. SOFT TISSUE No knee effusion or Adams's cyst. IMPRESSION: 1. Complex tear in the posterior horn of the lateral meniscus includes a near complete radial component near the posterior root insertion. 2. Prior ACL reconstruction has a complete tear of the mid graft. 3. Low-grade partial thickness chondromalacia in the patellofemoral compartment. Remainder of the articular cartilage is well preserved. Dictated by: Dictated on workstation # [id number]
== END ==
LOC: RAD 14:04
PROVIDERS: ATTEND Nurse Practitioner
DX: S83.271A Complex tear of lateral meniscus, current injury, right knee, initial encounter (principal); M22.41 Chondromalacia patellae, right knee
CPT/HCPCS: 73721

== ENCOUNTER 2019-08-06 16:28 | Emergency (ER) | payer MEDICARE ==
[~2019-08-06] VITALS: Ht 175 cm; Wt 79.0 kg
[~2019-08-06 16:28] MED LIST changes: +ACHYD1T PO; -HYDR-3820 PO; -OMEP20CA13 PO; +OMEP20CA18 PO; +OMEP40CA27 PO; -OMEP40CA36 PO; -OXYC-529 PO; +OXYC5TAB96 PO; +SIMV20TA26 PO; -SIMV20TA3 PO
[2019-08-06 16:30] VITALS: BP 141/95
[2019-08-06] MEDS ORDERED: ASPIRIN 81 MG CHEW (CHILDREN'S ASA) PO ONE (16:45)
[2019-08-06] MEDS: NITROGLYCERIN 0.4 MG SL TABS BTL 25'S SL PRN ×3 (16:47→17:17)
[2019-08-06 16:50] LABS: BASOPHILS # (AUTO) 0.1 10^3/uL (0.0-0.1); BASOPHILS % (AUTO) 1 % (0-10); EOSINOPHILS # (AUTO) 0.4 10^3/uL (0.0-0.3); EOSINOPHILS % (AUTO) 5 % (0-10); HEMATOCRIT 41 % (40-54); HEMOGLOBIN 13.8 G/DL (13.3-17.7); LYMPHOCYTES # (AUTO) 3.9 X 10^3 (1.0-4.0); LYMPHOCYTES % (AUTO) 42 % (12-44); MEAN CORPUSCULAR HEMOGLOBIN 30 PG (25-34); MEAN CORPUSCULAR HGB CONC 34 G/DL (32-36); MEAN CORPUSCULAR VOLUME 87 FL (80-99); MEAN PLATELET VOLUME 10.9 FL (7.4-10.4); MONOCYTES # (AUTO) 0.7 X 10^3 (0.0-1.0); MONOCYTES % (AUTO) 8 % (0-12); NEUTROPHILS # (AUTO) 4.3 X 10^3 (1.8-7.8); NEUTROPHILS % (AUTO) 46 % (42-75); PLATELET COUNT 252 10^3/uL (130-400); RED CELL DISTRIBUTION WIDTH 12.7 % (10.0-14.5); WHITE BLOOD COUNT 9.5 10^3/uL (4.3-11.0)
[2019-08-06] MEDS ORDERED: NS IV 1000 ML 1,000 ML IV SCH (16:51)
[2019-08-06 17:00] LABS: ALBUMIN 4.3 GM/DL (3.2-4.5); POTASSIUM 4.3 MMOL/L (3.6-5.0)
[2019-08-06 17:01] LABS: INR 0.9 (0.8-1.4); PROTHROMBIN TIME PATIENT 12.6 SEC (12.2-14.7)
[2019-08-06 17:02] LABS: CALCIUM 8.6 MG/DL (8.5-10.1)
[2019-08-06 17:04] LABS: BILIRUBIN,TOTAL 0.2 MG/DL (0.1-1.0)
[2019-08-06 17:06] LABS: CREATININE SERUM 1.36 MG/DL (0.60-1.30)
[2019-08-06 17:09] LABS: MAGNESIUM 1.9 MG/DL (1.6-2.4)
--- NOTE | 2019-08-06 17:09 | ED Chest Pain ---
General Chief Complaint: Chest Pain Stated Complaint: CHEST PAINS, PAINFUL TO BREATHE Nursing Triage Note: CHEST PAIN X3 DAYS. TODAY STATES HE STARTED HAVING PAIN ON THE LEFT SIDE WHEN HE BREATHES. Nursing Sepsis Screen: No Definite Risk History of Present Illness Date Seen by Provider: Aug 06, 2019 Time Seen by Provider: 16:30 Initial Comments 54-year-old male presents for chest pain that is been intermittent for the last week. He was seen at [facility] over the last few days and had labs and EKG which were normal, his glucose was elevated and insulin was initiated. He did have elevated glucose and was started back on his insulin, he reports at 1430 his Glucometer would not register a result. He took 25 Units of Lantus. His chest pain is 4/10, midsternal to upper back, no radiation to arm or neck. It is intermittent but present now. No associated N/V or Diaphoresis. History of smoking, approximately 1.5 packs a day. No history of [place], chronic cough, unchanged. No fevers or known COVID 19 Risks. Has been staying home. He is supposed to take ASA 81 mg daily, but does not. Surgery 5 years ago for left upper lobe. Timing/Duration: 24 hours, intermittent Severity/Quality: mild Location: substernal Radiation: no radiation Activities at Onset: none Prior CP/Workup: angina ASA po EQUITY HOLDER: No NTG SL EQUITY HOLDER: No Associated Symptoms: denies symptoms Allergies and Home Medications Allergies Coded Allergies: latex (Verified Allergy, Intermediate, RASH, 01/07/18) Penicillins (Unverified Allergy, Unknown, 01/07/18) ondansetron (Unverified Allergy, Unknown, 01/07/18) morphine (Verified Adverse Reaction, Unknown, BECK, 01/07/18) Home Medications Gabapentin 600 Mg Tablet, 1,200 MG PO AM, (Reported) take 2 (600mg) tabs Gabapentin 600 Mg Tablet, 1,800 MG PO HS, (Reported) take 3 (600mg) tabs Insulin Glargine,Hum.rec.anlog 100 Unit/1 Ml Vial, 25 UNIT SQ DAILY, (Reported) Insulin Lispro 100 Unit/1 Ml Cartridge, 10-14 UNIT SQ AC, (Reported) Oxycodone HCl/Acetaminophen 1 Each Tablet, 1 EACH PO Q4H PRN for PAIN-MODERATE Prescribed by: JM KNIGHT on 01/13/18 1326 Topiramate 100 Mg Tablet, 100 MG PO BID, (Reported) Patient Home Medication List Home Medication List Reviewed: Yes Review of Systems Review of Systems Constitutional: no symptoms reported, see HPI Cardiovascular: See HPI, Chest Pain Gastrointestinal: See HPI; Denies Nausea, Denies Vomiting All Other Systems Reviewed Negative Unless Noted: Yes Past Ghirgjm-Zpjkkt-Bvvmhh Hx Past Med/Social Hx: Reviewed Nursing Past Med/Soc Hx Patient Social History Alcohol Use: Denies Use Recreational Drug Use: No Smoking Status: Current Everyday Smoker Type Used: Cigarettes Recent Foreign Travel: No Contact w/Someone Who Travel: No Recent Infectious Disease Expo: No Recent Hopitalizations: No Immunizations Up To Date Tetanus Booster (TDap): Unknown Date of Pneumonia Vaccine: Jan 08, 2016 Seasonal Allergies Seasonal Allergies: Yes Past Medical History Surgeries: Yes (Sinus surgery X2, ACL RIGHT KNEE, BILAT CARPAL TUNNEL, L UPPER LOBECTOMY, ) Appendectomy, Gallbladder, Tracheostomy Respiratory: Yes (Pulmonary nodules, HX LUNG CA) Sleep Apnea Currently Using CPAP: No Cardiac: No High Cholesterol Neurological: Yes Headaches /Migraines, Neuropathy Reproductive Disorders: No Sexually Transmitted Disease: No HIV/AIDS: No Gastrointestinal: Yes Gastroesophageal Reflux Musculoskeletal: Yes Degenerate Disk Disease, Arthritis, Chronic Back Pain Endocrine: Yes Diabetes, Non-Insulin dep Loss of Vision: Bilateral Hearing Impairment: Denies Cancer: Yes Lung Did You Recieve Any Treatments: Yes What Type of Treatment Did You: Surgical Intervention Psychosocial: Yes Anxiety, Depression Integumentary: No Blood Disorders: No Adverse Reaction/Blood Tranf: No (N/A) Family Medical History No Pertinent Family Hx, Diabetes, Hypertension Physical Exam Vital Signs Vital Signs - First Documented 08/06/19 16:30 Temp 36.8 Pulse 80 Resp 16 B/P (MAP) 141/95 (110) Pulse Ox 98 O2 Delivery Room Air Capillary Refill : Less Than 3 Seconds Height, Weight, BMI Height: 5'9.00" Weight: 182lbs. 0.0oz. 82.923940tz; 25.00 BMI Method:Stated General Appearance: No Apparent Distress, WD/WN HEENT: PERRL/EOMI, TMs Normal, Normal ENT Inspection, Pharynx Normal Neck: Full Range of Motion, Normal Inspection, Non Tender, Supple Respiratory: Chest Non Tender, Lungs Clear, Normal Breath Sounds Cardiovascular: Regular Rate, Rhythm, No Edema, Normal Peripheral Pulses Gastrointestinal: Normal Bowel Sounds, Non Tender, Soft; No Distended, No Rebound, No Tenderness Neurologic/Psychiatric: Alert, Oriented x3, No Motor/Sensory Deficits, Normal Mood/Affect Skin: Normal Color, Warm/Dry Progress/Results/Core Measures Results/Orders Lab Results Laboratory Tests Test 08/06/19 16:42 08/06/19 16:45 08/06/19 18:01 Range/Units White Blood Count 9.5 4.3-11.0 10^3/uL Red Blood Count 4.67 4.35-5.85 10^6/uL Hemoglobin 13.8 13.3-17.7 G/DL Hematocrit 41 40-54 % Mean Corpuscular Volume 87 80-99 FL Mean Corpuscular Hemoglobin 30 25-34 PG Mean Corpuscular Hemoglobin Concent 34 32-36 G/DL Red Cell Distribution Width 12.7 10.0-14.5 % Platelet Count 252 130-400 10^3/uL Mean Platelet Volume 10.9 H 7.4-10.4 FL Neutrophils (%) (Auto) 46 42-75 % Lymphocytes (%) (Auto) 42 12-44 % Monocytes (%) (Auto) 8 0-12 % Eosinophils (%) (Auto) 5 0-10 % Basophils (%) (Auto) 1 0-10 % Neutrophils # (Auto) 4.3 1.8-7.8 X 10^3 Lymphocytes # (Auto) 3.9 1.0-4.0 X 10^3 Monocytes # (Auto) 0.7 0.0-1.0 X 10^3 Eosinophils # (Auto) 0.4 H 0.0-0.3 10^3/uL Basophils # (Auto) 0.1 0.0-0.1 10^3/uL Prothrombin Time 12.6 12.2-14.7 SEC INR Comment 0.9 0.8-1.4 Activated Partial Thromboplast Time 29 24-35 SEC D-Dimer < 0.27 0.00-0.49 UG/ML Sodium Level 132 L 135-145 MMOL/L Potassium Level 4.3 3.6-5.0 MMOL/L Chloride Level 102 98-107 MMOL/L Carbon Dioxide Level 19 L 21-32 MMOL/L Anion Gap 11 5-14 MMOL/L Blood Urea Nitrogen 20 H 7-18 MG/DL Creatinine 1.36 H 0.60-1.30 MG/DL Estimat Glomerular Filtration Rate 54 BUN/Creatinine Ratio 15 Glucose Level 547 *H 70-105 MG/DL Calcium Level 8.6 8.5-10.1 MG/DL Corrected Calcium 8.4 L 8.5-10.1 MG/DL Magnesium Level 1.9 1.6-2.4 MG/DL Total Bilirubin 0.2 0.1-1.0 MG/DL Aspartate Amino Transf (AST/SGOT) 8 5-34 U/L Alanine Aminotransferase (ALT/SGPT) 13 0-55 U/L Alkaline Phosphatase 107 40-136 U/L Myoglobin 30.2 10.0-92.0 NG/ML Troponin I < 0.028 <0.028 NG/ML Total Protein 7.0 6.4-8.2 GM/DL Albumin 4.3 3.2-4.5 GM/DL Glucometer 458 *H 383 H 70-110 MG/DL My Orders Orders - JAYDE DENT Cbc With Automated Diff (08/06/19 16:33) Magnesium (08/06/19 16:33) Chest 1 View, Ap/Pa Only (08/06/19 16:33) Ekg Tracing (08/06/19 16:33) Comprehensive Metabolic Panel (08/06/19 16:33) Myoglobin Serum (08/06/19 16:33) Protime With Inr (08/06/19 16:33) Partial Thromboplastin Time (08/06/19 16:33) O2 (08/06/19 16:33) Monitor-Rhythm Ecg Trace Only (08/06/19 16:33) Ed Iv/Invasive Line Start (08/06/19 16:33) Troponin I (08/06/19 16:33) Aspirin Chewable Tablet (Baby Aspirin Ch (08/06/19 16:45) Nitroglycerin 0.4 Mg Btl 25's (Nitrostat (08/06/19 16:45) Fibrin Degradation Products (08/06/19 16:49) Ed Iv/Invasive Line Start (08/06/19 16:51) Ns Iv 1000 Ml (Sodium Chloride 0.9%) (08/06/19 16:51) Accucheck Stat ONCE (08/06/19 18:00) Medications Given in ED Current Medications Medications Dose Ordered Sig/Evelyn Route Start Time Stop Time Status Last Admin Dose Admin Aspirin 324 mg ONCE ONCE PO 08/06/19 16:45 08/06/19 16:46 DC 08/06/19 16:47 324 MG Nitroglycerin 0.4 mg UD PRN SL 08/06/19 16:45 08/06/19 17:18 DC 08/06/19 17:17 0.4 MG Vital Signs/I&O 08/06/19 16:30 Temp 36.8 Pulse 80 Resp 16 B/P (MAP) 141/95 (110) Pulse Ox 98 O2 Delivery Room Air Blood Pressure Mean: 110 FSBG Bedside Testing Finger Stick Blood Glucose: 458 Blood Glucose Action Taken: RN notified Progress Progress Note : Time: 16:30 Progress Note Patient seen and evaluated, will obtain chest x-ray, EKG, labs and Accu-Chek. ASA 324 mg po, Nitro 1 tab SL for chest pain, B/P 141/95 Accucheck 547, will give NS 1 L IV. Since he just took 25 Units of Lantus. 1700 Continues to have chest pain, no change since Nitro, Will give 2nd dose SL. 1720 Pain in chest slightly better, but continues to be present, will give 3rd dose. 1730 Chest pain 0/10 B/P 130s/80s [address] Price by phone, agreed with plans for admission. B/P 120/80s, pulse 78 1800 spoke with patient and recommended admission, patient refuses to be admitted and wants to follow up with cardiology next week. Risks versus benefits of leaving were discussed at length with him and he understands it could even result in . He needs follow up for his chest pain, lung changes on left, and uncontrolled diabetes. Initial ECG Impression Date: Aug 06, 2019 Initial ECG Impression Time: 16:37 Initial ECG Rate: 78 Initial ECG Rhythm: Normal Sinus Initial ECG Intervals: Normal Initial ECG Intervals MD 187; QRSD 105; QT 350, QTc 399 [place] P 47, QRS 73, T 33 Initial ECG Impression: Normal Initial ECG Comparisson: Changed Comment Reviewed with Dr. Cano, concurred with interpretation. Diagnostic Imaging Diagonstic Imaging: Xray Plain Films/CT/US/NM/MRI: chest Comments NAME: ROGER CHANEY [facility] REC#: [id number] PT STATUS: REG ER : 1965 PHYSICIAN: JAYDE DENT ADMIT DATE: 08/06/19/ER Draft Date of Exam:08/06/19 CHEST 1 VIEW, AP/PA ONLY Clinical indication: Patient with chest pain x 3 days. Exam: Portable chest x-ray upright view. Comparisons: Chest x-ray dated 06/19/2015. Findings: Lungs/pleura: There is development of minimal airspace opacity in the left lung base which may represent atelectasis versus infiltrate. Previously seen amorphous nodular area in the periphery of the left upper lobe has significantly decreased in size with minimal opacity remaining, measuring roughly 7 mm. The remainder of the lungs are clear. There is no pneumothorax. There is no pleural effusion. Mediastinum: Unremarkable. Pulmonary vasculature: Unremarkable. Heart: Unremarkable. Bones/extrathoracic soft tissue: There are hypertrophic spurs involving the spine. Impression: 1: There is interval development of minimal left lung base atelectasis versus infiltrate. 2: Previously seen nodular area involving the left upper lobe has significantly decreased in size with 7 mm nodular area remaining. Dictated on workstation # [id number] Dict: 08/06/191715 Trans: 08/06/191718 [facility] [id number] Interpreted by: ARABELLA FLORES MD Electronically signed by: Reviewed: Reviewed by Me Departure Impression Primary Impression: Chest pain Qualified Codes: R07.9 - Chest pain, unspecified Additional Impressions: Tobacco abuse Uncontrolled diabetes mellitus Qualified Codes: E11.65 - 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 mellitus with hyperglycemia Disposition: 07 AGAINST MEDICAL ADVICE Condition: Stable Admissions Decision to Admit Reason: Admit from ER (General) Decision to Admit/Date: Aug 06, 2019 Time/Decision to Admit Time: 17:30 Departure-Patient Inst. Decision time for Depature: 18:00 Referrals: [facility]/TIANA FAIR MD FACP FAC CCDS NO,LOCAL PHYSICIAN (PCP) Primary Care Physician Patient Instructions: Angina (DC), Chest Pain (DC), Diabetes Type 2 (DC) Add. Discharge Instructions: Take your insulin as prescribed and continue to monitor your glucose. Take aspirin 81 mg once daily. Increase water intake, 16 ounces every 3 hours while awake. Follow-up with your primary care provider on Thursday and call for an appointment with cardiology. Return to the emergency department if difficulty breathing, chest pain or other new urgent health care problems. All discharge instructions reviewed with patient and/or family. Voiced understanding. Copy Copies To 1: JERRY JOHNSON MD, AMY ARNP Aug 06, 2019 17:09
--- NOTE | 2019-08-06 17:19 | Diagnostic Imaging Report ---
Clinical indication: Patient with chest pain x 3 days. Exam: Portable chest x-ray upright view. Comparisons: Chest x-ray dated 06/19/2015. Findings: Lungs/pleura: There is development of minimal airspace opacity in the left lung base which may represent atelectasis versus infiltrate. Previously seen amorphous nodular area in the periphery of the left upper lobe has significantly decreased in size with minimal opacity remaining, measuring roughly 7 mm. The remainder of the lungs are clear. There is no pneumothorax. There is no pleural effusion. Mediastinum: Unremarkable. Pulmonary vasculature: Unremarkable. Heart: Unremarkable. Bones/extrathoracic soft tissue: There are hypertrophic spurs involving the spine. Impression: 1: There is interval development of minimal left lung base atelectasis versus infiltrate. 2: Previously seen nodular area involving the left upper lobe has significantly decreased in size with 7 mm nodular area remaining. Dictated by: Dictated on workstation # [id number]
--- NOTE | 2019-08-06 17:31 | NUR ---
PT STATES PAIN IS 0/10 AT THIS TIME.
--- NOTE | 2019-08-06 18:06 | NUR ---
JAYDE IN ROOM AT THIS TIME.
== END 2019-08-06 18:24 | disposition left against medical advice (07) ==
LOC: EDUNIT# 16:28 → ER 16:30
DX: R07.9 Chest pain, unspecified (principal); E11.65 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 mellitus with hyperglycemia; E11.40 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 mellitus with diabetic neuropathy, unspecified; F17.210 Nicotine dependence, cigarettes, uncomplicated; G47.30 Sleep apnea, unspecified; K21.9 Gastro-esophageal reflux disease without esophagitis; Z85.118 Personal history of other malignant neoplasm of bronchus and lung; F41.9 Anxiety disorder, unspecified; F32.9 Major depressive disorder, single episode, unspecified; M54.9 Dorsalgia, unspecified; Z88.0 Allergy status to penicillin; Z88.5 Allergy status to narcotic agent; Z91.040 Latex allergy status; Z79.899 Other long term (current) drug therapy; Z79.4 Long term (current) use of insulin
CPT/HCPCS: 36415; 71045; 80053; 82962; 83735; 83874; 84484; 85025; 85379; 85610; 85730; 93005; 93041

== ENCOUNTER → 2019-10-13 | Outpatient (CLI) | payer MEDICARE | LOC: CARD 09:09 | PROVIDERS: ATTEND Internal Medicine Cardiovascular Disease | DX: R07.9 Chest pain, unspecified (principal); I10 Essential (primary) hypertension; E78.5 Hyperlipidemia, unspecified; Z72.0 Tobacco use | CPT/HCPCS: 93306 ==

== ENCOUNTER → 2019-10-17 | Outpatient (CLI) | payer MEDICARE ==
[~2019-10-17] VITALS: Ht 177.8 cm; Wt 79.6 kg
[~2019-10-17] MED LIST changes: +CATHETER FLUSH 10 ML SYR IV PRN; +REGADENOSON 0.4 MG/5 ML SYR (LEXISCAN) IV ONE
[2019-10-17 09:14] VITALS: BP 148/73
[2019-10-17 09:15] VITALS: BP 132/72
--- NOTE | 2019-10-17 11:34 | Cardiology Stress Test Report ---
Stress Test Report Date of Procedure/Referring: Date of Procedure: Oct 17, 2019 PCP Cinthia Sepulveda MD Admitting Physician No,Local Physician Indications: Hypertension Baseline Heart Rate: 77 Baseline Blood Pressure: Blood Pressure Systolic: 132 Blood Pressure Diastolic: 72 Baseline EKG: Baseline EKG: normal sinus rhythm Summary: After explaining the procedure to the patient, patient signed a consent and brought to the stress nuclear laboratory. Patient received 0.4 mg Lexiscan for stress test, ECG, heart rate and blood pressure were monitored continuously. Resting and stress dose of radio tracer were injected, imaging was acquired and reviewed in short axis, horizontal long axis and vertical long axis views. TID 1.09 SSS 2 SDS 0 EF 60% Conclusion: 1. Patient tolerated Lexiscan well 2. No EKG changes noted during test 3. Mild decrease uptake at the apex, no significant ischemia or infarction on SPECT images 4. Normal left ventricular size and contractibility calculated ejection fraction 60 percent CINTHIA SEPULVEDA MD Oct 17, 2019 11:34
== END ==
LOC: CARD 07:50
PROVIDERS: ATTEND Internal Medicine Cardiovascular Disease
DX: I10 Essential (primary) hypertension (principal); R07.9 Chest pain, unspecified; E78.5 Hyperlipidemia, unspecified; Z72.0 Tobacco use
CPT/HCPCS: 78452; 93017; A9502

== ENCOUNTER → 2019-10-26 | Outpatient (CLI) | payer MEDICARE ==
[~2019-10-26] MED LIST changes: -CATHETER FLUSH 10 ML SYR IV PRN; +HOLD METFORMIN - RECEIVED CONTRAST 20 ML VIAL IV SCH; +IOHEXOL 350 MG/ML 100 ML (OMNIPAQUE 350) VIAL IV ONE; +NS 100 ML (IVPB) BAG IV ONE; -REGADENOSON 0.4 MG/5 ML SYR (LEXISCAN) IV ONE
[2019-10-26 10:04] LABS: CREATININE SERUM 1.06 MG/DL (0.60-1.30); GFR ESTIMATED > 60
[2019-10-26 10:05] LABS: BUN/CREATININE RATIO 19
--- NOTE | 2019-10-26 12:30 | Diagnostic Imaging Report ---
PROCEDURE: CT neck soft tissue with contrast. TECHNIQUE: Multiple contiguous axial images were obtained through the neck after the administration of contrast. Auto Exposure Controls were utilized during the CT exam to meet ALARA standards for radiation dose reduction. INDICATION: Right vocal cord mass. Right cervical adenopathy. No relevant comparison available. FINDINGS: There is an infiltrative mass demonstrated centered about the right sided laryngeal vocal folds and this appears to involve both the false and true vocal folds with abnormal widening of the anterior commissure. This suggests a trans glottic laryngeal carcinoma. This is, however favored based on its epicenter to began as a supraglottic laryngeal carcinoma. The mass extends superiorly into the base of the epiglottis and there is abnormal induration demonstrated within the preepiglottic fat. There is a mottled appearance of the thyroid cartilage bilaterally which may reflect tumor invasion. On the right just superior to the dominant portions of the mass is an air-filled secondary laryngocele. There are also cystic lesions demonstrated within the vallecula, left greater than right that could reflect secondary laryngoceles as well. There are some layering calcifications within the lesion within the left vallecula. There is partial effacement of the right piriform sinus. There is a necrotic right sided level 3 cervical lymph node deep to the sternocleidomastoid measuring 2.2 x 2.0 cm. This is just posterior to the right internal jugular vein and at the level of the thyroid cartilage. A smaller right-sided cervical lymph node just above the dominant necrotic lymph node is also likely metastatic. There are no abnormal cervical lymph nodes evident on the left. The visualized intracranial contents unremarkable without evidence of abnormal intracranial enhancement or mass effect. The orbits are unremarkable. There is mild mucosal thickening within the ethmoids and the left maxillary sinus. The mastoids and middle ears appear clear. The posterior nasopharynx and oropharynx appear appropriate. There is no displacement of the parapharyngeal fat planes. The base of the tongue appears symmetric. No abnormal process evident within the prevertebral or retropharyngeal space. The parotid, submandibular and thyroid glands unremarkable. The vascular structures of the neck demonstrate atherosclerotic calcifications at the carotid bifurcations with less than 50% stenosis. There is no internal jugular vein thrombosis. The visualized portion of the lung apices demonstrate some scarring within the left lung apex. There is a long-standing stable small nodule along the anterior aspect of the most superior portion of the left major fissure. Cervical spine demonstrates normal alignment. There are multilevel degenerative endplate changes and facet arthropathy but no suspicious lytic or blastic lesion. IMPRESSION: 1. Large transglottic mass with epicenter within the the right false vocal cord and aryepiglottic folds. This appears to have infraglottic extension with involvement of the right true vocal fold and a widened appearance of the anterior commissure. There is also invasion demonstrated of the preepiglottic space and the right paraglottic fat planes as well as suggestion of invasion of at least the right thyroid cartilage. There is some effacement of the right piriform sinus. 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 2. There are metastatic right level 3 cervical lymph nodes with the larger lymph node being centrally necrotic. 3. Low-density foci within the vallecula may reflect fluid-filled internal laryngoceles. There is also an air-filled secondary laryngocele just superior to the patient's right glottic mass. 4. No left-sided cervical lymphadenopathy evident. Dictated by: Dictated on workstation # [id number]
== END ==
LOC: RAD 09:38
PROVIDERS: ATTEND Otolaryngology Otolaryngology/Facial Plastic Surgery
DX: J38.3 Other diseases of vocal cords (principal); R59.0 Localized enlarged lymph nodes; C80.1 Malignant (primary) neoplasm, unspecified; C77.0 Secondary and unspecified malignant neoplasm of lymph nodes of head, face and neck
CPT/HCPCS: 36415; 70491; 82565; 84520

== ENCOUNTER 2019-11-02 11:58 | Day surgery (SDC) | payer MEDICARE ==
[~2019-11-02] VITALS: Ht 178 cm; Wt 80.0 kg
[2019-11-02] VITALS (9 sets, daily range): BP systolic 123–155; BP diastolic 78–86
[~2019-11-02 11:58] MED LIST changes: -ASPI-983 PO; -CETI10TA21 PO; -HYDR-4196 PO; -INSU100I29 SQ; -NITR0.4T39 SL
[2019-11-02] MEDS ORDERED: LIDOCAINE 1% INJ 20 ML 20 ML VIAL ONE (12:04)
[2019-11-02] MEDS ORDERED: HEParin (CATH LAB) 2,000 ML IV ONE (12:04)
[2019-11-02] MEDS ORDERED: NS IV 1000 ML 1,000 ML ONE (12:04)
[2019-11-02] MEDS ORDERED: NS IV 1000 ML 1,000 ML IV SCH ×2 (12:30→14:08)
[2019-11-02 12:43] LABS: BILIRUBIN,URINE NEGATIVE (NEGATIVE); CLARITY,URINE CLEAR; COLOR,URINE YELLOW; GLUCOSE, URINE (UA) 3+ (NEGATIVE); KETONES,URINE NEGATIVE (NEGATIVE); LEUKOCYTE ESTERASE ,URINE NEGATIVE (NEGATIVE); NITRITE,URINE NEGATIVE (NEGATIVE); PROTEIN,URINE NEGATIVE (NEGATIVE)
[2019-11-02 12:44] LABS: HEMOGLOBIN 14.2 G/DL (13.3-17.7); RED CELL DISTRIBUTION WIDTH 12.7 % (10.0-14.5); WHITE BLOOD COUNT 13.6 10^3/uL (4.3-11.0)
--- NOTE | 2019-11-02 12:54 | Diagnostic Imaging Report ---
EXAMINATION: Chest radiograph, portable AP view. DATE: 11/02/2019 at 12:44 PM. INDICATION: 54-year-old male, presurgical planning. COMPARISON: August 06, 2019. FINDINGS: Stable overall appearance of the cardiomediastinal silhouette. There is no identified pneumothorax. There is no large pleural effusion. There is no identified new focal airspace consolidation. There are linear opacities in the left upper lobe which may relate to scarring. IMPRESSION: No identified acute cardiopulmonary abnormality. Dictated by: Dictated on workstation # [id number]
[2019-11-02 12:55] LABS: BACTERIA,URINE NEGATIVE /HPF; RBC,URINE RARE /HPF; SQUAMOUS EPITHELIAL CELL,UR 0-2 /HPF
[2019-11-02 13:05] LABS: INR 0.9 (0.8-1.4); PROTHROMBIN TIME PATIENT 12.3 SEC (12.2-14.7)
[2019-11-02 13:11] LABS: ALANINE AMINOTRANSFERASE 14 U/L (0-55); ALBUMIN 4.4 GM/DL (3.2-4.5); ALKALINE PHOSPHATASE 114 U/L (40-136); BILIRUBIN,TOTAL 0.3 MG/DL (0.1-1.0); BUN/CREATININE RATIO 17; CALCIUM 9.2 MG/DL (8.5-10.1); CARBON DIOXIDE 20 MMOL/L (21-32); CHLORIDE 106 MMOL/L (98-107); CHOLESTEROL 166 MG/DL (< 200); GFR ESTIMATED > 60; GLUCOSE 364 MG/DL (70-105); HDL CHOLESTEROL 40 MG/DL (40-60); POTASSIUM 4.1 MMOL/L (3.6-5.0); SODIUM 136 MMOL/L (135-145); TOTAL PROTEIN 7.8 GM/DL (6.4-8.2); TRIGLYCERIDES 213 MG/DL (<150); VLDL CHOLESTEROL 43 MG/DL (5-40)
[2019-11-02] MEDS ORDERED: MIDAZOLAM 5 MG/5 ML (VERSED) VIAL ONE (13:35)
[2019-11-02] MEDS ORDERED: FENO160T12 PO ×2 (13:36)
[2019-11-02] MEDS ORDERED: HEParin 1000 UNIT/ML (10ML VIAL) FOR BOLUS ONE (13:36)
[2019-11-02] MEDS ORDERED: fentaNYL INJECTION 100 MCG/2 ML AMP ONE (13:36)
[2019-11-02] MEDS ORDERED: VERAPAMIL 5 MG/2 ML (CALAN) VIAL IV ONE (13:36)
[2019-11-02] MEDS ORDERED: NITRO DRIP 25000 MCG/D5W 250 ML IV ONE (13:36)
[2019-11-02] MEDS ORDERED: HYDR-4196 PO ×2 (13:45)
[2019-11-02] MEDS ORDERED: INSU100I29 SQ ×2 (13:45)
[2019-11-02] MEDS ORDERED: inSUlin (REGULAR) HUMAN 1 UNIT/0.01 ML (CHARGE PER UNIT) ONE (14:08)
[2019-11-02] MEDS ORDERED: NITR0.4T39 SL ×2 (14:08)
--- NOTE | 2019-11-02 14:08 | Cardiac Procedure Note-CS/ASA ---
Pre-Procedure Note Pre-Op Procedure Note H&P Reviewed The H&P was reviewed, patient examined and no changes noted. Date H&P Reviewed: Nov 02, 2019 Time H&P Reviewed: 14:08 Conscious Sedation Pre-Proced Time 14:08 ASA Score 3 For ASA 3 and 4: Consider anesthesia and medical clearance. Also, for patients with a history of failed moderate sedation consider anesthesia. Airway Lungs Heart ASA score ASA 1: a normal healthy patient ASA 2: a patient with a mild systemic disease (mid diabetes, controlled hypertension, obesity x ASA 3: a patient with a severe systemic disease that limits activity (angina, COPD, prior Myocardial infarction) ASA 4: a patient with an incapacitating disease that is a constant threat to life (CHF, renal failure) ASA 5: a moribund patient not expected to survive 24 hrs. (ruptured aneurysm) ASA 6: a declared brain- patient whose organs are being harvested. For emergent operations, add the letter E after the classification Mallampati Classification Grade 3 Sedation Plan Analgesia, Amnesia, Plan communicated to team members, Discussed options with patient/fam, Discussed risks with patient/fam The patient is an appropriate candidate to undergo the planned procedure, sedation, and anesthesia. The patient immediately re-assessed prior to indication. CINTHIA MANDEL MD Nov 02, 2019 14:08
--- NOTE | 2019-11-02 14:10 | Discharge Inst-Post CATH ---
Discharge Inst-CATH/EP Problems Reviewed?: Yes Post Cardiac Cath/EP D/C Inst Follow Up/Plan Appointment with Dr. MANDEL's office in 4 weeks <b>CARDIAC CATH/EP PROCEDURE DISCHARGE INSTRUCTIONS</b> ACTIVITY * Go Home directly and rest. * Limit activity of the leg (or wrist if it was used) for 7 days including aerobics, swimming, jogging, bicycling, etc. * Restrict stair-climbing for 7 days if possible, if not, climb up with your non-cath leg, then bring together on the same step. * Avoid lifting, pushing, pulling or excessive movement of the affected extremity for 7 days. * Customary sexual activity may be resumed after 2 days-use caution not to use a position that strains or causes pain to the affected extremity. * No driving for 24 hours. * NO SMOKING. * Avoid straining for bowel movements for 7 days. * Gentle walking on level ground is allowed. * Returning to work will depend on the type of procedure and the results. Your doctor will discuss this with you. CALL YOUR DOCTOR FOR ANY OF THE FOLLOWING: *If bleeding from the puncture site occurs- Apply gentle pressure to site with clean cloth and call your doctor or EMS. * If a knot or lump forms under the skin, increases in size, or causes pain. * If bruising appears to be worsening or moving further down your leg instead of disappearing. * Temperature above 101 F. CARE OF YOUR GROIN INCISION; * Bruising or purple discoloration of the skin near the puncture site is common. * You may shower only, no bathtub bathing for 5 days. Be careful to avoid slipping as your leg may feel stiff. * If a closure device was used on your femoral artery, please see the attached guide regarding care of the device and your leg. * Leave dressing on FOR 24 hours. CARE OF YOUR WRIST INCISION; * Bruising or purple discoloration of the skin near the puncture site is common. * You may shower. * DO NOT submerge wrist. * Leave dressing on FOR 24 hours. CINTHIA MANDEL MD Nov 02, 2019 14:10
--- NOTE | 2019-11-02 14:11 | NUR ---
SPOKE WITH THE PT AND CALLED [facility] TO COMPLETE [facility] MED REC THE FOLLOWING ARE FILL DATES FROM [facility]: 10-26-2019 NITRO 0.4MG #25 10-11-2019 HYDROCODONE 10/325MG #112/28DS 10-11-2019 GABAPENTIN 600MG #180/30DS 09-29-2019 LEVEMIR #5 PENS FENOFIBRATE 160MG LAST FILLED 04-28-2019 #90/90DS TOPAMAX 100MG LAST FILLED 05-18-2019 #180/90DS BOTH MEDICATIONS LISTED ABOVE ARE PAST DUE FOR REFILLS AND I DID DOCUMENT THAT ON THE MED REC METFORMIN 1000MG WAS LISTED ON THE MED LIST ON THE PTS CHART HOWEVER IT HAS NOT BEEN FILLED SINCE FEBRUARY 2019 AND THE PT ADMITS HE DOESNT TAKE IT OTC MEDS: ZYRTEC ASPIRIN 81
[2019-11-02] MEDS ORDERED: inSUlin (REGULAR) HUMAN 1 UNIT/0.01 ML (CHARGE PER UNIT) SC ONE (14:15)
--- NOTE | 2019-11-02 14:15 | Cardiac Cath Report ---
Cardiac Cath Report Physician (s)/[employer] (s) Physician CINTHIA MANDEL MD Pre-Procedure Diagnosis Pre-Procedure Diagnosis: Chest pain, coronary artery disease Post-Procedure Note Procedure Start Date: Nov 02, 2019 Name of Procedure: Left heart catheterization Findings/Procedure Note PROCEDURE NOTE: Suspicion of underlying coronary artery disease scheduled for cardiac catheterization possible PTCA. After explaining the procedure to the patient, all pros and cons were explained, all questions were answered. The patient signed the consent and then he was placed on the cardiac catheterization laboratory. Groin was prepped SL fashion local anesthesia was used. Sheath placed in the right radial artery, Tige catheter was used and advanced to the left ventricular cavity, pressure was measured, no back LV to aorta was done, evaluation of the right and left coronary system was done. At the end of the procedure the sheath was removed. Vascular band was used FINDINGS: Hemodynamics LV 127/15, end-diastolic pressure 15 Aorta 113/74 mean of 91 ANATOMY: Left Main has mild disease nonobstructive disease Left Anterior Descending has mild disease nonobstructive disease Left Circumflex has mild disease nonobstructive disease Right Coronory Artery has [id number]/40 percent stenosis in the mid RCA, otherwise nonobstructive disease LV Gram was not done, pressure was measured CONCLUSION: 1. Mild to moderate stenosis up to 40 percent stenosis in the midright coronary artery otherwise mild disease nonobstructive disease 2. Normal left ventricular end-diastolic pressure DISCUSSION AND RECOMMENDATION: medical therapy is recommended no intervention is needed Anesthesia Type: Conscious Sedation Estimated blood loss (mL): 5 ml Contrast Amount: 45 ml Total Radiation Dose: 350 mGy Post-Procedure Diagnosis Post-operative diagnosis: Chest pain Hypertension Coronary artery disease Hyperlipidemia CINTHIA MANDEL MD Nov 02, 2019 14:15
[2019-11-02] MEDS ORDERED: ASPI-983 PO ×2 (14:17)
[2019-11-02] MEDS ORDERED: CETI10TA21 PO ×2 (14:17)
--- NOTE | 2019-11-02 14:56 | NUR ---
ASA AND ZYRTEC PENDING. THIS RN PHONED DR. MANDEL AND HE GAVE TELEPHONE ORDER TO CONTINUE ASA 81MG AND ZYRTEC 10MG ON PATIENT'S DISCHARGE.
== END 2019-11-02 16:45 | disposition home or self-care (01) ==
LOC: CATH 11:58
PROVIDERS: ATTEND Internal Medicine Cardiovascular Disease
DX: I25.10 Atherosclerotic heart disease of native coronary artery without angina pectoris (principal); I10 Essential (primary) hypertension; E78.2 Mixed hyperlipidemia; E11.9 Type 2 diabetes mellitus without complications; E66.01 Morbid (severe) obesity due to excess calories; Z68.25 Body mass index [BMI] 25.0-25.9, adult; Z79.84 Long term (current) use of oral hypoglycemic drugs; Z79.82 Long term (current) use of aspirin; Z79.899 Other long term (current) drug therapy; Z91.040 Latex allergy status; Z88.0 Allergy status to penicillin; Z88.8 Allergy status to other drugs, medicaments and biological substances; Z88.5 Allergy status to narcotic agent
CPT/HCPCS: 71045; 80053; 80061; 81000; 85027; 85610; 85730; 87081; 93458; C1894; 36415

== ENCOUNTER → 2019-11-02 | Outpatient (CLI) | payer MEDICARE ==
[~2019-11-02] MED LIST changes: +ASPI-983 PO; +CETI10TA21 PO; -HOLD METFORMIN - RECEIVED CONTRAST 20 ML VIAL IV SCH; +HYDR-4196 PO; +INSU100I29 SQ; -IOHEXOL 350 MG/ML 100 ML (OMNIPAQUE 350) VIAL IV ONE; +NITR0.4T39 SL; -NS 100 ML (IVPB) BAG IV ONE
== END ==
LOC: LABNPT 07:01
PROVIDERS: ATTEND Internal Medicine Cardiovascular Disease
DX: Z01.818 Encounter for other preprocedural examination (principal); Z20.828 Contact with and (suspected) exposure to other viral communicable diseases
CPT/HCPCS: 87635

== ENCOUNTER 2020-01-31 12:29 | Outpatient (RCR) | payer MEDICARE ==
[~2020-01-31 12:29] MED LIST changes: +ASPI-1238 PO; +CETI10TA49 PO; +HYDR-4196 PO; +INSU100I29 SQ; +NITR0.4T39 SL; +OXC5T PO; -OXYC5TAB96 PO; -PANT40TA3 PO; +PANT40TA52 PO
== END 2020-04-17 | disposition home or self-care (01) ==
PROVIDERS: ATTEND Physician Assistant
DX: C32.9 Malignant neoplasm of larynx, unspecified (principal); I89.0 Lymphedema, not elsewhere classified; Z90.02 Acquired absence of larynx; Z20.828 Contact with and (suspected) exposure to other viral communicable diseases

== ENCOUNTER 2020-03-16 13:23 | Outpatient (RCR) | payer MEDICARE ==
[2020-01-11 10:46] LABS: CREATININE SERUM 1.42 MG/DL (0.60-1.30)
== END 2020-04-02 | disposition home or self-care (01) ==
LOC: ONC 13:23
PROVIDERS: ATTEND Radiology Radiation Oncology
DX: C32.9 Malignant neoplasm of larynx, unspecified (principal); E78.5 Hyperlipidemia, unspecified; J43.9 Emphysema, unspecified; G47.33 Obstructive sleep apnea (adult) (pediatric); F32.9 Major depressive disorder, single episode, unspecified; F41.9 Anxiety disorder, unspecified; K21.9 Gastro-esophageal reflux disease without esophagitis; F17.210 Nicotine dependence, cigarettes, uncomplicated; Z79.899 Other long term (current) drug therapy; Z79.890 Hormone replacement therapy; Z79.4 Long term (current) use of insulin; Z91.040 Latex allergy status; Z88.5 Allergy status to narcotic agent; Z88.0 Allergy status to penicillin; Z88.8 Allergy status to other drugs, medicaments and biological substances
CPT/HCPCS: 77300; 77301; 77334; 77336; 77338; 77386; 82565; 84520; 99204

== ENCOUNTER 2020-05-03 13:45 | Outpatient (RCR) | payer MEDICARE ==
[~2020-05-03 13:45] MED LIST changes: -LISI-552 PO; +LISI20TA26 PO; -OXYC-471 PO; +OXYC1TAB11 PO
[2020-07-16] MEDS ORDERED: DOXY100T2 PO (15:37)
[2020-07-16] MEDS ORDERED: OXYC1TAB87 PO (16:04)
== END 2020-08-01 | disposition home or self-care (01) ==
LOC: ONC 13:45
PROVIDERS: ATTEND Radiology Radiation Oncology
DX: C32.9 Malignant neoplasm of larynx, unspecified (principal); E78.5 Hyperlipidemia, unspecified; J43.9 Emphysema, unspecified; G47.33 Obstructive sleep apnea (adult) (pediatric); F32.9 Major depressive disorder, single episode, unspecified; F41.9 Anxiety disorder, unspecified; K21.9 Gastro-esophageal reflux disease without esophagitis; F17.210 Nicotine dependence, cigarettes, uncomplicated; Z79.899 Other long term (current) drug therapy; Z79.890 Hormone replacement therapy; Z79.4 Long term (current) use of insulin; Z91.040 Latex allergy status; Z88.5 Allergy status to narcotic agent; Z88.0 Allergy status to penicillin; Z88.8 Allergy status to other drugs, medicaments and biological substances
CPT/HCPCS: 99213

== ENCOUNTER 2020-07-16 13:32 | Emergency (ER) | payer MEDICARE ==
[~2020-07-16] VITALS: Ht 175.2 cm; Wt 86.3 kg
--- NOTE | 2020-07-16 13:52 | ED General ---
General Chief Complaint: General Problems/Pain Stated Complaint: LARYNGECTOMY CLOGGED Source of Information: Patient Exam Limitations: No Limitations History of Present Illness Date Seen by Provider: Jul 16, 2020 Time Seen by Provider: 13:50 Initial Comments To ER from home with reports that his tracheostomy is plugged with mucus. He feels as though there is something stuck in one of his airways that he is unable to cough up. He feels short of breath. This began today. He has been coughing up blood for about 2 to 3 days. 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 He has tried suctioning at home but does not feel like his suction machine is strong enough. Timing/Duration: 2-3 Days Severity: Moderate Associated Systoms: Cough Allergies and Home Medications Allergies Coded Allergies: latex (Verified Allergy, Intermediate, RASH, 01/07/18) Penicillins (Unverified Allergy, Unknown, 01/07/18) ondansetron (Unverified Allergy, Unknown, 01/07/18) morphine (Verified Adverse Reaction, Unknown, BECK, 01/07/18) Home Medications Aspirin 81 Mg Tablet.dr, 81 MG PO DAILY, (Reported) Cetirizine HCl 10 Mg Tablet, 10 MG PO DAILY, (Reported) Doxycycline Hyclate 100 Mg Tablet, 100 MG PO BID Prescribed by: SELENA AVENDANO on 07/16/20 1537 Fenofibrate 160 Mg Tablet, 160 MG PO HS, (Reported) 05-16-2019 #90/90 DAY SUPPLY Gabapentin 600 Mg Tablet, 1,200 MG PO AM, (Reported) take 2 (600mg) tabs Gabapentin 600 Mg Tablet, 1,800 MG PO HS, (Reported) take 3 (600mg) tabs Hydrocodone/Acetaminophen 1 Each Tablet, 1 TAB PO Q6H PRN for PAIN-MODERATE (5- 7), (Reported) Insulin Detemir 100 Unit/1 Ml Insuln.pen, 15-20 UNIT SQ HS, (Reported) Nitroglycerin 0.4 Mg Tab.subl, 0.4 MG SL UD PRN for CHEST PAIN, (Reported) Oxycodone HCl/Acetaminophen 1 Each Tablet, 1 TAB PO Q6H Prescribed by: SELENA AVENDANO on 07/16/20 1605 Topiramate 100 Mg Tablet, 100 MG PO BID, (Reported) LAST FILLED 05-18-2019 #180/90 DAY SUPPLY Patient Home Medication List Home Medication List Reviewed: Yes Review of Systems Review of Systems Constitutional: see HPI EENTM: see HPI Respiratory: see HPI, cough, short of breath Cardiovascular: no symptoms reported Genitourinary: no symptoms reported Musculoskeletal: no symptoms reported Skin: no symptoms reported Psychiatric/Neurological: No Symptoms Reported Hematologic/Lymphatic: No Symptoms Reported Immunological/Allergic: no symptoms reported Past Ylmpsmc-Dkiakm-Symajg Hx Patient Social History Type Used: Cigarettes Recent Hopitalizations: No Immunizations Up To Date Tetanus Booster (TDap): Unknown Date of Pneumonia Vaccine: Jan 08, 2016 Seasonal Allergies Seasonal Allergies: Yes Past Medical History Surgeries: Yes (Sinus surgery X2, ACL RIGHT KNEE, BILAT CARPAL TUNNEL, L UPPER LOBECTOMY, ) Appendectomy, Gallbladder, Tracheostomy Respiratory: Yes (Pulmonary nodules, HX LUNG CA) Sleep Apnea Currently Using CPAP: No Cardiac: No High Cholesterol Neurological: Yes Headaches /Migraines, Neuropathy Reproductive Disorders: No Sexually Transmitted Disease: No HIV/AIDS: No Gastrointestinal: Yes Gastroesophageal Reflux Musculoskeletal: Yes Degenerate Disk Disease, Arthritis, Chronic Back Pain Endocrine: Yes Diabetes, Non-Insulin dep Loss of Vision: Bilateral Hearing Impairment: Denies Cancer: Yes Lung Did You Recieve Any Treatments: Yes What Type of Treatment Did You: Surgical Intervention Psychosocial: Yes Anxiety, Depression Integumentary: No Blood Disorders: No Adverse Reaction/Blood Tranf: No (N/A) Family Medical History No Pertinent Family Hx, Diabetes, Hypertension Physical Exam Vital Signs Vital Signs - First Documented 07/16/20 13:37 Temp 36.4 Pulse 101 Resp 18 B/P (MAP) 134/77 (96) Pulse Ox 94 O2 Delivery Room Air Capillary Refill : Height, Weight, BMI Height: 5'9.00" Weight: 182lbs. 0.0oz. 82.819711kn; 25.24 BMI Method:Stated General Appearance: No Apparent Distress, WD/WN, Other (Sats are fine. He is coughing but feels as though he is unable to cough up the mucus) Eyes: Bilateral Eye Normal Inspection, Bilateral Eye PERRL Neck: Full Range of Motion, Normal Inspection Respiratory: No Accessory Muscle Use, No Respiratory Distress, Other (Wheezing on the right) Cardiovascular: Regular Rate, Rhythm, Normal Peripheral Pulses Gastrointestinal: Normal Bowel Sounds, Non Tender, Soft Extremity: Normal Capillary Refill, Normal Inspection Neurologic/Psychiatric: Alert, Oriented x3 Progress/Results/Core Measures Suspected Sepsis SIRS Temperature: Pulse: Respiratory Rate: Laboratory Tests 07/16/20 13:55: White Blood Count 11.9H Blood Pressure / Mean: Laboratory Tests 07/16/20 13:55: Creatinine 1.56H, Platelet Count 299, Total Bilirubin 0.2 Results/Orders Lab Results Laboratory Tests Test 07/16/20 13:55 Range/Units White Blood Count 11.9 H 4.3-11.0 10^3/uL Red Blood Count 3.61 L 4.30-5.52 10^6/uL Hemoglobin 10.8 L 13.3-17.7 g/dL Hematocrit 33 L 40-54 % Mean Corpuscular Volume 91 80-99 fL Mean Corpuscular Hemoglobin 30 25-34 pg Mean Corpuscular Hemoglobin Concent 33 32-36 g/dL Red Cell Distribution Width 13.6 10.0-14.5 % Platelet Count 299 130-400 10^3/uL Mean Platelet Volume 9.9 9.0-12.2 fL Immature Granulocyte % (Auto) 0 % Neutrophils (%) (Auto) 82 H 42-75 % Lymphocytes (%) (Auto) 5 L 12-44 % Monocytes (%) (Auto) 9 0-12 % Eosinophils (%) (Auto) 4 0-10 % Basophils (%) (Auto) 1 0-10 % Neutrophils # (Auto) 9.7 H 1.8-7.8 X 10^3 Lymphocytes # (Auto) 0.6 L 1.0-4.0 X 10^3 Monocytes # (Auto) 1.0 0.0-1.0 X 10^3 Eosinophils # (Auto) 0.4 H 0.0-0.3 10^3/uL Basophils # (Auto) 0.1 0.0-0.1 10^3/uL Immature Granulocyte # (Auto) 0.1 0.0-0.1 10^3/uL Neutrophils % (Manual) 83 % Lymphocytes % (Manual) 7 % Monocytes % (Manual) 5 % Eosinophils % (Manual) 3 % Band Neutrophils 2 % Blood Morphology Comment NORMAL Sodium Level 135 135-145 MMOL/L Potassium Level 4.3 3.6-5.0 MMOL/L Chloride Level 104 98-107 MMOL/L Carbon Dioxide Level 20 L 21-32 MMOL/L Anion Gap 11 5-14 MMOL/L Blood Urea Nitrogen 34 H 7-18 MG/DL Creatinine 1.56 H 0.60-1.30 MG/DL Estimat Glomerular Filtration Rate 46 BUN/Creatinine Ratio 22 Glucose Level 311 H 70-105 MG/DL Calcium Level 8.6 8.5-10.1 MG/DL Corrected Calcium 8.4 L 8.5-10.1 MG/DL Total Bilirubin 0.2 0.1-1.0 MG/DL Aspartate Amino Transf (AST/SGOT) 19 5-34 U/L Alanine Aminotransferase (ALT/SGPT) 18 0-55 U/L Alkaline Phosphatase 65 40-136 U/L B-Type Natriuretic Peptide 11.0 <100.0 PG/ML Total Protein 7.4 6.4-8.2 GM/DL Albumin 4.3 3.2-4.5 GM/DL My Orders Orders - SELENA AVENDANO APRN Chest 1 View, Ap/Pa Only (07/16/20 13:43) BNP (07/16/20 13:46) Cbc With Automated Diff (07/16/20 13:46) Comprehensive Metabolic Panel (07/16/20 13:46) Ed Iv/Invasive Line Start (07/16/20 13:46) Ct Angio Chest W (07/16/20 13:46) Albuterol/Ipra Inhalation Soln (Duoneb I (07/16/20 14:00) Svn Small Volume Nebulizer (07/16/20 13:52) Manual Differential (07/16/20 13:55) Lactated Ringers (Lr 1000 Ml Iv Solution (07/16/20 14:45) Iohexol Injection (Omnipaque 350 Mg/Ml 1 (07/16/20 14:45) Received Contrast (Hold Metformin- Contr (07/16/20 14:45) Sodium Chloride Flush (Catheter Flush Sy (07/16/20 14:45) Ns (Ivpb) (Sodium Chloride 0.9% Ivpb Bag (07/16/20 14:45) Fentanyl Inj (Sublimaze Injection) (07/16/20 15:00) Ceftriaxone For Iv Use (Rocephin For I (07/16/20 15:45) Azithromycin Injection (Zithromax Inject (07/16/20 15:45) Doxycycline Hyclate Tablet (Vibramycin T (07/16/20 15:45) Lidocaine 1% Inj 20 Ml (Xylocaine 1% Inj (07/16/20 16:00) Triamcinolone Acetonide Im (Kenalog-40) (07/16/20 16:00) Lidocaine 1% Inj 20 Ml (Xylocaine 1% Inj (07/16/20 15:47) Triamcinolone Acetonide Im (Kenalog-40) (07/16/20 15:47) Medications Given in ED Current Medications Medications Dose Ordered Sig/Evelyn Route Start Time Stop Time Status Last Admin Dose Admin Ceftriaxone Sodium 1000 mg/ Sterile Water 10 ml @ 200 mls/hr ONCE ONCE IV 07/16/20 15:45 07/16/20 15:47 DC 07/16/20 15:50 200 MLS/HR Fentanyl Citrate 50 mcg ONCE ONCE IVP 07/16/20 15:00 07/16/20 15:01 DC 07/16/20 14:58 50 MCG Iohexol 100 ml ONCE ONCE IV 07/16/20 14:45 07/16/20 14:46 DC 07/16/20 15:08 74 ML Sodium Chloride 10 ml NEEDED PRN IV 07/16/20 14:45 07/16/20 15:08 10 ML Sodium Chloride 100 ml ONCE ONCE IV 07/16/20 14:45 07/16/20 14:46 DC 07/16/20 15:08 80 ML Vital Signs/I&O 07/16/20 13:37 Temp 36.4 Pulse 101 Resp 18 B/P (MAP) 134/77 (96) Pulse Ox 94 O2 Delivery Room Air Capillary Refill : Diagnostic Imaging Diagonstic Imaging: CT Comments NAME: ROGER CHANEY [facility] REC#: [id number] PT STATUS: REG ER : 1965 PHYSICIAN: SELENA AVENDANO APRN ADMIT DATE: 07/16/20/ER Draft Date of Exam:07/16/20 CT ANGIO CHEST W PROCEDURE: CT angiography of the chest with contrast. TECHNIQUE: Multiple contiguous axial images were obtained through the chest after uneventful bolus administration of intravenous contrast. 3D reconstructed CTA MIP acquisitions were also performed. Auto Exposure Controls were utilized during the CT exam to meet ALARA standards for radiation dose reduction. DATE: July 16, 2020. COMPARISON: July 16, 2020. CT chest June 19, 2015. INDICATION: 55-year-old male, cough. History of head and neck malignancy. FINDINGS: There is airspace consolidation in the left upper lobe which is fairly ill-defined on axial image 52 and adjacent sequential images. There is also an area of focal airspace consolidation in the right upper lobe on axial image 29 and adjacent sequential images. There is respiratory motion artifact. There is no identified focal well-defined pulmonary nodule. There is no additional focal airspace consolidation. There is no pneumothorax. There is no pleural effusion. The central airways are patent. There is no identified central or segmental pulmonary embolus. There are limitations for assessment of subsegmental pulmonary emboli given the degree of respiratory motion artifact. The main pulmonary artery diameter is within normal limits. The heart is not enlarged. There is no pericardial effusion. There is a right superior mediastinal lymph node on axial image 26 which measures 10 mm in short axis. This previously measured 8 mm in short axis on June 19, 2015. There are multiple additional subcentimeter short axis paratracheal lymph nodes. There is a right hilar lymph node on axial image 57 measuring 13 mm in short axis which is new since the prior CT. A left paratracheal lymph node on axial image 50 currently measures 12 mm in short axis compared to 9 mm previously. There are surgical changes at the level of the neck. There is a tracheostomy tube. There is ill-defined subcutaneous and soft tissue edema at the level of the neck. There is diffuse fatty infiltration of the liver. The patient is status post cholecystectomy. There is a late subacute to chronic prior fracture of the right 9th rib laterally. There is no identified acute bony abnormality. IMPRESSION: 1. No identified central or segmental pulmonary embolus. 2. Ill-defined areas of airspace consolidation in the right and left upper lobes which may relate to multifocal pneumonia. Recommend correlation clinically and ensure followup to resolution. 3. Abnormally enlarged superior mediastinal, paratracheal, and right hilar lymph nodes which could relate to the airspace consolidative process. Metastatic john disease is difficult to exclude. 4. Procedural related changes at the level of the neck. Dictated on workstation # [id number] Dict: 07/16/20 1517 Trans: 07/16/20 1529 [id number] Interpreted by: LESTER ASCENCIO MD Electronically signed by: Departure Communication (Admissions) 6713-respiratory therapy was able to suction out a finger sized bloody mucus plug from the airways with resultant improvement in patient's symptoms though he was never hypoxic. 1601-I will give him Rocephin 1 g here plus doxycycline 100 mg p.o. He is feeling better. He is on hydrocodone at home but has persistent pain in the chest so I will add Percocet as needed. I made an appointment for him with Dr. Chi next Thursday at 9:15 in the morning. He remains without hypoxia or tachycardia. He may need bronchoscopy. Impression Primary Impression: Mucus plugging of bronchi Additional Impressions: Pneumonia Hemoptysis Disposition: HOME, SELF-CARE Condition: Stable Departure-Patient Inst. Decision time for Depature: 15:36 Referrals: [facility] [place] (PCP) Primary Care Physician LEILANI ROQUE (Family) Primary Care Physician SETH CHI DO Patient Instructions: Pneumonia, Adult ED Add. Discharge Instructions: 1. I have made an appointment for you with pulmonology Dr. Chi this coming Thursday at 9:15 in the morning. This is a very important appointment to keep given the enlarged lymph nodes in your chest. These could be reactive to the pneumonia or related to a cancer. Take the antibiotics as directed and return to ER for any worsening. All discharge instructions reviewed with patient and/or family. Voiced understanding. Scripts Oxycodone HCl/Acetaminophen (Percocet 5-325 mg Tablet) 1 Each Tablet 1 TAB PO Q6H for PAIN-MODERATE MDD 6 TABS for 7 Days, #10 TAB Prov: SELENA AVENDANO APRN 07/16/20 Doxycycline Hyclate (Doxycycline Hyclate) 100 Mg Tablet 100 MG PO BID, #20 TAB 0 Refills Prov: SELENA AVENDANO APRN 07/16/20 Copy Copies To 1: SETH CHI PETER J APRN Jul 16, 2020 13:52
[2020-07-16] MEDS ORDERED: RT-ALBUTEROL/IPRATROPIUM 3 ML (DUONEB) VIAL INH ONE (14:00)
[2020-07-16 14:11] LABS: BASOPHILS # (AUTO) 0.1 10^3/uL (0.0-0.1); BASOPHILS % (AUTO) 1 % (0-10); EOSINOPHILS # (AUTO) 0.4 10^3/uL (0.0-0.3); EOSINOPHILS % (AUTO) 4 % (0-10); HEMATOCRIT 33 % (40-54); HEMOGLOBIN 10.8 g/dL (13.3-17.7); LYMPHOCYTES # (AUTO) 0.6 X 10^3 (1.0-4.0); LYMPHOCYTES % (AUTO) 5 % (12-44); MEAN CORPUSCULAR HEMOGLOBIN 30 pg (25-34); MEAN CORPUSCULAR HGB CONC 33 g/dL (32-36); MEAN CORPUSCULAR VOLUME 91 fL (80-99); MEAN PLATELET VOLUME 9.9 fL (9.0-12.2); MONOCYTES % (AUTO) 9 % (0-12); NEUTROPHILS # (AUTO) 9.7 X 10^3 (1.8-7.8); NEUTROPHILS % (AUTO) 82 % (42-75); PLATELET COUNT 299 10^3/uL (130-400); WHITE BLOOD COUNT 11.9 10^3/uL (4.3-11.0)
[2020-07-16 14:27] LABS: ALBUMIN 4.3 GM/DL (3.2-4.5); BILIRUBIN,TOTAL 0.2 MG/DL (0.1-1.0); CALCIUM 8.6 MG/DL (8.5-10.1); CREATININE SERUM 1.56 MG/DL (0.60-1.30); POTASSIUM 4.3 MMOL/L (3.6-5.0); TOTAL PROTEIN 7.4 GM/DL (6.4-8.2)
[2020-07-16] MEDS ORDERED: NS 100 ML (IVPB) BAG IV ONE (14:45)
[2020-07-16] MEDS ORDERED: HOLD METFORMIN - RECEIVED CONTRAST 20 ML VIAL IV SCH (14:45)
[2020-07-16] MEDS ORDERED: CATHETER FLUSH 10 ML SYR IV PRN (14:45)
[2020-07-16] MEDS ORDERED: LACTATED RINGERS 1,000 ML IV SCH (14:45)
[2020-07-16] MEDS ORDERED: IOHEXOL 350 MG/ML 100 ML (OMNIPAQUE 350) VIAL IV ONE (14:45)
[2020-07-16] MEDS ORDERED: fentaNYL INJ 100 MCG/2 ML AMP IVP ONE (15:00)
[2020-07-16 15:12] LABS: BAND NEUTROPHILS 2 %; LYMPHOCYTES % (MANUAL) 7 %; MONOCYTES % (MANUAL) 5 %; NEUTROPHILS % (MANUAL) 83 %
[2020-07-16 15:13] LABS: EOSINOPHILS % (MANUAL) 3 %; RBC MORPH NORMAL
--- NOTE | 2020-07-16 15:16 | Diagnostic Imaging Report ---
INDICATION: Shortness of breath. TECHNIQUE: Frontal chest obtained at 02:53 p.m. and compared to 11/02/2019. FINDINGS: Heart and mediastinal silhouette are normal in appearance. Tracheotomy tube is noted with tip overlying midtrachea. There is some parenchymal scarring in the left midlung. There is a questionable vague density in the left midlung which may represent infiltrate or less likely nodule. Follow-up is recommended. The right lung is clear. IMPRESSION: There is some scarring or atelectasis in the left midlung with a vague area of increased density in the left midlung, which may represent infiltrate or less likely nodule. Short-term follow-up is recommended. Dictated by: Dictated on workstation # [id number]
--- NOTE | 2020-07-16 15:30 | Diagnostic Imaging Report ---
PROCEDURE: CT angiography of the chest with contrast. TECHNIQUE: Multiple contiguous axial images were obtained through the chest after uneventful bolus administration of intravenous contrast. 3D reconstructed CTA MIP acquisitions were also performed. Auto Exposure Controls were utilized during the CT exam to meet ALARA standards for radiation dose reduction. DATE: July 16, 2020. COMPARISON: July 16, 2020. CT chest June 19, 2015. INDICATION: 55-year-old male, cough. History of head and neck malignancy. FINDINGS: There is airspace consolidation in the left upper lobe which is fairly ill-defined on axial image 52 and adjacent sequential images. There is also an area of focal airspace consolidation in the right upper lobe on axial image 29 and adjacent sequential images. There is respiratory motion artifact. There is no identified focal well-defined pulmonary nodule. There is no additional focal airspace consolidation. There is no pneumothorax. There is no pleural effusion. The central airways are patent. There is no identified central or segmental pulmonary embolus. There are limitations for assessment of subsegmental pulmonary emboli given the degree of respiratory motion artifact. The main pulmonary artery diameter is within normal limits. The heart is not enlarged. There is no pericardial effusion. There is a right superior mediastinal lymph node on axial image 26 which measures 10 mm in short axis. This previously measured 8 mm in short axis on June 19, 2015. There are multiple additional subcentimeter short axis paratracheal lymph nodes. There is a right hilar lymph node on axial image 57 measuring 13 mm in short axis which is new since the prior CT. A left paratracheal lymph node on axial image 50 currently measures 12 mm in short axis compared to 9 mm previously. There are surgical changes at the level of the neck. There is a tracheostomy tube. There is ill-defined subcutaneous and soft tissue edema at the level of the neck. There is diffuse fatty infiltration of the liver. The patient is status post cholecystectomy. There is a late subacute to chronic prior fracture of the right 9th rib laterally. There is no identified acute bony abnormality. IMPRESSION: 1. No identified central or segmental pulmonary embolus. 2. Ill-defined areas of airspace consolidation in the right and left upper lobes which may relate to multifocal pneumonia. Recommend correlation clinically and ensure followup to resolution. 3. Abnormally enlarged superior mediastinal, paratracheal, and right hilar lymph nodes which could relate to the airspace consolidative process. Metastatic john disease is difficult to exclude. 4. Procedural related changes at the level of the neck. Dictated by: Dictated on workstation # [id number]
[2020-07-16] MEDS ORDERED: DOXY100T2 PO (15:37)
[2020-07-16] MEDS ORDERED: AZITHROMYCIN INJECTION 500 MG in NS (IVPB) 250 ML IV ONE (15:45)
[2020-07-16] MEDS ORDERED: DOXYCYCLINE 100 MG (VIBRAMYCIN) TABLET PO SCH (15:45)
[2020-07-16] MEDS ORDERED: cefTRIAXone FOR IV USE 1,000 MG in WATER (STERILE) FOR INJECTION 10 ML IV ONE (15:45)
[2020-07-16] MEDS ORDERED: TRIAMCINOLONE ACET (KENALOG-40) 40 MG/ML 1 ML VIAL ONE (15:47)
[2020-07-16] MEDS ORDERED: LIDOCAINE 1% INJ 20 ML 20 ML VIAL ONE (15:47)
[2020-07-16] MEDS ORDERED: LIDOCAINE 1% INJ 20 ML 20 ML VIAL INJ ONE (16:00)
[2020-07-16] MEDS ORDERED: TRIAMCINOLONE ACET (KENALOG-40) 40 MG/ML 1 ML VIAL IM ONE (16:00)
[2020-07-16] MEDS ORDERED: OXYC1TAB87 PO (16:04)
[2020-07-16 16:42] VITALS: BP 111/74
== END 2020-07-16 16:41 | disposition home or self-care (01) ==
LOC: EDUNIT# 13:32 → ER 13:35
DX: J98.09 Other diseases of bronchus, not elsewhere classified (principal); J18.9 Pneumonia, unspecified organism; R04.2 Hemoptysis; I10 Essential (primary) hypertension; G89.29 Other chronic pain; M54.9 Dorsalgia, unspecified; E78.00 Pure hypercholesterolemia, unspecified; G43.909 Migraine, unspecified, not intractable, without status migrainosus; E11.9 Type 2 diabetes mellitus without complications; Z91.040 Latex allergy status; Z88.0 Allergy status to penicillin; Z88.5 Allergy status to narcotic agent; Z88.8 Allergy status to other drugs, medicaments and biological substances; Z85.118 Personal history of other malignant neoplasm of bronchus and lung; Z82.49 Family history of ischemic heart disease and other diseases of the circulatory system; Z79.891 Long term (current) use of opiate analgesic; Z79.82 Long term (current) use of aspirin
CPT/HCPCS: 36415; 71045; 71275; 80053; 83880; 85007; 85027

== ENCOUNTER 2020-07-18 11:37 | Emergency (ER) | payer MEDICARE ==
[~2020-07-18] VITALS: Ht 175 cm; Wt 88.0 kg
[~2020-07-18 11:37] MED LIST changes: +DOXY100T2 PO; +OXYC1TAB87 PO
--- NOTE | 2020-07-18 11:49 | ED Respiratory ---
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 He was here a few days ago for mucous plugging of the airway. We were able to suction out a large bronchial casting of mucus that was dried. CT angiogram revealed some mediastinal lymphadenopathy and small amount of interstitial infiltrate on each side. He was given doxycycline. He has received his first Covid vaccine last week. Timing/Duration: constant Severity: moderate Associated Symptoms: cough; No fever/chills Allergies and Home Medications Allergies Coded Allergies: latex (Verified Allergy, Intermediate, RASH, 01/07/18) Penicillins (Unverified Allergy, Unknown, 01/07/18) ondansetron (Unverified Allergy, Unknown, 01/07/18) morphine (Verified Adverse Reaction, Unknown, BECK, 01/07/18) Home Medications Aspirin 81 Mg Tablet.dr, 81 MG PO DAILY, (Reported) Cetirizine HCl 10 Mg Tablet, 10 MG PO DAILY, (Reported) Doxycycline Hyclate 100 Mg Tablet, 100 MG PO BID Prescribed by: SELENA AVENDANO on 07/16/20 1537 Fenofibrate 160 Mg Tablet, 160 MG PO HS, (Reported) 05-16-2019 #90/90 DAY SUPPLY Gabapentin 600 Mg Tablet, 1,200 MG PO AM, (Reported) take 2 (600mg) tabs Gabapentin 600 Mg Tablet, 1,800 MG PO HS, (Reported) take 3 (600mg) tabs Hydrocodone/Acetaminophen 1 Each Tablet, 1 TAB PO Q6H PRN for PAIN-MODERATE (5- 7), (Reported) Insulin Detemir 100 Unit/1 Ml Insuln.pen, 15-20 UNIT SQ HS, (Reported) Nitroglycerin 0.4 Mg Tab.subl, 0.4 MG SL UD PRN for CHEST PAIN, (Reported) Oxycodone HCl/Acetaminophen 1 Each Tablet, 1 TAB PO Q6H Prescribed by: SELENA AVENDANO on 07/16/20 1605 Topiramate 100 Mg Tablet, 100 MG PO BID, (Reported) LAST FILLED 05-18-2019 #180/90 DAY SUPPLY Patient Home Medication List Home Medication List Reviewed: Yes Review of Systems Review of Systems Constitutional: see HPI EENTM: see HPI Respiratory: see HPI, cough, dyspnea on exertion Cardiovascular: no symptoms reported Genitourinary: no symptoms reported Musculoskeletal: no symptoms reported Skin: no symptoms reported Psychiatric/Neurological: No Symptoms Reported Hematologic/Lymphatic: No Symptoms Reported Past Fnbbgwa-Bksfph-Syewvx Hx Patient Social History Type Used: Cigarettes Recent Hopitalizations: No Immunizations Up To Date Tetanus Booster (TDap): Unknown Date of Pneumonia Vaccine: Jan 08, 2016 Seasonal Allergies Seasonal Allergies: Yes Past Medical History Surgeries: Yes (Sinus surgery X2, ACL RIGHT KNEE, BILAT CARPAL TUNNEL, L UPPER LOBECTOMY, ) Appendectomy, Gallbladder, Tracheostomy Respiratory: Yes (Pulmonary nodules, HX LUNG CA) Sleep Apnea Currently Using CPAP: No Cardiac: No High Cholesterol Neurological: Yes Headaches /Migraines, Neuropathy Reproductive Disorders: No Sexually Transmitted Disease: No HIV/AIDS: No Gastrointestinal: Yes Gastroesophageal Reflux Musculoskeletal: Yes Degenerate Disk Disease, Arthritis, Chronic Back Pain Endocrine: Yes Diabetes, Non-Insulin dep Loss of Vision: Bilateral Hearing Impairment: Denies Cancer: Yes Lung Did You Recieve Any Treatments: Yes What Type of Treatment Did You: Surgical Intervention Psychosocial: Yes Anxiety, Depression Integumentary: No Blood Disorders: No Adverse Reaction/Blood Tranf: No (N/A) Family Medical History No Pertinent Family Hx, Diabetes, Hypertension Physical Exam Vital Signs - First Documented 07/18/20 11:38 Temp 36.2 Pulse 88 Resp 16 B/P (MAP) 96/65 (75) Pulse Ox 99 O2 Delivery Room Air Capillary Refill : Height: 5'9.00" Weight: 182lbs. 0.0oz. [id number]; 28.00 BMI Method:Stated General Appearance: WD/WN, no apparent distress Eyes: Bilateral Eye Normal Inspection, Bilateral Eye PERRL, Bilateral Eye EOMI Neck: non-tender, full range of motion Respiratory: no respiratory distress, no accessory muscle use Cardiovascular: regular rate, rhythm, no murmur Extremities: normal range of motion, non-tender Neurologic/Psychiatric: alert, normal mood/affect, oriented x 3 Skin: normal color, warm/dry Progress/Results/Core Measures Suspected Sepsis SIRS Temperature: Pulse: Respiratory Rate: Blood Pressure / Mean: Results/Orders My Orders Orders - SELENA AVENDANO APRN Chest 1 View, Ap/Pa Only (07/18/20 11:41) Vital Signs/I&O 07/18/20 07/18/20 07/18/20 11:38 12:00 12:09 Temp 36.2 36.2 Pulse 88 88 Resp 16 16 B/P (MAP) 96/65 (75) 96/65 (75) Pulse Ox 99 99 O2 Delivery Room Air Room Air Capillary Refill : Departure Communication (Admissions) Respiratory therapy was once again able to suction out a large mucous plug/ bronchial casting of mucus that was dried and hard. He had immediate symptom improvement. Discharged home. Advised him to sleep with his steam/humidifier machine close to him. states they have 1 but he has not been using it. Impression Primary Impression: Mucus plugging of bronchi Disposition: HOME, SELF-CARE Condition: Improved Departure-Patient Inst. Decision time for Depature: 11:57 Referrals: [facility] (PCP) Primary Care Physician LEILANI ROQUE (Family) Primary Care Physician Patient Instructions: NO INSTRUCTIONS GIVEN Add. Discharge Instructions: Keep your appointment with Dr. Chi next week as scheduled. Continue the antibiotics. All discharge instructions reviewed with patient and/or family. Voiced understanding. SELENA AVENDANO APRN Jul 18, 2020 11:49
[2020-07-18 12:09] VITALS: BP 96/65
--- NOTE | 2020-07-18 12:32 | Diagnostic Imaging Report ---
INDICATION: Cough. Frontal chest obtained at 12:08 p.m. and compared to 07/16/2020. Heart is borderline in size. There is mild central vascular prominence. There is some scarring or atelectasis in the left upper lobe. Ill-defined density in the left midlung has improved compared to the prior study. There is no pneumothorax or pleural fluid. Tracheostomy is noted IMPRESSION: There is some linear scarring or atelectasis left upper lobe which is similar to the prior study. There is improvement in the abnormal density left midlung compared to the prior study. There is no new abnormality. Dictated by: Dictated on workstation # [id number]
== END 2020-07-18 12:09 | disposition home or self-care (01) ==
LOC: EDUNIT# 11:37 → ER 11:39
DX: J98.09 Other diseases of bronchus, not elsewhere classified (principal); E78.00 Pure hypercholesterolemia, unspecified; G89.29 Other chronic pain; M54.9 Dorsalgia, unspecified; G43.909 Migraine, unspecified, not intractable, without status migrainosus; Z90.02 Acquired absence of larynx; Z88.0 Allergy status to penicillin; Z88.5 Allergy status to narcotic agent; Z91.040 Latex allergy status; Z88.8 Allergy status to other drugs, medicaments and biological substances; Z85.118 Personal history of other malignant neoplasm of bronchus and lung; Z82.49 Family history of ischemic heart disease and other diseases of the circulatory system; Z79.82 Long term (current) use of aspirin; Z79.891 Long term (current) use of opiate analgesic
CPT/HCPCS: 71045; 99282

== ENCOUNTER 2020-07-20 15:53 | Emergency (ER) | payer MEDICARE ==
[~2020-07-20] VITALS: Ht 177 cm; Wt 85.0 kg
[2020-07-20 16:00] VITALS: BP 171/103
--- NOTE | 2020-07-20 16:10 | ED Respiratory ---
General Chief Complaint: Respiratory Problems Stated Complaint: NEEDS SUCTION/SOB Source: patient Exam Limitations: no limitations History of Present Illness Date Seen by Provider: Jul 20, 2020 Time Seen by Provider: 15:54 Allergies and Home Medications Allergies Coded Allergies: latex (Verified Allergy, Intermediate, RASH, 01/07/18) Penicillins (Unverified Allergy, Unknown, 01/07/18) ondansetron (Unverified Allergy, Unknown, 01/07/18) morphine (Verified Adverse Reaction, Unknown, BECK, 01/07/18) Home Medications Aspirin 81 Mg Tablet.dr, 81 MG PO DAILY, (Reported) Cetirizine HCl 10 Mg Tablet, 10 MG PO DAILY, (Reported) Doxycycline Hyclate 100 Mg Tablet, 100 MG PO BID Prescribed by: SELENA AVENDANO on 07/16/20 1537 Fenofibrate 160 Mg Tablet, 160 MG PO HS, (Reported) 05-16-2019 #90/90 DAY SUPPLY Gabapentin 600 Mg Tablet, 1,200 MG PO AM, (Reported) take 2 (600mg) tabs Gabapentin 600 Mg Tablet, 1,800 MG PO HS, (Reported) take 3 (600mg) tabs Hydrocodone/Acetaminophen 1 Each Tablet, 1 TAB PO Q6H PRN for PAIN-MODERATE (5- 7), (Reported) Insulin Detemir 100 Unit/1 Ml Insuln.pen, 15-20 UNIT SQ HS, (Reported) Nitroglycerin 0.4 Mg Tab.subl, 0.4 MG SL UD PRN for CHEST PAIN, (Reported) Oxycodone HCl/Acetaminophen 1 Each Tablet, 1 TAB PO Q6H Prescribed by: SELENA AVENDANO on 07/16/20 1605 Topiramate 100 Mg Tablet, 100 MG PO BID, (Reported) LAST FILLED 05-18-2019 #180/90 DAY SUPPLY Patient Home Medication List Home Medication List Reviewed: Yes Review of Systems Review of Systems Constitutional: No chills, No diaphoresis, No fever EENTM: No ear discharge, No ear pain Respiratory: cough, phlegm, short of breath Cardiovascular: No edema, No palpitations Gastrointestinal: No abdominal pain, No nausea Genitourinary: No discharge, No dysuria Past Dgsbbsz-Jnjccs-Uhhodr Hx Patient Social History Alcohol Use: Denies Use Smoking Status: Current Everyday Smoker Type Used: Cigarettes Recent Hopitalizations: No Immunizations Up To Date Tetanus Booster (TDap): Unknown Date of Pneumonia Vaccine: Jan 08, 2016 Seasonal Allergies Seasonal Allergies: Yes Past Medical History Surgeries: Yes (Sinus surgery X2, ACL RIGHT KNEE, BILAT CARPAL TUNNEL, L UPPER LOBECTOMY, ) Appendectomy, Gallbladder, Tracheostomy Respiratory: Yes (Pulmonary nodules, HX LUNG CA) Sleep Apnea Currently Using CPAP: No Cardiac: No High Cholesterol Neurological: Yes Headaches /Migraines, Neuropathy Reproductive Disorders: No Sexually Transmitted Disease: No HIV/AIDS: No Gastrointestinal: Yes Gastroesophageal Reflux Musculoskeletal: Yes Degenerate Disk Disease, Arthritis, Chronic Back Pain Endocrine: Yes Diabetes, Non-Insulin dep Loss of Vision: Bilateral Hearing Impairment: Denies Cancer: Yes Lung Did You Recieve Any Treatments: Yes What Type of Treatment Did You: Surgical Intervention Psychosocial: Yes Anxiety, Depression Integumentary: No Blood Disorders: No Adverse Reaction/Blood Tranf: No (N/A) Family Medical History No Pertinent Family Hx, Diabetes, Hypertension Physical Exam Vital Signs - First Documented 07/20/20 16:00 Temp 36.1 Pulse 87 Resp 24 B/P (MAP) 171/103 (125) Pulse Ox 100 Capillary Refill : Height: 5'9.00" Weight: 182lbs. 0.0oz. 82.934887hi; 28.00 BMI Method:Stated General Appearance: WD/WN, mild distress Eyes: Bilateral Eye Normal Inspection, Bilateral Eye PERRL, Bilateral Eye EOMI HEENT: PERRL/EOMI, pharynx normal Neck: full range of motion, normal inspection Respiratory: lungs clear, normal breath sounds, respiratory distress (Oxygen saturation 98% on room air with increased work of coughing up secretions) Cardiovascular: normal peripheral pulses, regular rate, rhythm Gastrointestinal: non tender, soft Procedures/Interventions Progress Using sterile technique and some sterile saline we slowly got up several thick mucous plugs until the patient was feeling better. Progress/Results/Core Measures Suspected Sepsis SIRS Temperature: Pulse: Respiratory Rate: Blood Pressure / Mean: Results/Orders Vital Signs/I&O 07/20/20 16:00 Temp 36.1 Pulse 87 Resp 24 B/P (MAP) 171/103 (125) Pulse Ox 100 Capillary Refill : Departure Impression Primary Impression: Pneumonia Additional Impression: Chronic airway obstruction Disposition: 01 HOME, SELF-CARE Condition: Improved Departure-Patient Inst. Decision time for Depature: 16:10 Referrals: [facility] (PCP) Primary Care Physician LEILANI ROQUE (Family) Primary Care Physician Add. Discharge Instructions: Follow-up with primary care or return to the ER if your symptoms worsen. All discharge instructions reviewed with patient and/or family. Voiced understanding. CIPRIANO SMITH J Jul 20, 2020 16:10
== END 2020-07-20 16:15 | disposition home or self-care (01) ==
LOC: EDUNIT# 15:53 → ER 15:55
DX: J18.9 Pneumonia, unspecified organism (principal); J44.9 Chronic obstructive pulmonary disease, unspecified; I10 Essential (primary) hypertension; G89.29 Other chronic pain; M54.9 Dorsalgia, unspecified; E78.00 Pure hypercholesterolemia, unspecified; G43.901 Migraine, unspecified, not intractable, with status migrainosus; F17.210 Nicotine dependence, cigarettes, uncomplicated; Z85.118 Personal history of other malignant neoplasm of bronchus and lung; Z91.040 Latex allergy status; Z88.0 Allergy status to penicillin; Z88.5 Allergy status to narcotic agent; Z88.8 Allergy status to other drugs, medicaments and biological substances; Z82.49 Family history of ischemic heart disease and other diseases of the circulatory system; Z83.3 Family history of diabetes mellitus; Z79.82 Long term (current) use of aspirin; Z79.891 Long term (current) use of opiate analgesic
CPT/HCPCS: 99281

== ENCOUNTER 2020-07-25 18:09 | Emergency (ER) | payer MEDICARE ==
[~2020-07-25] VITALS: Ht 177 cm; Wt 90.7 kg
--- NOTE | 2020-07-25 18:42 | ED Respiratory ---
General Chief Complaint: Respiratory Problems Stated Complaint: SUCTION FROM TRACH Nursing Triage Note: pt presents to ed via pov from home with complaints of clogged tach. reports home suctioning isnt working. History of Present Illness Date Seen by Provider: Jul 25, 2020 Time Seen by Provider: 18:15 Initial Comments 55-year-old male with recent new tracheaostomy, presents for SOA. He has presented to this emergency department recently to have trach suctioning for mucous plugs. His last visit was 5 days ago. They are managing his care at home but not having enough suction to get all of the mucus. He denies any other complaints. He was recently seen by pulmonology 2 days ago. SaO2 98% on room air at time of presentation. Timing/Duration: just prior to arrival Severity: mild Prior Episodes/Possible Cause: occasional episodes Associated Symptoms: No chest pain/soreness, No cough, No fever/chills, No headache; shortness of breath Allergies and Home Medications Allergies Coded Allergies: latex (Verified Allergy, Intermediate, RASH, 01/07/18) Penicillins (Unverified Allergy, Unknown, 01/07/18) ondansetron (Unverified Allergy, Unknown, 01/07/18) morphine (Verified Adverse Reaction, Unknown, BECK, 01/07/18) Home Medications Aspirin 81 Mg Tablet.dr, 81 MG PO DAILY, (Reported) Cetirizine HCl 10 Mg Tablet, 10 MG PO DAILY, (Reported) Doxycycline Hyclate 100 Mg Tablet, 100 MG PO BID Prescribed by: SELENA AVENDANO on 07/16/20 1537 Fenofibrate 160 Mg Tablet, 160 MG PO HS, (Reported) 05-16-2019 #90/90 DAY SUPPLY Gabapentin 600 Mg Tablet, 1,200 MG PO AM, (Reported) take 2 (600mg) tabs Gabapentin 600 Mg Tablet, 1,800 MG PO HS, (Reported) take 3 (600mg) tabs Hydrocodone/Acetaminophen 1 Each Tablet, 1 TAB PO Q6H PRN for PAIN-MODERATE (5- 7), (Reported) Insulin Detemir 100 Unit/1 Ml Insuln.pen, 15-20 UNIT SQ HS, (Reported) Nitroglycerin 0.4 Mg Tab.subl, 0.4 MG SL UD PRN for CHEST PAIN, (Reported) Oxycodone HCl/Acetaminophen 1 Each Tablet, 1 TAB PO Q6H Prescribed by: SELENA AVENDANO on 07/16/20 1605 Topiramate 100 Mg Tablet, 100 MG PO BID, (Reported) LAST FILLED 05-18-2019 #180/90 DAY SUPPLY Patient Home Medication List Home Medication List Reviewed: Yes Review of Systems Review of Systems Constitutional: no symptoms reported, see HPI Respiratory: see HPI, short of breath All Other Systems Reviewed Negative Unless Noted: Yes Past Wsxwkem-Hdzimx-Heqpdx Hx Past Med/Social Hx: Reviewed Nursing Past Med/Soc Hx Patient Social History Alcohol Use: Rarely Uses Type Used: Cigarettes Recent Infectious Disease Expo: No Recent Hopitalizations: No Immunizations Up To Date Tetanus Booster (TDap): Unknown Date of Pneumonia Vaccine: Jan 08, 2016 Seasonal Allergies Seasonal Allergies: Yes Past Medical History Surgeries: Yes (Sinus surgery X2, ACL RIGHT KNEE, BILAT CARPAL TUNNEL, L UPPER LOBECTOMY, ) Appendectomy, Gallbladder, Tracheostomy Respiratory: Yes (Pulmonary nodules, HX LUNG CA) Sleep Apnea Currently Using CPAP: No Cardiac: No High Cholesterol Neurological: Yes Headaches /Migraines, Neuropathy Reproductive Disorders: No Sexually Transmitted Disease: No HIV/AIDS: No Gastrointestinal: Yes Gastroesophageal Reflux Musculoskeletal: Yes Degenerate Disk Disease, Arthritis, Chronic Back Pain Endocrine: Yes Diabetes, Non-Insulin dep Loss of Vision: Bilateral Hearing Impairment: Denies Cancer: Yes Lung Did You Recieve Any Treatments: Yes What Type of Treatment Did You: Surgical Intervention Psychosocial: Yes Anxiety, Depression Integumentary: No Blood Disorders: No Adverse Reaction/Blood Tranf: No (N/A) Family Medical History No Pertinent Family Hx, Diabetes, Hypertension Physical Exam Vital Signs - First Documented 07/25/20 18:14 Temp 36.5 Pulse 82 Resp 20 B/P (MAP) 144/76 (98) Pulse Ox 98 Capillary Refill : Less Than 3 Seconds Height: 5'9.00" Weight: 182lbs. 0.0oz. 82.868151ni; 28.00 BMI Method:Stated General Appearance: WD/WN, mild distress HEENT: PERRL/EOMI, normal ENT inspection, TMs normal, pharynx normal Neck: full range of motion, other (Tracheostomy present, well-healed, no warmth or erythema.) Respiratory: chest non-tender, lungs clear, normal breath sounds, no respiratory distress, no accessory muscle use Cardiovascular: normal peripheral pulses, regular rate, rhythm Extremities: normal range of motion, non-tender, normal inspection, normal capillary refill Neurologic/Psychiatric: no motor/sensory deficits, alert, normal mood/affect, oriented x 3 Skin: normal color, warm/dry Progress/Results/Core Measures Suspected Sepsis Recent Fever Within 48 Hours: No Infection Criteria Present: Documented Infection New/Unexplained Altered Menta: No Sepsis Screen: No Definite Risk SIRS Temperature: Pulse: 82 Respiratory Rate: 20 Blood Pressure 144 /76 Mean: 98 Results/Orders Vital Signs/I&O 07/25/20 18:14 Temp 36.5 Pulse 82 Resp 20 B/P (MAP) 144/76 (98) Pulse Ox 98 Capillary Refill : Less Than 3 Seconds Blood Pressure Mean: 98 Progress Note : Time: 18:15 Progress Note Patient seen and evaluated. Respiratory therapy here for suctioning, large mucous plugs removed. Patient reports improvement of symptoms immediately. His SaO2 is remained 97 to 99%. They will try humidified oxygen for a while prior to discharge. 1844 patient dislikes the humidified oxygen. Discontinued patient reports much easier to breathe. 1899 His vital signs have remained stable. Discharge instructions and return precautions reviewed with the patient and his . Departure Impression Primary Impression: Tracheostomy care Additional Impressions: Tracheostomy obstruction Mucus plugging of bronchi Disposition: HOME, SELF-CARE Condition: Improved Departure-Patient Inst. Decision time for Depature: 18:50 Ref[place] [facility] [place] Primary Care Physician LEILANI ROQUE (Family) Primary Care Physician Patient Instructions: How to Care for a Tracheostomy Add. Discharge Instructions: Continue home cardiac care as prescribed by Dr. Chi. Follow-up with your primary care provider or hammer repairer if symptoms are not improving or worsen. Return to the emergency department for new, urgent healthcare. Continue to take your home medications as prescribed. All discharge instructions reviewed with patient and/or family. Voiced understanding. Copy Copies To 1: SETH CHI AMY ARNP Jul 25, 2020 18:42
[2020-07-25 19:13] VITALS: BP 120/72
== END 2020-07-25 19:13 | disposition home or self-care (01) ==
LOC: EDUNIT# 18:09 → ER 18:12
DX: T17.890A Other foreign object in other parts of respiratory tract causing asphyxiation, initial encounter (principal); J95.03 Malfunction of tracheostomy stoma; E11.40 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 mellitus with diabetic neuropathy, unspecified; E78.00 Pure hypercholesterolemia, unspecified; G43.909 Migraine, unspecified, not intractable, without status migrainosus; K21.9 Gastro-esophageal reflux disease without esophagitis; Z85.118 Personal history of other malignant neoplasm of bronchus and lung; Z79.82 Long term (current) use of aspirin; Z79.4 Long term (current) use of insulin; Z88.0 Allergy status to penicillin; Z88.5 Allergy status to narcotic agent; Z88.8 Allergy status to other drugs, medicaments and biological substances; Z91.040 Latex allergy status
CPT/HCPCS: 99282

== ENCOUNTER → 2020-08-07 | Outpatient (CLI) | payer MEDICARE ==
[~2020-08-07] MED LIST changes: +CATHETER FLUSH 10 ML SYR IV PRN; +HOLD METFORMIN - RECEIVED CONTRAST 20 ML VIAL IV SCH; +IOHEXOL 350 MG/ML 100 ML (OMNIPAQUE 350) VIAL IV ONE; +NS 100 ML (IVPB) BAG IV ONE
[2020-08-07 09:16] LABS: CALCIUM 8.9 MG/DL (8.5-10.1); CREATININE SERUM 1.62 MG/DL (0.60-1.30); POTASSIUM 4.3 MMOL/L (3.6-5.0)
--- NOTE | 2020-08-07 15:55 | Diagnostic Imaging Report ---
EXAMINATION: CT neck and chest with intravenous contrast. TECHNIQUE: Multiple contiguous axial images were obtained through the neck and chest after the uneventful administration of intravenous contrast. All CT scans use one or more of the following dose optimizing techniques: automated exposure control, MA and/or KvP adjustment based on a patient size and exam type, or iterative reconstruction. HISTORY: History of throat cancer. Finished radiation treatments. No new symptoms. COMPARISON: CT chest on 07/16/2020. CT neck on 12/04/2019. FINDINGS: Neck CT: Postsurgical changes of total laryngectomy are again visualized with tracheostomy in place. The neopharynx reconstruction demonstrates interval decrease in associated edema and inflammation compared to the prior exam from 12/04/2019. There is improved patency of the airway in the oropharynx and hypopharynx. A tracheostomy is in place. No discrete soft tissue mass is visualized in the neck. There has been interval decrease in bilateral cervical lymphadenopathy. A marker lymph node in the right level 2 station measures 0.5 cm in short axis, previously measuring 1.2 cm. There is persistent soft tissue inflammation and edema in the anterior neck. No loculated fluid collections are seen to suggest soft tissue abscess. The vascular structures of the neck are patent. The parotid and submandibular glands demonstrate no acute abnormalities. The thyroid is absent. The cervical spine demonstrates normal alignment without evidence of acute fracture or dislocation. The craniocervical junction is intact. No acute spinal canal stenosis is seen. The included intracranial contents demonstrate no acute abnormalities. Chest CT: There has been interval improved aeration in the left upper lobe and right upper lobe, likely representing resolved infection or inflammation. No new focal consolidations are seen. A nodule is seen in the right lung base measuring 0.6 cm, similar to the prior exam. No new pulmonary mass or suspicious pulmonary nodules. No central endobronchial obstructing lesions. No evidence of pleural effusion or pneumothorax. The heart size is normal. No pericardial effusion is seen. The thoracic aorta is unremarkable without evidence of dissection or aneurysm. Mildly prominent mediastinal lymph nodes are visualized, with the largest in the right tracheoesophageal groove measuring 0.9 cm, previously measuring 1.0 cm. The osseous structures of the chest demonstrate no acute abnormalities. Old right-sided rib fractures are noted. The upper abdomen is unremarkable. IMPRESSION: 1. Postsurgical changes of total laryngectomy are again noted. The tracheostomy is in appropriate configuration. No evidence of discrete soft tissue mass in the neck. 2. Interval decreased bilateral cervical lymphadenopathy. This likely represents improved infectious process in the neck given the findings on the prior CT neck from 12/04/2019. A small amount of residual cellulitis/edema is seen in the anterior neck. No loculated fluid collections to suggest abscess. 3. Improved aeration in the upper lobes, representing resolved infection/inflammation. No new focal consolidations. 4. Stable nodule in the right lung base measuring 0.6 cm. Recommend follow-up in [address] given the patient history of head and neck cancer. No new suspicious pulmonary nodules are identified 5. Stable prominent mediastinal lymph nodes. Recommend attention on follow-up. Dictated by: Dictated on workstation # [id number]
== END ==
LOC: RAD 09:45
PROVIDERS: ATTEND Otolaryngology
DX: C76.0 Malignant neoplasm of head, face and neck (principal); R91.1 Solitary pulmonary nodule
CPT/HCPCS: 36415; 70491; 71260; 80048

== ENCOUNTER 2020-09-05 14:54 | Outpatient (RCR) | payer MEDICARE ==
[~2020-09-05 14:54] MED LIST changes: -CATHETER FLUSH 10 ML SYR IV PRN; -HOLD METFORMIN - RECEIVED CONTRAST 20 ML VIAL IV SCH; -IOHEXOL 350 MG/ML 100 ML (OMNIPAQUE 350) VIAL IV ONE; -NS 100 ML (IVPB) BAG IV ONE; -OMEP40CA27 PO; +OMEP40CA6 PO; -SULF1TAB35 PO; +SULF1TAB38 PO
[2020-10-23] MEDS ORDERED: [UNRECOGNIZED DRUG - SUPPLY] INH (13:49)
[2020-12-01] MEDS ORDERED: LEVO125T6 PO (11:10)
[2020-12-01] MEDS ORDERED: DULO60CA59 PO (11:10)
== END 2020-12-04 | disposition home or self-care (01) ==
LOC: ONC 14:54
PROVIDERS: ATTEND Radiology Radiation Oncology
DX: C32.9 Malignant neoplasm of larynx, unspecified (principal); J43.9 Emphysema, unspecified; G47.33 Obstructive sleep apnea (adult) (pediatric); E11.9 Type 2 diabetes mellitus without complications; E89.0 Postprocedural hypothyroidism; F17.210 Nicotine dependence, cigarettes, uncomplicated; Z79.899 Other long term (current) drug therapy; Z79.890 Hormone replacement therapy; Z79.4 Long term (current) use of insulin
CPT/HCPCS: 99213

== ENCOUNTER → 2020-09-17 | Outpatient (CLI) | payer MEDICARE ==
[~2020-09-17] MED LIST changes: +OMEP40CA27 PO; -OMEP40CA6 PO; +SULF1TAB35 PO; -SULF1TAB38 PO
--- NOTE | 2020-09-17 14:32 | Diagnostic Imaging Report ---
INDICATION: Pneumonia. TECHNIQUE: Two view chest 2:05 p.m. CORRELATION STUDY: 07/18/2020 FINDINGS: The heart size, mediastinal configuration and pulmonary vasculature are within normal limits. Clips project over the left hilum as well as at the base of the neck. Tracheostomy tube is present. Likely scarlike formation of the lateral left upper lung field, stable. No infiltrate. Prior left rotator cuff surgery. IMPRESSION: 1. Negative for acute abnormality of the chest. Unchanged scarring about the left upper lobe. Tracheostomy tube present. Dictated by: Dictated on workstation # [id number]
== END ==
LOC: RAD 13:40
PROVIDERS: ATTEND Nurse Practitioner Family
DX: J18.9 Pneumonia, unspecified organism (principal); Z93.0 Tracheostomy status
CPT/HCPCS: 71046

== ENCOUNTER 2020-10-06 19:30 | Emergency (ER) | payer MEDICARE ==
[~2020-10-06] VITALS: Ht 172 cm; Wt 81.0 kg
--- NOTE | 2020-10-06 19:57 | ED Cough/URI ---
General Chief Complaint: Coughing Up Blood Stated Complaint: COUGHING UP BLOOD CLOTS FROM TRACH Nursing Triage Note: PT TO ED W/ C/O COUGH UP BLOOD FROM TRACH ONSET X2-3 DAYS. DOES REPORT PAIN IN CHEST WHEN HE COUGHS. NO OTHER C/O VOICED. Sepsis Screen: No Definite Risk Source: patient Exam Limitations: physical impairment (Had total laryngectomy) History of Present Illness Date Seen by Provider: Oct 06, 2020 Time Seen by Provider: 19:39 Initial Comments This is a 55-year-old male who presented to the ER via POV with complaints of coughing up darkish red blood through his tracheostomy. States that he had a total laryngectomy and tracheostomy placement in November 2019 for stage IV laryngeal cancer. Today he presents for increased coughing and reddish tented mucus. States that he feels like he is developing pneumonia again and his symptoms are similar to when he had bilateral pneumonia 2 months ago. Reports chest discomfort only during coughing. States he did a breathing treatment last on . Allergies and Home Medications Allergies Coded Allergies: latex (Verified Allergy, Intermediate, RASH, 01/07/18) Penicillins (Unverified Allergy, Unknown, 01/07/18) ondansetron (Unverified Allergy, Unknown, 01/07/18) morphine (Verified Adverse Reaction, Unknown, BECK, 01/07/18) Home Medications Aspirin 81 Mg Tablet.dr, 81 MG PO DAILY, (Reported) Cetirizine HCl 10 Mg Tablet, 10 MG PO DAILY, (Reported) Doxycycline Hyclate 100 Mg Tablet, 100 MG PO BID Prescribed by: SELENA AVENDANO on 07/16/20 153 Fenofibrate 160 Mg Tablet, 160 MG PO HS, (Reported) 05-16-2019 #90/90 DAY SUPPLY Gabapentin 600 Mg Tablet, 1,200 MG PO AM, (Reported) take 2 (600mg) tabs Gabapentin 600 Mg Tablet, 1,800 MG PO HS, (Reported) take 3 (600mg) tabs Hydrocodone/Acetaminophen 1 Each Tablet, 1 TAB PO Q6H PRN for PAIN-MODERATE (5- 7), (Reported) Insulin Detemir 100 Unit/1 Ml Insuln.pen, 15-20 UNIT SQ HS, (Reported) Nitroglycerin 0.4 Mg Tab.subl, 0.4 MG SL UD PRN for CHEST PAIN, (Reported) Oxycodone HCl/Acetaminophen 1 Each Tablet, 1 TAB PO Q6H Prescribed by: SELENA AVENDANO on 07/16/20 1605 Topiramate 100 Mg Tablet, 100 MG PO BID, (Reported) LAST FILLED 05-18-2019 #180/90 DAY SUPPLY Past Quqzxuo-Jktngf-Fwhmxb Hx Patient Social History Alcohol Use: Denies Use Smoking Status: Current Everyday Smoker Type Used: Cigarettes Recent Infectious Disease Expo: No Recent Hopitalizations: No Immunizations Up To Date Tetanus Booster (TDap): Unknown Date of Pneumonia Vaccine: Jan 08, 2016 Seasonal Allergies Seasonal Allergies: Yes Past Medical History Surgeries: Yes (Sinus surgery X2, ACL RIGHT KNEE, BILAT CARPAL TUNNEL, L UPPER LOBECTOMY, ) Appendectomy, Gallbladder, Tracheostomy Respiratory: Yes (Pulmonary nodules, HX LUNG CA) Sleep Apnea Currently Using CPAP: No Cardiac: No High Cholesterol Neurological: Yes Headaches /Migraines, Neuropathy Reproductive Disorders: No Sexually Transmitted Disease: No HIV/AIDS: No Gastrointestinal: Yes Gastroesophageal Reflux Musculoskeletal: Yes Degenerate Disk Disease, Arthritis, Chronic Back Pain Endocrine: Yes Diabetes, Non-Insulin dep Loss of Vision: Bilateral Hearing Impairment: Denies Cancer: Yes Lung Did You Recieve Any Treatments: Yes What Type of Treatment Did You: Surgical Intervention Psychosocial: Yes Anxiety, Depression Integumentary: No Blood Disorders: No Adverse Reaction/Blood Tranf: No (N/A) Family Medical History No Pertinent Family Hx, Diabetes, Hypertension Physical Exam Vital Signs - First Documented 10/06/20 19:35 Temp 36.9 Pulse 81 Resp 20 B/P (MAP) 126/81 (96) Pulse Ox 97 O2 Delivery Room Air Capillary Refill : Less Than 3 Seconds Height: 5'9.00" Weight: 182lbs. 0.0oz. 82.319372ry; 27.00 BMI Method:Stated Progress/Results/Core Measures Suspected Sepsis Recent Fever Within 48 Hours: No Infection Criteria Present: None New/Unexplained Altered Menta: No Sepsis Screen: No Definite Risk SIRS Temperature: Pulse: 81 Respiratory Rate: 20 Laboratory Tests 10/06/20 19:56: White Blood Count 6.2 Blood Pressure 126 /81 Mean: 96 Laboratory Tests 10/06/20 19:56: Creatinine 1.42H, Platelet Count 263, Total Bilirubin 0.2 Results/Orders Lab Results Laboratory Tests Test 10/06/20 19:56 Range/Units White Blood Count 6.2 4.3-11.0 10^3/uL Red Blood Count 4.01 L 4.30-5.52 10^6/uL Hemoglobin 11.9 L 13.3-17.7 g/dL Hematocrit 36 L 40-54 % Mean Corpuscular Volume 90 80-99 fL Mean Corpuscular Hemoglobin 30 25-34 pg Mean Corpuscular Hemoglobin Concent 33 32-36 g/dL Red Cell Distribution Width 12.6 10.0-14.5 % Platelet Count 263 130-400 10^3/uL Mean Platelet Volume 10.3 9.0-12.2 fL Immature Granulocyte % (Auto) 1 % Neutrophils (%) (Auto) 72 42-75 % Lymphocytes (%) (Auto) 14 12-44 % Monocytes (%) (Auto) 9 0-12 % Eosinophils (%) (Auto) 4 0-10 % Basophils (%) (Auto) 1 0-10 % Neutrophils # (Auto) 4.5 1.8-7.8 10^3/uL Lymphocytes # (Auto) 0.9 L 1.0-4.0 10^3/uL Monocytes # (Auto) 0.6 0.0-1.0 10^3/uL Eosinophils # (Auto) 0.2 0.0-0.3 10^3/uL Basophils # (Auto) 0.1 0.0-0.1 10^3/uL Immature Granulocyte # (Auto) 0.0 0.0-0.1 10^3/uL Sodium Level 137 135-145 MMOL/L Potassium Level 4.1 3.6-5.0 MMOL/L Chloride Level 106 98-107 MMOL/L Carbon Dioxide Level 21 21-32 MMOL/L Anion Gap 10 5-14 MMOL/L Blood Urea Nitrogen 27 H 7-18 MG/DL Creatinine 1.42 H 0.60-1.30 MG/DL Estimat Glomerular Filtration Rate 52 BUN/Creatinine Ratio 19 Glucose Level 226 H 70-105 MG/DL Calcium Level 9.1 8.5-10.1 MG/DL Corrected Calcium 8.9 8.5-10.1 MG/DL Total Bilirubin 0.2 0.1-1.0 MG/DL Aspartate Amino Transf (AST/SGOT) 16 5-34 U/L Alanine Aminotransferase (ALT/SGPT) 19 0-55 U/L Alkaline Phosphatase 49 40-136 U/L Total Protein 7.3 6.4-8.2 GM/DL Albumin 4.3 3.2-4.5 GM/DL My Orders Orders - BLAS WISEMAN TRUCK SWITCHER Cbc With Automated Diff (10/06/20 19:46) Comprehensive Metabolic Panel (10/06/20 19:46) Chest Pa/Lat (2 View) (10/06/20 19:46) Albuterol/Ipra Inhalation Soln (Duoneb I (10/06/20 20:00) Svn Small Volume Nebulizer (10/06/20 19:58) Medications Given in ED Current Medications Medications Dose Ordered Sig/Evelyn Route Start Time Stop Time Status Last Admin Dose Admin Albuterol/ Ipratropium 3 ml ONCE ONCE INH 10/06/20 20:00 10/06/20 20:01 DC 10/06/20 20:02 3 ML Vital Signs/I&O 10/06/20 10/06/20 19:35 20:04 Temp 36.9 Pulse 81 Resp 20 B/P (MAP) 126/81 (96) Pulse Ox 97 O2 Delivery Room Air Room Air Capillary Refill : Less Than 3 Seconds Blood Pressure Mean: 96 Departure Impression Primary Impression: Tracheostomy care Disposition: HOME, SELF-CARE Condition: Improved Departure-Patient Inst. Decision time for Depature: 20:55 [place] [facility] [place] Primary Care Physician LEILANI ROQUE (Family) Primary Care Physician Patient Instructions: How to Care for a Tracheostomy Add. Discharge Instructions: 1. Use breathing treatments twice a day as directed. May use every four hours as needed. 2. Continue tracheotomy care as directed. If you notice any bright or active bleeding you need to return to the ER. 3. If you develop any fever, shortness of breath, increased mucus production, nausea/vomiting, or any other new, concerning symptoms return to ER. 4. Continue home humidification as this will help keep secretions thin. All discharge instructions reviewed with patient and/or family. Voiced understanding. BLAS WISEMAN TRUCK SWITCHER Oct 06, 2020 19:57
[2020-10-06] MEDS ORDERED: RT-ALBUTEROL/IPRATROPIUM 3 ML (DUONEB) VIAL INH ONE (20:00)
[2020-10-06 20:03] LABS: BASOPHILS # (AUTO) 0.1 10^3/uL (0.0-0.1); BASOPHILS % (AUTO) 1 % (0-10); EOSINOPHILS # (AUTO) 0.2 10^3/uL (0.0-0.3); EOSINOPHILS % (AUTO) 4 % (0-10); HEMATOCRIT 36 % (40-54); HEMOGLOBIN 11.9 g/dL (13.3-17.7); LYMPHOCYTES # (AUTO) 0.9 10^3/uL (1.0-4.0); LYMPHOCYTES % (AUTO) 14 % (12-44); MEAN CORPUSCULAR HEMOGLOBIN 30 pg (25-34); MEAN CORPUSCULAR HGB CONC 33 g/dL (32-36); MEAN CORPUSCULAR VOLUME 90 fL (80-99); MEAN PLATELET VOLUME 10.3 fL (9.0-12.2); MONOCYTES # (AUTO) 0.6 10^3/uL (0.0-1.0); MONOCYTES % (AUTO) 9 % (0-12); NEUTROPHILS # (AUTO) 4.5 10^3/uL (1.8-7.8); NEUTROPHILS % (AUTO) 72 % (42-75); PLATELET COUNT 263 10^3/uL (130-400); WHITE BLOOD COUNT 6.2 10^3/uL (4.3-11.0)
--- NOTE | 2020-10-06 20:15 | Diagnostic Imaging Report ---
INDICATION: Shortness of breath. COMPARISON STUDY: Chest from 09/17/2020. FINDINGS: Two views of the chest have not appreciably changed. Postoperative changes are seen over the left lung apex. Tracheostomy tube is present. Interstitial disease appears stable. Heart and vascularity are normal. IMPRESSION: There is no acute finding. Dictated by: Dictated on workstation # [id number]
[2020-10-06 20:21] LABS: ALBUMIN 4.3 GM/DL (3.2-4.5); BILIRUBIN,TOTAL 0.2 MG/DL (0.1-1.0); CALCIUM 9.1 MG/DL (8.5-10.1); CREATININE SERUM 1.42 MG/DL (0.60-1.30); POTASSIUM 4.1 MMOL/L (3.6-5.0); TOTAL PROTEIN 7.3 GM/DL (6.4-8.2)
[2020-10-06 20:59] VITALS: BP 126/81
== END 2020-10-06 21:00 | disposition home or self-care (01) ==
LOC: EDUNIT# 19:30 → ER 19:33
DX: Z43.0 Encounter for attention to tracheostomy (principal); E11.65 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 mellitus with hyperglycemia; E11.40 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 mellitus with diabetic neuropathy, unspecified; G43.909 Migraine, unspecified, not intractable, without status migrainosus; F41.9 Anxiety disorder, unspecified; F32.9 Major depressive disorder, single episode, unspecified; G89.29 Other chronic pain; M54.9 Dorsalgia, unspecified; F17.210 Nicotine dependence, cigarettes, uncomplicated; Z90.02 Acquired absence of larynx; Z79.891 Long term (current) use of opiate analgesic; Z79.4 Long term (current) use of insulin; Z79.899 Other long term (current) drug therapy
CPT/HCPCS: 36415; 71046; 80053; 85025; 94640

== ENCOUNTER 2020-10-08 15:20 | Emergency (ER) | payer MEDICARE ==
[~2020-10-08] VITALS: Ht 177 cm; Wt 77.0 kg
[2020-10-08] MEDS ORDERED: RT-ALBUTEROL/IPRATROPIUM 3 ML (DUONEB) VIAL INH ONE (15:45)
--- NOTE | 2020-10-08 15:45 | ED Respiratory ---
General Chief Complaint: Respiratory Problems Stated Complaint: HAS TRACH/AIRWAY CLOGGED Source: patient Exam Limitations: no limitations History of Present Illness Date Seen by Provider: Oct 08, 2020 Time Seen by Provider: 15:45 Initial Comments This is a well appearing 55 yo male who presented to the ER with clogged tracheostomy tube. Was seen two days ago for similar symptoms. States he has ran out of saline and is unsure where to get more supplies. No fever, chills, cough, chest pain, shortness of breath, nausea/vomiting. Allergies and Home Medications Allergies Coded Allergies: latex (Verified Allergy, Intermediate, RASH, 01/07/18) Penicillins (Unverified Allergy, Unknown, 01/07/18) ondansetron (Unverified Allergy, Unknown, 01/07/18) morphine (Verified Adverse Reaction, Unknown, BECK, 01/07/18) Home Medications Aspirin 81 Mg Tablet.dr, 81 MG PO DAILY, (Reported) Cetirizine HCl 10 Mg Tablet, 10 MG PO DAILY, (Reported) Doxycycline Hyclate 100 Mg Tablet, 100 MG PO BID Prescribed by: SELENA AVENDANO on 07/16/20 1537 Fenofibrate 160 Mg Tablet, 160 MG PO HS, (Reported) 05-16-2019 #90/90 DAY SUPPLY Gabapentin 600 Mg Tablet, 1,200 MG PO AM, (Reported) take 2 (600mg) tabs Gabapentin 600 Mg Tablet, 1,800 MG PO HS, (Reported) take 3 (600mg) tabs Hydrocodone/Acetaminophen 1 Each Tablet, 1 TAB PO Q6H PRN for PAIN-MODERATE (5- 7), (Reported) Insulin Detemir 100 Unit/1 Ml Insuln.pen, 15-20 UNIT SQ HS, (Reported) Nitroglycerin 0.4 Mg Tab.subl, 0.4 MG SL UD PRN for CHEST PAIN, (Reported) Oxycodone HCl/Acetaminophen 1 Each Tablet, 1 TAB PO Q6H Prescribed by: SELENA AVENDANO on 07/16/20 1605 Topiramate 100 Mg Tablet, 100 MG PO BID, (Reported) LAST FILLED 05-18-2019 #180/90 DAY SUPPLY Patient Home Medication List Home Medication List Reviewed: Yes Review of Systems Review of Systems Constitutional: no symptoms reported EENTM: see HPI Respiratory: no symptoms reported Cardiovascular: no symptoms reported Gastrointestinal: no symptoms reported Genitourinary: no symptoms reported Musculoskeletal: no symptoms reported Skin: no symptoms reported Psychiatric/Neurological: No Symptoms Reported Hematologic/Lymphatic: No Symptoms Reported Immunological/Allergic: no symptoms reported Past Femqufb-Avqpsj-Dpbpsq Hx Patient Social History Type Used: Cigarettes Recent Hopitalizations: No Immunizations Up To Date Tetanus Booster (TDap): Unknown Date of Pneumonia Vaccine: Jan 08, 2016 Seasonal Allergies Seasonal Allergies: Yes Past Medical History Surgeries: Yes (Sinus surgery X2, ACL RIGHT KNEE, BILAT CARPAL TUNNEL, L UPPER LOBECTOMY, ) Appendectomy, Gallbladder, Tracheostomy Respiratory: Yes (Pulmonary nodules, HX LUNG CA) Sleep Apnea Currently Using CPAP: No Cardiac: No High Cholesterol Neurological: Yes Headaches /Migraines, Neuropathy Reproductive Disorders: No Sexually Transmitted Disease: No HIV/AIDS: No Gastrointestinal: Yes Gastroesophageal Reflux Musculoskeletal: Yes Degenerate Disk Disease, Arthritis, Chronic Back Pain Endocrine: Yes Diabetes, Non-Insulin dep Loss of Vision: Bilateral Hearing Impairment: Denies Cancer: Yes Lung Did You Recieve Any Treatments: Yes What Type of Treatment Did You: Surgical Intervention Psychosocial: Yes Anxiety, Depression Integumentary: No Blood Disorders: No Adverse Reaction/Blood Tranf: No (N/A) Family Medical History No Pertinent Family Hx, Diabetes, Hypertension Physical Exam Vital Signs - First Documented 10/08/20 10/08/20 15:35 17:08 Temp 36.7 Pulse 79 Resp 16 B/P (MAP) 143/91 Pulse Ox 97 O2 Delivery Room Air Capillary Refill : Height: 5'9.00" Weight: 182lbs. 0.0oz. 82.965684gi; 27.00 BMI Method:Stated General Appearance: WD/WN, no apparent distress Eyes: Bilateral Eye Normal Inspection, Bilateral Eye PERRL, Bilateral Eye EOMI HEENT: PERRL/EOMI, normal ENT inspection Neck: supple, other (tacheostomy tube in placed ) Respiratory: lungs clear, normal breath sounds, no respiratory distress Cardiovascular: regular rate, rhythm, no murmur Extremities: normal range of motion, non-tender, normal inspection Neurologic/Psychiatric: no motor/sensory deficits, alert, normal mood/affect, oriented x 3 Skin: normal color, warm/dry Progress/Results/Core Measures Suspected Sepsis SIRS Temperature: Pulse: Respiratory Rate: Blood Pressure / Mean: Results/Orders My Orders Orders - BOWEN,STORMY D FLEET ASSISTANT Albuterol/Ipra Inhalation Soln (Duoneb I (10/08/20 15:45) Svn Small Volume Nebulizer (10/08/20 15:45) Rug Underlay Machine Operator Consult (10/08/20 16:14) Medications Given in ED Vital Signs/I&O 10/08/20 10/08/20 10/08/20 15:35 16:06 17:08 Temp 36.7 Pulse 79 79 Resp 16 16 B/P (MAP) 143/91 Pulse Ox 97 95 98 O2 Delivery Room Air Room Air Room Air Capillary Refill : Progress Note : Progress Note RT called to give breathing treatment as he missed his am dose and to suction patient. RT reports removing mucous plug and he has dry secretions in his lower airway. Discussed calling his DME (name should be on equipment) in order to get more supplies. Reviewed discharge POC and he is agreeable with plan. Departure Impression Primary Impression: Tracheostomy obstruction Disposition: 01 HOME, SELF-CARE Condition: Improved Departure-Patient Inst. Decision time for Depature: 16:54 Referrals: [facility] [place] Primary Care Physician LEILANI ROQUE (Family) Primary Care Physician Patient Instructions: How to Care for a Tracheostomy Add. Discharge Instructions: Plan: 1. Call your DME to see about getting your suction pump checked and new saline supplies. 2. Continue to use saline as needed to help clear mucous plugs. 3. Follow up with your tower dragline operator if your symptoms persists. 4. Return for any new, concerning, or worsening symptoms. All discharge instructions reviewed with patient and/or family. Voiced understanding. BLAS WISEMAN FLEET ASSISTANT Oct 08, 2020 15:45
[2020-10-08 17:08] VITALS: BP 143/91
== END 2020-10-08 17:08 | disposition home or self-care (01) ==
LOC: EDUNIT# 15:20 → ER 15:21
DX: J95.03 Malfunction of tracheostomy stoma (principal); E78.00 Pure hypercholesterolemia, unspecified; G89.29 Other chronic pain; M54.9 Dorsalgia, unspecified; E11.9 Type 2 diabetes mellitus without complications; Z79.891 Long term (current) use of opiate analgesic; Z79.82 Long term (current) use of aspirin; Z79.899 Other long term (current) drug therapy
CPT/HCPCS: 94640; 99281

== ENCOUNTER 2020-10-14 23:43 | Emergency (ER) | payer MEDICARE ==
[~2020-10-14] VITALS: Ht 170 cm; Wt 83.9 kg
[~2020-10-14 23:43] MED LIST changes: -OMEP40CA27 PO; +OMEP40CA6 PO
--- NOTE | 2020-10-15 00:10 | ED Cough/URI ---
General Chief Complaint: Catheter/Drain/Tube Problems Stated Complaint: CLOGGED TRACH/DIFF BREATHING Nursing Triage Note: PT ARRIVES TO ER WITH C/O CLOGGED TRACH AND DIFF BREATHING Sepsis Screen: No Definite Risk Source: patient Exam Limitations: no limitations History of Present Illness Date Seen by Provider: Oct 15, 2020 Time Seen by Provider: 00:00 Initial Comments Occasional abdominal pain patient is a 55-year-old male with a history of tracheostomy who presents to the emergency department with a chief complaint of his tracheostomy being clogged with sputum and secretions. Patient states he has had this off and on over the course of the last week. He has had 2 or 3 prior visits in the last week with similar complaints. He denies fevers chills. He is Covid vaccinated. He is not really short of breath. He is in no acute distress. Shortly after arrival he did cough up a inspissated bloody chunk of secretions. Respiratory is in the room assisting him with suction and will set up some humidified oxygen in order to try and loosen the secretions. No other complaints of illness injury or pain. All other review of systems reviewed and negative except as stated above. Timing/Duration: this evening Severity/Quality: dry cough Prior Episodes/Possible Cause: frequent episodes Associated Symptoms: denies symptoms Allergies and Home Medications Allergies Coded Allergies: latex (Verified Allergy, Intermediate, RASH, 01/07/18) Penicillins (Unverified Allergy, Unknown, 01/07/18) ondansetron (Unverified Allergy, Unknown, 01/07/18) morphine (Verified Adverse Reaction, Unknown, BECK, 01/07/18) Home Medications Aspirin 81 Mg Tablet.dr, 81 MG PO DAILY, (Reported) Cetirizine HCl 10 Mg Tablet, 10 MG PO DAILY, (Reported) Doxycycline Hyclate 100 Mg Tablet, 100 MG PO BID Prescribed by: SELENA AVENDANO on 07/16/20 1537 Fenofibrate 160 Mg Tablet, 160 MG PO HS, (Reported) 05-16-2019 #90/90 DAY SUPPLY Gabapentin 600 Mg Tablet, 1,200 MG PO AM, (Reported) take 2 (600mg) tabs Gabapentin 600 Mg Tablet, 1,800 MG PO HS, (Reported) take 3 (600mg) tabs Hydrocodone/Acetaminophen 1 Each Tablet, 1 TAB PO Q6H PRN for PAIN-MODERATE (5- 7), (Reported) Insulin Detemir 100 Unit/1 Ml Insuln.pen, 15-20 UNIT SQ HS, (Reported) Nitroglycerin 0.4 Mg Tab.subl, 0.4 MG SL UD PRN for CHEST PAIN, (Reported) Oxycodone HCl/Acetaminophen 1 Each Tablet, 1 TAB PO Q6H Prescribed by: SELENA AVENDANO on 07/16/20 1605 Topiramate 100 Mg Tablet, 100 MG PO BID, (Reported) LAST FILLED 05-18-2019 #180/90 DAY SUPPLY Patient Home Medication List Home Medication List Reviewed: Yes Review of Systems Review of Systems Constitutional: see HPI EENTM: other (Tracheostomy clogged) Respiratory: cough Cardiovascular: no symptoms reported Gastrointestinal: no symptoms reported Genitourinary: no symptoms reported Musculoskeletal: no symptoms reported Skin: no symptoms reported All Other Systems Reviewed Negative Unless Noted: Yes Past Uxszhpe-Axvhff-Kzrhnp Hx Patient Social History Alcohol Use: Rarely Uses Smoking Status: Current Everyday Smoker Type Used: Cigarettes 2nd Hand Smoke Exposure: Yes Recent Infectious Disease Expo: No Recent Hopitalizations: No Immunizations Up To Date Tetanus Booster (TDap): Unknown Date of Pneumonia Vaccine: Jan 08, 2016 Seasonal Allergies Seasonal Allergies: Yes Past Medical History Surgeries: Yes (Sinus surgery X2, ACL RIGHT KNEE, BILAT CARPAL TUNNEL, L UPPER LOBECTOMY, ) Appendectomy, Gallbladder, Tracheostomy Respiratory: Yes (Pulmonary nodules, HX LUNG CA) Sleep Apnea Currently Using CPAP: No Cardiac: No High Cholesterol Neurological: Yes Headaches /Migraines, Neuropathy Reproductive Disorders: No Sexually Transmitted Disease: No HIV/AIDS: No Gastrointestinal: Yes Gastroesophageal Reflux Musculoskeletal: Yes Degenerate Disk Disease, Arthritis, Chronic Back Pain Endocrine: Yes Diabetes, Non-Insulin dep Loss of Vision: Bilateral Hearing Impairment: Denies Cancer: Yes Lung Did You Recieve Any Treatments: Yes What Type of Treatment Did You: Surgical Intervention Psychosocial: Yes Anxiety, Depression Integumentary: No Blood Disorders: No Adverse Reaction/Blood Tranf: No (N/A) Family Medical History No Pertinent Family Hx, Diabetes, Hypertension Physical Exam Vital Signs - First Documented 10/14/20 23:54 Temp 36.8 Pulse 82 Resp 17 B/P (MAP) 130/90 (103) Capillary Refill : Less Than 3 Seconds Height: 5'9.00" Weight: 182lbs. 0.0oz. 82.254341gp; 29.00 BMI Method:Stated General Appearance: WD/WN, no apparent distress HEENT: PERRL/EOMI Neck: other (Patient has some bloody secretions from the trach. No active bleeding is noted.) Respiratory: lungs clear, normal breath sounds, no respiratory distress, no accessory muscle use Cardiovascular: regular rate, rhythm Neurologic/Psychiatric: alert, normal mood/affect, oriented x 3 Skin: normal color, warm/dry Progress/Results/Core Measures Suspected Sepsis Recent Fever Within 48 Hours: No Infection Criteria Present: None New/Unexplained Altered Menta: No Sepsis Screen: No Definite Risk SIRS Temperature: Pulse: 82 Respiratory Rate: 17 Blood Pressure 130 /90 Mean: 103 Results/Orders My Orders Orders - MIKEY YIN MD Acetaminophen Tablet (Tylenol Tablet) (10/15/20 00:30) Medications Given in ED Current Medications Medications Dose Ordered Sig/Evelyn Route Start Time Stop Time Status Last Admin Dose Admin Acetaminophen 1,000 mg ONCE ONCE PO 10/15/20 00:30 10/15/20 00:31 10/15/20 00:22 1,000 MG Vital Signs/I&O 10/14/20 23:54 Temp 36.8 Pulse 82 Resp 17 B/P (MAP) 130/90 (103) Capillary Refill : Less Than 3 Seconds Blood Pressure Mean: 103 Departure Impression Primary Impression: Tracheostomy obstruction Disposition: 01 HOME, SELF-CARE Condition: Stable Departure-Patient Inst. Decision time for Depature: 00:09 Referrals: [facility] ([facility]P) Primary Care Physician LEILANI ROQUE (Family) Primary Care Physician Patient Instructions: How to Care for a Tracheostomy Add. Discharge Instructions: Call your primary care provider's office tomorrow to see if you can obtain a stronger suction device for home from a medical supply company. Return to the emergency room for any new, concerning or emergent complaints. You should try and stop smoking. Copy Copies To 1: PASTOR SILVEIRA KATHRYN M MD Oct 15, 2020 00:10
[2020-10-15] MEDS ORDERED: ACETAMINOPHEN 500 MG TAB (TYLENOL) PO ONE (00:30)
[2020-10-15 01:09] VITALS: BP 130/90
== END 2020-10-15 01:09 | disposition home or self-care (01) ==
LOC: EDUNIT# 23:43 → ER 23:44
DX: J95.03 Malfunction of tracheostomy stoma (principal); E78.00 Pure hypercholesterolemia, unspecified; G89.29 Other chronic pain; M54.9 Dorsalgia, unspecified; E11.9 Type 2 diabetes mellitus without complications; F17.210 Nicotine dependence, cigarettes, uncomplicated; Z79.82 Long term (current) use of aspirin; Z79.891 Long term (current) use of opiate analgesic
CPT/HCPCS: 99283

== ENCOUNTER 2020-10-19 15:04 | Emergency (ER) | payer MEDICARE ==
[~2020-10-19] VITALS: Ht 177.8 cm; Wt 88.5 kg
[2020-10-19] MEDS ORDERED: IBUPROFEN TABLET 200 MG TAB PO ONE (16:15)
--- NOTE | 2020-10-19 16:36 | Diagnostic Imaging Report ---
Erect AP chest at 4:13. Indication: Shortness of breath The heart size is within normal limits and stable when compared to 10/06/2020. The chronic pulmonary changes seen previously are again evident and not significantly different. There is still no evidence for failure, pneumonia or for pleural effusion. The mediastinum is not widened. The osseous structures are intact. The tracheostomy tube seen previously continues to overlie the tracheal air shadow and seems to be in good position. Impression: When compared to the prior study, there has been no significant change. There is no evidence for an acute cardiopulmonary abnormality. Dictated by: Dictated on workstation # [id number]
--- NOTE | 2020-10-19 17:08 | ED Respiratory ---
General Chief Complaint: General Problems/Pain Stated Complaint: DIFF BREATHING W/ TRACH/HEADACHE/KIDNEY PAIN Nursing Triage Note: PT ARRIVED BY PRIVATE VEHICLE WITH CHIEF COMPLAINT OF HEADACHE, COUGH, BACK PAIN, TACHY AND SOA. PT WAS ALERT, ORIENTED X4 AND AMBUALTORY TO ROOM 9. PT WAS HOOKED UP TO THE MONITOR AND VITALS WERE DONE. PT STATED ONSET WAS WITH HEAT. PT HAS BEEN SEEN MULTIPLE TIMES FOR CLEARING TRACH, BECAUSE IT IS GETTING CLOGGED. PT STATED HIS HEADACHE IS NOT WORSE, AND COUGH IS NORMAL. PT JUST WANTS TRACH TO BE CLEARED OUT. REPORT WAS GIVEN TO PROVIDER IN ROOM. Source: patient Exam Limitations: no limitations History of Present Illness Date Seen by Provider: Oct 19, 2020 Time Seen by Provider: 15:37 Initial Comments This 55-year-old gentleman with tracheostomy presents to the emergency room with complaints of shortness of breath. He feels as though his trach is becoming clogged and needs cleared. He has been to the emergency room multiple times in the past to obtain assistance rub respiratory therapy for trach care. He has headache and rhinorrhea which he states is a typical response to coughing fits related to this problem. He does not feel ill in any other way. He denies fever, change in taste or smell, myalgia, etc. He has been duly vaccinated for COVID-19. Allergies and Home Medications Allergies Coded Allergies: latex (Verified Allergy, Intermediate, RASH, 01/07/18) Penicillins (Unverified Allergy, Unknown, 01/07/18) ondansetron (Unverified Allergy, Unknown, 01/07/18) morphine (Verified Adverse Reaction, Unknown, BECK, 01/07/18) Home Medications Aspirin 81 Mg Tablet.dr, 81 MG PO DAILY, (Reported) Cetirizine HCl 10 Mg Tablet, 10 MG PO DAILY, (Reported) Doxycycline Hyclate 100 Mg Tablet, 100 MG PO BID Prescribed by: SELENA AVENDANO on 07/16/201536 Fenofibrate 160 Mg Tablet, 160 MG PO HS, (Reported) 05-16-2019 #90/90 DAY SUPPLY Gabapentin 600 Mg Tablet, 1,200 MG PO AM, (Reported) take 2 (600mg) tabs Gabapentin 600 Mg Tablet, 1,800 MG PO HS, (Reported) take 3 (600mg) tabs Hydrocodone/Acetaminophen 1 Each Tablet, 1 TAB PO Q6H PRN for PAIN-MODERATE (5- 7), (Reported) Insulin Detemir 100 Unit/1 Ml Insuln.pen, 15-20 UNIT SQ HS, (Reported) Nitroglycerin 0.4 Mg Tab.subl, 0.4 MG SL UD PRN for CHEST PAIN, (Reported) Oxycodone HCl/Acetaminophen 1 Each Tablet, 1 TAB PO Q6H Prescribed by: SELENA AVENDANO on 07/16/20 1605 Topiramate 100 Mg Tablet, 100 MG PO BID, (Reported) LAST FILLED 05-18-2019 #180/90 DAY SUPPLY Patient Home Medication List Home Medication List Reviewed: Yes Review of Systems Review of Systems Constitutional: no symptoms reported EENTM: see HPI Respiratory: see HPI Cardiovascular: no symptoms reported Gastrointestinal: no symptoms reported Genitourinary: no symptoms reported Musculoskeletal: no symptoms reported Skin: no symptoms reported Psychiatric/Neurological: See HPI Hematologic/Lymphatic: No Symptoms Reported Immunological/Allergic: no symptoms reported Past Wtamtpm-Zfmswt-Gxgdju Hx Past Med/Social Hx: Reviewed Nursing Past Med/Soc Hx Patient Social History Alcohol Use: Denies Use Type Used: Cigarettes 2nd Hand Smoke Exposure: Yes Recent Infectious Disease Expo: No Recent Hopitalizations: No Immunizations Up To Date Tetanus Booster (TDap): Unknown Date of Pneumonia Vaccine: Jan 08, 2016 Seasonal Allergies Seasonal Allergies: Yes Past Medical History Surgeries: Yes (Sinus surgery X2, ACL RIGHT KNEE, BILAT CARPAL TUNNEL, L UPPER LOBECTOMY, ) Appendectomy, Gallbladder, Tracheostomy Respiratory: Yes (Pulmonary nodules, HX LUNG CA) Sleep Apnea Currently Using CPAP: No Cardiac: No High Cholesterol Neurological: Yes Headaches /Migraines, Neuropathy Reproductive Disorders: No Sexually Transmitted Disease: No HIV/AIDS: No Gastrointestinal: Yes Gastroesophageal Reflux Musculoskeletal: Yes Degenerate Disk Disease, Arthritis, Chronic Back Pain Endocrine: Yes Diabetes, Non-Insulin dep Loss of Vision: Bilateral Hearing Impairment: Denies Cancer: Yes Lung Did You Recieve Any Treatments: Yes What Type of Treatment Did You: Surgical Intervention Psychosocial: Yes Anxiety, Depression Integumentary: No Blood Disorders: No Adverse Reaction/Blood Tranf: No (N/A) Family Medical History No Pertinent Family Hx, Diabetes, Hypertension Physical Exam Vital Signs - First Documented 10/19/20 15:18 Temp 37.8 Pulse 89 Resp 12 B/P (MAP) 131/83 (99) Pulse Ox 96 O2 Delivery Room Air Capillary Refill : Less Than 3 Seconds Height: 5'9.00" Weight: 182lbs. 0.0oz. 82.419866te; 27.00 BMI Method:Stated General Appearance: WD/WN, no apparent distress HEENT: normal ENT inspection Neck: normal inspection, other (tracheostomy in place without inflammation or purulent drainage) Respiratory: no respiratory distress, no accessory muscle use, rhonchi, other (frequent cough) Cardiovascular: regular rate, rhythm, no edema, no murmur Extremities: normal inspection Neurologic/Psychiatric: no motor/sensory deficits, alert, normal mood/affect, oriented x 3 Skin: normal color, warm/dry Progress/Results/Core Measures Suspected Sepsis Recent Fever Within 48 Hours: Yes Infection Criteria Present: None New/Unexplained Altered Menta: No Sepsis Screen: No Definite Risk SIRS Temperature: Pulse: 89 Respiratory Rate: 12 Blood Pressure 131 /83 Mean: 99 Results/Orders My Orders Orders - AMADOR RETANA MD Ibuprofen Tablet (Motrin Tablet) (10/19/20 16:15) Medications Given in ED Vital Signs/I&O 10/19/20 10/19/20 15:18 17:11 Temp 37.8 Pulse 89 88 Resp 12 20 B/P (MAP) 131/83 (99) 129/83 Pulse Ox 96 96 O2 Delivery Room Air Room Air Capillary Refill : Less Than 3 Seconds Blood Pressure Mean: 99 Progress Note : Progress Note Patient was afebrile on presentation. He denied any symptoms of acute infectious illness. His current symptoms are typical of mucus plugging for him. He has a suction machine at home but it is not working very well. He is work ing on getting that replaced. He does have saline at the house and humidification. He knows how to take care of his trach but sometimes he needs help. He felt much better after suctioning by RT. The respiratory therapist noted a large amount of mucus plugging relieved with suctioning and irrigating with saline. Chest x-ray showed no adverse changes from prior. Patient was dis charged home in improved condition. Diagnostic Imaging Diagonstic Imaging: Xray Plain Films/CT/US/NM/MRI: chest Comments NAME: [facility]OGER [facility] REC#: [id number] PT STATUS: REG ER : 1965 PHYSICIAN: SELENA AVENDANO APRN ADMIT DATE: 10/19/20/ER Signed Date of Exam:10/19/20 CHEST 1 VIEW, AP/PA ONLY Erect AP chest at 4:13. Indication: Shortness of breath The heart size is within normal limits and stable when compared to 10/06/2020. The chronic pulmonary changes seen previously are again evident and not significantly different. There is still no evidence for failure, pneumonia or for pleural effusion. The mediastinum is not widened. The osseous structures are intact. The tracheostomy tube seen previously continues to overlie the tracheal air shadow and seems to be in good position. Impression: When compared to the prior study, there has been no significant change. There is no evidence for an acute cardiopulmonary abnormality. Dictated by: Dictated on workstation # [id number] Dict: 10/19/20 1633 Trans: 10/19/20 1715 CV [id number] Interpreted by: SHEBA DUNN MD Electronically signed by: SHEBA DUNN MD 10/19/20 1715 Departure Impression Primary Impression: Tracheostomy obstruction Disposition: 01 HOME, SELF-CARE Condition: Improved Departure-Patient Inst. Decision time for Depature: 17:07 Referrals: [facility] [place] (PCP) Primary Care Physician LEILANI ROQUE (Family) Primary Care Physician Patient Instructions: How to Care for a Tracheostomy Add. Discharge Instructions: Continue to use humidification, saline, and suction to clear secretions. Call with questions or concerns. Return to the ER if you have worsening symptoms. All discharge instructions reviewed with patient and/or family. Voiced understanding. Copy Copies To 1: PASTOR SILVEIRA JOSHUA T MD Oct 19, 2020 17:08
[2020-10-19 17:11] VITALS: BP 129/83
== END 2020-10-19 17:11 | disposition home or self-care (01) ==
LOC: EDUNIT# 15:04 → ER 15:05
DX: J95.03 Malfunction of tracheostomy stoma (principal); E78.00 Pure hypercholesterolemia, unspecified; E11.9 Type 2 diabetes mellitus without complications; G89.29 Other chronic pain; M54.9 Dorsalgia, unspecified; Z77.22 Contact with and (suspected) exposure to environmental tobacco smoke (acute) (chronic); Z79.899 Other long term (current) drug therapy; Z79.82 Long term (current) use of aspirin; Z79.891 Long term (current) use of opiate analgesic
CPT/HCPCS: 71045

== ENCOUNTER 2020-10-23 12:22 | Emergency (ER) | payer MEDICARE ==
[~2020-10-23] VITALS: Ht 175 cm; Wt 70.0 kg
--- NOTE | 2020-10-23 13:40 | ED Respiratory ---
General Chief Complaint: Respiratory Problems Stated Complaint: SINUS INFECTION,TRACH BLOCKAGE Nursing Triage Note: ARRIVED VIA AMB TO ROOM 04 WITH COMPLAINTS OF HIS TRACH BEING CLOGGED AGAIN. ALSO STATES HE IS GETTING A SINUS INFECTION. Source: patient Exam Limitations: no limitations History of Present Illness Date Seen by Provider: Oct 23, 2020 Time Seen by Provider: 13:14 Initial Comments Patient to the ER by private conveyance with his spouse and chief complaint of secretions in his newly set tracheostomy by Dr. Cortez at [facility]. He says they set him up with a suction device through [employer] however they did not set him up with humidified trach collar. He has been and 5 times in the past week for similar issues. Every time after being suctioning he was able to go home. No fevers or chills. No nausea vomiting. He did have a headache today and took a couple doses of Imitrex which did not help. He says it is in his temples wrap ping around to the back of his head. No facial pain or sinus discharge. Allergies and Home Medications Allergies Coded Allergies: latex (Verified Allergy, Intermediate, RASH, 01/07/18) Penicillins (Unverified Allergy, Unknown, 01/07/18) ondansetron (Unverified Allergy, Unknown, 01/07/18) morphine (Verified Adverse Reaction, Unknown, BECK, 01/07/18) Home Medications Aspirin 81 Mg Tablet.dr, 81 MG PO DAILY, (Reported) Cetirizine HCl 10 Mg Tablet, 10 MG PO DAILY, (Reported) Doxycycline Hyclate 100 Mg Tablet, 100 MG PO BID Prescribed by: SELENA AVENDANO on 07/16/201536 Fenofibrate 160 Mg Tablet, 160 MG PO HS, (Reported) 05-16-2019 #90/90 DAY SUPPLY Gabapentin 600 Mg Tablet, 1,200 MG PO AM, (Reported) take 2 (600mg) tabs Gabapentin 600 Mg Tablet, 1,800 MG PO HS, (Reported) take 3 (600mg) tabs Hydrocodone/Acetaminophen 1 Each Tablet, 1 TAB PO Q6H PRN for PAIN-MODERATE (5- 7), (Reported) Insulin Detemir 100 Unit/1 Ml Insuln.pen, 15-20 UNIT SQ HS, (Reported) Nitroglycerin 0.4 Mg Tab.subl, 0.4 MG SL UD PRN for CHEST PAIN, (Reported) Oxycodone HCl/Acetaminophen 1 Each Tablet, 1 TAB PO Q6H Prescribed by: SELENA AVENDANO on 07/16/20 1605 Topiramate 100 Mg Tablet, 100 MG PO BID, (Reported) LAST FILLED 05-18-2019 #180/90 DAY SUPPLY Patient Home Medication List Home Medication List Reviewed: Yes Review of Systems Review of Systems Constitutional: No chills, No fever EENTM: No ear discharge, No ear pain Respiratory: No cough, No short of breath Cardiovascular: No chest pain, No edema Gastrointestinal: No abdominal pain, No nausea, No vomiting Genitourinary: No discharge, No dysuria Musculoskeletal: No back pain, No joint pain All Other Systems Reviewed Negative Unless Noted: Yes Past Xccvjal-Wdknxb-Mxlxmr Hx Patient Social History Alcohol Use: Denies Use Drug of Choice: Denies Smoking Status: Current Everyday Smoker Type Used: Cigarettes 2nd Hand Smoke Exposure: Yes Recent Infectious Disease Expo: No Recent Hopitalizations: No Immunizations Up To Date Tetanus Booster (TDap): Unknown Date of Pneumonia Vaccine: Jan 08, 2016 Seasonal Allergies Seasonal Allergies: Yes Past Medical History Surgeries: Yes (Sinus surgery X2, ACL RIGHT KNEE, BILAT CARPAL TUNNEL, L UPPER LOBECTOMY, ) Appendectomy, Gallbladder, Tracheostomy Respiratory: Yes (Pulmonary nodules, HX LUNG CA) Sleep Apnea Currently Using CPAP: No Cardiac: No High Cholesterol Neurological: Yes Headaches /Migraines, Neuropathy Reproductive Disorders: No Sexually Transmitted Disease: No HIV/AIDS: No Genitourinary: No Gastrointestinal: Yes Gastroesophageal Reflux Musculoskeletal: Yes Degenerate Disk Disease, Arthritis, Chronic Back Pain Endocrine: Yes Diabetes, Non-Insulin dep Loss of Vision: Bilateral Hearing Impairment: Denies Cancer: Yes Lung Did You Recieve Any Treatments: Yes What Type of Treatment Did You: Surgical Intervention Psychosocial: Yes Anxiety, Depression Integumentary: No Blood Disorders: No Adverse Reaction/Blood Tranf: No (N/A) Family Medical History No Pertinent Family Hx, Diabetes, Hypertension Physical Exam Vital Signs - First Documented 10/23/20 12:34 Temp 36.0 Pulse 89 Resp 16 B/P (MAP) 122/83 (96) O2 Delivery Room Air Capillary Refill : Less Than 3 Seconds Height: 5'9.00" Weight: 182lbs. 0.0oz. 82.436125ko; 22.00 BMI Method:Stated General Appearance: WD/WN, mild distress Eyes: Bilateral Eye Normal Inspection, Bilateral Eye PERRL, Bilateral Eye EOMI HEENT: PERRL/EOMI, TMs normal Neck: non-tender, full range of motion, normal inspection Respiratory: lungs clear, normal breath sounds, no respiratory distress, no accessory muscle use Cardiovascular: normal peripheral pulses, regular rate, rhythm Gastrointestinal: normal bowel sounds, non tender, soft Progress/Results/Core Measures Suspected Sepsis Recent Fever Within 48 Hours: No Infection Criteria Present: Suspected New Infection New/Unexplained Altered Menta: No Sepsis Screen: No Definite Risk SIRS Temperature: Pulse: 89 Respiratory Rate: 16 Blood Pressure 122 /83 Mean: 96 Results/Orders My Orders Orders - CIPRIANO SMITH Ketorolac Injection (Toradol Injection) (10/23/20 13:45) Vital Signs/I&O 10/23/20 12:34 Temp 36.0 Pulse 89 Resp 16 B/P (MAP) 122/83 (96) O2 Delivery Room Air Capillary Refill : Less Than 3 Seconds Blood Pressure Mean: 96 Progress Note : Time: 13:38 Progress Note RT instilled some saline did some aggressive suctioning and cleared his airway. Oxygen saturations went from 93% 96% on room air nonlabored. Heart rate went down from the 90s to 80s. Patient is much more comfortable. Toradol for his headache. He denied any nausea. No history of migraines. He would like us to make contact with his ENT to find out where the scripts were sent for the suct ion machine so we can also send a prescription for humidified trach collar which would be Departure Impression Primary Impression: Tracheostomy obstruction Disposition: 01 HOME, SELF-CARE Condition: Improved Departure-Patient Inst. Decision time for Depature: 13:42 Referrals: [facility] (PCP) Primary Care Physician LEILANI ROQUE (Family) Primary Care Physician Patient Instructions: How to Care for a Tracheostomy Add. Discharge Instructions: All discharge instructions reviewed with patient and/or family. Voiced understanding. Scripts [humid trachcollar] No Conflict Check EACH INH DAILY for Cough, #1 0 Refills Prov: CIPRIANO SMITH 10/23/20 CIPRIANO SMITH Oct 23, 2020 13:40
[2020-10-23] MEDS ORDERED: KETOROLAC 60 MG/2 ML VIAL IM ONE (13:45)
[2020-10-23] MEDS ORDERED: [UNRECOGNIZED DRUG - SUPPLY] INH (13:49)
[2020-10-23 14:03] VITALS: BP 122/83
== END 2020-10-23 14:02 | disposition home or self-care (01) ==
LOC: EDUNIT# 12:22 → ER 12:25
DX: J95.03 Malfunction of tracheostomy stoma (principal); R51.9 Headache, unspecified; E11.40 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 mellitus with diabetic neuropathy, unspecified; G89.29 Other chronic pain; M54.9 Dorsalgia, unspecified; F41.9 Anxiety disorder, unspecified; F32.9 Major depressive disorder, single episode, unspecified; F17.210 Nicotine dependence, cigarettes, uncomplicated; Z86.69 Personal history of other diseases of the nervous system and sense organs; Z79.4 Long term (current) use of insulin; Z79.891 Long term (current) use of opiate analgesic; Z79.899 Other long term (current) drug therapy
CPT/HCPCS: 99284

== ENCOUNTER 2020-10-27 16:40 | Emergency (ER) | payer MEDICARE ==
[~2020-10-27] VITALS: Ht 177 cm; Wt 88.4 kg
[~2020-10-27 16:40] MED LIST changes: +[UNRECOGNIZED DRUG - SUPPLY] INH
[2020-10-27 17:14] VITALS: BP 122/89
--- NOTE | 2020-10-27 17:58 | ED General ---
General Chief Complaint: Catheter/Drain/Tube Problems Stated Complaint: CLOGGED TRACH Nursing Triage Note: PT PRESENTS TO ED VIA POV FROM HOME WITH COMPLAINTS OF CLOGGED TRACH Source of Information: Patient Exam Limitations: No Limitations History of Present Illness Date Seen by Provider: Oct 27, 2020 Time Seen by Provider: 17:15 Initial Comments This 55-year-old gentleman with a tracheostomy presents to the ER with problems managing his secretions. His girlfriend normally helps him but she has been unavailable. He obtained a new suction device but he has difficulty using it on his own. He denies any fever, increased cough, increased shortness of breath, or other symptoms of acute illness. He simply wants his tracheostomy suctioned and cleaned by respiratory therapy. He has had several visits to the ER for the same purpose recently. Allergies and Home Medications Allergies Coded Allergies: latex (Verified Allergy, Intermediate, RASH, 01/07/18) Penicillins (Unverified Allergy, Unknown, 01/07/18) ondansetron (Unverified Allergy, Unknown, 01/07/18) morphine (Verified Adverse Reaction, Unknown, BECK, 01/07/18) Home Medications Aspirin 81 Mg Tablet.dr, 81 MG PO DAILY, (Reported) Cetirizine HCl 10 Mg Tablet, 10 MG PO DAILY, (Reported) Doxycycline Hyclate 100 Mg Tablet, 100 MG PO BID Prescribed by: SELENA AVENDANO on 07/16/20 1537 Fenofibrate 160 Mg Tablet, 160 MG PO HS, (Reported) 05-16-2019 #90/90 DAY SUPPLY Gabapentin 600 Mg Tablet, 1,200 MG PO AM, (Reported) take 2 (600mg) tabs Gabapentin 600 Mg Tablet, 1,800 MG PO HS, (Reported) take 3 (600mg) tabs Hydrocodone/Acetaminophen 1 Each Tablet, 1 TAB PO Q6H PRN for PAIN-MODERATE (5- 7), (Reported) Insulin Detemir 100 Unit/1 Ml Insuln.pen, 15-20 UNIT SQ HS, (Reported) Nitroglycerin 0.4 Mg Tab.subl, 0.4 MG SL UD PRN for CHEST PAIN, (Reported) Oxycodone HCl/Acetaminophen 1 Each Tablet, 1 TAB PO Q6H Prescribed by: SELENA AVENDANO on 07/16/20 1605 Topiramate 100 Mg Tablet, 100 MG PO BID, (Reported) LAST FILLED 05-18-2019 #180/90 DAY SUPPLY Patient Home Medication List Home Medication List Reviewed: Yes Review of Systems Review of Systems Constitutional: no symptoms reported EENTM: see HPI Respiratory: see HPI Past Nudzadt-Uluvot-Qxijhf Hx Patient Social History Tobacco type used: Cigarettes Smoking Status: Current Everyday Smoker Smokeless Tobacco Frequency: Current Everyday User Substance use?: No Alcohol Use?: Yes Alcohol Frequency: Once in a while Pt feels they are or have been: No Immunizations Up To Date Tetanus Booster (TDap): Unknown First/Initial COVID19 Vaccinat: 07/09 Second COVID19 Vaccination Scot: 08/10 COVID19 Vaccine Harness Puller: Usound Seasonal Allergies Seasonal Allergies: Yes Past Medical History Surgeries: Yes (Sinus surgery X2, ACL RIGHT KNEE, BILAT CARPAL TUNNEL, L UPPER LOBECTOMY, ) Appendectomy, Gallbladder, Tracheostomy Respiratory: Yes (Pulmonary nodules, HX LUNG CA) Sleep Apnea Currently Using CPAP: No Cardiac: No High Cholesterol Neurological: Yes Headaches /Migraines, Neuropathy Reproductive Disorders: No Sexually Transmitted Disease: No HIV/AIDS: No Genitourinary: No Gastrointestinal: Yes Gastroesophageal Reflux Musculoskeletal: Yes Degenerate Disk Disease, Arthritis, Chronic Back Pain Endocrine: Yes Diabetes, Non-Insulin dep Loss of Vision: Bilateral Hearing Impairment: Denies Cancer: Yes Lung Did You Recieve Any Treatments: Yes What Type of Treatment Did You: Surgical Intervention Psychosocial: Yes Anxiety, Depression Integumentary: No Blood Disorders: No Adverse Reaction/Blood Tranf: No (N/A) Family Medical History No Pertinent Family Hx, Diabetes, Hypertension Physical Exam Vital Signs Vital Signs - First Documented 10/27/20 17:14 Temp 36.3 Pulse 86 Resp 18 B/P (MAP) 122/89 (100) Pulse Ox 96 Capillary Refill : Less Than 3 Seconds Height, Weight, BMI Height: 5'9.00" Weight: 182lbs. 0.0oz. 82.783668xr; 28.00 BMI Method:Stated General Appearance: No Apparent Distress, WD/WN HEENT: Normal ENT Inspection, Other (Tracheostomy without inflammation, swelling, or unusual drainage) Neck: Normal Inspection Respiratory: Lungs Clear, Normal Breath Sounds, No Accessory Muscle Use Cardiovascular: Regular Rate, Rhythm, No Murmur Progress/Results/Core Measures Suspected Sepsis SIRS Temperature: Pulse: 86 Respiratory Rate: 18 Blood Pressure 122 /89 Mean: 100 Results/Orders Vital Signs/I&O 10/27/20 17:14 Temp 36.3 Pulse 86 Resp 18 B/P (MAP) 122/89 (100) Pulse Ox 96 Capillary Refill : Less Than 3 Seconds Blood Pressure Mean: 100 Progress Note : Progress Note Tracheostomy was irrigated and suctioned by respiratory therapy. Patient was satisfied with results. Departure Impression Primary Impression: Tracheostomy care Disposition: HOME, SELF-CARE Condition: Improved Departure-Patient Inst. Decision time for Depature: 17:57 Referrals: [facility] [place]) Primary Care Physician LEILANI ROQUE (Family) Primary Care Physician Patient Instructions: How to Care for a Tracheostomy Add. Discharge Instructions: Continue your tracheostomy care as previously instructed. Discuss a possible maintenance program with outpatient care with your primary care provider or pulmonary or ENT specialist that might prevent frequent ER visits. Call with questions or concerns. Return to care if you have worsening symptoms. All discharge instructions reviewed with patient and/or family. Voiced understanding. Copy Copies To 1: PASTOR SILVEIRA JOSHUA T MD Oct 27, 2020 17:58
== END 2020-10-27 18:06 | disposition home or self-care (01) ==
LOC: EDUNIT# 16:40 → ER 16:42
DX: Z93.0 Tracheostomy status (principal); E78.00 Pure hypercholesterolemia, unspecified; G89.29 Other chronic pain; M54.9 Dorsalgia, unspecified; E11.9 Type 2 diabetes mellitus without complications; F17.210 Nicotine dependence, cigarettes, uncomplicated; Z79.82 Long term (current) use of aspirin; Z79.899 Other long term (current) drug therapy; Z79.891 Long term (current) use of opiate analgesic
CPT/HCPCS: 99281

== ENCOUNTER 2020-11-30 23:46 | Inpatient (IN) | payer MEDICARE ==
[~2020-11-30] VITALS: Ht 175.3 cm; Wt 84.0 kg
[~2020-11-30 23:46] MED LIST changes: -SULF1TAB35 PO; +SULF1TAB38 PO
[2020-12-01] MEDS ORDERED: NS IV 1000 ML 1,000 ML IV SCH ×2 (00:15→01:00)
[2020-12-01 00:18] LABS: BASOPHILS # (AUTO) 0.1 10^3/uL (0.0-0.1); BASOPHILS % (AUTO) 1 % (0-10); EOSINOPHILS # (AUTO) 0.2 10^3/uL (0.0-0.3); EOSINOPHILS % (AUTO) 3 % (0-10); HEMATOCRIT 43 % (40-54); HEMOGLOBIN 14.1 g/dL (13.3-17.7); LYMPHOCYTES # (AUTO) 1.1 10^3/uL (1.0-4.0); LYMPHOCYTES % (AUTO) 17 % (12-44); MEAN CORPUSCULAR HEMOGLOBIN 30 pg (25-34); MEAN CORPUSCULAR HGB CONC 33 g/dL (32-36); MEAN CORPUSCULAR VOLUME 90 fL (80-99); MEAN PLATELET VOLUME 10.4 fL (9.0-12.2); MONOCYTES # (AUTO) 0.7 10^3/uL (0.0-1.0); MONOCYTES % (AUTO) 10 % (0-12); NEUTROPHILS # (AUTO) 4.5 10^3/uL (1.8-7.8); NEUTROPHILS % (AUTO) 69 % (42-75); PLATELET COUNT 324 10^3/uL (130-400); WHITE BLOOD COUNT 6.6 10^3/uL (4.3-11.0)
[2020-12-01 00:38] LABS: ALBUMIN 4.9 GM/DL (3.2-4.5)
[2020-12-01 00:39] LABS: CHLORIDE 100 MMOL/L (98-107); POTASSIUM 4.4 MMOL/L (3.6-5.0); SODIUM 137 MMOL/L (135-145)
[2020-12-01 00:40] LABS: CALCIUM 10.1 MG/DL (8.5-10.1)
[2020-12-01 00:41] LABS: GLUCOSE 264 MG/DL (70-105); TOTAL PROTEIN 8.3 GM/DL (6.4-8.2)
[2020-12-01 00:42] LABS: CARBON DIOXIDE 20 MMOL/L (21-32)
[2020-12-01 00:43] LABS: BILIRUBIN,TOTAL 0.3 MG/DL (0.1-1.0)
[2020-12-01 00:44] LABS: ALKALINE PHOSPHATASE 69 U/L (40-136)
[2020-12-01 00:45] LABS: GFR ESTIMATED 20
[2020-12-01 00:46] LABS: BUN/CREATININE RATIO 12
[2020-12-01 00:47] LABS: ALANINE AMINOTRANSFERASE 36 U/L (0-55); MAGNESIUM 1.8 MG/DL (1.6-2.4)
[2020-12-01 01:09] LABS: PROTHROMBIN TIME PATIENT 13.4 SEC (12.2-14.7)
[2020-12-01 02:30] VITALS: BP 125/74
[2020-12-01] MEDS ORDERED: 1/2 NS W/KCL 20 MEQ/L 1,000 ML IV ONE (02:45)
[2020-12-01] MEDS ORDERED: NS IV 1000 ML 1,000 ML ONE (02:45)
[2020-12-01] MEDS: 1/2 NS W/KCL 20 MEQ/L 1,000 ML IV SCH ×2 (02:56→14:13)
[2020-12-01] MEDS: NS IV 1000 ML 1,000 ML IV SCH ×4 (02:56→15:02)
[2020-12-01 03:38] LABS: BASOPHILS # (AUTO) 0.1 10^3/uL (0.0-0.1); BASOPHILS % (AUTO) 1 % (0-10); EOSINOPHILS # (AUTO) 0.2 10^3/uL (0.0-0.3); EOSINOPHILS % (AUTO) 4 % (0-10); HEMATOCRIT 36 % (40-54); HEMOGLOBIN 11.7 g/dL (13.3-17.7); LYMPHOCYTES # (AUTO) 0.9 10^3/uL (1.0-4.0); LYMPHOCYTES % (AUTO) 17 % (12-44); MEAN CORPUSCULAR HEMOGLOBIN 30 pg (25-34); MEAN CORPUSCULAR HGB CONC 32 g/dL (32-36); MEAN CORPUSCULAR VOLUME 91 fL (80-99); MEAN PLATELET VOLUME 10.4 fL (9.0-12.2); MONOCYTES # (AUTO) 0.5 10^3/uL (0.0-1.0); MONOCYTES % (AUTO) 10 % (0-12); NEUTROPHILS # (AUTO) 3.6 10^3/uL (1.8-7.8); NEUTROPHILS % (AUTO) 67 % (42-75); PLATELET COUNT 247 10^3/uL (130-400); WHITE BLOOD COUNT 5.3 10^3/uL (4.3-11.0)
[2020-12-01 03:56] LABS: CALCIUM 8.5 MG/DL (8.5-10.1)
[2020-12-01 04:00] VITALS: BP 92/59
[2020-12-01 04:00] LABS: CREATININE SERUM 2.45 MG/DL (0.60-1.30)
--- NOTE | 2020-12-01 05:34 | ED General ---
General Chief Complaint: Cardiac/General Problems Stated Complaint: HYPOTENSION;DEHDRATION;ACUTE RENAL FAILURE; Nursing Triage Note: TO ED VIA POV AND AMBULATORY TO ROOM 6 WITH C/O DIZZINESS SINCE THIS AFTERNOON, TOOK BP AT HOME AND WAS 80/55. STATES TAKES LISINOPRIL 5MG QAM. AT THIS TIME STATES HE IS "JUST A LITTLE BIT DIZZY". Nursing Sepsis Screen: No Definite Risk Source of Information: Patient Exam Limitations: Other (PT WITH TRACH IN PLACE, VOICE IS NOT AUDIBLE, BUT CAN UNDERSTAND SOME THINGS PT IS SAYING, AND ALSO COMMUNICATE WITH PATIENT WITH HIM WRITING ON PAPER. ) History of Present Illness Date Seen by Provider: Nov 30, 2020 Time Seen by Provider: 23:57 Initial Comments PT ARRIVES VIA POV FROM HOME WITH STATES HE BEGAN FEELING DIZZY THIS AFTERNOON, SO HE DECIDED TO CHECK HIS BLOOD PRESSURE HAS CHECKED IT SEVERAL TIMES THIS AFTERNOON AND EVENING AND IT HAS BEEN PERSISTENTLY LOW--80/55 STATES HE TAKES LISINOPRIL 5 MG DAILY FOR BLOOD PRESSURE--NO CHANGE IN MEDICATIONS OR DOSES PT HAS SLIGHT HEADACHE--THIS IS A CHRONIC /DAILY PROBLEM--HAS NOT TAKEN ANYTHING FOR HEADACHE NO OTHER COMPLAINTS NO CHEST PAIN NO SHORTNESS OF BREATH--PT WITH PERMANENT TRACH IN PLACE NO FEVER/SWEATS/CHILLS NO COUGH NO NAUSEA/VOMITING/DIARRHEA NO ABDOMINAL PAIN NO URINARY SYMPTOMS NO LOSS OF TASTE OR SMELL NO VISION CHANGES NO PARESTHESIAS OR MOTOR DEFICITS NO PALPITATIONS NO SYNCOPE NO SWELLING IN LEGS/FEET OR PAIN IN CALVES PT DOES STATE MUCH LATER THAT HE HAS BEEN WORKING 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 AND TODAY--VERY HOT AND HUMID STATES HE HAS BEEN EATING AND DRINKING USUAL STATES HE IS VOIDING A NORMAL AMOUNT PT IS DIABETIC, STATES HIS BLOOD SUGAR WAS IN THE 200'S EARLIER TODAY PT HAS HAD MODERNA COVID-19 VACCINATIONS X 2--LAST ONE IN JULY 2020 PCP: DANA-GRACIELA, JOVANA ROQUE Allergies and Home Medications Allergies Coded Allergies: latex (Verified Allergy, Intermediate, RASH, 01/07/18) Penicillins (Unverified Allergy, Unknown, 01/07/18) ondansetron (Unverified Allergy, Unknown, 01/07/18) morphine (Verified Adverse Reaction, Unknown, BECK, 01/07/18) Home Medications Aspirin 81 Mg Tablet.dr, 81 MG PO DAILY, (Reported) Last Action: Reviewed Cetirizine HCl 10 Mg Tablet, 10 MG PO DAILY, (Reported) Last Action: Reviewed Duloxetine HCl 60 Mg Capsule.dr, 60 MG PO DAILY, (Reported) Last Action: New Order Insulin Detemir 100 Unit/1 Ml Insuln.pen, 15-20 UNIT SQ HS, (Reported) Last Action: Reviewed Levothyroxine Sodium 125 Mcg Tablet, 120 MCG PO DAILY, (Reported) Last Action: New Order Patient Home Medication List Home Medication List Reviewed: Yes Review of Systems Review of Systems Constitutional: see HPI, dizziness, malaise, weakness EENTM: no symptoms reported Respiratory: no symptoms reported Cardiovascular: no symptoms reported Gastrointestinal: no symptoms reported Genitourinary: no symptoms reported Musculoskeletal: no symptoms reported Skin: no symptoms reported Psychiatric/Neurological: See HPI, Headache Hematologic/Lymphatic: No Symptoms Reported Immunological/Allergic: no symptoms reported Past Ymboxxr-Kwrlwo-Wnfmzs Hx Patient Social History Tobacco Use?: Yes Tobacco type used: Cigarettes Smoking Status: Current Everyday Smoker Smokeless Tobacco Frequency: Current Everyday User Substance use?: No Alcohol Use?: Yes Alcohol Frequency: Once in a while Pt feels they are or have been: No Immunizations Up To Date Tetanus Booster (TDap): Unknown Influenza Vaccine Up-to-Date: Yes; Up-to-Date First/Initial COVID19 Vaccinat: JUNE 2020 Second COVID19 Vaccination Scot: JULY 2020 COVID19 Vaccine Fabric Worker Fitter: SMITH Seasonal Allergies Seasonal Allergies: Yes Past Medical History Surgery/Hospitalization HX: SINUS SURGERY X 2 RIGHT KNEE ACL REPAIR BILATERAL CARPAL TUNNEL SURGERY LEFT UPPER LOBECTOMY LARYNGECTOMY AND PERMANENT TRACHEOSTOMY LEFT SHOULDER SURGERY 12/2016, 04/2017, 12/2017 LEFT CARPAL TUNNEL 12/2017 CARDIAC CATH 10/[address] MANDEL CONCLUSION: 1. Mild to moderate stenosis up to 40 percent stenosis in the midright coronary artery otherwise mild disease nonobstructive disease 2. Normal left ventricular end-diastolic pressure APPENDECTOMY CHOLECYSTECTOMY Surgeries: Yes (Sinus surgery X2, ACL RIGHT KNEE, BILAT CARPAL TUNNEL, L UPPER LOBECTOMY, ) Appendectomy, Cardiac, Gallbladder, Lobectomy, Orthopedic, Tracheostomy Respiratory: Yes (Pulmonary nodules, HX LUNG CA--PERMANENT TRACHEOSTOMY FOR LARYNGEAL CA) Sleep Apnea Currently Using CPAP: No Cardiac: Yes (CARDIAC CATH 10/2019--NO INTERVENTION) High Cholesterol, Hypertension Neurological: Yes Headaches /Migraines, Neuropathy Reproductive Disorders: No Sexually Transmitted Disease: No HIV/AIDS: No Genitourinary: No Gastrointestinal: Yes Gastroesophageal Reflux Musculoskeletal: Yes Degenerate Disk Disease, Arthritis, Chronic Back Pain Endocrine: Yes Diabetes, Non-Insulin dep HEENT: Yes (LARYNGEAL CANCER-S/P TRACHEOSTOMY) Loss of Vision: Bilateral Hearing Impairment: Denies Cancer: Yes Lung Did You Recieve Any Treatments: Yes What Type of Treatment Did You: Surgical Intervention LUNG CANCER--S/P LEFT UPPPER LOBECTOMY LARYNGEAL CANCER--S/P LARYNGECTOMY AND PERMANENT TRACHEOSTOMY Psychosocial: Yes Anxiety, Depression Integumentary: No Blood Disorders: No Adverse Reaction/Blood Tranf: No (N/A) Family Medical History No Pertinent Family Hx, Diabetes, Hypertension 9 VISITS SINCE 06/2020 FOR TRACHEOSTOMY PROBLEMS--WANTING RT TO CLEAN AND SUCTION OUT HIS TRACH. Physical Exam Vital Signs Vital Signs - First Documented 11/30/20 23:56 Temp 36.0 Pulse 76 Resp 18 B/P (MAP) 91/65 (74) Pulse Ox 98 O2 Delivery Room Air Capillary Refill : Less Than 3 Seconds Height, Weight, BMI Height: 5'9.00" Weight: 182lbs. 0.0oz. 82.734972tv; 27.10 BMI Method:Stated General Appearance: No Apparent Distress, WD/WN, Other (DOES NOT APPEAR TO BE IN ANY DISCOMFORT OR DISTRES) HEENT: Other (EDENTULOUS) Neck: Other (TRACH IN PLACE AND APPEARS NORMAL) Respiratory: Normal Breath Sounds, No Accessory Muscle Use, No Respiratory Distress Cardiovascular: Regular Rate, Rhythm, No Edema, No Murmur Gastrointestinal: Non Tender, Soft Progress/Results/Core Measures Suspected Sepsis Infection Criteria Present: None Sepsis Screen: No Definite Risk SIRS Temperature: Pulse: 69 Respiratory Rate: 19 Laboratory Tests 12/01/20 00:00: White Blood Count 6.6 Blood Pressure 92 /59 Mean: 70 Laboratory Tests 12/01/20 00:00: Creatinine 3.20H, INR Comment 1.0, Platelet Count 324, Total Bilirubin 0.3 Results/Orders Lab Results Laboratory Tests Test 12/01/20 00:00 12/01/20 00:19 Range/Units White Blood Count 6.6 4.3-11.0 10^3/uL Red Blood Count 4.74 4.30-5.52 10^6/uL Hemoglobin 14.1 13.3-17.7 g/dL Hematocrit 43 40-54 % Mean Corpuscular Volume 90 80-99 fL Mean Corpuscular Hemoglobin 30 25-34 pg Mean Corpuscular Hemoglobin Concent 33 32-36 g/dL Red Cell Distribution Width 13.2 10.0-14.5 % Platelet Count 324 130-400 10^3/uL Mean Platelet Volume 10.4 9.0-12.2 fL Immature Granulocyte % (Auto) 0 % Neutrophils (%) (Auto) 69 42-75 % Lymphocytes (%) (Auto) 17 12-44 % Monocytes (%) (Auto) 10 0-12 % Eosinophils (%) (Auto) 3 0-10 % Basophils (%) (Auto) 1 0-10 % Neutrophils # (Auto) 4.5 1.8-7.8 10^3/uL Lymphocytes # (Auto) 1.1 1.0-4.0 10^3/uL Monocytes # (Auto) 0.7 0.0-1.0 10^3/uL Eosinophils # (Auto) 0.2 0.0-0.3 10^3/uL Basophils # (Auto) 0.1 0.0-0.1 10^3/uL Immature Granulocyte # (Auto) 0.0 0.0-0.1 10^3/uL Prothrombin Time 13.4 12.2-14.7 SEC INR Comment 1.0 0.8-1.4 Activated Partial Thromboplast Time 33 24-35 SEC Sodium Level 137 135-145 MMOL/L Potassium Level 4.4 3.6-5.0 MMOL/L Chloride Level 100 98-107 MMOL/L Carbon Dioxide Level 20 L 21-32 MMOL/L Anion Gap 17 H 5-14 MMOL/L Blood Urea Nitrogen 39 H 7-18 MG/DL Creatinine 3.20 H 0.60-1.30 MG/DL Estimat Glomerular Filtration Rate 20 BUN/Creatinine Ratio 12 Glucose Level 264 H 70-105 MG/DL Calcium Level 10.1 8.5-10.1 MG/DL Corrected Calcium 8.5-10.1 MG/DL Magnesium Level 1.8 1.6-2.4 MG/DL Total Bilirubin 0.3 0.1-1.0 MG/DL Aspartate Amino Transf (AST/SGOT) 34 5-34 U/L Alanine Aminotransferase (ALT/SGPT) 36 0-55 U/L Alkaline Phosphatase 69 40-136 U/L Troponin I < 0.028 <0.028 NG/ML B-Type Natriuretic Peptide < 10.0 <100.0 PG/ML Total Protein 8.3 H 6.4-8.2 GM/DL Albumin 4.9 H 3.2-4.5 GM/DL Glucometer 307 H 70-110 MG/DL My Orders Orders - MISHA DOUGHERTY DO Ed Iv/Invasive Line Start (12/01/20 00:06) Ekg Tracing (12/01/20 00:06) Monitor-Rhythm Ecg Trace Only (12/01/20 00:06) BNP (12/01/20 00:06) Cbc With Automated Diff (12/01/20:06) Comprehensive Metabolic Panel (12/01/20 00:06) Magnesium (12/01/20 00:06) Protime With Inr (12/01/20 00:06) Partial Thromboplastin Time (12/01/20 00:06) Troponin I (12/01/20 00:06) Chest 1 View, Ap/Pa Only (12/01/20 00:06) Accucheck Stat ONCE (12/01/20 00:06) Ed Iv/Invasive Line Start (12/01/20 00:12) Ns Iv 1000 Ml (Sodium Chloride 0.9%) (12/01/20 00:15) Ed Iv/Invasive Line Start (12/01/20 00:53) Ns Iv 1000 Ml (Sodium Chloride 0.9%) (12/01/20 01:00) Vital Signs/I&O 11/30/20 23:56 Temp 36.0 Pulse 76 Resp 18 B/P (MAP) 91/65 (74) Pulse Ox 98 O2 Delivery Room Air Capillary Refill : Less Than 3 Seconds Blood Pressure Mean: 70 Point of Care Testing Finger Stick Blood Glucose: 307 Blood Glucose Action Taken: DR. DOUGHERTY Progress Note : Progress Note GIVEN IV FLUIDS AND BP UP PT HAD NO COMPLAINTS DURING ER STAY ECG Initial ECG Impression Date: Nov 30, 2020 Initial ECG Impression Time: 23:58 Initial ECG Rate: 74 Initial ECG Rhythm: Normal Sinus Diagnostic Imaging Comments CXR--NO ACUTE PROCESS, PENDING RADIOLOGIST REVIEW Departure Communication (Admissions) [id number]--SPOKE WITH DR. MEDINA, HOSPITALIST FOR [facility], ACCEPTS PT FOR ADMIT. Impression Primary Impression: Dehydration Additional Impressions: Acute on chronic renal failure Hypotension Disposition: ADMITTED INPATIENT Condition: Improved Admissions Decision to Admit Reason: Admit from ER (General) Decision to Admit/Date: Dec 01, 2020 Time/Decision to Admit Time: 01:10 Departure-Patient Inst. Referrals: [facility]GRACIELA (PCP) Primary Care Physician LEILANI ROQUE (Family) Primary Care Physician MSIHA DOUGHERTY DO Dec 01, 2020 05:34
[2020-12-01] MEDS: inSUlin ASPART (NovoLOG) 1 UNIT/0.01 ML (CHARGE PER UNIT) SC SCH ×2 (06:09→11:41)
[2020-12-01 06:26] LABS: BILIRUBIN,URINE NEGATIVE (NEGATIVE); CLARITY,URINE CLEAR; COLOR,URINE YELLOW; GLUCOSE, URINE (UA) 1+ (NEGATIVE); KETONES,URINE NEGATIVE (NEGATIVE); LEUKOCYTE ESTERASE ,URINE NEGATIVE (NEGATIVE); NITRITE,URINE NEGATIVE (NEGATIVE); PH,URINE 5.5 (5-9); PROTEIN,URINE NEGATIVE (NEGATIVE)
[2020-12-01 06:54] LABS: BACTERIA,URINE NEGATIVE /HPF; SQUAMOUS EPITHELIAL CELL,UR RARE /HPF
--- NOTE | 2020-12-01 07:46 | Diagnostic Imaging Report ---
EXAM: CHEST 1 VIEW, AP/PA ONLY INDICATION: Hypotension. Dizziness. Shortness of air. COMPARISON: Chest radiograph 10/19/2020. FINDINGS: Normal heart size and central pulmonary vascularity. No focal pulmonary opacity. No pleural effusion or pneumothorax. No acute osseous findings. Surgical clips in the base of the neck. IMPRESSION: No acute cardiopulmonary findings. Dictated by: Dictated on workstation # [id number]
[2020-12-01 07:53] VITALS: BP 130/66
[2020-12-01] MEDS ORDERED: DULO60CA59 PO (11:10)
[2020-12-01] MEDS ORDERED: LEVO125T6 PO (11:10)
--- NOTE | 2020-12-01 11:10 | Short Stay Summary-Hospitalist ---
History of Present Illness HPI/Chief Complaint Chief complaint: Dehydration with acute kidney injury with heat exposure History of present illness: This is a 55-year-old white male who presented to the ER with weakness and muscle cramps found to have acute renal failure with dehydration from heat exposure. He has received IV fluids and creatinine had improved immensely. He has had good urinary output. 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 Patient desperately wants to go home and considering he is tolerating oral intake and will stay out of the heat I will discharge him home. Source: patient Exam Limitations: language barrier (No larynx) Date Seen 12/01/20 Time Seen by a Provider: 10:00 Attending Physician Lina Lopez DO [facility] Referring Physician Date of Admission Dec 01, 2020 at 01:10 Home Medications & Allergies Home Medications Reviewed patient Home Medication Reconciliation performed by pharmacy medication reconciliations cinetechnician and/or nursing. Patients Allergies have been reviewed. Allergies Allergies Coded Allergies latex (Verified Allergy, Intermediate, RASH, 01/07/18) Penicillins (Unverified Allergy, Unknown, 01/07/18) ondansetron (Unverified Allergy, Unknown, 01/07/18) morphine (Verified Adverse Reaction, Unknown, BECK, 01/07/18) Past Vmyanzd-Orxxgk-Feujil Hx Patient Social History Marrital Status: cohabiting Employed/Student: unemployed Tobacco Use?: Yes Tobacco type used: Cigarettes Smoking Status: Current Everyday Smoker Smokeless Tobacco Frequency: Current Everyday User Substance use?: No Alcohol Use?: Yes Alcohol Frequency: Once in a while Pt feels they are or have been: No Immunizations Up To Date First/Initial COVID19 Vaccinat: JUNE 2020 Second COVID19 Vaccination Scot: JULY 2020 Tetanus Booster (TDap): Unknown Date of Pneumonia Vaccine: Jan 08, 2016 Seasonal Allergies Seasonal Allergies: Yes Current Status Advance Directives: No Communicates: Gestures Primary Language: Guinean Preferred Spoken Language: Guinean Is interpretation needed?: No Sensory deficits: Speech impairment Past Medical History Surgeries: Appendectomy, Cardiac, Gallbladder, Lobectomy, Orthopedic, Tracheostomy Sleep Apnea Currently Using CPAP: No High Cholesterol, Hypertension Headaches /Migraines, Neuropathy Sexually Transmitted Disease: No HIV/AIDS: No Renal Failure Gastroesophageal Reflux Degenerate Disk Disease, Arthritis, Chronic Back Pain Diabetes, Non-Insulin dep Loss of Vision: Bilateral Hearing Impairment: Denies Lung Did You Recieve Any Treatments: Yes What Type of Treatment Did You: Surgical Intervention LUNG CANCER--S/P LEFT UPPPER LOBECTOMY LARYNGEAL CANCER--S/P LARYNGECTOMY AND PERMANENT TRACHEOSTOMY Anxiety, Depression Blood Disorders: No Adverse Reaction/Blood Tranf: No (N/A) Family Medical History No Pertinent Family Hx, Diabetes, Hypertension 9 VISITS SINCE 06/2020 FOR TRACHEOSTOMY PROBLEMS--WANTING RT TO CLEAN AND SUCTION OUT HIS TRACH. Review of Systems Constitutional: see HPI, dizziness, malaise, weakness Musculoskeletal: muscle cramps Physical Exam Physical Exam Vital Signs Vital Signs - First Documented 11/30/20 23:56 Temp 36.0 Pulse 76 Resp 18 B/P (MAP) 91/65 (74) Pulse Ox 98 O2 Delivery Room Air Capillary Refill : Less Than 3 Seconds Height, Weight, BMI Height: 5'9.00" Weight: 182lbs. 0.0oz. 82.924330ew; 27.10 BMI Method:Stated General Appearance: No Apparent Distress, WD/WN, Chronically ill, Other (DOES NOT APPEAR TO BE IN ANY DISCOMFORT OR DISTRES) Eyes: Bilateral Eye Normal Inspection, Bilateral Eye PERRL HEENT: Normal ENT Inspection, Pharynx Normal, Other (EDENTULOUS) Neck: Other (TRACH IN PLACE AND APPEARS NORMAL) Respiratory: Lungs Clear, Normal Breath Sounds, No Accessory Muscle Use, No Respiratory Distress Cardiovascular: Regular Rate, Rhythm, No Edema, No Murmur Gastrointestinal: Non Tender, Soft Back: Normal Inspection, No CVA Tenderness, No Vertebral Tenderness Extremity: Normal Capillary Refill, Normal Inspection, Normal Range of Motion, Non Tender, No Calf Tenderness, No Pedal Edema Neurologic/Psychiatric: Alert, Oriented x3, No Motor/Sensory Deficits, Normal Mood/Affect Skin: Normal Color, Warm/Dry Lymphatic: No Adenopathy Results Results/Procedures Labs Laboratory Tests 12/01/20 00:00 12/01/20 03:12 Patient resulted labs reviewed. Short Stay Diagnosis Discharge Diagnosis-Short Stay Admission Diagnosis Assessment: Acute dehydration Acute heat exposure Acute kidney injury Chronic kidney disease Larynx cancer Smoker Final Discharge Diagnosis Assessment: Acute dehydration Acute heat exposure Acute kidney injury Chronic kidney disease Larynx cancer Smoker Conclusion Plan Plan: Discharge home Diagnosis/Problems Diagnosis/Problems (1) Dehydration Status: Acute (2) Hypotension Status: Acute (3) Acute on chronic renal failure Status: Acute LINA LOPEZ DO Dec 01, 2020 11:10
== END 2020-12-01 15:45 | disposition home or self-care (01) | DRG 641 ==
LOC: EDUNIT# 23:46 → ER 23:50 → CSD 12-01 01:10
PROVIDERS: ADMIT Internal Medicine; ATTEND Internal Medicine
DX: E86.0 Dehydration (principal); N17.9 Acute kidney failure, unspecified; I95.9 Hypotension, unspecified; F17.210 Nicotine dependence, cigarettes, uncomplicated; G47.30 Sleep apnea, unspecified; E78.00 Pure hypercholesterolemia, unspecified; E11.40 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 mellitus with diabetic neuropathy, unspecified; K21.9 Gastro-esophageal reflux disease without esophagitis; G89.29 Other chronic pain; M54.9 Dorsalgia, unspecified; G43.909 Migraine, unspecified, not intractable, without status migrainosus; F41.9 Anxiety disorder, unspecified; I12.9 Hypertensive chronic kidney disease with stage 1 through stage 4 chronic kidney disease, or unspecified chronic kidney disease; F32.9 Major depressive disorder, single episode, unspecified; N18.9 Chronic kidney disease, unspecified; E11.22 Type 2 diabetes mellitus with diabetic chronic kidney disease; X30.XXXA Exposure to excessive natural heat, initial encounter; Z88.5 Allergy status to narcotic agent; Z88.0 Allergy status to penicillin; Z91.040 Latex allergy status; Z79.82 Long term (current) use of aspirin; Z79.4 Long term (current) use of insulin; Z79.899 Other long term (current) drug therapy; Y92.9 Unspecified place or not applicable
CPT/HCPCS: 36415; 71045; 80048; 80053; 81000; 82947; 83735; 83880; 84484; 85025; 85610; 85730; 93005; 93041

== ENCOUNTER 2020-12-17 05:37 | Outpatient (CLI) | payer MEDICARE ==
[~2020-12-17] VITALS: Ht 177.8 cm; Wt 87.1 kg
[~2020-12-17 05:37] MED LIST changes: +LEVO125T6 PO
[2020-12-17] MEDS ORDERED: NYST1000 PO (14:32)
[2020-12-17] MEDS ORDERED: LEVO125C4 PO (14:32)
[2020-12-17] MEDS ORDERED: LISI-729 PO (14:32)
[2020-12-17] MEDS ORDERED: PANT40TA52 PO (14:32)
[2020-12-17] MEDS ORDERED: METF-399 PO (14:32)
[2020-12-17] MEDS ORDERED: ACHYD1T PO (14:32)
[2020-12-17] MEDS ORDERED: SUMA50TA2 PO (14:32)
[2020-12-17] MEDS ORDERED: VNL75T PO (14:32)
[2020-12-17] MEDS ORDERED: FENO160T12 PO (14:32)
[2020-12-17] MEDS ORDERED: IPRA3AMP31 IH (14:32)
[2020-12-17] MEDS ORDERED: INSU100I29 SQ (14:32)
[2020-12-17] MEDS ORDERED: TOPI100T11 PO (14:32)
[2020-12-17] MEDS ORDERED: GBPN600T PO (14:32)
[2020-12-17] MEDS ORDERED: ROSU10TA28 PO (14:32)
[2020-12-17] MEDS ORDERED: MONT10TA32 PO (14:32)
[2020-12-17] MEDS ORDERED: INSU100V16 SQ (14:32)
[2020-12-17] MEDS ORDERED: DICL75TA2 PO (14:32)
== END 2020-12-17 15:36 | disposition home or self-care (01) ==
LOC: PREOP 05:37
PROVIDERS: ATTEND Surgery
DX: Z01.818 Encounter for other preprocedural examination (principal)

== ENCOUNTER 2020-12-24 08:54 | Day surgery (SDC) | payer MEDICARE ==
[~2020-12-24] VITALS: Ht 177.8 cm; Wt 87.1 kg
[~2020-12-24 08:54] MED LIST changes: +INSU100V16 SQ; +IPRA3AMP31 IH; +LEVO125C4 PO; +LISI-729 PO; +METF-399 PO; +MONT10TA32 PO; +NYST1000 PO; +ROSU10TA28 PO; +SUMA50TA2 PO
[2020-12-24] MEDS ORDERED: LACTATED RINGERS 1,000 ML IV STA (09:06)
[2020-12-24] MEDS ORDERED: LACTATED RINGERS 1,000 ML IV ONE (09:10)
[2020-12-24 09:38] VITALS: BP 106/71
--- NOTE | 2020-12-24 10:04 | Progress Note-Pre Operative ---
Pre-Operative Progress Note H&P Reviewed The H&P was reviewed, patient examined and no changes noted. Time Seen by Provider: 10:00 Date H&P Reviewed: Dec 24, 2020 Time H&P Reviewed: 10:00 Pre-Operative Diagnosis: TAIWO Thomas DO Dec 24, 2020 10:04
[2020-12-24] MEDS ORDERED: proPOfol 200 MG/20 ML (DIPRIVAN) VIAL IV ONE (11:17)
[2020-12-24] MEDS ORDERED: PROPOFOL INJECTION 50 ML IV ONE (11:21)
[2020-12-24] MEDS ORDERED: PHENYLEPHRINE 100 MCG/ML 10 ML (ANESTHESIA) SYR ONE (11:51)
[2020-12-24 11:55] VITALS: BP 118/77
[2020-12-24 12:00] VITALS: BP_SYST 105; BP_SYST 117; BP_DIAS 68; BP_DIAS 75
--- NOTE | 2020-12-24 12:25 | Endoscopy Discharge Instruct ---
Endo Procedure/Findings Findings 1.: Polyp 2.: Other Findings (poor prep) 3.: Internal Hemorrhoids Discharge Instructions - Activity: You might feel a little sleepy until tomorrow. This is due to the medicine you received to relax you. Until tomorrow, you should: NOT drive a car, operate machinery or power tools. NOT drink any alcoholic beverages. NOT make any important decisions or sign importortant papers. Do not return to work until tomorrow, unless otherwise instructed. Resume previous activities tomorrow. Diet: Start by taking liquids. If you tolerate liquids, advance to solid food. 1.: Colonscopy in 3 years Notify Physician - If you experience excessive bleeding, unusual abdominal pain, fever, or chest pain, contact your doctor immediately. TAIWO MANUEL DO Dec 24, 2020 12:25
--- NOTE | 2020-12-24 12:25 | Progress Note-Post Operative ---
Post-Operative Progess Note Surgeon (s)/Lawn Service Supervisor (s) Surgeon TAIWO MANUEL DO Lawn Service Supervisor: SARAH Hoffman Pre-Operative Diagnosis screening Post-Operative Diagnosis Polyp poor prep int hemorrhoids Procedure & Operative Findings Date of Procedure 12/24/20 Procedure Performed/Findings Colonoscopy with hot bx PROCEDURE NOTE: After informed consent was obtained, the patient was brought to the endoscopy suite, placed in bed in left lateral decubitus position. He was administered IV sedation by the SHOTBLAST OPERATOR who then monitored his vitals the entire time, heart rate, blood pressure and pulse ox and the scope was inserted, immediately noted a lot of retained fecal material; mostly liquid but some large pieces. Pushed all the way to about 150 cm to get to the cecum. On the way in, in the descending colon saw a polyp and elected to do a hot biopsy. Once in the cecum took a picture of appendiceal orifice and noted the ileo-cecal valve. Then slowly withdrew the scope insufflating to look circumferentially at the dickerson. Starting from the cecum, up the ascending colon to the hepatic flexure, then down the transverse colon, splenic flexure, into the descending colon down in the sigmoid and then into the rectal vault and retroflexed the scope. Throughout the colon saw a lot of fecal material. Took a picture of the internal hemorrhoids and the scope was removed. The patient tolerated the procedure. He was recovered in endoscopy suite. Anesthesia Type IV sedation by SHOTBLAST OPERATOR Estimated Blood Loss Estimated blood loss (mL): scant Specimens/Packing Specimens Removed desc colon polyp TAIWO MANUEL DO Dec 24, 2020 12:24
[2020-12-24 12:30] VITALS: BP 114/75
[2020-12-24 13:00] VITALS: BP 114/75
--- NOTE | 2020-12-24 13:05 | Anesthesia-General Post-Op ---
MAC Patient Condition Mental Status/LOC: Same as Preop Cardiovascular: Satisfactory Nausea/Vomiting: Absent Respiratory: Satisfactory Pain: Controlled Complications: Absent Post Op Complications Complications None Follow Up Care/Instructions Patient Instructions None needed. Anesthesiology Discharge Order Discharge Order Patient is doing well, no complaints, stable vital signs, no apparent adverse anesthesia problems. No complications reported per nursing. DEREK QUEEN CRNA Dec 24, 2020 13:05
== END 2020-12-24 13:00 | disposition home or self-care (01) ==
LOC: ENDO 08:54
PROVIDERS: ATTEND Surgery
DX: Z12.11 Encounter for screening for malignant neoplasm of colon (principal); D12.4 Benign neoplasm of descending colon; K64.8 Other hemorrhoids; E78.2 Mixed hyperlipidemia; I10 Essential (primary) hypertension; E11.9 Type 2 diabetes mellitus without complications; F17.210 Nicotine dependence, cigarettes, uncomplicated; K21.9 Gastro-esophageal reflux disease without esophagitis; Z79.899 Other long term (current) drug therapy; Z79.890 Hormone replacement therapy; Z79.82 Long term (current) use of aspirin; Z91.040 Latex allergy status; Z88.5 Allergy status to narcotic agent; Z88.0 Allergy status to penicillin; Z79.4 Long term (current) use of insulin; Z93.0 Tracheostomy status; Z85.118 Personal history of other malignant neoplasm of bronchus and lung; Z85.21 Personal history of malignant neoplasm of larynx
CPT/HCPCS: 82947

== ENCOUNTER 2021-02-02 19:33 | Emergency (ER) | payer MEDICARE ==
[~2021-02-02] VITALS: Ht 177.8 cm; Wt 85.0 kg
--- NOTE | 2021-02-02 19:56 | ED General ---
General Stated Complaint: FEVER 102.4,L ARM NUMBNESS,BODY ACHES Source of Information: Patient Exam Limitations: No Limitations History of Present Illness Date Seen by Provider: Feb 02, 2021 Time Seen by Provider: 19:55 Initial Comments Fever and malaise that began yesterday. Vaccinated against Covid. Denies any increased cough. Does have some puffiness and swelling around the jaw bilaterally that he reports is new onset this morning. There is no itching, there are no sores inside the mouth nor is this painful. The color of the skin overlying this puffiness looks normal. 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 He is also had tingling of bilateral arms intermittently for a few days. No tingling or numbness in the legs. Timing/Duration: 1-2 Days Severity: Moderate Associated Systoms: Denies Symptoms Allergies and Home Medications Allergies Coded Allergies: latex (Verified Allergy, Intermediate, RASH, 01/07/18) Penicillins (Unverified Allergy, Unknown, 01/07/18) ondansetron (Unverified Allergy, Unknown, 01/07/18) morphine (Verified Adverse Reaction, Unknown, BECK, 01/07/18) Patient Home Medication List Home Medication List Reviewed: Yes Aspirin (Aspirin EC) 81 Mg Tablet., 81 MG PO DAILY, (Reported) Entered as Reported by: NICK LAY on 11/02/19 141 Cetirizine HCl (Zyrtec) 10 Mg Tablet, 10 MG PO DAILY, (Reported) Entered as Reported by: NICK LAY on 11/02/19 141 Diclofenac Sodium (Diclofenac Sodium) 75 Mg Tablet., 75 MG PO DAILY, (Reported) Entered as Reported by: ELENA AVILA on 12/17/20 1432 Doxycycline Hyclate (Doxycycline Hyclate) 100 Mg Tablet, 100 MG PO BID Prescribed by: SELENA AVENDANO on 02/02/212113 Duloxetine HCl (Duloxetine HCl) 60 Mg Capsule., 60 MG PO DAILY, (Reported) Entered as Reported by: LINH MEDINA on 12/01/20 1110 Fenofibrate (Fenofibrate) 160 Mg Tablet, 160 MG PO DAILY, (Reported) Entered as Reported by: ELENA AVILA on 12/17/20 143 Gabapentin (Gabapentin) 600 Mg Tablet, 600 MG PO DAILY, (Reported) Entered as Reported by: ELENA AVILA on 12/17/20 143 Hydrocodone Bit/Acetaminophen (HYDROcodone/APAP 10/325 TABLET) 1 Ea Tab, 1 EA PO PRN, (Reported) Entered as Reported by: ELENA AVILA on 12/17/20 143 Insulin Aspart (Novolog) 100 Unit/1 Ml Susp, 15 UNIT SQ AC, (Reported) Entered as Reported by: ELENA AVILA on 12/17/20 143 Insulin Detemir (Levemir Flextouch) 100 Unit/1 Ml Insuln.pen, 15-20 UNIT SQ HS, (Reported) Entered as Reported by: NICK LAY on 11/02/19 1345 Insulin Detemir (Levemir Flextouch) 100 Unit/1 Ml Insuln.pen, 50 UNIT SQ HS, (Reported) Entered as Reported by: ELENA AVILA on 12/17/20 143 Ipratropium/Albuterol Sulfate (Iprat-Albut 0.5-3(2.5) mg/3 ml) 3 Ml Ampul.neb, 3 ML IH Q4H PRN for SHORTNESS OF BREATH, (Reported) Entered as Reported by: ELENA AVILA on 12/17/20 143 Levothyroxine Sodium (Levothyroxine Sodium) 125 Mcg Tablet, 120 MCG PO DAILY, (Reported) Entered as Reported by: LINH MEDINA on 12/01/20 1110 Lisinopril (Lisinopril) 5 Mg Tablet, 5 MG PO DAILY, (Reported) Entered as Reported by: ELENA AVILA on 12/17/20 143 Metformin HCl (Metformin HCl) 1,000 Mg Tablet, 1,000 MG PO BID, (Reported) Entered as Reported by: ELENA AVILA on 12/17/20 143 Montelukast Sodium (Montelukast Sodium) 10 Mg Tablet, 10 MG PO DAILY, (Reported) Entered as Reported by: ELENA AVILA on 12/17/20 143 Nystatin (Nystatin) 100,000 Unit/1 Ml Oral.susp, 100,000 UNIT PO PRN, (Reported) Entered as Reported by: ELENA AVILA on 12/17/201431 Pantoprazole Sodium (Pantoprazole Sodium) 40 Mg Tablet.dr, 40 MG PO DAILY, (Reported) Entered as Reported by: ELENA AVILA on 12/17/201431 Rosuvastatin Calcium (Rosuvastatin Calcium) 10 Mg Tablet, 10 MG PO DAILY, (Reported) Entered as Reported by: ELENA AVILA on 12/17/201431 Sumatriptan Succinate (Sumatriptan Succinate) 50 Mg Tablet, 50 MG PO PRN, (Reported) Entered as Reported by: ELENA AVILA on 12/17/201431 Topiramate (Topiramate) 100 Mg Tablet, 100 MG PO DAILY, (Reported) Entered as Reported by: ELENA AVILA on 12/17/201431 Venlafaxine HCl (Venlafaxine HCl) 75 Mg Tab, 75 MG PO BID, (Reported) Entered as Reported by: ELENA AVILA on 12/17/201431 Review of Systems Review of Systems Constitutional: see HPI EENTM: see HPI Respiratory: no symptoms reported Cardiovascular: no symptoms reported Genitourinary: no symptoms reported Musculoskeletal: no symptoms reported Skin: no symptoms reported Psychiatric/Neurological: No Symptoms Reported Hematologic/Lymphatic: No Symptoms Reported Immunological/Allergic: no symptoms reported Past Ugdqmyb-Geuqzd-Pkrxxo Hx Immunizations Up To Date Tetanus Booster (TDap): Unknown First/Initial COVID19 Vaccinat: 06/2020 Second COVID19 Vaccination Scot: 07/2020 Seasonal Allergies Seasonal Allergies: Yes Past Medical History Surgery/Hospitalization HX: SINUS SURGERY X 2 RIGHT KNEE ACL REPAIR BILATERAL CARPAL TUNNEL SURGERY LEFT UPPER LOBECTOMY LARYNGECTOMY AND PERMANENT TRACHEOSTOMY LEFT SHOULDER SURGERY 12/2016, 04/2017, 12/2017 LEFT CARPAL TUNNEL 12/2017 CARDIAC CATH 10/[address] MANDEL CONCLUSION: 1. Mild to moderate stenosis up to 40 percent stenosis in the midright coronary artery otherwise mild disease nonobstructive disease 2. Normal left ventricular end-diastolic pressure APPENDECTOMY CHOLECYSTECTOMY Surgeries: Yes (Sinus surgery X2, ACL RIGHT KNEE, BILAT CARPAL TUNNEL, L UPPER LOBECTOMY, ) Appendectomy, Cardiac, Gallbladder, Lobectomy, Orthopedic, Tracheostomy Respiratory: Yes (Pulmonary nodules, HX LUNG CA--PERMANENT TRACHEOSTOMY FOR LARYNGEAL CA) Sleep Apnea Currently Using CPAP: No Cardiac: Yes (CARDIAC CATH 10/2019--NO INTERVENTION) High Cholesterol, Hypertension Neurological: Yes Headaches /Migraines, Neuropathy Reproductive Disorders: No Sexually Transmitted Disease: No HIV/AIDS: No Genitourinary: No Renal Failure Gastrointestinal: Yes Gastroesophageal Reflux Musculoskeletal: Yes Degenerate Disk Disease, Arthritis, Chronic Back Pain Endocrine: Yes Diabetes, Non-Insulin dep HEENT: Yes (LARYNGEAL CANCER-S/P TRACHEOSTOMY) Loss of Vision: Bilateral Hearing Impairment: Denies Cancer: Yes Lung Did You Recieve Any Treatments: Yes What Type of Treatment Did You: Radiation, Surgical Intervention Psychosocial: Yes Anxiety, Depression Integumentary: No Blood Disorders: No Adverse Reaction/Blood Tranf: No (N/A) Family Medical History No Pertinent Family Hx, Diabetes, Hypertension 9 VISITS SINCE 06/2020 FOR TRACHEOSTOMY PROBLEMS--WANTING RT TO CLEAN AND SUCTION OUT HIS TRACH. Physical Exam Vital Signs Vital Signs - First Documented 02/02/21 20:44 Temp 37.7 Pulse 101 Resp 20 B/P (MAP) 137/71 (93) Pulse Ox 95 O2 Delivery Room Air Capillary Refill : Height, Weight, BMI Height: 5'9.00" Weight: 182lbs. 0.0oz. 82.463452vo; 27.55 BMI Method:Stated General Appearance: No Apparent Distress, WD/WN Eyes: Bilateral Eye Normal Inspection, Bilateral Eye PERRL, Bilateral Eye EOMI Respiratory: No Accessory Muscle Use, No Respiratory Distress Cardiovascular: Regular Rate, Rhythm, Normal Peripheral Pulses Gastrointestinal: Normal Bowel Sounds, Non Tender, Soft Neurologic/Psychiatric: Alert, Oriented x3 Skin: Normal Color, Warm/Dry Progress/Results/Core Measures Suspected Sepsis SIRS Temperature: Pulse: Respiratory Rate: Laboratory Tests 02/02/21 19:56: White Blood Count 11.1H Blood Pressure / Mean: Laboratory Tests 02/02/21 19:56: Creatinine 1.30, INR Comment 1.1, Platelet Count 224, Total Bilirubin 0.2 Results/Orders Lab Results Laboratory Tests Test 02/02/21 19:56 02/02/21 19:58 02/02/21 21:16 Range/Units White Blood Count 11.1 H 4.3-11.0 10^3/uL Red Blood Count 3.92 L 4.30-5.52 10^6/uL Hemoglobin 11.4 L 13.3-17.7 g/dL Hematocrit 35 L 40-54 % Mean Corpuscular Volume 89 80-99 fL Mean Corpuscular Hemoglobin 29 25-34 pg Mean Corpuscular Hemoglobin Concent 33 32-36 g/dL Red Cell Distribution Width 14.3 10.0-14.5 % Platelet Count 224 130-400 10^3/uL Mean Platelet Volume 10.4 9.0-12.2 fL Immature Granulocyte % (Auto) 1 % Neutrophils (%) (Auto) 76 H 42-75 % Lymphocytes (%) (Auto) 19 12-44 % Monocytes (%) (Auto) 5 0-12 % Eosinophils (%) (Auto) 0 0-10 % Basophils (%) (Auto) 0 0-10 % Neutrophils # (Auto) 8.4 H 1.8-7.8 10^3/uL Lymphocytes # (Auto) 2.1 1.0-4.0 10^3/uL Monocytes # (Auto) 0.5 0.0-1.0 10^3/uL Eosinophils # (Auto) 0.0 0.0-0.3 10^3/uL Basophils # (Auto) 0.0 0.0-0.1 10^3/uL Immature Granulocyte # (Auto) 0.1 0.0-0.1 10^3/uL Prothrombin Time 14.2 12.2-14.7 SEC INR Comment 1.1 0.8-1.4 Activated Partial Thromboplast Time 39 H 24-35 SEC Sodium Level 135 135-145 MMOL/L Potassium Level 4.0 3.6-5.0 MMOL/L Chloride Level 105 98-107 MMOL/L Carbon Dioxide Level 20 L 21-32 MMOL/L Anion Gap 10 5-14 MMOL/L Blood Urea Nitrogen 23 H 7-18 MG/DL Creatinine 1.30 0.60-1.30 MG/DL Estimat Glomerular Filtration Rate 57 BUN/Creatinine Ratio 18 Glucose Level 263 H 70-105 MG/DL Calcium Level 9.0 8.5-10.1 MG/DL Corrected Calcium 9.0 8.5-10.1 MG/DL Total Bilirubin 0.2 0.1-1.0 MG/DL Aspartate Amino Transf (AST/SGOT) 21 5-34 U/L Alanine Aminotransferase (ALT/SGPT) 29 0-55 U/L Alkaline Phosphatase 58 40-136 U/L Total Protein 7.3 6.4-8.2 GM/DL Albumin 4.0 3.2-4.5 GM/DL Procalcitonin 0.33 H <0.10 NG/ML Influenza Type A (RT-PCR) Not Detected Not Detecte Influenza Type B (RT-PCR) Not Detected Not Detecte SARS-CoV-2 RNA (RT-PCR) Not Detected Not Detecte Urine Color YELLOW Urine Clarity CLEAR Urine pH 6.5 5-9 Urine Specific [place] 1.015 L 1.016-1.022 Urine Protein 1+ H NEGATIVE Urine Glucose (UA) 3+ H NEGATIVE Urine Ketones NEGATIVE NEGATIVE Urine Nitrite NEGATIVE NEGATIVE Urine Bilirubin NEGATIVE NEGATIVE Urine Urobilinogen 0.2 < = 1.0 MG/DL Urine Leukocyte Esterase NEGATIVE NEGATIVE Urine RBC (Auto) NEGATIVE NEGATIVE Urine RBC NONE /HPF Urine WBC NONE /HPF Urine Squamous Epithelial Cells NONE /HPF Urine Renal Epithelial Cells NONE /HPF Urine Crystals NONE /LPF Urine Bacteria NEGATIVE /HPF Urine Casts NONE /LPF Urine Mucus NEGATIVE /LPF Urine Culture Indicated CULTURE PENDING My Orders Orders - SELENA AVENDANO APRN Cbc With Automated Diff (02/02/21 19:51) Comprehensive Metabolic Panel (02/02/21 19:51) Urinalysis (02/02/21 19:51) Urine Culture (02/02/21 19:51) Protime With Inr (02/02/21 19:51) Partial Thromboplastin Time (02/02/21 19:51) Chest 1 View, Ap/Pa Only (02/02/21 19:51) Ed Iv/Invasive Line Start (02/02/21 19:51) Ed Iv/Invasive Line Start (02/02/21 19:51) Vital Signs Adult Sepsis Patie Q15M (02/02/21 19:51) O2 (02/02/21 19:51) Remove Rings In Anticipation O (02/02/21 19:51) Sputum Culture (02/02/21 19:51) Covid 19 Inhouse Test (02/02/21 19:52) Procalcitonin (Pct) (02/02/21 19:52) Influenza A And B By Pcr (02/02/21 19:58) Levofloxacin Tablet (Levaquin Tablet) (02/02/21 21:45) Medications Given in ED Current Medications Medications Dose Ordered Sig/Evelyn Route Start Time Stop Time Status Last Admin Dose Admin Levofloxacin 500 mg ONCE ONCE PO 02/02/21 21:45 02/02/21 21:46 DC 02/02/21 21:46 500 MG Vital Signs/I&O 02/02/21 20:44 Temp 37.7 Pulse 101 Resp 20 B/P (MAP) 137/71 (93) Pulse Ox 95 O2 Delivery Room Air Capillary Refill : Departure Communication (Admissions) NAME: ROGER CHANEY [facility] REC#: [id number] PT STATUS: REG ER : 1965 PHYSICIAN: SELENA AVENDANO APRN ADMIT DATE: 02/02/21/ER Signed Date of Exam:02/02/21 CHEST 1 VIEW, AP/PA ONLY INDICATION: Sepsis. COMPARISON: Prior examination from 12/01/2020. FINDINGS: Heart size is normal. There are patchy bilateral perihilar infiltrates. There is no pleural effusion or pneumothorax. The mediastinum is unremarkable. IMPRESSION: Patchy bilateral perihilar infiltrates possibly reflecting pneumonia, otherwise unremarkable. Dictated by: Dictated on workstation # [id number] Dict: 02/02/212046 Trans: 02/02/212051 [facility] [id number] Interpreted by: CARMELITA HANEY MD Electronically signed by: CARMELITA HANEY MD 02/02/212051 Impression Primary Impression: History of fever Disposition: 01 HOME, SELF-CARE Condition: Stable Departure-Patient Inst. Decision time for Depature: 21:12 Referrals: [facility]/ (PCP) Primary Care Physician LEILANI ROQUE (Family) Primary Care Physician Patient Instructions: Fever, Adult (DC) Add. Discharge Instructions: 1. Return to ER for any recurrent or worsening symptoms. Follow-up with your doctor next week Scripts Doxycycline Hyclate (Doxycycline Hyclate) 100 Mg Tablet 100 MG PO BID, #14 TAB 0 Refills Prov: SELENA AVENDANO APRN 02/02/21 SELENA AVENDANO APRN Feb 02, 2021 19:56
[2021-02-02 20:05] LABS: BASOPHILS % (AUTO) 0 % (0-10); EOSINOPHILS % (AUTO) 0 % (0-10); HEMATOCRIT 35 % (40-54); HEMOGLOBIN 11.4 g/dL (13.3-17.7); LYMPHOCYTES # (AUTO) 2.1 10^3/uL (1.0-4.0); LYMPHOCYTES % (AUTO) 19 % (12-44); MEAN CORPUSCULAR HEMOGLOBIN 29 pg (25-34); MEAN CORPUSCULAR HGB CONC 33 g/dL (32-36); MEAN CORPUSCULAR VOLUME 89 fL (80-99); MEAN PLATELET VOLUME 10.4 fL (9.0-12.2); MONOCYTES # (AUTO) 0.5 10^3/uL (0.0-1.0); MONOCYTES % (AUTO) 5 % (0-12); NEUTROPHILS # (AUTO) 8.4 10^3/uL (1.8-7.8); NEUTROPHILS % (AUTO) 76 % (42-75); PLATELET COUNT 224 10^3/uL (130-400); WHITE BLOOD COUNT 11.1 10^3/uL (4.3-11.0)
[2021-02-02 20:16] LABS: INR 1.1 (0.8-1.4); PROTHROMBIN TIME PATIENT 14.2 SEC (12.2-14.7)
[2021-02-02 20:22] LABS: TOTAL PROTEIN 7.3 GM/DL (6.4-8.2)
[2021-02-02 20:24] LABS: BILIRUBIN,TOTAL 0.2 MG/DL (0.1-1.0)
[2021-02-02 20:26] LABS: CREATININE SERUM 1.3 MG/DL (0.60-1.30)
--- NOTE | 2021-02-02 20:50 | Diagnostic Imaging Report ---
INDICATION: Sepsis. COMPARISON: Prior examination from 12/01/2020. FINDINGS: Heart size is normal. There are patchy bilateral perihilar infiltrates. There is no pleural effusion or pneumothorax. The mediastinum is unremarkable. IMPRESSION: Patchy bilateral perihilar infiltrates possibly reflecting pneumonia, otherwise unremarkable. Dictated by: Dictated on workstation # [id number]
[2021-02-02] MEDS ORDERED: DOXY100T2 PO (21:14)
[2021-02-02 21:34] LABS: BILIRUBIN,URINE NEGATIVE (NEGATIVE); CLARITY,URINE CLEAR; COLOR,URINE YELLOW; GLUCOSE, URINE (UA) 3+ (NEGATIVE); KETONES,URINE NEGATIVE (NEGATIVE); LEUKOCYTE ESTERASE ,URINE NEGATIVE (NEGATIVE); NITRITE,URINE NEGATIVE (NEGATIVE); PH,URINE 6.5 (5-9); PROTEIN,URINE 1+ (NEGATIVE)
[2021-02-02 21:40] LABS: BACTERIA,URINE NEGATIVE /HPF
[2021-02-02 22:14] VITALS: BP 115/74
== END 2021-02-02 21:53 | disposition home or self-care (01) ==
LOC: EDUNIT# 19:33 → ER 19:35
DX: R50.9 Fever, unspecified (principal); G47.30 Sleep apnea, unspecified; I10 Essential (primary) hypertension; E78.00 Pure hypercholesterolemia, unspecified; K21.9 Gastro-esophageal reflux disease without esophagitis; G89.29 Other chronic pain; M54.9 Dorsalgia, unspecified; E11.9 Type 2 diabetes mellitus without complications; F41.9 Anxiety disorder, unspecified; F32.9 Major depressive disorder, single episode, unspecified; Z20.822 Contact with and (suspected) exposure to COVID-19; Z79.891 Long term (current) use of opiate analgesic; Z79.899 Other long term (current) drug therapy; Z79.84 Long term (current) use of oral hypoglycemic drugs; Z79.82 Long term (current) use of aspirin
CPT/HCPCS: 36415; 71045; 80053; 81000; 84145; 85025; 85610; 85730; 87088; 87636

== ENCOUNTER → 2021-05-16 | Outpatient (CLI) | payer MEDICARE ==
[~2021-05-16] MED LIST changes: -LEVO500T80 PO; +LEVO500T81 PO; -LISI-729 PO; +LISI5TAB20 PO; +MONT-40 PO; -MONT10TA32 PO; +RT-ALBUTEROL SULF 2.5 MG/3 ML PRE-MIX VIAL INH ONE
== END ==
LOC: RT 05-07 10:45
PROVIDERS: ATTEND Nurse Practitioner Family
DX: J44.9 Chronic obstructive pulmonary disease, unspecified (principal); Z93.0 Tracheostomy status
CPT/HCPCS: 94060; 94729

== ENCOUNTER 2021-07-23 21:10 | Inpatient (IN) | payer MEDICARE ==
[~2021-07-23] VITALS: Ht 178 cm; Wt 85.0 kg
[~2021-07-23 21:10] MED LIST changes: -RT-ALBUTEROL SULF 2.5 MG/3 ML PRE-MIX VIAL INH ONE
--- NOTE | 2021-07-23 21:52 | ED General ---
General Chief Complaint: Fever-Adult/Adol Stated Complaint: CHILLS,ACHES, SWOLLEN FACE AND NECK Nursing Triage Note: generalized body aches, fever x1 day, subjective facial swelling tonight. Source of Information: Patient (PT HAS TRACH IN PLACE AND IS NON-VERBAL, COMMUNICATES WITH WRITING. ) History of Present Illness Date Seen by Provider: Jul 23, 2021 Time Seen by Provider: 21:45 Initial Comments PT ARRIVES VIA POV FROM HOME STATES HE HAD CHILLS AND BODY ACHES AND TEMP UP PT 101.4 LAST PM BEGAN HAVING FACIAL AND ANTERIOR NECK SWELLING TONIGHT HAS PAIN TO ANTERIOR NECK NO DIFFICULTY BREATHING NO COUGH NO NAUSEA/VOMITING/DIARRHEA NO HEADACHE NO CHEST PAIN PT HAS BEEN ABLE TO SWALLOW WITHOUT DIFFICULTY NO PROBLEMS WITH HIS TRACH NO SIGNIFICANT DRAINAGE FROM OR AROUND TRACH PCP: JOVANA REAL TORCHIA Allergies and Home Medications Allergies Coded Allergies: latex (Verified Allergy, Intermediate, RASH, 01/07/18) Penicillins (Unverified Allergy, Unknown, 01/07/18) ondansetron (Unverified Allergy, Unknown, 01/07/18) morphine (Verified Adverse Reaction, Unknown, BECK, 01/07/18) Patient Home Medication List Home Medication List Reviewed: Yes Aspirin (Aspirin EC) 81 Mg Tablet., 81 MG PO DAILY, (Reported) Entered as Reported by: NICK LAY on 11/02/19 141 Cetirizine HCl (Zyrtec) 10 Mg Tablet, 10 MG PO DAILY, (Reported) Entered as Reported by: NICK LAY on 11/02/19 141 Diclofenac Sodium (Diclofenac Sodium) 75 Mg Tablet., 75 MG PO DAILY, (Reported) Entered as Reported by: ELENA AVILA on 12/17/20 143 Doxycycline Hyclate (Doxycycline Hyclate) 100 Mg Tablet, 100 MG PO BID Prescribed by: SELENA AVENDANO on 02/02/212113 Duloxetine HCl (Duloxetine HCl) 60 Mg Capsule., 60 MG PO DAILY, (Reported) Entered as Reported by: LINH MEDINA on 12/01/20 1110 Fenofibrate (Fenofibrate) 160 Mg Tablet, 160 MG PO DAILY, (Reported) Entered as Reported by: ELENA AVILA on 12/17/20 143 Gabapentin (Gabapentin) 600 Mg Tablet, 600 MG PO DAILY, (Reported) Entered as Reported by: ELENA AVILA on 12/17/20 143 Hydrocodone Bit/Acetaminophen (HYDROcodone/APAP 10/325 TABLET) 1 Ea Tab, 1 EA PO PRN, (Reported) Entered as Reported by: ELENA AVILA on 12/17/20 143 Insulin Aspart (Novolog) 100 Unit/1 Ml Susp, 15 UNIT SQ AC, (Reported) Entered as Reported by: ELENA AVILA on 12/17/20 143 Insulin Detemir (Levemir Flextouch) 100 Unit/1 Ml Insuln.pen, 15-20 UNIT SQ HS, (Reported) Entered as Reported by: NICK LAY on 11/02/19 1345 Insulin Detemir (Levemir Flextouch) 100 Unit/1 Ml Insuln.pen, 50 UNIT SQ HS, (R eported) Entered as Reported by: ELENA AVILA on 12/17/20 143 Ipratropium/Albuterol Sulfate (Iprat-Albut 0.5-3(2.5) mg/3 ml) 3 Ml Ampul.neb, 3 ML IH Q4H PRN for SHORTNESS OF BREATH, (Reported) Entered as Reported by: ELENA AVILA on 12/17/20 143 Levothyroxine Sodium (Levothyroxine Sodium) 125 Mcg Tablet, 120 MCG PO DAILY, (Reported) Entered as Reported by: LINH MEDINA on 12/01/20 1110 Lisinopril (Lisinopril) 5 Mg Tablet, 5 MG PO DAILY, (Reported) Entered as Reported by: ELENA AVILA on 12/17/20 143 Metformin HCl (Metformin HCl) 1,000 Mg Tablet, 1,000 MG PO BID, (Reported) Entered as Reported by: ELENA AVILA on 12/17/20 143 Montelukast Sodium (Montelukast Sodium) 10 Mg Tablet, 10 MG PO DAILY, (Reported) Entered as Reported by: ELENA AVILA on 12/17/20 143 Nystatin (Nystatin) 100,000 Unit/1 Ml Oral.susp, 100,000 UNIT PO PRN, (Reported) Entered as Reported by: ELENA AVILA on 12/17/20 143 Pantoprazole Sodium (Pantoprazole Sodium) 40 Mg Tablet.dr, 40 MG PO DAILY, (Reported) Entered as Reported by: ELENA AVILA on 12/17/201431 Rosuvastatin Calcium (Rosuvastatin Calcium) 10 Mg Tablet, 10 MG PO DAILY, (Reported) Entered as Reported by: ELENA AVILA on 12/17/201431 Sumatriptan Succinate (Sumatriptan Succinate) 50 Mg Tablet, 50 MG PO PRN, (Reported) Entered as Reported by: ELENA AVILA on 12/17/201431 Topiramate (Topiramate) 100 Mg Tablet, 100 MG PO DAILY, (Reported) Entered as Reported by: ELENA AVILA on 12/17/201431 Venlafaxine HCl (Venlafaxine HCl) 75 Mg Tab, 75 MG PO BID, (Reported) Entered as Reported by: ELENA AVILA on 12/17/201431 Review of Systems Review of Systems Constitutional: see HPI, chills, fever EENTM: see HPI Respiratory: no symptoms reported Cardiovascular: no symptoms reported Gastrointestinal: no symptoms reported Genitourinary: no symptoms reported Musculoskeletal: see HPI Skin: see HPI Psychiatric/Neurological: No Symptoms Reported Hematologic/Lymphatic: No Symptoms Reported Immunological/Allergic: no symptoms reported Past Dwverop-Ztpuoy-Joqxmk Hx Patient Social History Tobacco Use?: Yes Tobacco type used: Cigarettes Smoking Status: Former Smoker Smokeless Tobacco Frequency: Current Everyday User Substance use?: No Alcohol Use?: No Pt feels they are or have been: No Immunizations Up To Date Tetanus Booster (TDap): Unknown First/Initial COVID19 Vaccinat: 06/2020 Second COVID19 Vaccination Scot: 07/2020 Seasonal Allergies Seasonal Allergies: Yes Past Medical History Surgery/Hospitalization HX: SINUS SURGERY X 2RIGHT KNEE ACL REPAIRBILATERAL CARPAL TUNNEL SURGERYLEFT UPPER LOBECTOMYLARYNGECTOMY AND PERMANENT TRACHEOSTOMYLEFT SHOULDER SURGERY 12/2016, 04/2017, 12/2017LEFT CARPAL TUNNEL 12/2017CARDIAC CATH 10/[address] MANDELCONVALERIEUSION:1. Mild to moderate stenosis up to 40 percent stenosis in the midrightcoronary artery otherwise mild disease nonobstructive disease2. Normal left ventricular end-diastolic pressureAPPENDECTOMYCHOLECYSTECTOMY Surgeries: Yes (Sinus surgery X2, ACL RIGHT KNEE, BILAT CARPAL TUNNEL, L UPPER LOBECTOMY, ) Appendectomy, Cardiac, Gallbladder, Lobectomy, Orthopedic, Tracheostomy Respiratory: Yes (Pulmonary nodules, HX LUNG CA--PERMANENT TRACHEOSTOMY FOR LARYNGEAL CA) Sleep Apnea Currently Using CPAP: No Cardiac: Yes (CARDIAC CATH 10/2019--NO INTERVENTION) High Cholesterol, Hypertension Neurological: Yes Headaches /Migraines, Neuropathy Reproductive Disorders: No Sexually Transmitted Disease: No HIV/AIDS: No Genitourinary: No Renal Failure Gastrointestinal: Yes Gastroesophageal Reflux, Polyps Musculoskeletal: Yes Degenerate Disk Disease, Arthritis, Chronic Back Pain Endocrine: Yes Diabetes, Non-Insulin dep HEENT: Yes (LARYNGEAL CANCER-S/P TRACHEOSTOMY) Loss of Vision: Bilateral Hearing Impairment: Denies Cancer: Yes Lung Did You Recieve Any Treatments: Yes What Type of Treatment Did You: Radiation, Surgical Intervention LUNG CA DX 2015--S/P LUNG RESECTION AND RADIATION LARYNGEAL CANCER 11/2019--S/P LARYNGECTOMY/PERMANENT TRACHEOSTOMY AND RADIATION IS FOLLOWED AT Psychosocial: Yes Anxiety, Depression Integumentary: No Blood Disorders: No Adverse Reaction/Blood Tranf: No (N/A) Family Medical History No Pertinent Family Hx, Diabetes, Hypertension 9 VISITS SINCE 06/2020 FOR TRACHEOSTOMY PROBLEMS--WANTING RT TO CLEAN AND SUCTION OUT HIS TRACH. SOCIAL HISTORY: -SMOKED > 1 PPD, RECENTLY QUIT IN LAST COUPLE OF MONTHS. ALSO USES SMOKELESS TOBACCO/CHEWING TOBACCO -DENIES ETOH USE -DENIES DRUG USE PAST SURGICAL HISTORY: -SINUS SURGERY X 2 -RIGHT KNEE ACL REPAIR -BILATERAL CARPAL TUNNEL SURGERY -LEFT UPPER LUNG LOBECTOMY 2016 -LARYNGECTOMY AND PERMANENT TRACHEOSTOMY 2019 -LEFT SHOULDER SURGERY X 3--12/2016, 04/2017, 12/2017 -LEFT CARPAL TUNNEL 12/2017 -CARDIAC CATH 11/02/[address] MANDEL: CONCLUSION: 1. Mild to moderate stenosis up to 40 percent stenosis in the midright coronary artery otherwise mild disease nonobstructive disease 2. Normal left ventricular end-diastolic pressure DISCUSSION AND RECOMMENDATION: medical therapy is recommended no intervention is needed -12/24/20-COLONOSCOPY + POLYPECTOMY BY DR. MANUEL. Physical Exam Vital Signs Vital Signs - First Documented 07/23/21 21:39 Temp 36.9 Pulse 100 Resp 18 B/P (MAP) 120/96 (104) Pulse Ox 96 O2 Delivery Room Air Capillary Refill : Less Than 3 Seconds Height, Weight, BMI Height: 5'9.00" Weight: 182lbs. 0.0oz. 82.001235tu; 26.00 BMI Method:Stated General Appearance: No Apparent Distress, WD/WN HEENT: TMs Normal, Other (ORAL MUCOSA DRY AND COATED WHITE. BILATERAL MANDIBULAR AREA, CHIN, ANTERIOR NECK AND LEFT SUPRACLAVICULAR AREAS WITH SWELLING, WARMTH, ERYTHEMA AND INDURATION. NO AREAS OF FLUCTUANCE, NO SORES / WOUNDS. TRACH APPEARS NORMAL AND NO DRAINAGE AROUND TRACH SITE, BUT SWELLING TO NECK IS ALL AROUND TRACH SITE WELL. ) Neck: Other ( ABOVE) Respiratory: Normal Breath Sounds, No Accessory Muscle Use, No Respiratory Distress; No Stridor, No Wheezing Cardiovascular: Regular Rate, Rhythm, No Murmur Gastrointestinal: Soft Extremity: Normal Inspection Neurologic/Psychiatric: Alert, Oriented x3 Skin: Warm/Dry Focused Exam Sepsis Stage: Ruled Out Reason for ruling out sepsis: DOES NOT MEET CRITERIA Possible Source: Skin/Soft Tissue Lactate Level 07/23/21 22:30: Lactic Acid Level 1.85 Time of Focused Exam: 23:00 Respiratory: Normal Breath Sounds, No Accessory Muscle Use, No Respiratory Distress Cardiovascular: Regular Rate, Rhythm, No Murmur Capillary Refill: Less Than 3 Seconds Skin: normal color, warm/dry Lactic Acid Level Laboratory Tests Test 07/23/21 22:30 Lactic Acid Level 1.85 MMOL/L (0.50-2.00) Within 3hrs of presentation: Admin fluids, Admin ABX, Blood cultures prior to ABX's, Focus exam, Lactate level Progress/Results/Core Measures Suspected Sepsis SIRS Temperature: Pulse: 100 Respiratory Rate: 18 Laboratory Tests 07/23/21 22:30: White Blood Count 7.4 Blood Pressure 120 /96 Mean: 104 07/23/21 22:30: Lactic Acid Level 1.85 Laboratory Tests 07/23/21 22:30: Creatinine 1.46H, INR Comment 1.0, Platelet Count 237, Total Bilirubin 0.2 Results/Orders Lab Results Laboratory Tests Test 07/23/21 21:50 07/23/21 22:30 Range/Units Influenza Type A (RT-PCR) Not Detected Not Detecte Influenza Type B (RT-PCR) Not Detected Not Detecte SARS-CoV-2 RNA (RT-PCR) Not Detected Not Detecte Group A Streptococcus Screen NEGATIVE NEGATIVE White Blood Count 7.4 4.3-11.0 10^3/uL Red Blood Count 3.95 L 4.30-5.52 10^6/uL Hemoglobin 11.2 L 13.3-17.7 g/dL Hematocrit 35 L 40-54 % Mean Corpuscular Volume 89 80-99 fL Mean Corpuscular Hemoglobin 28 25-34 pg Mean Corpuscular Hemoglobin Concent 32 32-36 g/dL Red Cell Distribution Width 13.3 10.0-14.5 % Platelet Count 237 130-400 10^3/uL Mean Platelet Volume 10.2 9.0-12.2 fL Immature Granulocyte % (Auto) 1 % Neutrophils (%) (Auto) 80 H 42-75 % Lymphocytes (%) (Auto) 14 12-44 % Monocytes (%) (Auto) 4 0-12 % Eosinophils (%) (Auto) 0 0-10 % Basophils (%) (Auto) 0 0-10 % Neutrophils # (Auto) 5.9 1.8-7.8 10^3/uL Lymphocytes # (Auto) 1.1 1.0-4.0 10^3/uL Monocytes # (Auto) 0.3 0.0-1.0 10^3/uL Eosinophils # (Auto) 0.0 0.0-0.3 10^3/uL Basophils # (Auto) 0.0 0.0-0.1 10^3/uL Immature Granulocyte # (Auto) 0.1 0.0-0.1 10^3/uL Erythrocyte Sedimentation Rate 36 H 0-30 MM/HR Prothrombin Time 13.9 12.2-14.7 SEC INR Comment 1.0 0.8-1.4 Activated Partial Thromboplast Time 38 H 24-35 SEC Sodium Level 135 135-145 MMOL/L Potassium Level 4.3 3.6-5.0 MMOL/L Chloride Level 101 98-107 MMOL/L Carbon Dioxide Level 21 21-32 MMOL/L Anion Gap 13 5-14 MMOL/L Blood Urea Nitrogen 27 H 7-18 MG/DL Creatinine 1.46 H 0.60-1.30 MG/DL Estimat Glomerular Filtration Rate 56 BUN/Creatinine Ratio 18 Glucose Level 364 H 70-105 MG/DL Lactic Acid Level 1.85 0.50-2.00 MMOL/L Calcium Level 8.7 8.5-10.1 MG/DL Corrected Calcium 8.9 8.5-10.1 MG/DL Magnesium Level 1.9 1.6-2.4 MG/DL Total Bilirubin 0.2 0.1-1.0 MG/DL Aspartate Amino Transf (AST/SGOT) 23 5-34 U/L Alanine Aminotransferase (ALT/SGPT) 24 0-55 U/L Alkaline Phosphatase 60 40-136 U/L Myoglobin 74.6 10.0-92.0 NG/ML C-Reactive Protein High Sensitivity 14.62 H 0.00-0.50 MG/DL Total Protein 6.8 6.4-8.2 GM/DL Albumin 3.8 3.2-4.5 GM/DL Amylase Level 20 L 25-125 U/L Lipase 17 8-78 U/L Beta-Hydroxybutyrate (Chem panel) 0.06 0.00-0.27 MMOL/L Procalcitonin 0.19 H <0.10 NG/ML Free Thyroxine 0.70 0.70-1.48 NG/DL TSH Holloway Testing 10.06 H 0.35-4.94 UIU/ML My Orders Orders - MISHA DOUGHERTY DO Rapid Strep A Screen (07/23/21 21:45) Covid 19 Inhouse Test (07/23/21 21:45) Influenza A And B By Pcr (07/23/21 21:45) Ed Iv/Invasive Line Start (07/23/21 22:27) Monitor-Rhythm Ecg Trace Only (07/23/21 22:27) Ct Chest W (07/23/21 22:27) Ct Neck (Soft Tissue) W (07/23/21 22:27) Amylase (07/23/21 22:27) Cbc With Automated Diff (07/23/21 22:27) Comprehensive Metabolic Panel (07/23/21 22:27) Hs C Reactive Protein (07/23/21 22:27) Lactic Acid Analyzer (07/23/21:) Lipase (07/23/21 22:27) Magnesium (07/23/21 22:27) Procalcitonin (Pct) (07/23/21 22:27) Protime With Inr (07/23/21 22:27) Partial Thromboplastin Time (07/23/21 22:27) Thyroid Analyzer (07/23/21 22:27) Blood Culture (07/23/21 22:27) Erythrocyte Sedimentation Rate (07/23/21:27) Myoglobin Serum (07/23/21:27) Chest 1 View, Ap/Pa Only (07/23/21 22:27) Ed Iv/Invasive Line Start (07/23/21 22:27) Vital Signs Adult Sepsis Patie Q15M (07/23/21 22:27) Remove Rings In Anticipation O (07/23/21 22:27) Cefepime Injection (Maxipime Injection) (07/23/21 22:30) Vancomycin Injection (Vancomycin Injecti (07/23/21 22:30) Vancomycin Injection (Vancomycin Injecti (07/23/21 23:30) Ed Iv/Invasive Line Start (07/23/21 22:27) Ns Iv 1000 Ml (Sodium Chloride 0.9%) (07/23/21 22:30) Insulin (Regular) Human (Novolin R (Per (07/23/21 23:15) Ed Iv/Invasive Line Start (07/23/21 23:08) Ns Iv 1000 Ml (Sodium Chloride 0.9%) (07/23/21 23:15) Beta Hydroxybutyrate (07/23/21 23:15) Hemoglobin A1c (07/23/21 23:15) Free T4 (Free Thyroxine) (07/23/21 22:30) Iohexol Injection (Omnipaque 350 Mg/Ml 1 (07/23/21 23:45) Received Contrast (Hold Metformin- Contr (07/23/21 23:45) Sodium Chloride Flush (Catheter Flush Sy (07/23/21 23:45) Ns (Ivpb) (Sodium Chloride 0.9% Ivpb Bag (07/23/21 23:45) Accucheck Stat ONCE (07/24/21 01:30) Medications Given in ED Current Medications Medications Dose Ordered Sig/Evelyn Route Start Time Stop Time Status Last Admin Dose Admin Cefepime HCl 1000 mg/Sodium Chloride 50 ml @ 100 mls/hr ONCE ONCE IV 07/23/21 22:30 07/23/21 22:59 DC 07/23/21 23:00 100 MLS/HR Insulin Human Regular 10 unit ONCE ONCE IV 07/23/21 23:15 07/23/21 23:16 DC 07/23/21 23:47 10 UNIT Iohexol 150 ml ONCE ONCE IV 07/23/21 23:45 07/23/21 23:46 DC 07/23/21 23:46 120 ML Sodium Chloride 10 ml NEEDED PRN IV 07/23/21 23:45 07/23/21 23:46 10 ML Sodium Chloride 100 ml ONCE ONCE IV 07/23/21 23:45 07/23/21 23:46 DC 07/23/21 23:46 80 ML Vancomycin HCl 750 mg/Sodium Chloride 250 ml @ 250 mls/hr ONCE ONCE IV 07/23/21 23:30 07/24/21 00:29 DC 07/24/21 01:09 250 MLS/HR Vancomycin HCl 1000 mg/Sodium Chloride 250 ml @ 250 mls/hr ONCE ONCE IV 07/23/21 22:30 07/23/21 23:29 DC 07/23/21 23:16 250 MLS/HR Vital Signs/I&O 07/23/21 21:39 Temp 36.9 Pulse 100 Resp 18 B/P (MAP) 120/96 (104) Pulse Ox 96 O2 Delivery Room Air 07/24/21 00:00 Intake Total 50 ml Balance 50 ml Capillary Refill : Less Than 3 Seconds Blood Pressure Mean: 104 Progress Note : Progress Note SEPSIS PROTOCOL INITIATED PLACED IN ISOLATION ROOM' PPE WORN COVID, FLU AND STREP TESTING DONE NO DETERIORATION IN PT'S CONDITION DURING ER STAY Diagnostic Imaging Comments CXR--NO ACUTE PROCESS, PENDING RADIOLOGIST REVIEW CT CHEST--PER [facility] VIA FAX AT 0113 MILD NON-SPECIFIC INTERSTITIAL CHANGES, POSSIBLY INTERSTITIAL EDEMA. TRACHEOSTOMY TUBE IN PLACE ENLARGED LYMPH NODE 12 MM IN RIGHT SUPERIOR MEDIASTINUM NON-SPECIFIC SUB Q EDEMA IN SUBMANDIBULAR NECK SOFT TISSUES. CT NECK SOFT TISSUES--PER [facility] VIA FAX AT 0126 -PT WITH PREVIOUS LARYNGECTOMY AND TRACHEOSTOMY. -SUBCUTANEOUS EDEMA IN THE SUBMANDIBULAR SOFT TISSUES. ETIOLOGY IS UNCERTAIN, COULD REPRESENT LYMPHEDEMA. PRESENT TO A GREATER DEGREE THAN ON PREVIOUS STUDY. -FEW SMALL SUBCENTIMETER SUBMANDIBULAR AND SUBMENTAL LYMPH NODES, 11-12 MM LYMPH NODE IN RIGHT SUPERIOR MEDIASTINUM-LARGER THAN ON PREVIOUS STUDY. Reviewed: Reviewed by Ri Departure Communication (Admissions) 0331--SPOKE WITH DR. JOHNSON, SENIOR CARE MANAGER FOR [facility]. ACCEPTS PT FOR ADMIT Impression Primary Impression: Cellulitis of neck Additional Impressions: Uncontrolled diabetes mellitus PERMANENT TRACHEOSTOMY IN PLACE DEHYDRATION/ACUTE RENAL INSUFFICIENCY Hx of laryngeal cancer Hx of cancer of lung Disposition: ADMITTED INPATIENT Condition: Stable Admissions Decision to Admit Reason: Admit from ER (General) Decision to Admit/Date: Jul 24, 2021 Time/Decision to Admit Time: 01:35 Departure-Patient Inst. Referrals: [facility] (PCP) Primary Care Physician LEILANI ROQUE (Family) Primary Care Physician MISHA DOUGHERTY DO Jul 23, 2021 21:52
[2021-07-23] MEDS ORDERED: VANCOMYCIN INJECTION 1,000 MG in NS (IVPB) 250 ML IV ONE (22:30)
[2021-07-23] MEDS ORDERED: NS IV 1000 ML 1,000 ML IV SCH ×2 (22:30→23:15)
[2021-07-23] MEDS ORDERED: CEFEPIME INJECTION 1,000 MG in NS (IVPB) 50 ML IV ONE (22:30)
[2021-07-23 22:50] LABS: BASOPHILS % (AUTO) 0 % (0-10); EOSINOPHILS % (AUTO) 0 % (0-10); HEMATOCRIT 35 % (40-54); HEMOGLOBIN 11.2 g/dL (13.3-17.7); LYMPHOCYTES # (AUTO) 1.1 10^3/uL (1.0-4.0); LYMPHOCYTES % (AUTO) 14 % (12-44); MEAN CORPUSCULAR HEMOGLOBIN 28 pg (25-34); MEAN CORPUSCULAR HGB CONC 32 g/dL (32-36); MEAN CORPUSCULAR VOLUME 89 fL (80-99); MEAN PLATELET VOLUME 10.2 fL (9.0-12.2); MONOCYTES # (AUTO) 0.3 10^3/uL (0.0-1.0); MONOCYTES % (AUTO) 4 % (0-12); NEUTROPHILS # (AUTO) 5.9 10^3/uL (1.8-7.8); NEUTROPHILS % (AUTO) 80 % (42-75); PLATELET COUNT 237 10^3/uL (130-400); WHITE BLOOD COUNT 7.4 10^3/uL (4.3-11.0)
[2021-07-23 22:57] LABS: PROTHROMBIN TIME PATIENT 13.9 SEC (12.2-14.7)
[2021-07-23 23:06] LABS: ALBUMIN 3.8 GM/DL (3.2-4.5); BILIRUBIN,TOTAL 0.2 MG/DL (0.1-1.0); CALCIUM 8.7 MG/DL (8.5-10.1); CREATININE SERUM 1.46 MG/DL (0.60-1.30); MAGNESIUM 1.9 MG/DL (1.6-2.4); POTASSIUM 4.3 MMOL/L (3.6-5.0); TOTAL PROTEIN 6.8 GM/DL (6.4-8.2)
[2021-07-23] MEDS ORDERED: inSUlin (REGULAR) HUMAN 1 UNIT/0.01 ML (CHARGE PER UNIT) IV ONE (23:15)
[2021-07-23 23:20] LABS: ERYTHROCYTE SEDIMENTATION RATE 36 MM/HR (0-30)
[2021-07-23 23:27] LABS: TSH (THYROID ANALYZER) 10.06 UIU/ML (0.35-4.94)
[2021-07-23] MEDS ORDERED: VANCOMYCIN INJECTION 750 MG in NS (IVPB) 250 ML IV ONE (23:30)
[2021-07-23] MEDS ORDERED: CATHETER FLUSH 10 ML SYR IV PRN (23:45)
[2021-07-23] MEDS ORDERED: IOHEXOL 350 MG/ML 150 ML (OMNIPAQUE 350) VIAL IV ONE (23:45)
[2021-07-23] MEDS ORDERED: HOLD METFORMIN - RECEIVED CONTRAST 20 ML VIAL IV SCH (23:45)
[2021-07-23] MEDS ORDERED: NS 100 ML (IVPB) BAG IV ONE (23:45)
[2021-07-24] VITALS (7 sets, daily range): BP systolic 95–165; BP diastolic 56–91
[2021-07-24 00:12] LABS: FREE T4 (FREE THYROXINE) 0.7 NG/DL (0.70-1.48)
[2021-07-24] MEDS ORDERED: NS IV 1000 ML 1,000 ML ONE (02:22)
[2021-07-24] MEDS ORDERED: PROMETHAZINE INJ 25 MG/ML (PHENERGAN) AMP IVP PRN (03:15)
[2021-07-24] MEDS ORDERED: fentaNYL INJ 100 MCG/2 ML AMP IV PRN (03:15)
[2021-07-24] MEDS ORDERED: IBUPROFEN 800 MG (MOTRIN) TAB PO PRN (03:15)
[2021-07-24] MEDS ORDERED: metroNIDAZOLE 500 MG/100 ML IVPB (PRE-MIX) IV SCH (03:30)
[2021-07-24] MEDS: NS IV 1000 ML 1,000 ML IV SCH ×3 (03:41→17:37)
[2021-07-24] MEDS: ACETAMINOPHEN 500 MG TAB (TYLENOL) PO PRN ×2 (03:42→15:22)
--- NOTE | 2021-07-24 05:14 | Diagnostic Imaging Report ---
PROCEDURE: CT chest with contrast only. TECHNIQUE: Multiple contiguous axial images were obtained through the chest after administration of intravenous contrast. Auto Exposure Controls were utilized during the CT exam to meet ALARA standards for radiation dose reduction. INDICATION: Generalized body aches and fever, upper chest and neck pain and swelling. COMPARISONS: 08/07/2020 FINDINGS: There is a 1.5 cm prominent right axillary node most likely reactive in nature. There is also a 1.4 cm node in the left axilla. Additional subcentimeter nodes are seen in both axilla. There are also multiple nonspecific subcentimeter mediastinal nodes. There is no hilar adenopathy. Cardiac contour is normal. Coronary calcifications are seen. Few nonaneurysmal thoracic aortic calcifications are noted. There is no aneurysm or dissection. There is normal arch origin of the great vessels. Pulmonary outflow tract and right and left pulmonary arteries are patent. There is diffuse 5 lobe interstitial opacities suggesting diffuse atelectasis versus pneumonitis. No confluent consolidations are seen. There is no effusion or pneumothorax. There is an element of mild central venous congestion suggesting an element of failure. There is a tracheostomy. Liver shows grade 3 fatty change. Gallbladder is surgically absent. Spleen, GE junction, stomach and visualized duodenum are unremarkable. There is some minimal bilateral perinephric stranding which may be physiologic. IMPRESSION: 1. There is bilateral axillary lymphadenopathy most likely reactive in nature. There is also some nonspecific mediastinal nodes. 2. There is scattered 5 lobe interstitial opacities suggesting atelectasis versus pneumonitis. 3. There is an element of central venous congestion suggesting some mild failure. 4. Grade 3 hepatic steatosis. Additional nonemergent findings as described above. Dictated by: Dictated on workstation # [id number]
--- NOTE | 2021-07-24 05:18 | Diagnostic Imaging Report ---
PROCEDURE: CT neck soft tissue with contrast. TECHNIQUE: Multiple contiguous axial images were obtained through the neck after the administration of contrast. Auto Exposure Controls were utilized during the CT exam to meet ALARA standards for radiation dose reduction. INDICATION: Generalized body aches with fever, upper chest and neck edema. COMPARISONS: 08/07/2020 FINDINGS: The visualized paranasal sinuses show acute left maxillary sinus disease. Nasal septum is midline. Orbits including both globes, retro-orbital extraconal, conal and intraconal spaces are normal. Skull base is grossly unremarkable. The nasopharynx is unremarkable. There is suggestion of possible pharyngeal edema at the oropharynx. Laryngopharynx is also narrowed. The hypopharynx is unremarkable. The parotid and technical buyer spaces are also unremarkable. There are a few scattered benign-appearing nodes but no significant adenopathy. There are some surgical clips in the lower neck and parapharyngeal space. There is subcutaneous soft tissue stranding extending from the submental space along the anterior neck to the level of the tracheostomy. Overall, these findings are similar to the previous study of 08/07/2020. There are some prominent nodes in the superior mediastinum which are predominantly centimeter and subcentimeter in size. IMPRESSION: 1. Overall postoperative changes consistent with previous laryngectomy noted. There is some subcutaneous edema along the anterior neck and submandibular soft tissues. This, however, is similar to the previous study of 08/07/2020. Correlate clinically. Findings could represent cellulitis versus possible lymphedema. 2. Reactive submental, cervical and superior mediastinal nodes. As suggested, if there is clinical concern for a tumor recurrence, PET scan would be of further value. Agree with [place] report. Dictated by: Dictated on workstation # [id number]
[2021-07-24] MEDS: inSUlin ASPART (NovoLOG) 1 UNIT/0.01 ML (CHARGE PER UNIT) SC SCH ×4 (05:38→20:26)
[2021-07-24] MEDS: CEFEPIME 1,000 MG/NS 50 ML IVPB IV SCH ×8 (05:38→22:22)
[2021-07-24 05:43] LABS: BASOPHILS % (AUTO) 0 % (0-10); EOSINOPHILS % (AUTO) 0 % (0-10); HEMATOCRIT 32 % (40-54); HEMOGLOBIN 10.5 g/dL (13.3-17.7); LYMPHOCYTES # (AUTO) 1.3 10^3/uL (1.0-4.0); LYMPHOCYTES % (AUTO) 18 % (12-44); MEAN CORPUSCULAR HEMOGLOBIN 29 pg (25-34); MEAN CORPUSCULAR HGB CONC 33 g/dL (32-36); MEAN CORPUSCULAR VOLUME 88 fL (80-99); MONOCYTES # (AUTO) 0.4 10^3/uL (0.0-1.0); MONOCYTES % (AUTO) 5 % (0-12); NEUTROPHILS # (AUTO) 5.4 10^3/uL (1.8-7.8); NEUTROPHILS % (AUTO) 75 % (42-75); PLATELET COUNT 223 10^3/uL (130-400); WHITE BLOOD COUNT 7.2 10^3/uL (4.3-11.0)
[2021-07-24 05:56] LABS: CALCIUM 7.9 MG/DL (8.5-10.1)
[2021-07-24 06:00] LABS: CREATININE SERUM 1.29 MG/DL (0.60-1.30)
--- NOTE | 2021-07-24 06:43 | Diagnostic Imaging Report ---
INDICATION: 56-year-old male with fever, shortness of breath. COMPARISONS: 02/02/2021 FINDINGS: Single view of the chest shows the cardiac contour to be normal. There is moderate central venous congestion. There is scattered perihilar and bibasilar atelectatic infiltrates but no confluent consolidations. Soft tissues and bony thorax are unremarkable. There is a tracheostomy. IMPRESSION: 1. Wtke-at-scjlsqga congestive heart failure 2. Some perihilar and bibasilar atelectatic infiltrates are seen. Dictated by: Dictated on workstation # [id number]
[2021-07-24] MEDS: RT-ALBUTEROL/IPRATROPIUM 3 ML (DUONEB) VIAL INH SCH ×3 (07:34→17:20)
--- NOTE | 2021-07-24 07:47 | History & Physical ---
HPI History of Present Illness: 56 yo male with history of laryngeal cancer and tracheostomy presented to ER due to cold chills starting two days ago. Denies cough. Admits headache. Denies nausea, vomiting, diarrhea. Denies nasal congestion, sore throat. Using paper and writing for patient to communicate. Source: patient Exam Limitations: clinical condition Date seen by provider: Jul 24, 2021 Time Seen by Provider: 07:45 Attending Physician Jerry Mendoza MD PCP Center/[facility] [place] Consult Date of Admission Jul 24, 2021 at 01:35 Home Medications Home Medications Reviewed patient Home Medication Reconciliation performed by pharmacy medication reconciliations holter technician and/or nursing. Patients Allergies have been reviewed. Allergies Coded Allergies: latex (Verified Allergy, Intermediate, RASH, 01/07/18) Penicillins (Unverified Allergy, Unknown, 01/07/18) ondansetron (Unverified Allergy, Unknown, 01/07/18) morphine (Verified Adverse Reaction, Unknown, BECK, 01/07/18) [facility]-Omenun-Dsunez Hx Patient Social History Drug of Choice: Denies Smoking Status: Former Smoker 2nd Hand Smoke Exposure: Yes Recent Hopitalizations: No Alcohol Use?: No Tobacco type used: Cigarettes Have you traveled recently?: No Immunizations Up To Date Tetanus Booster (TDap): Unknown Influenza Vaccine Up-to-Date: Yes; Up-to-Date First/Initial COVID19 Vaccinat: 07/16/2020 Second COVID19 Vaccination Scot: 08/13/2020 COVID19 Vaccine Hotel Service Supervisor: Moderna Past Medical History PMHx: Laryngeal cancer Lung cancer HTN HLD DMII CKD Hypothyroidism SurgHx: Cholecystectomy Appendectomy Left leg fracture Carpal tunnel release bilaterally Sinus surgery ACL repair Left knee arthroscopy Left lung partial resection Shoulder surgery Laryngectomy Cardiac catheterization Colonoscopy Family Medical History Significant Family History: Diabetes, Hypertension Review of Systems ([facility]) Constitutional: see HPI Reviewed Test Results Reviewed Test Results Lab Laboratory Tests Test 07/23/21 21:50 07/23/21 22:30 07/24/21 01:36 07/24/21 05:26 Range/Units Influenza Type A (RT-PCR) Not Detected Not Detecte Influenza Type B (RT-PCR) Not Detected Not Detecte SARS-CoV-2 RNA (RT-PCR) Not Detected Not Detecte Group A Streptococcus Screen NEGATIVE NEGATIVE White Blood Count 7.4 4.3-11.0 10^3/uL Red Blood Count 3.95 L 4.30-5.52 10^6/uL Hemoglobin 11.2 L 13.3-17.7 g/dL Hematocrit 35 L 40-54 % Mean Corpuscular Volume 89 80-99 fL Mean Corpuscular Hemoglobin 28 25-34 pg Mean Corpuscular Hemoglobin Concent 32 32-36 g/dL Red Cell Distribution Width 13.3 10.0-14.5 % Platelet Count 237 130-400 10^3/uL Mean Platelet Volume 10.2 9.0-12.2 fL Immature Granulocyte % (Auto) 1 % Neutrophils (%) (Auto) 80 H 42-75 % Lymphocytes (%) (Auto) 14 12-44 % Monocytes (%) (Auto) 4 0-12 % Eosinophils (%) (Auto) 0 0-10 % Basophils (%) (Auto) 0 0-10 % Neutrophils # (Auto) 5.9 1.8-7.8 10^3/uL Lymphocytes # (Auto) 1.1 1.0-4.0 10^3/uL Monocytes # (Auto) 0.3 0.0-1.0 10^3/uL Eosinophils # (Auto) 0.0 0.0-0.3 10^3/uL Basophils # (Auto) 0.0 0.0-0.1 10^3/uL Immature Granulocyte # (Auto) 0.1 0.0-0.1 10^3/uL Erythrocyte Sedimentation Rate 36 H 0-30 MM/HR Prothrombin Time 13.9 12.2-14.7 SEC INR Comment 1.0 0.8-1.4 Activated Partial Thromboplast Time 38 H 24-35 SEC Sodium Level 135 135-145 MMOL/L Potassium Level 4.3 3.6-5.0 MMOL/L Chloride Level 101 98-107 MMOL/L Carbon Dioxide Level 21 21-32 MMOL/L Anion Gap 13 5-14 MMOL/L Blood Urea Nitrogen 27 H 7-18 MG/DL Creatinine 1.46 H 0.60-1.30 MG/DL Estimat Glomerular Filtration Rate 56 BUN/Creatinine Ratio 18 Glucose Level 364 H 70-105 MG/DL Lactic Acid Level 1.85 0.50-2.00 MMOL/L Calcium Level 8.7 8.5-10.1 MG/DL Corrected Calcium 8.9 8.5-10.1 MG/DL Magnesium Level 1.9 1.6-2.4 MG/DL Total Bilirubin 0.2 0.1-1.0 MG/DL Aspartate Amino Transf (AST/SGOT) 23 5-34 U/L Alanine Aminotransferase (ALT/SGPT) 24 0-55 U/L Alkaline Phosphatase 60 40-136 U/L Myoglobin 74.6 10.0-92.0 NG/ML C-Reactive Protein High Sensitivity 14.62 H 0.00-0.50 MG/DL Total Protein 6.8 6.4-8.2 GM/DL Albumin 3.8 3.2-4.5 GM/DL Amylase Level 20 L 25-125 U/L Lipase 17 8-78 U/L Beta-Hydroxybutyrate (Chem panel) 0.06 0.00-0.27 MMOL/L Procalcitonin 0.19 H <0.10 NG/ML Free Thyroxine 0.70 0.70-1.48 NG/DL TSH Eleva Testing 10.06 H 0.35-4.94 UIU/ML Glucometer 192 H 173 H 70-110 MG/DL Test 07/24/21 05:27 Range/Units White Blood Count 7.2 4.3-11.0 10^3/uL Red Blood Count 3.60 L 4.30-5.52 10^6/uL Hemoglobin 10.5 L 13.3-17.7 g/dL Hematocrit 32 L 40-54 % Mean Corpuscular Volume 88 80-99 fL Mean Corpuscular Hemoglobin 29 25-34 pg Mean Corpuscular Hemoglobin Concent 33 32-36 g/dL Red Cell Distribution Width 13.2 10.0-14.5 % Platelet Count 223 130-400 10^3/uL Mean Platelet Volume 10.0 9.0-12.2 fL Immature Granulocyte % (Auto) 1 % Neutrophils (%) (Auto) 75 42-75 % Lymphocytes (%) (Auto) 18 12-44 % Monocytes (%) (Auto) 5 0-12 % Eosinophils (%) (Auto) 0 0-10 % Basophils (%) (Auto) 0 0-10 % Neutrophils # (Auto) 5.4 1.8-7.8 10^3/uL Lymphocytes # (Auto) 1.3 1.0-4.0 10^3/uL Monocytes # (Auto) 0.4 0.0-1.0 10^3/uL Eosinophils # (Auto) 0.0 0.0-0.3 10^3/uL Basophils # (Auto) 0.0 0.0-0.1 10^3/uL Immature Granulocyte # (Auto) 0.1 0.0-0.1 10^3/uL Sodium Level 137 135-145 MMOL/L Potassium Level 4.0 3.6-5.0 MMOL/L Chloride Level 107 98-107 MMOL/L Carbon Dioxide Level 17 L 21-32 MMOL/L Anion Gap 13 5-14 MMOL/L Blood Urea Nitrogen 21 H 7-18 MG/DL Creatinine 1.29 0.60-1.30 MG/DL Estimat Glomerular Filtration Rate 65 BUN/Creatinine Ratio 16 Glucose Level 179 H 70-105 MG/DL Calcium Level 7.9 L 8.5-10.1 MG/DL Radiology CXR 07/23/21: DRAFT "IMPRESSION: 1. Aeez-dc-urdlpbzv congestive heart failure 2. Some perihilar and bibasilar atelectatic infiltrates are seen." CT chest 07/23/21: DRAFT "IMPRESSION: 1. There is bilateral axillary lymphadenopathy most likely reactive in nature. There is also some nonspecific mediastinal nodes. 2. There is scattered 5 lobe interstitial opacities suggesting atelectasis versus pneumonitis. 3. There is an element of central venous congestion suggesting some mild failure. 4. Grade 3 hepatic steatosis. Additional nonemergent findings as described above." CT neck 07/23/21: DRAFT "IMPRESSION: 1. Overall postoperative changes consistent with previous laryngectomy noted. There is some subcutaneous edema along the anterior neck and submandibular soft tissues. This, however, is similar to the previous study of 08/07/2020. Correlate clinically. Findings could represent cellulitis versus possible lymphedema. 2. Reactive submental, cervical and superior mediastinal nodes. As suggested, if there is clinical concern for a tumor recurrence, PET scan would be of further value." Physical Exam-([facility]) Physical Exam Vital Signs VS - Last 72 Hours, by Label 07/23/21 07/24/21 07/24/21 07/24/21 21:39 02:10 02:27 02:59 Temp 36.9 36.5 37.8 Pulse 100 96 104 104 Resp 18 18 22 B/P (MAP) 120/96 (104) 138/78 165/91 (115) Pulse Ox 96 95 97 97 O2 Delivery Room Air Room Air Room Air FiO2 21 07/24/21 07/24/21 07/24/21 07/24/21 03:05 03:57 04:05 07:34 Temp 38.4 Pulse 101 102 Resp 22 B/P (MAP) 133/74 (93) Pulse Ox 92 95 O2 Delivery Room Air Room Air Room Air Capillary Refill : Less Than 3 Seconds General Appearance: no apparent distress Neck: other (appears mildly edematous, mildly erythematous, trachostomy in place) Respiratory: lungs clear, normal breath sounds Cardiovascular: regular rate, rhythm, no murmur Gastrointestinal: normal bowel sounds, non tender, soft Extremities: no pedal edema Neurologic/Psychiatric: alert, normal mood/affect Assessment/Plan Assessment/Plan Admission Status: Inpatient Order (span 2 midnights) Reason for Inpatient Admission: Sepsis with acute renal insufficiency and multiple comorbidities (1) Sepsis Status: Acute Assessment & Plan: Secondary to cellulitis vs pneumonia. Improved overnight, but remains febrile, continue antibiotics. Qualifiers: Qualified Codes: A41.9 - Sepsis, unspecified organism; R65.20 - Severe sepsis without septic shock; N17.9 - Acute kidney failure, unspecified (2) Cellulitis of neck Status: Acute Assessment & Plan: Started on cefepime, vancomycn and metronidazole. Will narrow to cefepime and vanc, awaiting blood cultures. (3) Pneumonia Status: Acute Assessment & Plan: Possible pneumonitis versus atalectasis, covering with antibiotics for cellulitis and pneumonia. Qualifiers: Qualified Codes: J18.9 - Pneumonia, unspecified organism (4) Acute on chronic renal failure Status: Resolved Assessment & Plan: Resolved with IVF overnight, suspect related to infection. Qualifiers: (5) Pulmonary venous congestion Status: Acute Assessment & Plan: Echo 09/2019 with normal EF and grade 1 diastolic dysfunction, cardiac cath 10/2019 with mild to moderate stenosis up to 40% in mid RCA, otherwise mild nonobstructive disease. Congestion seen on imaging, but he is not hypoxic or symptomatic. (6) Hx of cancer of lung Status: Chronic (7) Hx of laryngeal cancer Status: Chronic (8) Diabetes mellitus, type 2 Status: Chronic Assessment & Plan: Diabetic diet, sliding scale insulin Qualifiers: Qualified Codes: E11.65 - 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 mellitus with hyperglycemia; Z79.4 - ad terminal makeup operator (current) use of insulin (9) Hypertension Status: Chronic Qualifiers: Qualified Codes: I10 - Essential (primary) hypertension (10) Hypothyroidism Status: Chronic (11) Hypertriglyceridemia Status: Chronic (12) COPD (chronic obstructive pulmonary disease) Status: Chronic (13) CKD (chronic kidney disease) Status: Chronic Qualifiers: Qualified Codes: N18.2 - Chronic kidney disease, stage 2 (mild) (14) Tracheostomy in place Status: Chronic (15) DVT prophylaxis Status: Acute Assessment & Plan: Enoxaparin JERRY MENDOZA MD Jul 24, 2021 07:47
[2021-07-24] MEDS: ENOXAPARIN 40 MG/0.4 ML (LOVENOX) SYR SQ SCH (08:47)
[2021-07-24] MEDS: VANCOMYCIN 1250 MG/NS 250 ML IVPB IV SCH ×4 (08:48→21:41)
[2021-07-24] MEDS ORDERED: ARIP5TAB57 PO (11:18)
[2021-07-24] MEDS ORDERED: HYDR-3820 PO (11:18)
[2021-07-24] MEDS ORDERED: GBPN600T PO (11:18)
[2021-07-24] MEDS ORDERED: RT-ALBUTEROL/IPRATROPIUM 3 ML (DUONEB) VIAL IH PRN (17:15)
[2021-07-24] MEDS: toPIRamate 100 MG (TOPAMAX) TAB PO SCH (20:25)
[2021-07-24] MEDS: DULoxetine 30 MG (CYMBALTA) CAP PO SCH (20:25)
[2021-07-24] MEDS ORDERED: NON-FORMULARY MEDICATION 1 EA EA (Aripiprazole 5 MG) PO SCH (21:00)
[2021-07-24] MEDS ORDERED: GABAPENTIN 600 MG (NEURONTIN) TAB PO SCH (21:00)
[2021-07-24] MEDS ORDERED: NON-FORMULARY MEDICATION 1 EA EA (Duloxetine HCl 60 MG) PO SCH (21:00)
[2021-07-24] MEDS: PANTOPRAZOLE 40 MG (PROTONIX) TAB PO SCH (21:00)
[2021-07-24] MEDS ORDERED: NON-FORMULARY MEDICATION 1 EA EA (Cetirizine HCl (Zyrtec) 10 MG) PO SCH (21:00)
[2021-07-24] MEDS ORDERED: LORATADINE (CLARITIN) 10 MG TAB PO SCH (21:00)
[2021-07-25] MEDS: NS IV 1000 ML 1,000 ML IV SCH ×3 (01:27→09:01)
[2021-07-25] MEDS: RT-ALBUTEROL/IPRATROPIUM 3 ML (DUONEB) VIAL INH SCH ×2 (02:13→08:17)
[2021-07-25] MEDS: CEFEPIME 1,000 MG/NS 50 ML IVPB IV SCH ×2 (04:21)
[2021-07-25 04:33] VITALS: BP 138/81
[2021-07-25 05:51] LABS: HEMATOCRIT 33 % (40-54); HEMOGLOBIN 10.4 g/dL (13.3-17.7); MEAN CORPUSCULAR HEMOGLOBIN 28 pg (25-34); MEAN CORPUSCULAR HGB CONC 31 g/dL (32-36); MEAN CORPUSCULAR VOLUME 90 fL (80-99); MEAN PLATELET VOLUME 10.3 fL (9.0-12.2); PLATELET COUNT 229 10^3/uL (130-400)
[2021-07-25] MEDS: inSUlin ASPART (NovoLOG) 1 UNIT/0.01 ML (CHARGE PER UNIT) SC SCH (05:58)
[2021-07-25 06:15] LABS: CALCIUM 8.4 MG/DL (8.5-10.1); CREATININE SERUM 1.15 MG/DL (0.60-1.30); POTASSIUM 3.9 MMOL/L (3.6-5.0)
[2021-07-25] MEDS ORDERED: LEVOTHYROXINE 125 MCG (LEVOTHROID) TABLET PO SCH (06:30)
[2021-07-25 07:42] VITALS: BP 121/77
[2021-07-25] MEDS: DULoxetine 30 MG (CYMBALTA) CAP PO SCH (08:09)
[2021-07-25] MEDS: toPIRamate 100 MG (TOPAMAX) TAB PO SCH (08:09)
[2021-07-25] MEDS: PANTOPRAZOLE 40 MG (PROTONIX) TAB PO SCH (08:09)
[2021-07-25] MEDS: ENOXAPARIN 40 MG/0.4 ML (LOVENOX) SYR SQ SCH (08:11)
[2021-07-25] MEDS ORDERED: ROSUVASTATIN 10 MG (CRESTOR) TABLET PO SCH (09:00)
[2021-07-25] MEDS ORDERED: TROUGH ORDER-PHARMACY XX ONE (09:00)
[2021-07-25] MEDS ORDERED: GABAPENTIN 600 MG (NEURONTIN) TAB PO SCH (09:00)
[2021-07-25] MEDS ORDERED: FENOFIBRATE 134 MG (LOFIBRA) CAPSULE PO SCH (09:00)
[2021-07-25] MEDS ORDERED: ASPIRIN E.C. 81 MG (ECOTRIN) TAB PO SCH (09:00)
[2021-07-25] MEDS ORDERED: NON-FORMULARY MEDICATION 1 EA EA (Fenofibrate 160 MG) PO SCH (09:00)
[2021-07-25] MEDS ORDERED: DOXY100T2 PO (09:28)
--- NOTE | 2021-07-25 10:55 | Discharge Summary ---
Discharge Summary Hospital Course Problems/Diagnosis: (1) Sepsis Status: Resolved Resolution Date/Time: 07/25/21 @ 10:53 Assessment & Plan: Secondary to cellulitis vs pneumonia. Improved rapidly and was discharged on doxycycline. Qualifiers: Qualified Codes: A41.9 - Sepsis, unspecified organism; R65.20 - Severe sepsis without septic shock; N17.9 - Acute kidney failure, unspecified (2) Cellulitis of neck Status: Acute Assessment & Plan: Started on cefepime, vancomycn and metronidazole. Will narrow to cefepime and vanc, awaiting blood cultures. No positive cultures on discharge, prescribed doxycycline on d/c. (3) Pneumonia Status: Acute Assessment & Plan: Possible pneumonitis versus atalectasis, covering with antibiotics for cellulitis and pneumonia. Qualifiers: Qualified Codes: J18.9 - Pneumonia, unspecified organism (4) Acute on chronic renal failure Status: Resolved Resolution Date/Time: 07/24/21 @ 08:04 Assessment & Plan: Resolved with IVF overnight, suspect related to infection. Qualifiers: (5) Pulmonary venous congestion Status: Acute Assessment & Plan: Echo 09/2019 with normal EF and grade 1 diastolic dysfunction, cardiac cath 10/2019 with mild to moderate stenosis up to 40% in mid RCA, otherwise mild nonobstructive disease. Congestion seen on imaging, but he is not hypoxic or symptomatic. (6) Hx of cancer of lung Status: Chronic (7) Hx of laryngeal cancer Status: Chronic (8) Diabetes mellitus, type 2 Status: Chronic Assessment & Plan: Diabetic diet, sliding scale insulin Qualifiers: Qualified Codes: E11.65 - 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 mellitus with hyperglycemia; Z79.4 - ocean transportation intermediary (current) use of insulin (9) Hypertension Status: Chronic Qualifiers: Qualified Codes: I10 - Essential (primary) hypertension (10) Hypothyroidism Status: Chronic (11) Hypertriglyceridemia Status: Chronic (12) COPD (chronic obstructive pulmonary disease) Status: Chronic (13) CKD (chronic kidney disease) Status: Chronic Qualifiers: Qualified Codes: N18.2 - Chronic kidney disease, stage 2 (mild) (14) Tracheostomy in place Status: Chronic Hospital Course Date of Admission: Jul 24, 2021 at 01:35 Admission Diagnosis : Family Physician/Provider: Mateusz Gabriel Date of Discharge: 07/25/21 Discharge Diagnosis: See problem list Hospital Course: See problem list Labs and Pending Lab Test: Laboratory Tests 07/24/21 16:20: Glucometer 137H 07/24/21 20:03: Glucometer 186H 07/25/21 05:30: White Blood Count 4.0L, Red Blood Count 3.69L, Hemoglobin 10.4L, Hematocrit 33L, Mean Corpuscular Volume 90, Mean Corpuscular Hemoglobin 28, Mean Corpuscular Hemoglobin Concent 31L, Red Cell Distribution Width 13.5, Platelet Count 229, Mean Platelet Volume 10.3, Sodium Level 144, Potassium Level 3.9, Chloride Level 112H, Carbon Dioxide Level 20L, Anion Gap 12, Blood Urea Nitrogen 17, Creatinine 1.15, Estimat Glomerular Filtration Rate 74, BUN/Creatinine Ratio 15, Glucose Level 131H, Calcium Level 8.4L 07/25/21 05:45: Glucometer 108 Microbiology 07/23/21 Blood Culture - Preliminary, Resulted No growth 07/23/21 Throat Culture - Preliminary, Resulted Home Meds Active Doxycycline Hyclate 100 Mg Tablet 100 Mg PO BID Reported Aripiprazole 5 Mg Tablet 5 Mg PO HS Gabapentin 600 Mg Tablet 1,800 Mg PO HS TAKES 3 (600MG) TABS Hydrocodone-Acetamin 10-325 mg (Hydrocodone/Acetaminophen) 1 Each Tablet 1 Ea PO Q6H PRN Topiramate 100 Mg Tablet 100 Mg PO BID Sumatriptan Succinate 50 Mg Tablet 50 Mg PO UD PRN Rosuvastatin Calcium 10 Mg Tablet 10 Mg PO DAILY Pantoprazole Sodium 40 Mg Tablet.dr 40 Mg PO BID Novolog (Insulin Aspart) 100 Unit/1 Ml Susp 15 Unit SQ AC Metformin HCl 1,000 Mg Tablet 1,000 Mg PO BID Levemir Flextouch (Insulin Detemir) 100 Unit/1 Ml Insuln.pen 40 Unit SQ HS Iprat-Albut 0.5-3(2.5) mg/3 ml (Ipratropium/Albuterol Sulfate) 3 Ml Ampul.neb 3 Ml IH Q4H PRN Gabapentin 600 Mg Tablet 1,200 Mg PO DAILY TAKES 2 (600MG) TABS Fenofibrate 160 Mg Tablet 160 Mg PO DAILY Diclofenac Sodium 75 Mg Tablet.dr 75 Mg PO BID Levothyroxine Sodium 125 Mcg Tablet 125 Mcg PO DAILY Duloxetine HCl 60 Mg Capsule.dr 60 Mg PO BID Zyrtec (Cetirizine HCl) 10 Mg Tablet 10 Mg PO HS Aspirin EC (Aspirin) 81 Mg Tablet. 81 Mg PO DAILY Assessment/Pt DC Instructions Follow up with primary doctor within a week of discharge. Discharge Diet: ADA Diet Activity as Tolerated: Yes Discharge Physical Examination Allergies: Coded Allergies: latex (Verified Allergy, Intermediate, RASH, 01/07/18) Penicillins (Unverified Allergy, Unknown, 01/07/18) ondansetron (Unverified Allergy, Unknown, 01/07/18) morphine (Verified Adverse Reaction, Unknown, BECK, 01/07/18) General Appearance: No Apparent Distress, Other (tracheostomy in place) HEENT: Other (neck with faint left sided erythema, minimal to no edema) Respiratory: Lungs Clear, Normal Breath Sounds Cardiovascular: Regular Rate, Rhythm, No Murmur Neurologic/Psychiatric: Alert, Normal Mood/Affect JERRY JOHNSON MD Jul 25, 2021 10:55
== END 2021-07-25 09:57 | disposition home or self-care (01) | DRG 871 ==
LOC: EDUNIT# 21:10 → ER 21:14 → 4TH 07-24 01:35
PROVIDERS: ADMIT Family Medicine; ATTEND Family Medicine
DX: A41.9 Sepsis, unspecified organism (principal); J18.9 Pneumonia, unspecified organism; L03.221 Cellulitis of neck; E11.65 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 mellitus with hyperglycemia; Z93.0 Tracheostomy status; E86.0 Dehydration; Z20.822 Contact with and (suspected) exposure to COVID-19; E78.00 Pure hypercholesterolemia, unspecified; G43.909 Migraine, unspecified, not intractable, without status migrainosus; E11.40 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 mellitus with diabetic neuropathy, unspecified; K21.9 Gastro-esophageal reflux disease without esophagitis; M19.90 Unspecified osteoarthritis, unspecified site; G89.29 Other chronic pain; M54.9 Dorsalgia, unspecified; I12.9 Hypertensive chronic kidney disease with stage 1 through stage 4 chronic kidney disease, or unspecified chronic kidney disease; E11.22 Type 2 diabetes mellitus with diabetic chronic kidney disease; N18.9 Chronic kidney disease, unspecified; E03.9 Hypothyroidism, unspecified; I87.8 Other specified disorders of veins; Z87.891 Personal history of nicotine dependence; Z85.21 Personal history of malignant neoplasm of larynx; Z85.118 Personal history of other malignant neoplasm of bronchus and lung; Z92.3 Personal history of irradiation; Z88.5 Allergy status to narcotic agent; Z88.0 Allergy status to penicillin; Z91.040 Latex allergy status
CPT/HCPCS: 36415; 70491; 71045; 71260; 80048; 80053; 82010; 82150; 82947; 83036; 83605; 83690; 83735; 83874; 84145; 84439; 84443; 85025; 85027; 85610; 85652; 85730; 86141; 87040; 87430; 87636; 94640; 94760; 94799

== ENCOUNTER → 2021-09-09 | Outpatient (CLI) | payer MEDICARE ==
[~2021-09-09] MED LIST changes: +ARIP5TAB57 PO; +CATHETER FLUSH 10 ML SYR IV PRN; +HYDR-3820 PO; +IOHEXOL 350 MG/ML 100 ML (OMNIPAQUE 350) VIAL IV ONE; +NS 100 ML (IVPB) BAG IV ONE
--- NOTE | 2021-09-09 15:27 | Diagnostic Imaging Report ---
PROCEDURE: CT chest with contrast only. TECHNIQUE: Multiple contiguous axial images were obtained through the chest after administration of intravenous contrast. Auto Exposure Controls were utilized during the CT exam to meet ALARA standards for radiation dose reduction. DATE: September 09, 2021. COMPARISON: CT chest July 23, 2021. INDICATION: 56-year-old male, history of laryngeal cancer. Shortness of breath. FINDINGS: There are procedural related changes in the left upper lobe. There is a 4 mm left upper lobe pulmonary nodule on axial image 27 which is unchanged. There is no new or enlarging pulmonary nodule. There is no focal airspace consolidation. There is no pneumothorax. There is no pleural effusion. The central airways are patent. There are postoperative changes at the level of the larynx. The heart is not enlarged. There is no pericardial effusion. There is a right superior mediastinal left adnexal image 19 measuring 10 mm in short axis. This previously measured 13 mm in short axis on July 23, 2021. There are multiple additional paratracheal lymph nodes which are subcentimeter in short axis and largely similar to the recent comparison CT chest exam. There is a 7 mm short axis left axillary lymph node previously measuring 10 mm in short axis. The gallbladder surgically absent. There is a low-attenuation right renal lesion on axial image 136 measuring 1.6 cm in size with internal attenuation consistent with a benign cyst. There are mild atherosclerotic calcifications. There are mild disc degenerative changes of the spine. There is no identified bone lesion concerning for a bone metastasis. There are chronic appearing rib deformities. There is no identified acute bony abnormality. IMPRESSION: CT CHEST. 1. Redemonstrated postoperative changes at the level of the larynx. 2. Abnormally enlarged right superior mediastinal lymph node measures mildly reduced in size since prior CT chest on July 23, 2021. Previously noted left axillary lymph node also measures mildly reduced in size. There are additional subcentimeter short axis peritracheal lymph nodes which are largely similar. This could reflect a partial treatment response and sites of metastatic john disease. 3. Unchanged 4 mm left upper lobe pulmonary nodule. No new or enlarging pulmonary nodule. Dictated by: Dictated on workstation # [id number]
== END ==
LOC: RAD 12:30
PROVIDERS: ATTEND Nurse Practitioner Family
DX: R91.8 Other nonspecific abnormal finding of lung field (principal); Z85.21 Personal history of malignant neoplasm of larynx
CPT/HCPCS: 71260

== ENCOUNTER 2021-10-02 05:30 | Outpatient (CLI) | payer MEDICARE ==
[~2021-10-02] VITALS: Ht 175.3 cm; Wt 90.9 kg
[~2021-10-02 05:30] MED LIST changes: -CATHETER FLUSH 10 ML SYR IV PRN; -IOHEXOL 350 MG/ML 100 ML (OMNIPAQUE 350) VIAL IV ONE; -NS 100 ML (IVPB) BAG IV ONE
[2021-10-03] MEDS ORDERED: NLX.4V IJ (15:19)
[2021-10-03] MEDS ORDERED: MUPI15CR11 TP (15:19)
[2021-10-04] MEDS ORDERED: DAPA1TAB7 PO (10:13)
[2021-10-04] MEDS ORDERED: LOSA25TA41 PO (10:13)
== END 2021-10-04 10:38 | disposition home or self-care (01) ==
LOC: PREOP 05:30
PROVIDERS: ATTEND Orthopaedic Surgery
DX: Z01.818 Encounter for other preprocedural examination (principal)

== ENCOUNTER 2021-10-09 07:50 | Day surgery (SDC) | payer MEDICARE ==
--- NOTE | 2021-10-02 07:45 | HISTORY AND PHYSICAL ---
DATE OF SERVICE: ADMISSION HISTORY AND PHYSICAL DATE OF ADMISSION: 10/09/2021. This will be for outpatient surgery on 10/09/2021 for right knee arthroscopy. HISTORY OF PRESENT ILLNESS: The patient is a 56-year-old gentleman with a previous ACL reconstruction of his right knee with complaints of right knee pain, catching, locking and underwent MRI, which reveals medial and lateral meniscus tears as well as chondromalacia. The patient tried rest, activity modifications, anti-inflammatories without relief. Due to functional impairment and failure to improve with conservative measures, the patient has elected to proceed with surgical intervention. REVIEW OF SYSTEMS: No chest pain, no shortness of breath, and no dysuria. PAST MEDICAL HISTORY: Type 2 diabetes, neuropathy, lung cancer, hyperlipidemia, depression, anxiety, reflux, migraines, BPH, chronic pain, peptic ulcer disease, pancreatitis, laryngeal cancer, tracheostomy dependent, hypothyroidism, sleep apnea, and coronary artery disease. PAST SURGICAL HISTORY: Lung cancer, cholecystectomy, appendectomy tracheotomy, ACL, sinus, bilateral carpal tunnels left knee ORIF, left knee arthroscopy, right ankle ORIF, right hip ORIF, and laryngectomy. SOCIAL HISTORY: The patient denies alcohol and tobacco use currently. PRIMARY CARE PROVIDER: [facility]. FAMILY HISTORY: Significant for diabetes, hypertension, and stroke. MEDICATIONS: Crestor, metformin, diclofenac, doxycycline, aripiprazole, gabapentin, pantoprazole, topiramate, fenofibrate, and insulin. ALLERGIES: ZOFRAN, PENICILLIN, MORPHINE, LATEX, and STATINS. PHYSICAL EXAMINATION: GENERAL: The patient is a well-developed, well-nourished, in no acute distress. HEENT: Normocephalic and atraumatic. Pupils are equal, round, and reactive lateral. Oropharynx is clear. NECK: Supple, with no lymphadenopathy. LUNGS: Clear to auscultation bilaterally. HEART: Regular rate and rhythm. ABDOMEN: Soft, nontender, and nondistended. EXTREMITIES: The right knee demonstrates moderate effusion. He has a trace Judith, trace anterior drawer, negative pivot shift, no varus and valgus laxity. He is tender along his medial and lateral joint lines and has pain medially and laterally with Cl's. Range of motion is 01//125. IMPRESSION: Right knee medial and lateral meniscus tears with associated chondromalacia. PLAN: Right knee arthroscopy with partial medial and lateral meniscectomies, chondroplasty. The risks, benefits, options, ramifications, and recovery were discussed at length with the patient. He understands and wishes to proceed. Job ID: [id number] DocumentID: [id number] Dictated Date: 09/24/2021 10:10:22 Claim Rep Date: 09/24/2021 10:31:03 Dictated By: ROSALBA HANSON MD
[~2021-10-09] VITALS: Ht 175.3 cm; Wt 90.9 kg
[2021-10-09] VITALS (10 sets, daily range): BP systolic 81–124; BP diastolic 55–85
[~2021-10-09 07:50] MED LIST changes: +DAPA1TAB7 PO; +HYDROcodone/APAP 7.5 MG/325 MG (LORTAB, LORCET PLUS) TABLET PO PRN; +LOSA25TA41 PO; +MUPI15CR11 TP; +NLX.4V IJ
[2021-10-09] MEDS ORDERED: CLINDAMYCIN 600 MG/50 ML IVPB 50 ML IV ONE (08:15)
[2021-10-09] MEDS ORDERED: LIDOCAINE PF 2% 5 ML (XYLOCAINE) VIAL ONE (08:19)
[2021-10-09] MEDS ORDERED: ONDANSETRON 4 MG/2 ML (SDV) Z0FRAN ONE (08:19)
[2021-10-09] MEDS ORDERED: proPOfol 200 MG/20 ML (DIPRIVAN) VIAL IV ONE (08:19)
[2021-10-09] MEDS ORDERED: MIDAZOLAM 2 MG/2 ML (VERSED) VIAL ONE (08:19)
[2021-10-09] MEDS ORDERED: fentaNYL INJ 100 MCG/2 ML AMP ONE (08:19)
[2021-10-09] MEDS ORDERED: SEVOFLURANE (ULTANE) 15 ML INHAL SOLN ONE (08:19)
[2021-10-09] MEDS ORDERED: BUPIVACAINE 0.25% 10 ML (SENSORCAINE) VIAL ONE (08:40)
[2021-10-09] MEDS ORDERED: morphine PF (DURAMORPH) 10 MG/10 ML AMP ONE (08:40)
[2021-10-09] MEDS: LACTATED RINGERS 1,000 ML IV PRN ×2 (08:50→09:45)
--- NOTE | 2021-10-09 08:51 | Progress Note-Pre Operative ---
Pre-Operative Progress Note H&P Reviewed The H&P was reviewed, patient examined and no changes noted. Date Seen by Provider: Oct 09, 2021 Time Seen by Provider: 08:43 Date H&P Reviewed: Oct 09, 2021 Time H&P Reviewed: 07:11 Pre-Operative Diagnosis: right medial and lateral meniscus tears and chondromalacia ROSALBA HANSON MD Oct 09, 2021 08:51
--- NOTE | 2021-10-09 08:53 | Progress Note-Post Operative ---
Post-Operative Progess Note Surgeon (s)/Brake Repair Mechanic (s) Surgeon ROSALBA HANSON MD Brake Repair Mechanic: Josh Vega Pre-Operative Diagnosis right medial and lateral meniscus tears and chondromalacia Post-Operative Diagnosis right lateral meniscus tear and chondromalacia of the trochlea, medial femoral condyle and lateral tibia plateau Procedure & Operative Findings Date of Procedure 10/09/21 Procedure Performed/Findings right knee arthroscopic partial lateral meniscectomy and chondroplasty of the medial femoral condyle, lateral tibia plateau and trochlea Anesthesia Type GETA Estimated Blood Loss Estimated blood loss (mL): minimal Specimens/Packing Specimens Removed none Packing: none ROSALBA HANSON MD Oct 09, 2021 08:53
[2021-10-09] MEDS ORDERED: GLYCOPYRROLATE 0.2 MG/ML (ROBINUL) 2 ML VIAL ONE (09:03)
[2021-10-09] MEDS ORDERED: fentaNYL INJ 100 MCG/2 ML AMP IVP ONE (09:45)
[2021-10-09] MEDS ORDERED: PROMETHAZINE INJ 25 MG/ML (PHENERGAN) AMP IVP ONE (09:45)
--- NOTE | 2021-10-09 14:31 | OPERATIVE REPORT ---
DATE OF SERVICE: 10/09/2021 PREOPERATIVE DIAGNOSES: 1. Right knee medial meniscus tear. 2. Right knee lateral meniscus tear. 3. Right knee chondromalacia of the medial femoral condyle. POSTOPERATIVE DIAGNOSES: 1. Right knee lateral meniscus tear. 2. Right knee chondromalacia of the medial femoral condyle. 3. Right knee chondromalacia of lateral tibial plateau. 4. Right knee chondromalacia of the trochlea. PROCEDURES: 1. Right knee arthroscopic partial lateral meniscectomy. 2. Right knee arthroscopic chondroplasty of the medial femoral condyle. 3. Right knee arthroscopic chondroplasty of the lateral tibial plateau. 4. Right knee arthroscopic chondroplasty of the trochlea. SURGEON: Adán Hanson MD ACCOUNTANT CERTIFIED PUBLIC: Josh Vega, who assisted throughout the procedure and closed the incisions. ANESTHESIA: General endotracheal by Robinson Pierson CRNA. TOURNIQUET TIME: Not applicable. ESTIMATED BLOOD LOSS: Minimal. DRAINS: None. COMPLICATIONS: None. POSTOPERATIVE PLAN: Routine arthroscopy protocol. The patient was transferred to the recovery room awake and in stable condition. STATEMENT OF MEDICAL NECESSITY: The patient is a 56-year-old gentleman who previously underwent right ACL reconstruction with complaints of right knee pain, catching, locking and swelling. He is tender along his medial and lateral joint lines. Radiographs revealed some mild medial and patellofemoral joint space narrowing. He tried rest, activity modifications and anti-inflammatories. Due to functional impairment and mechanical symptoms, the patient elected to proceed with surgical intervention. Examination under anesthesia revealed range of motion of 0/0/130 with negative Judith, negative anterior drawer, negative posterior drawer. No varus valgus laxity and a negative pivot shift. Arthroscopic findings, the patella demonstrated grade I chondral softening with no unstable chondral flaps. The trochlea demonstrated grade III chondral flap centrally in a 4 x 10 mm area. The medial and lateral gutters were clear. The ACL graft demonstrated fraying at the base, but was intact. The PCL was intact. The lateral compartment demonstrated a tear of the posterior horn and body of the lateral meniscus around approximately 1/3 of the posterior horn and body. In addition, there were grade II chondral flaps of the central portion of the lateral tibial plateau. The medial compartment demonstrated grade IV chondral flap of central portion of femoral condyle in a 10 x 15 area. No meniscal pathology was noted medially. DESCRIPTION OF PROCEDURE: After risks and benefits of the procedure were discussed and questions were answered, an informed consent was signed and placed on chart, the operative site was confirmed in the preoperative holding area, initialed by the surgeon. The patient was then transferred to the operating room and after adequate levels of general endotracheal anesthetic were obtained, a timeout was called, confirming the operative site. Examination under anesthesia was performed with above findings noted. The right lower extremity was prepped and draped in the usual sterile fashion. The knee joint was injected with 60 mL of fluid and standard inferolateral portal, placed with arthroscope. Under direct visualization, inferior medial portal was created, the menisci and cruciates were carefully probed with the above findings noted. The unstable chondral flaps in the trochlea were debrided with shaver back to a stable edge. Scope was redirected into the medial compartment and the unstable chondral flaps of the medial femoral condyle were debrided with a shaver back to a stable edge. Scope was redirected into the lateral compartment where the unstable chondral flaps in lateral tibial plateau were debrided with a shaver back to a stable edge and the posterior horn and body of the lateral meniscus were debrided with a shaver and biter back to a stable edge. This was carefully probed with no further tearing or instability noted. The knee was copiously irrigated. Port sites were closed with 4-0 nylon in aseptic fashion. Knee was injected with Duramorph. Port sites were infiltrated with plain Marcaine and soft dressing was applied. The patient was transferred to the recovery room awake and in stable condition. Job ID: [id number] DocumentID: [id number] Dictated Date: 10/09/2021 09:36:05 Shirt Trimmer Date: 10/09/2021 14:30:25 Dictated By: ADÁN HANSON MD
== END 2021-10-09 11:35 | disposition home or self-care (01) ==
LOC: SDC 07:50
PROVIDERS: ATTEND Orthopaedic Surgery
DX: S83.281A Other tear of lateral meniscus, current injury, right knee, initial encounter (principal); S83.241A Other tear of medial meniscus, current injury, right knee, initial encounter; M94.261 Chondromalacia, right knee
CPT/HCPCS: 82947; 87081

== ENCOUNTER 2021-11-01 20:12 | Emergency (ER) | payer MEDICARE ==
[~2021-11-01 20:12] MED LIST changes: -HYDROcodone/APAP 7.5 MG/325 MG (LORTAB, LORCET PLUS) TABLET PO PRN
--- NOTE | 2021-11-01 20:25 | ED EENT ---
History of Present Illness General Stated Complaint: SWELLING IN THE THROAT AND NECK Source: patient, family Exam Limitations: no limitations History of Present Illness Date Seen by Provider: Nov 01, 2021 Time Seen by Provider: 20:21 Initial Comments To ER by private vehicle accompanied by his with reports of swelling to the left side of his neck and some irritation within the tissues of the tracheostomy lumen. No fevers or chills. Symptoms present for about 3 days. History of neck cellulitis versus lymphedema. History of laryngeal cancer requiring laryngectomy and tracheostomy. He denies any fevers or chills or pain. Timing/Duration: other Severity: moderate Prearrival Treatment: no prearrival treatment Associated Symptoms: denies symptoms Allergies and Home Medications Allergies Coded Allergies: latex (Verified Allergy, Intermediate, RASH, 10/04/21) Penicillins (Unverified Allergy, Unknown, RASH, 10/04/21) Bllvycm-RSJ-SsI Reductase Inhibitor (Verified Allergy, Unknown, 10/03/21) ondansetron (Unverified Allergy, Unknown, RASH, 10/04/21) morphine (Verified Adverse Reaction, Unknown, HEADACHE, pt has rec Lortab in the past, 10/09/21) Patient Home Medication List Home Medication List Reviewed: Yes Aripiprazole (Aripiprazole) 5 Mg Tablet, 5 MG PO HS, (Reported) Entered as Reported by: NICK LAY on 07/24/21 1118 Aspirin (Aspirin EC) 81 Mg Tablet., 81 MG PO DAILY, (Reported) Entered as Reported by: NICK LAY on 11/02/19 1417 Cetirizine HCl (Zyrtec) 10 Mg Tablet, 10 MG PO HS, (Reported) Entered as Reported by: NICK LAY on 11/02/19 1417 Clindamycin HCl (Clindamycin HCl) 300 Mg Capsule, 300 MG PO TID Prescribed by: SELENA AVENDANO on 11/01/212049 Dapagliflozin/Metformin HCl (Xigduo Xr 2.5 mg-1,000 mg Tab) Unknown Strength Tab.bp.24h, Unknown Dose PO, (Reported) Entered as Reported by: TONEY FARFAN on 10/04/21 1013 Diclofenac Sodium (Diclofenac Sodium) 75 Mg Tablet., 75 MG PO BID, (Reported) Entered as Reported by: ELENA AVILA on 12/17/20 1432 Doxycycline Hyclate (Doxycycline Hyclate) 100 Mg Tablet, 100 MG PO BID Prescribed by: JERRY JOHNSON on 07/25/21 0928 Duloxetine HCl (Duloxetine HCl) 60 Mg Capsule.dr, 60 MG PO BID, (Reported) Entered as Reported by: LINH MEDINA on 12/01/20 1110 Fenofibrate (Fenofibrate) 160 Mg Tablet, 160 MG PO DAILY, (Reported) Entered as Reported by: ELENA AVILA on 12/17/20 143 Gabapentin (Gabapentin) 600 Mg Tablet, 1,200 MG PO DAILY, (Reported) Entered as Reported by: ELENA AVILA on 12/17/20 143 Gabapentin (Gabapentin) 600 Mg Tablet, 1,800 MG PO HS, (Reported) Entered as Reported by: NICK LAY on 07/24/21 111 Insulin Aspart (Novolog) 100 Unit/1 Ml Susp, 4 UNIT SQ AC, (Reported) Entered as Reported by: ELENA AVILA on 12/17/20 143 Insulin Detemir (Levemir Flextouch) 100 Unit/1 Ml Insuln.pen, 20 UNIT SQ BID, (Reported) Entered as Reported by: ELENA AVILA on 12/17/20 143 Ipratropium/Albuterol Sulfate (Iprat-Albut 0.5-3(2.5) mg/3 ml) 3 Ml Ampul.neb, 3 ML IH Q4H PRN for SHORTNESS OF BREATH, (Reported) Entered as Reported by: ELENA AVILA on 12/17/20 143 Levothyroxine Sodium (Levothyroxine Sodium) 125 Mcg Tablet, 125 MCG PO DAILY, (Reported) Entered as Reported by: LINH MEDINA on 12/01/20 1110 Losartan Potassium (Losartan Potassium) 25 Mg Tablet, 25 MG PO DAILY, (Reported) Entered as Reported by: TONEY FARFAN on 10/04/21 1013 Mupirocin Calcium (Mupirocin) 2 % Cream..g., 15 GM TP UD, (Reported) Entered as Reported by: TONEY FARFAN on 10/03/21 1519 Naloxone HCl (Naloxone HCl) 0.4 Mg/Ml Soln, 0.4 MG IJ UD, (Reported) Entered as Reported by: TONEY FARFAN on 10/03/21 1519 Pantoprazole Sodium (Pantoprazole Sodium) 40 Mg Tablet.dr 40 MG PO BID, (Reported) Entered as Reported by: ELENA AVILA on 12/17/20 143 Rosuvastatin Calcium (Rosuvastatin Calcium) 10 Mg Tablet, 10 MG PO DAILY, (Reported) Entered as Reported by: ELENA AIVLA on 12/17/20 143 Sumatriptan Succinate (Sumatriptan Succinate) 50 Mg Tablet, 50 MG PO UD PRN for MIGRAINE, (Reported) Entered as Reported by: ELENA AVILA on 12/17/20 143 Topiramate (Topiramate) 100 Mg Tablet, 100 MG PO BID, (Reported) Entered as Reported by: ELENA AVILA on 12/17/20 143 Review of Systems Review of Systems Constitutional: see HPI Eyes: No Symptoms Reported Ears: No Symptoms Reported Nose: no symptoms reported Mouth: no symptoms reported Throat: see HPI, swelling Respiratory: no symptoms reported Cardiovascular: no symptoms reported Musculoskeletal: no symptoms reported Skin: no symptoms reported Past Nwctwrl-Tvrsuv-Kmtjqi Hx Immunizations Up To Date Tetanus Booster (TDap): Unknown First/Initial COVID19 Vaccinat: 07/16/2020 Second COVID19 Vaccination Scot: 08/13/2020 Third COVID19 Vaccination Date: 04/2021 Seasonal Allergies Seasonal Allergies: Yes Past Medical History Surgery/Hospitalization HX: SINUS SURGERY X 2RIGHT KNEE ACL REPAIRBILATERAL CARPAL TUNNEL SURGERYLEFT UPPER LOBECTOMYLARYNGECTOMY AND PERMANENT TRACHEOSTOMYLEFT SHOULDER SURGERY 12/2016, 04/2017, 12/2017LEFT CARPAL TUNNEL 12/2017CARDIAC CATH 10/[address] CONTRERASUSION:1. Mild to moderate stenosis up to 40 percent stenosis in the midrightcoronary artery otherwise mild disease nonobstructive disease2. Normal left ventricular end-diastolic pressureAPPENDECTOMYCHOLECYSTECTOMY Surgeries: Yes (Sinus surgery X2, ACL RIGHT KNEE, BILAT CTS L UPPER LOBECTOMY, LARYNGECTOMY) Appendectomy, Cardiac, Gallbladder, Lobectomy, Orthopedic, Thyroidectomy, Tracheostomy Respiratory: Yes (Pulmonary nodules, HX LUNG CA--PERMANENT TRACHEOSTOMY FOR LARYNGEAL CA, ) Asthma, COPD Currently Using CPAP: No Cardiac: Yes (CARDIAC CATH 10/2019--NO INTERVENTION, BP MEDS TO PROTECT LIVER) High Cholesterol Neurological: Yes Headaches /Migraines, Neuropathy Reproductive Disorders: No Sexually Transmitted Disease: No HIV/AIDS: No Genitourinary: No Benign Prostatic Hyperpl, Renal Failure Gastrointestinal: Yes Gastroesophageal Reflux, Chronic Constipation, Polyps, Gall Bladder Disease Musculoskeletal: Yes Degenerate Disk Disease, Arthritis, Chronic Back Pain Endocrine: Yes Diabetes, Non-Insulin dep HEENT: Yes (LARYNGEAL CANCER-S/P TRACHEOSTOMY) Loss of Vision: Bilateral Hearing Impairment: Denies Cancer: Yes (THROAT) Lung Did You Recieve Any Treatments: Yes What Type of Treatment Did You: Radiation, Surgical Intervention Psychosocial: Yes Anxiety, Depression Integumentary: No Blood Disorders: No Adverse Reaction/Blood Tranf: No (N/A) Family Medical History Diabetes, Hypertension Physical Exam Vital Signs Vital Signs - First Documented Height, Weight, BMI Height: 5'9.00" Weight: 182lbs. 0.0oz. 82.632990zs; 29.58 BMI Method:Stated General Appearance: WD/WN, no apparent distress Eyes: bilateral eye normal inspection, bilateral eye PERRL, bilateral eye EOMI Ears: bilateral ear auricle normal, bilateral ear canal normal, bilateral ear TM normal Neck: non-tender, full range of motion, other (Mild edema/erythema to the peristomal tissues of the neck that is superior on the lateral on the left side of the stoma itself. The tissues within the stoma look friable and states this is not normal for him. No fevers. He swallows his own secretions.) Respiratory: normal breath sounds, no respiratory distress, no accessory muscle use Neurologic/Psychiatric: alert, normal mood/affect, oriented x 3 Skin: normal color, warm/dry Progress/Results/Core Measures Results/Orders Lab Results Laboratory Tests Test 11/01/21 20:20 Range/Units White Blood Count 6.4 4.3-11.0 10^3/uL Red Blood Count 4.21 L 4.30-5.52 10^6/uL Hemoglobin 11.6 L 13.3-17.7 g/dL Hematocrit 36 L 40-54 % Mean Corpuscular Volume 86 80-99 fL Mean Corpuscular Hemoglobin 28 25-34 pg Mean Corpuscular Hemoglobin Concent 32 32-36 g/dL Red Cell Distribution Width 12.9 10.0-14.5 % Platelet Count 273 130-400 10^3/uL Mean Platelet Volume 10.3 9.0-12.2 fL Immature Granulocyte % (Auto) 0 % Neutrophils (%) (Auto) 55 42-75 % Lymphocytes (%) (Auto) 31 12-44 % Monocytes (%) (Auto) 7 0-12 % Eosinophils (%) (Auto) 7 0-10 % Basophils (%) (Auto) 1 0-10 % Neutrophils # (Auto) 3.5 1.8-7.8 10^3/uL Lymphocytes # (Auto) 2.0 1.0-4.0 10^3/uL Monocytes # (Auto) 0.4 0.0-1.0 10^3/uL Eosinophils # (Auto) 0.4 H 0.0-0.3 10^3/uL Basophils # (Auto) 0.1 0.0-0.1 10^3/uL Immature Granulocyte # (Auto) 0.0 0.0-0.1 10^3/uL Sodium Level 139 135-145 MMOL/L Potassium Level 4.4 3.6-5.0 MMOL/L Chloride Level 107 98-107 MMOL/L Carbon Dioxide Level 20 L 21-32 MMOL/L Anion Gap 12 5-14 MMOL/L Blood Urea Nitrogen 37 H 7-18 MG/DL Creatinine 1.66 H 0.60-1.30 MG/DL Estimat Glomerular Filtration Rate 48 BUN/Creatinine Ratio 22 Glucose Level 229 H 70-105 MG/DL Calcium Level 9.0 8.5-10.1 MG/DL Corrected Calcium 8.7 8.5-10.1 MG/DL Total Bilirubin 0.2 0.1-1.0 MG/DL Aspartate Amino Transf (AST/SGOT) 15 5-34 U/L Alanine Aminotransferase (ALT/SGPT) 18 0-55 U/L Alkaline Phosphatase 58 40-136 U/L Total Protein 7.4 6.4-8.2 GM/DL Albumin 4.4 3.2-4.5 GM/DL My Orders Orders - SELENA AVENDANO PLATE GRINDER Cbc With Automated Diff (11/01/21 20:18) Comprehensive Metabolic Panel (11/01/21 20:18) Ed Iv/Invasive Line Start (11/01/21 20:18) Ct Neck (Soft Tissue) W (11/01/21 20:18) Chest 1 View, Ap/Pa Only (11/01/21 20:18) Albuterol/Ipra Inhalation Soln (Duoneb I (11/01/21 20:30) Svn Small Volume Nebulizer (11/01/21 20:21) Iohexol Injection (Omnipaque 350 Mg/Ml 1 (11/01/21 20:30) Received Contrast (Hold Metformin- Contr (11/01/21 20:30) Ns (Ivpb) (Sodium Chloride 0.9% Ivpb Bag (11/01/21 20:30) Sodium Chloride Flush (Catheter Flush Sy (11/01/21 20:30) Clindamycin 900 Mg/50 Ml Ivpb (Cleocin P (11/01/21 20:45) Medications Given in ED Current Medications Medications Dose Ordered Sig/Evelyn Route Start Time Stop Time Status Last Admin Dose Admin Albuterol/ Ipratropium 3 ml ONCE ONCE INH 11/01/21 20:30 11/01/21 20:31 DC 11/01/21 20:39 3 ML Iohexol 100 ml ONCE ONCE IV 11/01/21 20:30 11/01/21 20:31 DC 11/01/21 20:33 75 ML Sodium Chloride 10 ml NEEDED PRN IV 11/01/21 20:30 11/01/21 20:33 10 ML Sodium Chloride 100 ml ONCE ONCE IV 11/01/21 20:30 11/01/21 20:31 DC 11/01/21 20:33 80 ML Vital Signs/I&O 11/01/21 11/01/21 20:17 20:17 Temp 36.2 Pulse 81 Resp 20 B/P (MAP) 97/72 (80) Pulse Ox 94 O2 Delivery Room Air Room Air Departure Communication (Admissions) STEPH: ROGER CHANEY MED REC#: [id number] PT STATUS: REG ER : 1965 PHYSICIAN: SELENA AVENDANO APRN ADMIT DATE: 11/01/21/ER Signed Date of Exam:11/01/21 CT NECK (SOFT TISSUE) W PROCEDURE: CT neck soft tissue with contrast. TECHNIQUE: Multiple contiguous axial images were obtained through the neck after the administration of contrast. Auto Exposure Controls were utilized during the CT exam to meet ALARA standards for radiation dose reduction. INDICATION: Neck swelling. FINDINGS: The visualized intracranial structures are unremarkable. The sinuses and mastoid air cells are clear. The globes and intraorbital structures are unremarkable. The nasopharyngeal, oropharyngeal and hypopharyngeal tissues are symmetrical and without mass effect. The parotid and submandibular glands are normal in appearance. There are postsurgical changes compatible with previous laryngectomy. There is soft tissue swelling along the anterior aspect of the left neck which has increased in size since the prior examination; however, no discrete fluid collection is appreciated. The lung apices are clear. Major vascular structures of the neck enhance in a normal fashion. There are mild degenerative changes in the spine. The prevertebral soft tissues are within normal limits. IMPRESSION: Postsurgical changes of a laryngectomy with increased soft tissue swelling along the left neck; however, no discrete fluid collection appreciated to suggest abscess. There are a few mildly enlarged submental lymph nodes and cervical lymph nodes also unchanged. Recommend clinical correlation for cellulitis. Dictated by: Dictated on workstation # [id number] Dict: 11/01/212038 Trans: 11/01/212045 [facility] [id number] Interpreted by: CARMELITA HANEY MD Electronically signed by: CARMELITA HANEY MD 11/01/212045 Impression Primary Impression: Cellulitis of neck Disposition: 01 HOME, SELF-CARE Condition: Stable Departure-Patient Inst. Decision time for Depature: 20:49 [place] [facility] [place] Primary Care Physician LEILANI ROQUE (Family) Primary Care Physician Patient Instructions: Cellulitis (Skin Infection), Adult (DC) Add. Discharge Instructions: 1. Antibiotics as directed return to ER for any concerns follow-up with your doctor next week. Scripts Clindamycin HCl (Clindamycin HCl) 300 Mg Capsule 300 MG PO TID, #15 CAP Prov: SELENA AVENDANO PLATE GRINDER 11/01/21 SELENA AVENDANO PLATE GRINDER Nov 01, 2021 20:25
[2021-11-01 20:27] LABS: BASOPHILS # (AUTO) 0.1 10^3/uL (0.0-0.1); BASOPHILS % (AUTO) 1 % (0-10); EOSINOPHILS # (AUTO) 0.4 10^3/uL (0.0-0.3); EOSINOPHILS % (AUTO) 7 % (0-10); HEMATOCRIT 36 % (40-54); HEMOGLOBIN 11.6 g/dL (13.3-17.7); LYMPHOCYTES % (AUTO) 31 % (12-44); MEAN CORPUSCULAR HEMOGLOBIN 28 pg (25-34); MEAN CORPUSCULAR HGB CONC 32 g/dL (32-36); MEAN CORPUSCULAR VOLUME 86 fL (80-99); MEAN PLATELET VOLUME 10.3 fL (9.0-12.2); MONOCYTES # (AUTO) 0.4 10^3/uL (0.0-1.0); MONOCYTES % (AUTO) 7 % (0-12); NEUTROPHILS # (AUTO) 3.5 10^3/uL (1.8-7.8); NEUTROPHILS % (AUTO) 55 % (42-75); PLATELET COUNT 273 10^3/uL (130-400); WHITE BLOOD COUNT 6.4 10^3/uL (4.3-11.0)
[2021-11-01] MEDS ORDERED: IOHEXOL 350 MG/ML 100 ML (OMNIPAQUE 350) VIAL IV ONE (20:30)
[2021-11-01] MEDS ORDERED: NS 100 ML (IVPB) BAG IV ONE (20:30)
[2021-11-01] MEDS ORDERED: CATHETER FLUSH 10 ML SYR IV PRN (20:30)
[2021-11-01] MEDS ORDERED: RT-ALBUTEROL/IPRATROPIUM 3 ML (DUONEB) VIAL INH ONE (20:30)
[2021-11-01] MEDS ORDERED: HOLD METFORMIN - RECEIVED CONTRAST 20 ML VIAL IV SCH (20:30)
[2021-11-01 20:43] LABS: ALBUMIN 4.4 GM/DL (3.2-4.5); POTASSIUM 4.4 MMOL/L (3.6-5.0)
[2021-11-01] MEDS ORDERED: CLINDAMYCIN 900 MG/50 ML IVPB 50 ML IV ONE (20:45)
[2021-11-01 20:46] LABS: TOTAL PROTEIN 7.4 GM/DL (6.4-8.2)
[2021-11-01 20:47] LABS: BILIRUBIN,TOTAL 0.2 MG/DL (0.1-1.0)
--- NOTE | 2021-11-01 20:48 | Diagnostic Imaging Report ---
PROCEDURE: CT neck soft tissue with contrast. TECHNIQUE: Multiple contiguous axial images were obtained through the neck after the administration of contrast. Auto Exposure Controls were utilized during the CT exam to meet ALARA standards for radiation dose reduction. INDICATION: Neck swelling. FINDINGS: The visualized intracranial structures are unremarkable. The sinuses and mastoid air cells are clear. The globes and intraorbital structures are unremarkable. The nasopharyngeal, oropharyngeal and hypopharyngeal tissues are symmetrical and without mass effect. The parotid and submandibular glands are normal in appearance. There are postsurgical changes compatible with previous laryngectomy. There is soft tissue swelling along the anterior aspect of the left neck which has increased in size since the prior examination; however, no discrete fluid collection is appreciated. The lung apices are clear. Major vascular structures of the neck enhance in a normal fashion. There are mild degenerative changes in the spine. The prevertebral soft tissues are within normal limits. IMPRESSION: Postsurgical changes of a laryngectomy with increased soft tissue swelling along the left neck; however, no discrete fluid collection appreciated to suggest abscess. There are a few mildly enlarged submental lymph nodes and cervical lymph nodes also unchanged. Recommend clinical correlation for cellulitis. Dictated by: Dictated on workstation # [id number]
[2021-11-01 20:49] LABS: CREATININE SERUM 1.66 MG/DL (0.60-1.30)
[2021-11-01] MEDS ORDERED: CLIN-144 PO (20:50)
--- NOTE | 2021-11-01 20:51 | Diagnostic Imaging Report ---
INDICATION: Cough. COMPARISON: Prior examination from 07/23/2021. FINDINGS: Heart size is normal. There are patchy bibasilar infiltrates. There is no pleural effusion or pneumothorax. The mediastinum is unremarkable. IMPRESSION: Patchy bibasilar pulmonary infiltrates, otherwise unremarkable. Dictated by: Dictated on workstation # [id number]
[2021-11-01 21:27] VITALS: BP 96/59
== END 2021-11-01 21:27 | disposition home or self-care (01) ==
LOC: ER 20:12
DX: L03.221 Cellulitis of neck (principal); Z85.118 Personal history of other malignant neoplasm of bronchus and lung; Z85.21 Personal history of malignant neoplasm of larynx; Z90.89 Acquired absence of other organs; Z90.02 Acquired absence of larynx; Z93.0 Tracheostomy status
CPT/HCPCS: 36415; 70491; 71045; 80053; 85025

== ENCOUNTER 2021-11-05 09:02 | Emergency (ER) | payer MEDICARE ==
[~2021-11-05] VITALS: Ht 175 cm; Wt 83.0 kg
[~2021-11-05 09:02] MED LIST changes: +CLIN-144 PO
[2021-11-05 09:14] VITALS: BP 149/87
--- NOTE | 2021-11-05 09:42 | ED EENT ---
History of Present Illness General Chief Complaint: Oral/Throat Problems Stated Complaint: NECK,THROAT SWOLLEN Nursing Triage Note: WAS SEEN ON THURSDAY AND PUT ON AN ABX FOR CELLULITIS. WAS TOLD IF HE DID NOT GET BETTER TO COME BACK TO THE ER. PT FEELS LIKE HIS THROAT IS STILL SWOLLEN. HAS BEEN SEEN MULTIPLE TIMES FOR THIS ISSUE. Source: patient Exam Limitations: no limitations History of Present Illness Date Seen by Provider: Nov 05, 2021 Time Seen by Provider: 09:27 Initial Comments Patient to the ER by private conveyance with chief complaint that he has been on antibiotics for 2 days for cellulitis of the left neck. 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 He is not having any fever, chills, nausea, vo miting, difficulty swallowing. He says his ability to breathe is normal. He was put on clindamycin and felt like it was helping until this morning when he woke up and felt that it was more swollen and only has 5 tablets of clindamycin left. His ENT was in [place]. He has not followed up with them since the initial diagnosis of para-Tracheostomy cellulitis. He did not have anything that needed drained on CT. The patient did eat breakfast this morning but has not taken his morning insulin of NovoLog 10 units. Allergies and Home Medications Allergies Coded Allergies: latex (Verified Allergy, Intermediate, RASH, 10/04/21) Penicillins (Unverified Allergy, Unknown, RASH, 10/04/21) Havxjop-BDX-NrB Reductase Inhibitor (Verified Allergy, Unknown, 10/03/21) ondansetron (Unverified Allergy, Unknown, RASH, 10/04/21) morphine (Verified Adverse Reaction, Unknown, HEADACHE, pt has rec Lortab in the past, 10/09/21) Patient Home Medication List Home Medication List Reviewed: Yes Aripiprazole (Aripiprazole) 5 Mg Tablet, 5 MG PO HS, (Reported) Entered as Reported by: NICK LAY on 07/24/21 1118 Aspirin (Aspirin EC) 81 Mg Tablet.dr, 81 MG PO DAILY, (Reported) Entered as Reported by: NICK LAY on 11/02/19 1417 Cetirizine HCl (Zyrtec) 10 Mg Tablet, 10 MG PO HS, (Reported) Entered as Reported by: NICK LAY on 11/02/19 1417 Clindamycin HCl (Clindamycin HCl) 300 Mg Capsule, 300 MG PO TID Prescribed by: SELENA AVENDANO on 11/01/212049 Dapagliflozin/Metformin HCl (Xigduo Xr 2.5 mg-1,000 mg Tab) Unknown Strength Tab.bp.24h, Unknown Dose PO, (Reported) Entered as Reported by: TONEY FARFAN on 10/04/21 1013 Diclofenac Sodium (Diclofenac Sodium) 75 Mg Tablet.dr, 75 MG PO BID, (Reported) Entered as Reported by: ELENA AVILA on 12/17/20 1432 Doxycycline Hyclate (Doxycycline Hyclate) 100 Mg Tablet, 100 MG PO BID Prescribed by: JERRY JOHNSON on 07/25/21 0928 Duloxetine HCl (Duloxetine HCl) 60 Mg Capsule.dr, 60 MG PO BID, (Reported) Entered as Reported by: LINH MEDINA on 12/01/20 1110 Fenofibrate (Fenofibrate) 160 Mg Tablet, 160 MG PO DAILY, (Reported) Entered as Reported by: ELENA AVILA on 12/17/20 143 Gabapentin (Gabapentin) 600 Mg Tablet, 1,200 MG PO DAILY, (Reported) Entered as Reported by: ELENA AVILA on 12/17/20 143 Gabapentin (Gabapentin) 600 Mg Tablet, 1,800 MG PO HS, (Reported) Entered as Reported by: NICK LAY on 07/24/21 1118 Insulin Aspart (Novolog) 100 Unit/1 Ml Susp, 4 UNIT SQ AC, (Reported) Entered as Reported by: ELENA AVILA on 12/17/20 1432 Insulin Detemir (Levemir Flextouch) 100 Unit/1 Ml Insuln.pen, 20 UNIT SQ BID, (Reported) Entered as Reported by: ELENA AVILA on 12/17/20 1432 Ipratropium/Albuterol Sulfate (Iprat-Albut 0.5-3(2.5) mg/3 ml) 3 Ml Ampul.neb, 3 ML IH Q4H PRN for SHORTNESS OF BREATH, (Reported) Entered as Reported by: ELENA AVILA on 12/17/20 1432 Levothyroxine Sodium (Levothyroxine Sodium) 125 Mcg Tablet, 125 MCG PO DAILY, (Reported) Entered as Reported by: LINH MEDINA on 12/01/20 1110 Losartan Potassium (Losartan Potassium) 25 Mg Tablet, 25 MG PO DAILY, (Reported) Entered as Reported by: TONEY FARFAN on 10/04/21 1013 Mupirocin Calcium (Mupirocin) 2 % Cream..g., 15 GM TP UD, (Reported) Entered as Reported by: TONEY FARFAN on 10/03/21 1519 Naloxone HCl (Naloxone HCl) 0.4 Mg/Ml Soln, 0.4 MG IJ UD, (Reported) Entered as Reported by: TONEY FARFAN on 10/03/21 1519 Pantoprazole Sodium (Pantoprazole Sodium) 40 Mg Tablet.dr, 40 MG PO BID, (Reported) Entered as Reported by: ELENA AVILA on 12/17/20 1432 Rosuvastatin Calcium (Rosuvastatin Calcium) 10 Mg Tablet, 10 MG PO DAILY, (Reported) Entered as Reported by: ELENA AVILA on 12/17/20 1432 Sumatriptan Succinate (Sumatriptan Succinate) 50 Mg Tablet, 50 MG PO UD PRN for MIGRAINE, (Reported) Entered as Reported by: ELENA AVILA on 12/17/20 1432 Topiramate (Topiramate) 100 Mg Tablet, 100 MG PO BID, (Reported) Entered as Reported by: ELENA AVILA on 12/17/20 1432 Review of Systems Review of Systems Constitutional: No chills, No fever, No malaise Eyes: Denies Blindness, Denies Blurred Vision Ears: Denies Dizziness, Denies Pain Nose: denies clots, denies congestion Mouth: denies clots, denies loose teeth Throat: see HPI; denies pain; swelling; denies neck stiffness, denies hoarse Respiratory: No cough, No short of breath Cardiovascular: No chest pain, No palpitations Gastrointestinal: No abdominal pain, No nausea Musculoskeletal: No back pain, No joint pain; neck pain All Other Systems Reviewed Negative Unless Noted: Yes Past Ujjobhf-Cbxbtw-Gckeay Hx Patient Social History Tobacco Use?: No Use of E-Cig and/or Vaping dev: No Substance use?: No Immunizations Up To Date Tetanus Booster (TDap): Unknown First/Initial COVID19 Vaccinat: 07/16/2020 Second COVID19 Vaccination Scot: 08/13/2020 Third COVID19 Vaccination Date: 04/2021 Seasonal Allergies Seasonal Allergies: Yes Past Medical History Surgery/Hospitalization HX: SINUS SURGERY X 2RIGHT KNEE ACL REPAIRBILATERAL CARPAL TUNNEL SURGERYLEFT UPPER LOBECTOMYLARYNGECTOMY AND PERMANENT TRACHEOSTOMYLEFT SHOULDER SURGERY 12/2016, 04/2017, 12/2017LEFT CARPAL TUNNEL 12/2017CARDIAC CATH 10/[address] MANDELCONCLUSION:1. Mild to moderate stenosis up to 40 percent stenosis in the midrightcoronary artery otherwise mild disease nonobstructive disease2. Normal left ventricular end-diastolic pressureAPPENDECTOMYCHOLECYSTECTOMY Surgeries: Yes (Sinus surgery X2, ACL RIGHT KNEE, BILAT CTS L UPPER LOBECTOMY, LARYNGECTOMY) Appendectomy, Cardiac, Gallbladder, Lobectomy, Orthopedic, Thyroidectomy, Tracheostomy Respiratory: Yes (Pulmonary nodules, HX LUNG CA--PERMANENT TRACHEOSTOMY FOR LARYNGEAL CA, ) Asthma, COPD Currently Using CPAP: No Cardiac: Yes (CARDIAC CATH 10/2019--NO INTERVENTION, BP MEDS TO PROTECT LIVER) High Cholesterol Neurological: Yes Headaches /Migraines, Neuropathy Reproductive Disorders: No Sexually Transmitted Disease: No HIV/AIDS: No Genitourinary: No Benign Prostatic Hyperpl, Renal Failure Gastrointestinal: Yes Gastroesophageal Reflux, Chronic Constipation, Polyps, Gall Bladder Disease Musculoskeletal: Yes Degenerate Disk Disease, Arthritis, Chronic Back Pain Endocrine: Yes Diabetes, Non-Insulin dep HEENT: Yes (LARYNGEAL CANCER-S/P TRACHEOSTOMY) Loss of Vision: Bilateral Hearing Impairment: Denies Cancer: Yes (THROAT) Lung Did You Recieve Any Treatments: Yes What Type of Treatment Did You: Radiation, Surgical Intervention Psychosocial: Yes Anxiety, Depression Integumentary: No Blood Disorders: No Adverse Reaction/Blood Tranf: No (N/A) Family Medical History Diabetes, Hypertension Physical Exam Vital Signs Vital Signs - First Documented 11/05/21 09:14 Temp 36.3 Pulse 81 Resp 16 B/P (MAP) 149/87 (107) Pulse Ox 94 O2 Delivery Room Air Height, Weight, BMI Height: 5'9.00" Weight: 182lbs. 0.0oz. 82.385643zt; 27.00 BMI Method:Stated General Appearance: WD/WN, no apparent distress Eyes: bilateral eye normal inspection, bilateral eye PERRL, bilateral eye EOMI Ears: bilateral ear auricle normal, bilateral ear canal normal Nose: normal inspection; No active bleeding Mouth/Throat: other (White lacy plaques on the tongue) Neck: full range of motion, supple, normal inspection Cardiovascular: normal peripheral pulses, regular rate, rhythm Respiratory: lungs clear, normal breath sounds, no respiratory distress, no accessory muscle use Skin: normal color, warm/dry Progress/Results/Core Measures Results/Orders Lab Results Laboratory Tests Test 11/05/21 09:45 Range/Units White Blood Count 5.3 4.3-11.0 10^3/uL Red Blood Count 4.27 L 4.30-5.52 10^6/uL Hemoglobin 11.6 L 13.3-17.7 g/dL Hematocrit 37 L 40-54 % Mean Corpuscular Volume 87 80-99 fL Mean Corpuscular Hemoglobin 27 25-34 pg Mean Corpuscular Hemoglobin Concent 31 L 32-36 g/dL Red Cell Distribution Width 13.2 10.0-14.5 % Platelet Count 272 130-400 10^3/uL Mean Platelet Volume 10.4 9.0-12.2 fL Immature Granulocyte % (Auto) 0 % Neutrophils (%) (Auto) 58 42-75 % Lymphocytes (%) (Auto) 28 12-44 % Monocytes (%) (Auto) 7 0-12 % Eosinophils (%) (Auto) 6 0-10 % Basophils (%) (Auto) 1 0-10 % Neutrophils # (Auto) 3.1 1.8-7.8 10^3/uL Lymphocytes # (Auto) 1.5 1.0-4.0 10^3/uL Monocytes # (Auto) 0.4 0.0-1.0 10^3/uL Eosinophils # (Auto) 0.3 0.0-0.3 10^3/uL Basophils # (Auto) 0.0 0.0-0.1 10^3/uL Immature Granulocyte # (Auto) 0.0 0.0-0.1 10^3/uL Sodium Level 137 135-145 MMOL/L Potassium Level 5.1 H 3.6-5.0 MMOL/L Chloride Level 108 H 98-107 MMOL/L Carbon Dioxide Level 20 L 21-32 MMOL/L Anion Gap 9 5-14 MMOL/L Blood Urea Nitrogen 42 H 7-18 MG/DL Creatinine 1.73 H 0.60-1.30 MG/DL Estimat Glomerular Filtration Rate 45 BUN/Creatinine Ratio 24 Glucose Level 431 *H 70-105 MG/DL Calcium Level 8.5 8.5-10.1 MG/DL C-Reactive Protein High Sensitivity 0.17 0.00-0.50 MG/DL My Orders Orders - CIPRIANO SMITH Ct Neck (Soft Tissue) W (11/05/21 09:35) Ed Iv/Invasive Line Start (11/05/21 09:35) Ns Iv 1000 Ml (Sodium Chloride 0.9%) (11/05/21 09:45) Cbc With Automated Diff (11/05/21 09:35) Basic Metabolic Panel (11/05/21 09:35) Hs C Reactive Protein (11/05/21 09:35) Iohexol Injection (Omnipaque 350 Mg/Ml 1 (11/05/21 09:45) Received Contrast (Hold Metformin- Contr (11/05/21 09:45) Sodium Chloride Flush (Catheter Flush Sy (11/05/21 09:45) Ns (Ivpb) (Sodium Chloride 0.9% Ivpb Bag (11/05/21 09:45) Insulin Aspart (Novolog) (Novolog (Charg (11/05/21 10:30) Medications Given in ED Current Medications Medications Dose Ordered Sig/Evelyn Route Start Time Stop Time Status Last Admin Dose Admin Insulin Aspart 10 unit ONCE ONCE SC 11/05/21 10:30 11/05/21 10:31 DC 11/05/21 10:49 10 UNIT Iohexol 75 ml ONCE ONCE IV 11/05/21 09:45 11/05/21 09:46 DC 11/05/21 10:44 75 ML Sodium Chloride 10 ml NEEDED PRN IV 11/05/21 09:45 11/05/21 10:45 10 ML Sodium Chloride 100 ml ONCE ONCE IV 11/05/21 09:45 11/05/21 09:46 DC 11/05/21 10:45 80 ML Vital Signs/I&O 11/05/21 09:14 Temp 36.3 Pulse 81 Resp 16 B/P (MAP) 149/87 (107) Pulse Ox 94 O2 Delivery Room Air Blood Pressure Mean: 107 Progress Progress Note #1: Time: 09:41 Progress Note There is no induration, erythema or fluctuance palpable on the left side of the neck. The muscle belly is prominent. He felt like it was getting better until today. I suspect he may have developed a thrush related to the clindamycin. We can put him on nystatin swish and swallow. We will check some basic labs and get a CT to rule out the possibility of abscess formation. Progress Note #2: Time: 10:28 Progress Note Plan to give him 10 units of NovoLog. Instructed him that it would be difficult to treat an infection if his blood glucose remains above 200. Progress Note #3: Time: 11:19 Progress Note The patient's labs are fine, vitals are aseptic and his CT does not reveal any abscess. He can finish out the clindamycin and start nystatin swish and swallow. Follow-up in 1 week with primary care for reexamination. Diagnostic Imaging Diagonstic Imaging: CT Plain Films/CT/US/NM/MRI: other (Neck) Comments [facility], [place] NAME: [facility] REC#: [id number] PT STATUS: REG ER : 1965 PHYSICIAN: CIPRIANO SMITH MD ADMIT DATE: 11/05/21/ER Draft Date of Exam:11/05/21 CT NECK (SOFT TISSUE) W PROCEDURE: CT neck soft tissue with contrast. TECHNIQUE: Multiple contiguous axial images were obtained through the neck after the administration of contrast. Auto Exposure Controls were utilized during the CT exam to meet ALARA standards for radiation dose reduction. INDICATION: Head and neck cancer. Surveillance imaging. COMPARISON: 07/23/2021 and 11/01/2021 FINDINGS: Surgical changes from total laryngectomy with stoma formation are again noted. No abnormal soft tissue mass or thickening has developed around the laryngectomy site. The subcutaneous reticulations and soft tissue swelling involving the left submandibular region and lower neck are unchanged and most indicative of posttreatment related swelling. No new enlarged cervical lymph nodes. Subcentimeter lymph nodes located in the submental position is stable from multiple prior examinations. The 1 cm lymph node in the superior mediastinum located in the right paratracheal position is also stable from multiple prior examinations. No concerning focal osseous lesion has developed. No concerning abnormality in the lung apices. Major neck arteries are widely patent. Visualized aspects of brain show no hydrocephalus or midline shift. Paranasal sinuses are clear. IMPRESSION: 1. Stable postoperative changes of total laryngectomy with stomal formation. There are no features of local recurrence. 2. Posttreatment related subcutaneous reticulations within the left mathew-aspect of the neck are similar. No fluid collection has developed that would suggest abscess. 3. No new lymphadenopathy. Mildly enlarged superior mediastinal lymph node has been stable for multiple prior examinations. Dictated on workstation # [id number] Dict: 11/05/21 1052 Trans: 11/05/21 1106 [id number] Interpreted by: BLAKE TANNER MD Electronically signed by: Reviewed: Reviewed by Me Departure Impression Primary Impression: Thrush of mouth and esophagus Disposition: 01 HOME, SELF-CARE Condition: Stable Departure-Patient Inst. Decision time for Depature: 11:20 Ref[facility]: [facility] [place] Primary Care Physician LEILANI ROQUE (Family) Primary Care Physician Patient Instructions: Thrush (DC) Add. Discharge Instructions: Finish out your antibiotics. The infection seems to be taken care of. Unfortunately you have developed thrush which is a yeast infection which takes advantage of being on antibiotics. It can cause pain, swelling and irritation when swallowing. Make sure you are drinking plenty of fluids and start the nystatin. Nystatin 5 mL swish and swallow 4 times a day. Return to the ER for inability to swallow or breathe. All discharge instructions reviewed with patient and/or family. Voiced understanding. Scripts Nystatin (Nystatin) 100,000 Unit/Ml Oral.susp [id number] UNIT PO QID for 7 Days, #160 ML 0 Refills Prov: CIPRIANO SMITH 11/05/21 CIPRIANO SMITH Nov 05, 2021 09:42
[2021-11-05] MEDS ORDERED: NS IV 1000 ML 1,000 ML IV SCH (09:45)
[2021-11-05] MEDS ORDERED: NS 100 ML (IVPB) BAG IV ONE (09:45)
[2021-11-05] MEDS ORDERED: IOHEXOL 350 MG/ML 100 ML (OMNIPAQUE 350) VIAL IV ONE (09:45)
[2021-11-05] MEDS ORDERED: HOLD METFORMIN - RECEIVED CONTRAST 20 ML VIAL IV SCH (09:45)
[2021-11-05] MEDS ORDERED: CATHETER FLUSH 10 ML SYR IV PRN (09:45)
[2021-11-05 09:55] LABS: BASOPHILS % (AUTO) 1 % (0-10); EOSINOPHILS # (AUTO) 0.3 10^3/uL (0.0-0.3); EOSINOPHILS % (AUTO) 6 % (0-10); HEMATOCRIT 37 % (40-54); HEMOGLOBIN 11.6 g/dL (13.3-17.7); LYMPHOCYTES # (AUTO) 1.5 10^3/uL (1.0-4.0); LYMPHOCYTES % (AUTO) 28 % (12-44); MEAN CORPUSCULAR HEMOGLOBIN 27 pg (25-34); MEAN CORPUSCULAR HGB CONC 31 g/dL (32-36); MEAN CORPUSCULAR VOLUME 87 fL (80-99); MEAN PLATELET VOLUME 10.4 fL (9.0-12.2); MONOCYTES # (AUTO) 0.4 10^3/uL (0.0-1.0); MONOCYTES % (AUTO) 7 % (0-12); NEUTROPHILS # (AUTO) 3.1 10^3/uL (1.8-7.8); NEUTROPHILS % (AUTO) 58 % (42-75); PLATELET COUNT 272 10^3/uL (130-400); WHITE BLOOD COUNT 5.3 10^3/uL (4.3-11.0)
[2021-11-05 10:08] LABS: POTASSIUM 5.1 MMOL/L (3.6-5.0)
[2021-11-05 10:09] LABS: CALCIUM 8.5 MG/DL (8.5-10.1)
[2021-11-05 10:13] LABS: CREATININE SERUM 1.73 MG/DL (0.60-1.30)
[2021-11-05] MEDS ORDERED: inSUlin ASPART (NovoLOG) 1 UNIT/0.01 ML (CHARGE PER UNIT) SC ONE (10:30)
--- NOTE | 2021-11-05 11:06 | Diagnostic Imaging Report ---
PROCEDURE: CT neck soft tissue with contrast. TECHNIQUE: Multiple contiguous axial images were obtained through the neck after the administration of contrast. Auto Exposure Controls were utilized during the CT exam to meet ALARA standards for radiation dose reduction. INDICATION: Head and neck cancer. Surveillance imaging. COMPARISON: 07/23/2021 and 11/01/2021 FINDINGS: Surgical changes from total laryngectomy with stoma formation are again noted. No abnormal soft tissue mass or thickening has developed around the laryngectomy site. The subcutaneous reticulations and soft tissue swelling involving the left submandibular region and lower neck are unchanged and most indicative of posttreatment related swelling. No new enlarged cervical lymph nodes. Subcentimeter lymph nodes located in the submental position is stable from multiple prior examinations. The 1 cm lymph node in the superior mediastinum located in the right paratracheal position is also stable from multiple prior examinations. No concerning focal osseous lesion has developed. No concerning abnormality in the lung apices. Major neck arteries are widely patent. Visualized aspects of brain show no hydrocephalus or midline shift. Paranasal sinuses are clear. IMPRESSION: 1. Stable postoperative changes of total laryngectomy with stomal formation. There are no features of local recurrence. 2. Posttreatment related subcutaneous reticulations within the left mathew-aspect of the neck are similar. No fluid collection has developed that would suggest abscess. 3. No new lymphadenopathy. Mildly enlarged superior mediastinal lymph node has been stable for multiple prior examinations. Dictated by: Dictated on workstation # [id number]
[2021-11-05] MEDS ORDERED: NYST1000 PO (11:22)
== END 2021-11-05 11:30 | disposition home or self-care (01) ==
LOC: EDUNIT# 09:02 → ER 09:03
DX: B37.0 Candidal stomatitis (principal); B37.81 Candidal esophagitis; Z85.118 Personal history of other malignant neoplasm of bronchus and lung; Z85.21 Personal history of malignant neoplasm of larynx; Z88.0 Allergy status to penicillin; Z93.0 Tracheostomy status; Z90.89 Acquired absence of other organs
CPT/HCPCS: 36415; 70491; 80048; 85025; 86141

== ENCOUNTER 2021-11-07 18:25 | Emergency (ER) | payer MEDICARE ==
--- NOTE | 2021-11-07 18:54 | ED EENT ---
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 He states it is nontender. But he is complaining of difficulty swallowing and choking. Normally he can tolerate solid foods but since this is started can only tolerate liquids. No fevers or chills. Over the course of the last week he has had [address] scans of the neck with IV contrast. Both of these have been reviewed by me, no evidence of significant lymphadenopathy, abscess or unusual fluid collections. One of the CTs mentioned a hint of possible cellulitis. The patient was given IV clindamycin and finished a course of oral clindamycin. He states he is just concerned because he is having progressive difficulty swallowing but can swallow all of his liquids without difficulty. He is a diabetic. Of note his creatinine was quite elevated when he got his CT scans with IV contrast. Patient has follow-up with ENT through [facility]. They have not called about the swelling as of yet. His significant other at the bedside states that he did have upper endoscopy in June where he had his "throat stretched". No other complaints of illness or injury. Timing/Duration: gradual Location: throat Prearrival Treatment: prescription meds Associated Symptoms: poor solids intake Allergies and Home Medications Allergies Coded Allergies: latex (Verified Allergy, Intermediate, RASH, 10/04/21) Penicillins (Unverified Allergy, Unknown, RASH, 10/04/21) Hvcmjul-NJK-XiD Reductase Inhibitor (Verified Allergy, Unknown, 10/03/21) ondansetron (Unverified Allergy, Unknown, RASH, 10/04/21) morphine (Verified Adverse Reaction, Unknown, HEADACHE, pt has rec Lortab in the past, 10/09/21) Patient Home Medication List Home Medication List Reviewed: Yes Aripiprazole (Aripiprazole) 5 Mg Tablet, 5 MG PO HS, (Reported) Entered as Reported by: NICK LAY on 07/24/21 1118 Aspirin (Aspirin EC) 81 Mg Tablet.dr, 81 MG PO DAILY, (Reported) Entered as Reported by: NICK LAY on 11/02/19 1417 Cetirizine HCl (Zyrtec) 10 Mg Tablet, 10 MG PO HS, (Reported) Entered as Reported by: NICK LAY on 11/02/19 1417 Clindamycin HCl (Clindamycin HCl) 300 Mg Capsule, 300 MG PO TID Prescribed by: SELENA AVENDANO on 11/01/212049 Dapagliflozin/Metformin HCl (Xigduo Xr 2.5 mg-1,000 mg Tab) Unknown Strength Tab.bp.24h, Unknown Dose PO, (Reported) Entered as Reported by: TONEY FARFAN on 10/04/21 1013 Diclofenac Sodium (Diclofenac Sodium) 75 Mg Tablet.dr, 75 MG PO BID, (Reported) Entered as Reported by: ELENA AVILA on 12/17/20 143 Doxycycline Hyclate (Doxycycline Hyclate) 100 Mg Tablet, 100 MG PO BID Prescribed by: JERRY JOHNSON on 07/25/21 0928 Duloxetine HCl (Duloxetine HCl) 60 Mg Capsule.dr, 60 MG PO BID, (Reported) Entered as Reported by: LINH MEDINA on 12/01/20 1110 Fenofibrate (Fenofibrate) 160 Mg Tablet, 160 MG PO DAILY, (Reported) Entered as Reported by: ELENA AVILA on 12/17/20 143 Gabapentin (Gabapentin) 600 Mg Tablet, 1,200 MG PO DAILY, (Reported) Entered as Reported by: ELENA AVILA on 12/17/20 1432 Gabapentin (Gabapentin) 600 Mg Tablet, 1,800 MG PO HS, (Reported) Entered as Reported by: NICK LAY on 07/24/21 1118 Insulin Aspart (Novolog) 100 Unit/1 Ml Susp, 4 UNIT SQ AC, (Reported) Entered as Reported by: ELENA AVILA on 12/17/20 1432 Insulin Detemir (Levemir Flextouch) 100 Unit/1 Ml Insuln.pen, 20 UNIT SQ BID, (Reported) Entered as Reported by: ELENA AVILA on 12/17/20 1432 Ipratropium/Albuterol Sulfate (Iprat-Albut 0.5-3(2.5) mg/3 ml) 3 Ml Ampul.neb, 3 ML IH Q4H PRN for SHORTNESS OF BREATH, (Reported) Entered as Reported by: ELENA AVILA on 12/17/20 1432 Levothyroxine Sodium (Levothyroxine Sodium) 125 Mcg Tablet, 125 MCG PO DAILY, (Reported) Entered as Reported by: LINH MEDINA on 12/01/20 1110 Losartan Potassium (Losartan Potassium) 25 Mg Tablet, 25 MG PO DAILY, (Reported) Entered as Reported by: TONEY FARFAN on 10/04/21 1013 Mupirocin Calcium (Mupirocin) 2 % Cream..g., 15 GM TP UD, (Reported) Entered as Reported by: TONEY FARFAN on 10/03/21 1519 Naloxone HCl (Naloxone HCl) 0.4 Mg/Ml Soln, 0.4 MG IJ UD, (Reported) Entered as Reported by: TONEY FARFAN on 10/03/21 1519 Nystatin (Nystatin) 100,000 Unit/Ml Oral.susp, 500,000 UNIT PO QID Prescribed by: CIPRIANO SMITH on 11/05/21 1122 Pantoprazole Sodium (Pantoprazole Sodium) 40 Mg Tablet.dr, 40 MG PO BID, (Reported) Entered as Reported by: ELENA AVILA on 12/17/20 1432 Rosuvastatin Calcium (Rosuvastatin Calcium) 10 Mg Tablet, 10 MG PO DAILY, (R eported) Entered as Reported by: ELENA AVILA on 12/17/20 143 Sumatriptan Succinate (Sumatriptan Succinate) 50 Mg Tablet, 50 MG PO UD PRN for MIGRAINE, (Reported) Entered as Reported by: ELENA AVILA on 12/17/20 1432 Topiramate (Topiramate) 100 Mg Tablet, 100 MG PO BID, (Reported) Entered as Reported by: ELENA AVILA on 12/17/20 1432 Review of Systems Review of Systems Constitutional: see HPI Eyes: No Symptoms Reported Ears: No Symptoms Reported Nose: no symptoms reported Mouth: no symptoms reported Throat: swelling Respiratory: no symptoms reported Gastrointestinal: no symptoms reported Musculoskeletal: no symptoms reported Skin: no symptoms reported All Other Systems Reviewed Negative Unless Noted: Yes Past Fobiide-Ogsgln-Cgzlfc Hx Immunizations Up To Date Tetanus Booster (TDap): Unknown First/Initial COVID19 Vaccinat: 07/16/2020 Second COVID19 Vaccination Scot: 08/13/2020 Third COVID19 Vaccination Date: 04/2021 Seasonal Allergies Seasonal Allergies: Yes Past Medical History Surgery/Hospitalization HX: SINUS SURGERY X 2RIGHT KNEE ACL REPAIRBILATERAL CARPAL TUNNEL SURGERYLEFT UPPER LOBECTOMYLARYNGECTOMY AND PERMANENT TRACHEOSTOMYLEFT SHOULDER SURGERY 12/2016, 04/2017, 12/2017LEFT CARPAL TUNNEL 12/2017CARDIAC CATH 10/[address] MANDELCONCLUSION:1. Mild to moderate stenosis up to 40 percent stenosis in the midrightcoronary artery otherwise mild disease nonobstructive disease2. Normal left ventricular end-diastolic pressureAPPENDECTOMYCHOLECYSTECTOMY Surgeries: Yes (Sinus surgery X2, ACL RIGHT KNEE, BILAT CTS L UPPER LOBECTOMY, LARYNGECTOMY) Appendectomy, Cardiac, Gallbladder, Lobectomy, Orthopedic, Thyroidectomy, Tracheostomy Respiratory: Yes (Pulmonary nodules, HX LUNG CA--PERMANENT TRACHEOSTOMY FOR LARYNGEAL CA, ) Asthma, COPD Currently Using CPAP: No Cardiac: Yes (CARDIAC CATH 10/2019--NO INTERVENTION, BP MEDS TO PROTECT LIVER) High Cholesterol Neurological: Yes Headaches /Migraines, Neuropathy Reproductive Disorders: No Sexually Transmitted Disease: No HIV/AIDS: No Genitourinary: No Benign Prostatic Hyperpl, Renal Failure Gastrointestinal: Yes Gastroesophageal Reflux, Chronic Constipation, Polyps, Gall Bladder Disease Musculoskeletal: Yes Degenerate Disk Disease, Arthritis, Chronic Back Pain Endocrine: Yes Diabetes, Non-Insulin dep HEENT: Yes (LARYNGEAL CANCER-S/P TRACHEOSTOMY) Loss of Vision: Bilateral Hearing Impairment: Denies Cancer: Yes (THROAT) Lung Did You Recieve Any Treatments: Yes What Type of Treatment Did You: Radiation, Surgical Intervention Psychosocial: Yes Anxiety, Depression Integumentary: No Blood Disorders: No Adverse Reaction/Blood Tranf: No (N/A) Family Medical History Diabetes, Hypertension Physical Exam Vital Signs Vital Signs - First Documented 11/07/21 18:36 Temp 36.2 Pulse 88 Resp 20 B/P (MAP) 130/88 (102) Pulse Ox 98 Height, Weight, BMI Height: 5'9.00" Weight: 182lbs. 0.0oz. 82.472942cf; 27.00 BMI Method:Stated General Appearance: WD/WN, no apparent distress Eyes: bilateral eye normal inspection, bilateral eye PERRL, bilateral eye EOMI Nose: normal inspection Mouth/Throat: other (edentulous; small ulcer left upper gingiva posteriorly - tender to palpation - not fluctuant. no other intraoral lesions. no floor of the mouth swelling or tongue protrusion. ) Neck: full range of motion, other (tracheostomy prsent with cover. no surrounding erythema. small amount of swelling noted just superior to the trach on the left. not fluctuant. not warm.) Cardiovascular: regular rate, rhythm Respiratory: lungs clear, normal breath sounds, no respiratory distress, no accessory muscle use Neurologic/Psychiatric: alert, normal mood/affect Skin: normal color, warm/dry Progress/Results/Core Measures Results/Orders Lab Results Laboratory Tests Test 11/07/21 19:11 Range/Units White Blood Count 7.2 4.3-11.0 10^3/uL Red Blood Count 4.70 4.30-5.52 10^6/uL Hemoglobin 13.1 L 13.3-17.7 g/dL Hematocrit 40 40-54 % Mean Corpuscular Volume 85 80-99 fL Mean Corpuscular Hemoglobin 28 25-34 pg Mean Corpuscular Hemoglobin Concent 33 32-36 g/dL Red Cell Distribution Width 13.0 10.0-14.5 % Platelet Count 336 130-400 10^3/uL Mean Platelet Volume 10.1 9.0-12.2 fL Immature Granulocyte % (Auto) 0 % Neutrophils (%) (Auto) 55 42-75 % Lymphocytes (%) (Auto) 32 12-44 % Monocytes (%) (Auto) 8 0-12 % Eosinophils (%) (Auto) 5 0-10 % Basophils (%) (Auto) 1 0-10 % Neutrophils # (Auto) 4.0 1.8-7.8 10^3/uL Lymphocytes # (Auto) 2.3 1.0-4.0 10^3/uL Monocytes # (Auto) 0.5 0.0-1.0 10^3/uL Eosinophils # (Auto) 0.4 H 0.0-0.3 10^3/uL Basophils # (Auto) 0.1 0.0-0.1 10^3/uL Immature Granulocyte # (Auto) 0.0 0.0-0.1 10^3/uL Sodium Level 138 135-145 MMOL/L Potassium Level 4.3 3.6-5.0 MMOL/L Chloride Level 106 98-107 MMOL/L Carbon Dioxide Level 18 L 21-32 MMOL/L Anion Gap 14 5-14 MMOL/L Blood Urea Nitrogen 37 H 7-18 MG/DL Creatinine 1.60 H 0.60-1.30 MG/DL Estimat Glomerular Filtration Rate 50 BUN/Creatinine Ratio 23 Glucose Level 234 H 70-105 MG/DL Calcium Level 9.4 8.5-10.1 MG/DL C-Reactive Protein High Sensitivity 0.20 0.00-0.50 MG/DL My Orders Orders - MIKEY YIN MD Ed Iv/Invasive Line Start (11/07/21 19:09) Cbc With Automated Diff (11/07/21 19:09) Basic Metabolic Panel (11/07/21 19:09) Hs C Reactive Protein (11/07/21 19:09) Ns Iv 1000 Ml (Sodium Chloride 0.9%) (11/07/21 19:15) Vital Signs/I&O 11/07/21 18:36 Temp 36.2 Pulse 88 Resp 20 B/P (MAP) 130/88 (102) Pulse Ox 98 Progress Progress Note #1: Time: 19:07 Progress Note discussed with patient and family - he would like for some labs to be re-checked to make sure that he is not developing an increased WBC/lab evidence of infection. I think this is reasonable. Will check basic labs and CRP. I strongly recommended that they follow up with [facility] regarding this progressive dysphagia and the "swelling" to the left of the trach - i really do not think there is any acute pathology related to the trach and that the dysphagia is the primary problem. Progress Note #2: Time: 20:26 Progress Note Liter of fluids complete. Labs reviewed and all WNL.. Creatinine is back down to about his baseline. Sugar 234. VSS. No distress. Reassurance provided. I encouraged (again) for them to call [facility] and follow up to maybe inquire about another EGD. They are comfortable with the plan of care. All questions are sought and answered. Departure Impression Primary Impression: Dysphagia, unspecified Qualified Codes: R13.10 - Dysphagia, unspecified Disposition: 01 HOME, SELF-CARE Condition: Stable Departure-Patient Inst. Decision time for Depature: 20:28 Referrals: [facility] (PCP) Primary Care Physician LEILANI ROQUE (Family) Primary Care Physician Patient Instructions: Dysphagia (DC) Add. Discharge Instructions: Drink plenty of fluids to stay well hydrated. Call your doctor's office at TOMORROW for a follow up appointment. You may possibly need to be seen by both your ENT doctor and the [facility]. Continue your normal daily medications. Return to the ER for fever, SOB, or any other new, emergent, concerning symptoms. Copy Copies To 1: PASTOR SILVEIRA KATHRYN M MD Nov 07, 2021 18:54
[2021-11-07] MEDS ORDERED: NS IV 1000 ML 1,000 ML IV SCH (19:15)
[2021-11-07 19:18] LABS: BASOPHILS # (AUTO) 0.1 10^3/uL (0.0-0.1); BASOPHILS % (AUTO) 1 % (0-10); EOSINOPHILS # (AUTO) 0.4 10^3/uL (0.0-0.3); EOSINOPHILS % (AUTO) 5 % (0-10); HEMATOCRIT 40 % (40-54); HEMOGLOBIN 13.1 g/dL (13.3-17.7); LYMPHOCYTES # (AUTO) 2.3 10^3/uL (1.0-4.0); LYMPHOCYTES % (AUTO) 32 % (12-44); MEAN CORPUSCULAR HEMOGLOBIN 28 pg (25-34); MEAN CORPUSCULAR HGB CONC 33 g/dL (32-36); MEAN CORPUSCULAR VOLUME 85 fL (80-99); MEAN PLATELET VOLUME 10.1 fL (9.0-12.2); MONOCYTES # (AUTO) 0.5 10^3/uL (0.0-1.0); MONOCYTES % (AUTO) 8 % (0-12); NEUTROPHILS % (AUTO) 55 % (42-75); PLATELET COUNT 336 10^3/uL (130-400); WHITE BLOOD COUNT 7.2 10^3/uL (4.3-11.0)
[2021-11-07 20:21] LABS: CALCIUM 9.4 MG/DL (8.5-10.1); CREATININE SERUM 1.6 MG/DL (0.60-1.30); POTASSIUM 4.3 MMOL/L (3.6-5.0)
[2021-11-07 20:35] VITALS: BP 105/66
== END 2021-11-07 20:37 | disposition home or self-care (01) ==
LOC: EDUNIT# 18:25 → ER 18:27
DX: R13.10 Dysphagia, unspecified (principal); Z85.21 Personal history of malignant neoplasm of larynx; Z85.118 Personal history of other malignant neoplasm of bronchus and lung; Z93.0 Tracheostomy status; Z90.2 Acquired absence of lung [part of]
CPT/HCPCS: 36415; 80048; 85025; 86141

== ENCOUNTER 2022-01-04 10:54 | Emergency (ER) | payer MEDICARE ==
[~2022-01-04] VITALS: Ht 175 cm; Wt 90.7 kg
[~2022-01-04 10:54] MED LIST changes: +LEVO-55 PO; -LEVO500T81 PO
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
--- NOTE | 2022-01-04 12:18 | Diagnostic Imaging Report ---
Indication: Fall. 4 views were obtained. FINDINGS: There has been open reduction and internal fixation of a right acetabular fracture with plate and screws. Alignment is normal. There is no fracture or dislocation. There has been an ACL repair. IMPRESSION: Right femur is intact. Postsurgical changes of right acetabulum as well as an ACL repair. Dictated by: Dictated on workstation # [id number]
[2022-01-04] MEDS ORDERED: HYDROcodone/APAP 5 MG/325 MG (LORTAB) TAB PO ONE (12:30)
--- NOTE | 2022-01-04 12:31 | Diagnostic Imaging Report ---
Indication: Fall. 3 views of the right knee were obtained FINDINGS: There are postoperative changes of a right ACL repair. There are mild degenerative changes in the knee. There is no fracture or dislocation. There is no joint effusion IMPRESSION: Mild osteoarthritic change without acute fracture or dislocation. Previous ACL repair. Dictated by: Dictated on workstation # [id number]
--- NOTE | 2022-01-04 12:32 | Diagnostic Imaging Report ---
Indication: Pain after fall. FINDINGS: There has been open reduction and internal fixation of right acetabular fracture with malleable plate and screws. Alignment is normal. There is no fracture or dislocation in the pelvis or right hip. IMPRESSION: Postsurgical changes of degenerative changes in the right hip however no acute fracture or dislocation. Dictated by: Dictated on workstation # [id number]
[2022-01-04] MEDS ORDERED: ACHD5005 PO (12:44)
[2022-01-04 13:15] VITALS: BP 93/63
== END 2022-01-04 13:14 | disposition home or self-care (01) ==
LOC: EDUNIT# 10:54 → ER 10:56
DX: S80.01XA Contusion of right knee, initial encounter (principal); S70.11XA Contusion of right thigh, initial encounter; S70.01XA Contusion of right hip, initial encounter; Z98.890 Other specified postprocedural states; Z72.0 Tobacco use; Z91.040 Latex allergy status; V28.4XXA Motorcycle driver injured in noncollision transport accident in traffic accident, initial encounter; Y93.55 Activity, bike riding; Y92.410 Unspecified street and highway as the place of occurrence of the external cause
CPT/HCPCS: 73552; 73562

== ENCOUNTER 2022-01-11 17:02 | Emergency (ER) | payer OTHER, MEDICARE ==
[~2022-01-11] VITALS: Ht 170 cm; Wt 74.0 kg
[~2022-01-11 17:02] MED LIST changes: +ACHD5005 PO
[2022-01-11 17:29] VITALS: BP 95/71
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
[2022-01-11 18:20] LABS: BASOPHILS % (AUTO) 1 % (0-10); EOSINOPHILS # (AUTO) 0.5 10^3/uL (0.0-0.3); EOSINOPHILS % (AUTO) 9 % (0-10); HEMATOCRIT 32 % (40-54); HEMOGLOBIN 10.2 g/dL (13.3-17.7); LYMPHOCYTES # (AUTO) 1.8 10^3/uL (1.0-4.0); LYMPHOCYTES % (AUTO) 32 % (12-44); MEAN CORPUSCULAR HEMOGLOBIN 27 pg (25-34); MEAN CORPUSCULAR HGB CONC 32 g/dL (32-36); MEAN CORPUSCULAR VOLUME 83 fL (80-99); MEAN PLATELET VOLUME 10.2 fL (9.0-12.2); MONOCYTES # (AUTO) 0.5 10^3/uL (0.0-1.0); MONOCYTES % (AUTO) 9 % (0-12); NEUTROPHILS # (AUTO) 2.8 10^3/uL (1.8-7.8); NEUTROPHILS % (AUTO) 49 % (42-75); PLATELET COUNT 311 10^3/uL (130-400); WHITE BLOOD COUNT 5.6 10^3/uL (4.3-11.0)
[2022-01-11 18:26] LABS: BILIRUBIN,URINE NEGATIVE (NEGATIVE); CLARITY,URINE CLEAR; COLOR,URINE YELLOW; GLUCOSE, URINE (UA) 3+ (NEGATIVE); KETONES,URINE NEGATIVE (NEGATIVE); LEUKOCYTE ESTERASE ,URINE NEGATIVE (NEGATIVE); NITRITE,URINE NEGATIVE (NEGATIVE); PROTEIN,URINE NEGATIVE (NEGATIVE)
[2022-01-11 18:35] LABS: ALBUMIN 3.9 GM/DL (3.2-4.5)
[2022-01-11 18:36] LABS: POTASSIUM 4.6 MMOL/L (3.6-5.0)
[2022-01-11 18:37] LABS: CALCIUM 8.9 MG/DL (8.5-10.1)
[2022-01-11 18:38] LABS: TOTAL PROTEIN 7.2 GM/DL (6.4-8.2)
[2022-01-11 18:40] LABS: BILIRUBIN,TOTAL 0.1 MG/DL (0.1-1.0)
[2022-01-11 18:42] LABS: CREATININE SERUM 1.75 MG/DL (0.60-1.30)
[2022-01-11 18:45] LABS: BACTERIA,URINE NEGATIVE /HPF; URINE OTHER FEW SPERM /HPF
[2022-01-11] MEDS ORDERED: NS IV 1000 ML 1,000 ML IV SCH (18:45)
[2022-01-11] MEDS ORDERED: IOHEXOL 350 MG/ML 100 ML (OMNIPAQUE 350) VIAL IV ONE (19:00)
[2022-01-11] MEDS ORDERED: HOLD METFORMIN - RECEIVED CONTRAST 20 ML VIAL IV SCH (19:00)
[2022-01-11] MEDS ORDERED: NS 100 ML (IVPB) BAG IV ONE (19:00)
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
--- NOTE | 2022-01-11 19:43 | Diagnostic Imaging Report ---
INDICATION: Injury, pain EXAMINATION: Right femur 01/11/2022. FINDINGS: 4 views of the femur. There is postoperative change along the right acetabulum and at the knee. The orthopedic hardware appears intact. No acute fractures or dislocations appreciated. IMPRESSION: 1. No acute osseous abnormality. Dictated by: Dictated on workstation # [id number]
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
[2022-01-11] MEDS ORDERED: RX-CYCLOBENZAPRINE 10 MG (FLEXERIL) TAB PPK#3 PO STA (19:54)
[2022-01-11] MEDS ORDERED: TIZA-186 PO (19:58)
== END 2022-01-11 20:25 | disposition home or self-care (01) ==
LOC: EDUNIT# 17:02 → ER 17:05
DX: S70.01XA Contusion of right hip, initial encounter (principal); S70.11XA Contusion of right thigh, initial encounter; R10.9 Unspecified abdominal pain; Z91.040 Latex allergy status; V28.0XXA Motorcycle driver injured in noncollision transport accident in nontraffic accident, initial encounter; Y92.410 Unspecified street and highway as the place of occurrence of the external cause
CPT/HCPCS: 36415; 71260; 72128; 72131; 73552; 74177; 80053; 81000; 85025

== ENCOUNTER 2022-02-12 05:38 | Outpatient (CLI) | payer OTHER, MEDICARE ==
[~2022-02-12] VITALS: Ht 175.3 cm; Wt 89.9 kg
[~2022-02-12 05:38] MED LIST changes: +TIZA-186 PO
[2022-02-13] MEDS ORDERED: TIZA4TAB11 PO (13:58)
== END 2022-02-13 15:12 | disposition home or self-care (01) ==
LOC: PREOP 05:38
PROVIDERS: ATTEND Orthopaedic Surgery
DX: Z01.818 Encounter for other preprocedural examination (principal)

== ENCOUNTER 2022-02-19 08:01 | Day surgery (SDC) | payer MEDICARE, OTHER ==
--- NOTE | 2022-02-08 06:37 | HISTORY AND PHYSICAL ---
DATE OF SERVICE: ADMISSION HISTORY AND PHYSICAL DATE OF ADMISSION: 02/19/2022. This will be for outpatient surgery on 02/19/2022 for right rotator cuff repair. HISTORY OF PRESENT ILLNESS: The patient is a 56-year-old right hand dominant gentleman with complaints of right shoulder pain and weakness. He has undergone treatment with injections and anti-inflammatories without relief. Ultimately, an MRI was obtained, which revealed a full-thickness supraspinatus tear. Due to functional impairment and failure to improve with the conservative measures, the patient elected to proceed with surgical intervention. REVIEW OF SYSTEMS: No chest pain, no shortness of breath, and no dysuria. PAST MEDICAL HISTORY: Diabetes, neuropathy, lung cancer, hyperlipidemia, depression, reflux, migraines, BPH, peptic ulcer disease, pancreatitis, laryngeal cancer, tracheostomy, hypothyroidism, sleep apnea, anxiety disorder, and hypertension. PAST SURGICAL HISTORY: Lung cancer, cholecystectomy, appendectomy tracheotomy, right ACL, sinus x2, carpal tunnel both wrists, left knee, ORIF, left knee scope, right ankle ORIF, right hip ORIF, laryngectomy and right knee arthroscopy. SOCIAL HISTORY: The patient is a former smoker. Denies alcohol use. FAMILY HISTORY: Significant for diabetes, stroke, and hypertension. PRIMARY CARE PROVIDER: [facility]. MEDICATIONS: Crestor, diclofenac, aripiprazole, gabapentin, fenofibrate, naloxone, levothyroxine, nebulizer, Cymbalta, aspirin, insulin, topiramate, sumatriptan, Losartan, and metformin. ALLERGIES: ZOFRAN, MORPHINE, PENICILLIN, STATINS, and LATEX. PHYSICAL EXAMINATION: GENERAL: The patient is well-developed, well-nourished, and in no acute distress. HEENT: Normocephalic and atraumatic. Pupils are equal, round, and reactive to light. Oropharynx is clear. NECK: Supple and no lymphadenopathy. LUNGS: Clear to auscultation bilaterally. HEART: Regular rate and rhythm. ABDOMEN: Soft, nontender, and nondistended. EXTREMITIES: Right shoulder demonstrates weakness with external rotation and forward elevation as well as with abduction. He has symmetric forward elevation, external and internal rotation actively. He has a positive Neer's and positive Hawkin sign. IMPRESSION: Right rotator cuff tear. PLAN: Right shoulder arthroscopy with rotator cuff repair. The risks, benefits, options, ramifications and recovery were discussed at length with the patient. He understands and wishes to proceed. Job ID: [id number] DocumentID: [id number] Dictated Date: 02/07/2022 12:10:39 Item Processing Clerk Date: 02/07/2022 12:27:43 Dictated By: ROSALBA HANSON MD
[~2022-02-19] VITALS: Ht 175.3 cm; Wt 89.9 kg
[2022-02-19] VITALS (13 sets, daily range): BP systolic 83–150; BP diastolic 57–90
[~2022-02-19 08:01] MED LIST changes: +TIZA4TAB11 PO; +oxyCODONE/APAP 5/325MG (PERCOCET 5) TABLET PO PRN
[2022-02-19] MEDS ORDERED: morphine PF (DURAMORPH) 10 MG/10 ML AMP ONE (09:05)
[2022-02-19] MEDS ORDERED: BUPIVACAINE 0.25% 30 ML (SENSORCAINE) VIAL ONE (09:05)
[2022-02-19] MEDS ORDERED: CLINDAMYCIN 900 MG/50 ML IVPB 50 ML IV ONE (09:15)
[2022-02-19] MEDS ORDERED: LACTATED RINGERS 1,000 ML IV PRN (09:15)
[2022-02-19] MEDS ORDERED: MIDAZOLAM 2 MG/2 ML (VERSED) VIAL ONE (09:32)
[2022-02-19] MEDS ORDERED: LIDOCAINE PF 2% 5 ML (XYLOCAINE) VIAL ONE (09:32)
[2022-02-19] MEDS ORDERED: SEVOFLURANE (ULTANE) 15 ML INHAL SOLN ONE ×2 (09:32→10:48)
[2022-02-19] MEDS ORDERED: proPOfol 200 MG/20 ML (DIPRIVAN) VIAL IV ONE (09:32)
[2022-02-19] MEDS ORDERED: fentaNYL INJ 100 MCG/2 ML AMP ONE (09:32)
--- NOTE | 2022-02-19 09:36 | Progress Note-Pre Operative ---
Pre-Operative Progress Note Date of Available H&P: Feb 07, 2022 Date H&P Reviewed: Feb 19, 2022 Time H&P Reviewed: 07:11 Changes from last HP none Pre-Operative Diagnosis: right chronic rotator cuff tear ROSALBA HANSON MD Feb 19, 2022 09:36
--- NOTE | 2022-02-19 09:38 | Progress Note-Post Operative ---
Post-Operative Progess Note Surgeon (s)/Manager [employer] (s) Surgeon ROSALBA HANSON MD Manager [employer]: Josh Vega Pre-Operative Diagnosis right chronic rotator cuff tear Post-Operative Diagnosis right chronic rotator cuff and SLAP tear Procedure & Operative Findings Date of Procedure 02/19/22 Procedure Performed/Findings right shoulder arthroscopic acromioplasty, biceps tenotomy and open rotator cuff repair Anesthesia Type GETA Estimated Blood Loss Estimated blood loss (mL): minimal Specimens/Packing Specimens Removed none Packing: none ROSALBA HANSON MD Feb 19, 2022 09:38
[2022-02-19] MEDS ORDERED: BUPIVACAINE 0.25% 30 ML (SENSORCAINE) VIAL INJ ONE (10:20)
--- NOTE | 2022-02-19 11:02 | Anesthesia-General Post-Op ---
General Patient Condition Mental Status/LOC: Same as Preop Cardiovascular: Satisfactory Nausea/Vomiting: Absent Respiratory: Satisfactory Pain: Controlled Complications: Absent Post Op Complications Complications None Follow Up Care/Instructions Patient Instructions None needed. Anesthesia/Patient Condition Patient Condition Patient is doing well, no complaints, stable vital signs, no apparent adverse anesthesia problems. No complications reported per nursing. CHASE HOUSTON CRNA Feb 19, 2022 11:02
[2022-02-19] MEDS ORDERED: fentaNYL INJ 100 MCG/2 ML AMP IVP ONE (11:15)
[2022-02-19] MEDS ORDERED: PROMETHAZINE INJ 25 MG/ML (PHENERGAN) AMP IVP ONE (11:15)
[2022-02-19] MEDS ORDERED: oxyCODONE/APAP 5/325MG (PERCOCET 5) TABLET ONE (12:28)
--- NOTE | 2022-02-19 16:26 | OPERATIVE REPORT ---
DATE OF SERVICE: 02/19/2022 PREOPERATIVE DIAGNOSES: 1. Right shoulder chronic rotator cuff tear. 2. Right shoulder SLAP tear. POSTOPERATIVE DIAGNOSES: 1. Right shoulder chronic rotator cuff tear. 2. Right shoulder SLAP tear. PROCEDURES: 1. Right shoulder open rotator cuff repair. 2. Right shoulder arthroscopic biceps tenotomy. 3. Right shoulder arthroscopic acromioplasty. SURGEON: Adán Hanson MD ARMED SECURITY PROFESSIONAL: Josh Vega, who assisted throughout the procedure and closed the incisions. ANESTHESIA: General endotracheal by Ken Granger CRNA. ESTIMATED BLOOD LOSS: Minimal. DRAINS: None. COMPLICATIONS: None. POSTOPERATIVE PLAN: Sling wear for four weeks with passive range of motion for four weeks. The patient was transferred to the recovery room awake and stable condition. STATEMENT OF MEDICAL NECESSITY: The patient is a 56-year-old right hand dominant gentleman with complaints of right shoulder pain and weakness. He has undergone treatment with injections without relief. An MRI confirmed a full-thickness supraspinatus tear as well as a SLAP tear. Due to functional impairment and failure to improve with conservative measures, the patient elected to proceed with surgical intervention. Examination under anesthesia revealed forward elevation of 170 degrees, external rotation of 90 degrees and internal rotation 70 degrees. Arthroscopic findings demonstrated type 2 SLAP tear. Otherwise, the labrum was intact. The humeral head and glenoid demonstrated no significant chondral abnormalities. There is a 1 cm supraspinatus tear at the mid portion of its insertion site. The remainder of the rotator cuff was intact. There was dense bursal tissue and subacromial space with sloping to the anterolateral acromion. DESCRIPTION OF PROCEDURE: After risks and benefits of procedure were discussed and questions were answered and informed consent was signed and placed on chart, the operative site was confirmed in the preoperative holding area initialed by the surgeon. The patient was then transferred to the operating room and after adequate levels of general endotracheal anesthetic were obtained, a timeout was called, confirming the operative site. Examination under anesthesia was performed with above findings noted. The right shoulder and upper extremity were prepped and draped in the usual sterile fashion. Shoulder joint was injected with 20 mL of fluid as was the subacromial space. Standard posterior portal was placed under direct visualization. Anterior portal was created in the interval between biceps, subscapularis and glenoid. The biceps anchor was released. The stump was debrided with a shaver. The scope was redirected in the subacromial space. Lateral portal was created. A bursectomy was performed and the acromion was planed to a flat type 1 acromion. The lateral portal was then extended. The deltoid was split in line with its fibers leaving attached to the acromion for later reapproximation. The rotator cuff tear was mobilized. A single corkscrew type anchor was placed. A modified Marcellus-Richard repair was obtained with excellent repair obtained. No undue tension was noted with the arm at the side. The wound was copiously irrigated. Deltoid was repaired in zyqb-sb-iata fashion using #2 FiberWire in tyxlyt-vt-xlsrm interrupted fashion. The wound was further irrigated. The subacromial space was copiously irrigated. The subcuticular layer was closed with 3-0 nylon. Skin was closed with 4-0 nylon running alternating horizontal mattress fashion. Incision was infiltrated with plain Marcaine. Shoulder joint was injected with Duramorph. Soft dressing and sling were applied. The patient was transferred to recovery room awake and in stable condition. Job ID: [id number] DocumentID: [id number] Dictated Date: 02/19/2022 10:56:36 Double Cutter Date: 02/19/2022 16:25:36 Dictated By: ADÁN HANSON MD
== END 2022-02-19 13:20 ==
LOC: SDC 08:01
PROVIDERS: ATTEND Orthopaedic Surgery
DX: M75.101 Unspecified rotator cuff tear or rupture of right shoulder, not specified as traumatic (principal); S43.431A Superior glenoid labrum lesion of right shoulder, initial encounter; X58.XXXA Exposure to other specified factors, initial encounter; Z79.82 Long term (current) use of aspirin; Z79.891 Long term (current) use of opiate analgesic; Z98.890 Other specified postprocedural states; Z87.891 Personal history of nicotine dependence
CPT/HCPCS: 29824; 29827; 29828; 87081; C1713

== ENCOUNTER → 2022-04-30 | Outpatient (CLI) | payer MEDICARE ==
[~2022-04-30] VITALS: Ht 177.8 cm; Wt 94.0 kg
[~2022-04-30] MED LIST changes: -oxyCODONE/APAP 5/325MG (PERCOCET 5) TABLET PO PRN
== END | disposition home or self-care (01) ==
LOC: PREOP 05:32
PROVIDERS: ATTEND Surgery
DX: Z01.818 Encounter for other preprocedural examination (principal)

== ENCOUNTER 2022-05-07 09:44 | Day surgery (SDC) | payer MEDICARE ==
[~2022-05-07] VITALS: Ht 177.8 cm; Wt 94.0 kg
[2022-05-07] VITALS (8 sets, daily range): BP systolic 101–126; BP diastolic 70–82
[2022-05-07] MEDS ORDERED: LACTATED RINGERS 1,000 ML IV PRN (10:15)
[2022-05-07] MEDS ORDERED: CLINDAMYCIN 600 MG/50 ML IVPB 50 ML IV ONE (10:15)
[2022-05-07] MEDS ORDERED: LIDOCAINE/EPI 1%-1:100,000 (XYLOCAINE) 30ML ONE (10:45)
--- NOTE | 2022-05-07 11:00 | Progress Note-Pre Operative ---
Pre-Operative Progress Note Date of Available H&P: Apr 24, 2022 Date H&P Reviewed: May 07, 2022 Time H&P Reviewed: 10:58 History & Physical: H&P Reviewed, Patient Examed, No changes noted Pre-Operative Diagnosis: left ear mass, site marked TAIWO MANUEL DO May 07, 2022 11:00
[2022-05-07] MEDS ORDERED: MIDAZOLAM 2 MG/2 ML (VERSED) VIAL ONE (11:23)
[2022-05-07] MEDS ORDERED: PROPOFOL INJECTION 50 ML IV ONE (11:23)
[2022-05-07] MEDS ORDERED: MUPIROCIN 2% OINT 22 GM (BACTROBAN) TUBE ONE (12:00)
--- NOTE | 2022-05-07 12:19 | Anesthesia-General Post-Op ---
MAC Patient Condition Mental Status/LOC: Same as Preop Cardiovascular: Satisfactory Nausea/Vomiting: Absent Respiratory: Satisfactory Pain: Controlled Complications: Absent Post Op Complications Complications None Follow Up Care/Instructions Patient Instructions None needed. Anesthesiology Discharge Order Discharge Order Patient is doing well, no complaints, stable vital signs, no apparent adverse anesthesia problems. No complications reported per nursing. CARITO FULTON CRNA May 07, 2022 12:19
[2022-05-07] MEDS ORDERED: MEPERIDINE (DEMEROL) INJ 50 MG/ML IVP ONE (12:30)
--- NOTE | 2022-05-08 00:08 | OPERATIVE REPORT ---
DATE OF SERVICE: 05/07/2022 PREOPERATIVE DIAGNOSIS: Left ear mass. POSTOPERATIVE DIAGNOSIS: Left ear mass, pending pathology. PROCEDURE: Excision of left ear mass, 3.1 cm incision. SURGEON: Sarabjit Hemphill DO TELEVISION ACTOR: RAMSEY Lopez. ANESTHESIA: IV sedation by ASPNET DEVELOPER. SPECIMENS: Left ear mass. BLOOD LOSS: Scant. FLUIDS: Per anesthesia. POSTOPERATIVE CONDITION: Stable. INDICATIONS FOR PROCEDURE: The patient is a 56-year-old male who has a mass in his left ear. It is bleeding, crusty, may be cancerous lesion, wanted to get this removed. FINDINGS: The patient had a left ear lesion removed. It was on the outer portion of the ear, elliptical incision was made, this measured 3.1 cm. DESCRIPTION OF PROCEDURE: After informed consent was obtained, the patient was brought to the operating room and placed on the table in supine position, sterilely prepped and draped in normal fashion. Local lidocaine was used to infiltrate the skin around the mass had drawn on the skin with skin marker for the elliptical incision, then made incision with #15 blade, carried down through the skin into subcutaneous tissue, deepened down to subcutaneous tissue with Bovie electrocautery, removing this mass en bloc and passed off the table and sent to pathology, labeled it with a suture at the superior aspect. Then, hemostasis obtained using Bovie electrocautery and then elected to close the incision with 5-0 Prolene. Five interrupted sutures were used and then a pressure dressing placed. The patient tolerated the procedure. Sponge and needle count correct at the end of the case. Job ID: [id number] DocumentID: [id number] Dictated Date: 05/07/2022 13:53:09 Supervisor Finish End Date: 05/08/2022 00:05:00 Dictated By: SARABJIT HEMPHILL DO
== END 2022-05-07 13:50 | disposition home or self-care (01) ==
LOC: SDC 09:44
PROVIDERS: ATTEND Surgery
DX: L57.0 Actinic keratosis (principal); F17.210 Nicotine dependence, cigarettes, uncomplicated; E11.40 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 mellitus with diabetic neuropathy, unspecified
CPT/HCPCS: 87081; 88305

== ENCOUNTER 2022-07-09 16:03 | Emergency (ER) | payer MEDICARE ==
[~2022-07-09] VITALS: Ht 175 cm; Wt 91.0 kg
--- NOTE | 2022-07-09 16:32 | Diagnostic Imaging Report ---
INDICATION: Left hip pain. EXAMINATION: AP and oblique views of the left hip were obtained. FINDINGS: No fracture or acute bony abnormality is seen. There is osteophyte formation along the femoral neck. There is mild degenerative change of the left hip joint. IMPRESSION: Mild chronic changes with no acute bony abnormality of the left hip. Dictated by: Dictated on workstation # [id number]
--- NOTE | 2022-07-09 17:00 | ED Hip Pain/Injury ---
General Chief Complaint: Hip/Pelvic Problems Stated Complaint: L HIP PAIN Nursing Triage Note: PT CO OF L HIP PAIN 2 DAYS AGO. STATES HURTS WHEN SITS, STANDS OR WALKS Source: patient Exam Limitations: no limitations History of Present Illness Date Seen by Provider: Jul 09, 2022 Time Seen by Provider: 16:42 Initial Comments 57-year-old male presents to the ED with complaints of left hip pain for the last 2 days. Reports he woke up with the pain. States pain is worse with movement. He is able to walk but with pain. He has neuropathy so he has chronic numbness and tingling, states it has not changed. States he is taking his Percocet 10-325 that have not helped. He sees Dr. Lambert, orthopedics. He recently had rotator cuff surgery. Denies fevers, chest pain, shortness of breath, abdominal pain, nausea, vomiting, diarrhea. Allergies and Home Medications Allergies Coded Allergies: latex (Verified Allergy, Intermediate, RASH, 05/01/22) Penicillins (Unverified Allergy, Unknown, RASH, 05/01/22) Rznchac-PLO-AiJ Reductase Inhibitor (Verified Allergy, Unknown, RASH, 05/01/22) ondansetron (Unverified Allergy, Unknown, RASH, 05/01/22) morphine (Verified Adverse Reaction, Unknown, HEADACHE, pt has rec Lortab in the past, 05/01/22) Patient Home Medication List Home Medication List Reviewed: Yes Aripiprazole (Aripiprazole) 5 Mg Tablet, 5 MG PO HS, (Reported) Entered as Reported by: NICK LAY on 07/24/21 1118 Aspirin (Aspirin EC) 81 Mg Tablet., 81 MG PO DAILY, (Reported) Entered as Reported by: NICK LAY on 11/02/19 1417 Cetirizine HCl (Zyrtec) 10 Mg Tablet, 10 MG PO HS, (Reported) Entered as Reported by: NICK LAY on 11/02/19 1417 Dapagliflozin/Metformin HCl (Xigduo Xr 2.5 mg-1,000 mg Tab) Unknown Strength Tab.bp.24h, Unknown Dose PO, (Reported) Entered as Reported by: TONEY FARFAN on 10/04/21 1013 Diclofenac Sodium (Diclofenac Sodium) 75 Mg Tablet., 75 MG PO BID, (Reported) Entered as Reported by: ELENA AVILA on 12/17/20 1432 Duloxetine HCl (Duloxetine HCl) 60 Mg Capsule.dr, 60 MG PO BID, (Reported) Entered as Reported by: LINH MEDINA on 12/01/20 1110 Fenofibrate (Fenofibrate) 160 Mg Tablet, 160 MG PO DAILY, (Reported) Entered as Reported by: ELENA AVILA on 12/17/20 143 Gabapentin (Gabapentin) 600 Mg Tablet, 1,200 MG PO DAILY, (Reported) Entered as Reported by: ELENA AVILA on 12/17/20 143 Gabapentin (Gabapentin) 600 Mg Tablet, 1,800 MG PO HS, (Reported) Entered as Reported by: NICK LAY on 07/24/21 1118 Insulin Aspart (Novolog) 100 Unit/1 Ml Susp, 4 UNIT SQ AC, (Reported) Entered as Reported by: ELENA AVILA on 12/17/20 143 Insulin Detemir (Levemir Flextouch) 100 Unit/1 Ml Insuln.pen, 20 UNIT SQ BID, (Reported) Entered as Reported by: ELENA AVILA on 12/17/20 1432 Ipratropium/Albuterol Sulfate (Iprat-Albut 0.5-3(2.5) mg/3 ml) 3 Ml Ampul.neb, 3 ML IH Q4H PRN for SHORTNESS OF BREATH, (Reported) Entered as Reported by: ELENA AVILA on 12/17/20 143 Levothyroxine Sodium (Levothyroxine Sodium) 125 Mcg Tablet, 125 MCG PO DAILY, (Reported) Entered as Reported by: LINH MEDINA on 12/01/20 1110 Lidocaine (Lidocaine Pain Relief) 4 % Adh..patch, 1 EACH TP DAILY Prescribed by: Desirae Xavier on 07/09/22 1731 Losartan Potassium (Losartan Potassium) 25 Mg Tablet, 25 MG PO DAILY, (Reported) Entered as Reported by: TONEY FARFAN on 10/04/21 1013 Mupirocin Calcium (Mupirocin) 2 % Cream..g., 15 GM TP UD, (Reported) Entered as Reported by: TONEY FARFAN on 10/03/21 1519 Naloxone HCl (Naloxone HCl) 0.4 Mg/Ml Soln, 0.4 MG IJ UD, (Reported) Entered as Reported by: TONEY FARFAN on 10/03/21 1519 Nystatin (Nystatin) 100,000 Unit/Ml Oral.susp, 500,000 UNIT PO QID Prescribed by: CIPRIANO SMITH on 11/05/21 1122 Pantoprazole Sodium (Pantoprazole Sodium) 40 Mg Tablet.dr, 40 MG PO BID, (Reported) Entered as Reported by: ELENA AVILA on 12/17/20 1432 Rosuvastatin Calcium (Rosuvastatin Calcium) 10 Mg Tablet, 10 MG PO DAILY, (Reported) Entered as Reported by: ELENA AVILA on 12/17/20 1432 Sumatriptan Succinate (Sumatriptan Succinate) 50 Mg Tablet, 50 MG PO UD PRN for MIGRAINE, (Reported) Entered as Reported by: ELENA AVILA on 12/17/20 1432 Tizanidine HCl (Zanaflex) 4 Mg Tablet, 4 MG PO TID, (Reported) Entered as Reported by: TONEY FARFAN on 02/13/22 1358 Topiramate (Topiramate) 100 Mg Tablet, 100 MG PO BID, (Reported) Entered as Reported by: ELENA AVILA on 12/17/20 143 Review of Systems Constitutional: see HPI Past Szqpiup-Rczqea-Rlrdnp Hx Patient Social History Tobacco Use?: Yes Tobacco type used: Cigarettes Smoking Status: Current Everyday Smoker Substance use?: No Alcohol Use?: No Pt feels they are or have been: No Immunizations Up To Date Tetanus Booster (TDap): Unknown Influenza Vaccine Up-to-Date: No; Not Current First/Initial COVID19 Vaccinat: 07/16/2020 Second COVID19 Vaccination Scot: 08/13/2020 Third COVID19 Vaccination Date: 2021 Seasonal Allergies Seasonal Allergies: Yes Past Medical History Surgery/Hospitalization HX: SINUS SURGERY X 2RIGHT KNEE ACL REPAIRBILATERAL CARPAL TUNNEL SURGERYLEFT UPPER LOBECTOMYLARYNGECTOMY AND PERMANENT TRACHEOSTOMYLEFT SHOULDER SURGERY 12/2016, 04/2017, 12/2017LEFT CARPAL TUNNEL 12/2017CARDIAC CATH 10/[address] CONTRERASUSION:1. Mild to moderate stenosis up to 40 percent stenosis in the midrightcoronary artery otherwise mild disease nonobstructive disease2. Normal left ventricular end-diastolic pressureAPPENDECTOMYCHOLECYSTECTOMY Surgeries: Yes (Sinus surgery X2, ACL RIGHT KNEE, BILAT CTS L UPPER LOBECTOMY, LARYNGECTOMY) Appendectomy, Cardiac, Gallbladder, Lobectomy, Orthopedic, Thyroidectomy, Tracheostomy Respiratory: Yes (Pulmonary nodules, HX LUNG CA--PERMANENT TRACHEOSTOMY FOR LARYNGEAL CA, ) Asthma, COPD Currently Using CPAP: No Currently Using BIPAP: No Cardiac: Yes (CARDIAC CATH 10/2019--NO INTERVENTION, BP MEDS TO PROTECT LIVER) High Cholesterol Neurological: Yes Headaches /Migraines, Neuropathy Reproductive Disorders: No Sexually Transmitted Disease: No HIV/AIDS: No Genitourinary: No Benign Prostatic Hyperpl, Renal Failure Gastrointestinal: Yes Gastroesophageal Reflux, Chronic Constipation, Polyps, Gall Bladder Disease Musculoskeletal: Yes Degenerate Disk Disease, Arthritis, Chronic Back Pain Endocrine: Yes Diabetes, Non-Insulin dep HEENT: Yes (LARYNGEAL CANCER-S/P TRACHEOSTOMY) Loss of Vision: Bilateral Hearing Impairment: Denies Cancer: Yes (THROAT) Lung Did You Recieve Any Treatments: Yes What Type of Treatment Did You: Radiation, Surgical Intervention Psychosocial: Yes Anxiety, Depression Integumentary: Yes (LEFT EAR MASS) Blood Disorders: No Adverse Reaction/Blood Tranf: No (N/A) Family Medical History Diabetes, Hypertension Physical Exam Vital Signs Vital Signs - First Documented 07/09/22 16:07 Temp 35.2 Pulse 77 Resp 16 B/P (MAP) 144/91 (108) Pulse Ox 98 Capillary Refill : Less Than 3 Seconds Height, Weight, BMI Height: 5'9.00" Weight: 182lbs. 0.0oz. 82.546258bx; 29.00 BMI Method:Stated General Appearance: No Apparent Distress, WD/WN Neck: Normal Inspection, Supple, Other (tracheostomy due to hx of laryngeal cancer) Cardiovascular: Regular Rate, Rhythm, No Edema, No Gallop, No JVD, No Murmur Respiratory: No Accessory Muscle Use, No Respiratory Distress, Wheezing (Slight expiratory wheeze SHRAVAN, RUL, RLL) Extremity: Normal Inspection, Normal Range of Motion; No Swelling; Other (no rashes, no erythema) Neurologic/Psychiatric: Alert, Normal Mood/Affect Skin: Normal Color, Warm/Dry Progress/Results/Core Measures Results/Orders My Orders Orders - DESIRAE XAVIER STEAM STATION SUPERVISOR Hip, Left, 2 Views (07/09/22 16:16) Lidocaine 4% Patch (Salonpas 4% Patch) (07/10/22 09:00) Lidocaine 4% Patch (Salonpas 4% Patch) (07/09/22 17:45) Vital Signs/I&O 07/09/22 07/09/22 16:07 17:44 Temp 35.2 Pulse 77 Resp 16 B/P (MAP) 144/91 (108) 106/73 Pulse Ox 98 Blood Pressure Mean: 108 Progress Progress Note : Time: 16:58 Progress Note Patient seen and evaluated, resting comfortably in bed, no acute distress. Based on exam and symptoms, x-ray of the left hip ordered. It shows degenerative changes likely osteoarthritis. Results discussed with patient. Informed patient that due to his PMH of kidney disease and diabetes, as well as him already taking percocet without relief, it will be difficult to treat his pain. I am unable to prescribe meloxicam or other NSAIDs, and systemic steroids are also not a good option due to his diabetes. Will prescribe lidocaine patches and have patient follow up with Dr. Lambert or his PCP. Patient given discharge instructions and return precautions. Patient agreeable to discharge at this time. Departure Impression Primary Impression: Osteoarthritis Disposition: 01 HOME, SELF-CARE Condition: Stable Departure-Patient Inst. Decision time for Depature: 17:27 Referrals: [facility] (PCP) Primary Care Physician LEILANI ROQUE (Family) Primary Care Physician Patient Instructions: Osteoarthritis (DC) Add. Discharge Instructions: Use lidocaine patches as needed for pain. They can stay in place for up to 12 hours, then must be removed for at least 12 hours. Follow-up with Dr. Lambert or primary care provider. Return if you develop any rashes or redness in the area, fever, or unable to walk, or any other new, concerning, or worsening symptoms. All discharge instructions reviewed with patient and/or family. Voiced understanding. Scripts Lidocaine (Lidocaine Pain Relief) 4 % Adh..patch 1 EACH TP DAILY for 14 Days, #14 PATCH 0 Refills Apply for 12 hours, remove for 12 hours before applying another one. Prov: DESIRAE XAVIER APRN 07/09/22 DESIRAE XAVIER APRN Jul 09, 2022 16:59
[2022-07-09] MEDS ORDERED: LIDO1ADH66 TP (17:31)
[2022-07-09 17:44] VITALS: BP 106/73
[2022-07-09] MEDS ORDERED: LIDOCAINE 4% (SALONPAS) PATCH TOP SCH (17:45)
[2022-07-10] MEDS ORDERED: LIDOCAINE 4% (SALONPAS) PATCH TOP SCH (09:00)
== END 2022-07-09 17:44 | disposition home or self-care (01) ==
LOC: EDUNIT# 16:03 → ER 16:04
DX: M16.12 Unilateral primary osteoarthritis, left hip (principal); F17.210 Nicotine dependence, cigarettes, uncomplicated; Z91.040 Latex allergy status
CPT/HCPCS: 73502

== ENCOUNTER 2022-07-26 13:45 | Emergency (ER) | payer MEDICARE ==
[~2022-07-26] VITALS: Ht 175 cm; Wt 91.0 kg
[~2022-07-26 13:45] MED LIST changes: -INSU100I29 SQ; +INSU100I30 SQ; +LIDO1ADH66 TP
[2022-07-26] MEDS ORDERED: KETOROLAC 30 MG/ML VIAL IVP ONE (14:00)
[2022-07-26] MEDS ORDERED: RT-ALBUTEROL/IPRATROPIUM 3 ML (DUONEB) VIAL INH ONE (14:00)
[2022-07-26 14:03] LABS: BASOPHILS % (AUTO) 0 % (0-10); EOSINOPHILS # (AUTO) 0.2 10^3/uL (0.0-0.3); EOSINOPHILS % (AUTO) 2 % (0-10); HEMATOCRIT 35 % (40-54); LYMPHOCYTES # (AUTO) 1.6 10^3/uL (1.0-4.0); LYMPHOCYTES % (AUTO) 17 % (12-44); MEAN CORPUSCULAR HEMOGLOBIN 25 pg (25-34); MEAN CORPUSCULAR HGB CONC 31 g/dL (32-36); MEAN CORPUSCULAR VOLUME 79 fL (80-99); MONOCYTES # (AUTO) 0.7 10^3/uL (0.0-1.0); MONOCYTES % (AUTO) 8 % (0-12); NEUTROPHILS # (AUTO) 6.7 10^3/uL (1.8-7.8); NEUTROPHILS % (AUTO) 73 % (42-75); PLATELET COUNT 311 10^3/uL (130-400); WHITE BLOOD COUNT 9.3 10^3/uL (4.3-11.0)
--- NOTE | 2022-07-26 14:12 | ED Chest Pain ---
General Chief Complaint: Chest Pain Stated Complaint: CHEST PAIN Nursing Triage Note: PT AMB TO RM 1 PT CO OF CHEST PAIN AND SOA SINCE ABOUT NOON TODAY. Source: patient, family Exam Limitations: clinical condition (Speech is sometimes difficult to understand due to laryngectomy and tracheostomy) History of Present Illness Date Seen by Provider: Jul 26, 2022 Time Seen by Provider: 13:49 Initial Comments This 57-year-old gentleman presents to the emergency room with complaints of chest pain and shortness of breath since around noon today. Pain extends into the back and left flank. He denies any cough or fever. He has an echocardiogram pending next week. He has no known heart disease but has risk factors including diabetes and tobaccoism. He has history of throat cancer and tracheostomy currently in remission. Pain is pleuritic in nature and worse with deep breathing. He presents accompanied by ilan who assists with history Allergies and Home Medications Allergies Coded Allergies: latex (Verified Allergy, Intermediate, RASH, 05/01/22) Penicillins (Unverified Allergy, Unknown, RASH, 05/01/22) Eabhpgt-VJT-HaD Reductase Inhibitor (Verified Allergy, Unknown, RASH, 05/01/22) ondansetron (Unverified Allergy, Unknown, RASH, 05/01/22) morphine (Verified Adverse Reaction, Unknown, HEADACHE, pt has rec Lortab in the past, 05/01/22) Patient Home Medication List Home Medication List Reviewed: Yes Aripiprazole (Aripiprazole) 5 Mg Tablet, 5 MG PO HS, (Reported) Entered as Reported by: NICK LAY on 07/24/21 1118 Aspirin (Aspirin EC) 81 Mg Tablet., 81 MG PO DAILY, (Reported) Entered as Reported by: NICK LAY on 11/02/19 1417 Cetirizine HCl (Zyrtec) 10 Mg Tablet, 10 MG PO HS, (Reported) Entered as Reported by: NICK LAY on 11/02/19 1417 Dapagliflozin/Metformin HCl (Xigduo Xr 2.5 mg-1,000 mg Tab) Unknown Strength Tab.bp.24h, Unknown Dose PO, (Reported) Entered as Reported by: TONEY FARFAN on 10/04/21 1013 Diclofenac Sodium (Diclofenac Sodium) 75 Mg Tablet., 75 MG PO BID, (Reported) Entered as Reported by: ELENA AVILA on 12/17/20 1432 Duloxetine HCl (Duloxetine HCl) 60 Mg Capsule.dr, 60 MG PO BID, (Reported) Entered as Reported by: LINH MEDINA on 12/01/20 1110 Fenofibrate (Fenofibrate) 160 Mg Tablet, 160 MG PO DAILY, (Reported) Entered as Reported by: ELENA AVILA on 12/17/20 143 Gabapentin (Gabapentin) 600 Mg Tablet, 1,200 MG PO DAILY, (Reported) Entered as Reported by: ELENA AVILA on 12/17/20 143 Gabapentin (Gabapentin) 600 Mg Tablet, 1,800 MG PO HS, (Reported) Entered as Reported by: NICK LAY on 07/24/21 1118 Insulin Aspart (Novolog) 100 Unit/1 Ml Susp, 4 UNIT SQ AC, (Reported) Entered as Reported by: ELENA AVILA on 12/17/20 143 Insulin Detemir (Levemir Flextouch) 100 Unit/1 Ml Insuln.pen, 20 UNIT SQ BID, (Reported) Entered as Reported by: ELENA AVILA on 12/17/20 1432 Ipratropium/Albuterol Sulfate (Iprat-Albut 0.5-3(2.5) mg/3 ml) 3 Ml Ampul.neb, 3 ML IH Q4H PRN for SHORTNESS OF BREATH, (Reported) Entered as Reported by: ELENA AVILA on 12/17/20 143 Levothyroxine Sodium (Levothyroxine Sodium) 125 Mcg Tablet, 125 MCG PO DAILY, (Reported) Entered as Reported by: LINH MEDINA on 12/01/20 1110 Lidocaine (Lidocaine Pain Relief) 4 % Adh..patch, 1 EACH TP DAILY Prescribed by: Desirae Archibald on 07/09/22 1731 Losartan Potassium (Losartan Potassium) 25 Mg Tablet, 25 MG PO DAILY, (Reported) Entered as Reported by: TONEY FARFAN on 10/04/21 1013 Mupirocin Calcium (Mupirocin) 2 % Cream..g., 15 GM TP UD, (Reported) Entered as Reported by: TONEY FARFAN on 10/03/21 1519 Naloxone HCl (Naloxone HCl) 0.4 Mg/Ml Soln, 0.4 MG IJ UD, (Reported) Entered as Reported by: TONEY FARFAN on 10/03/21 1519 Nystatin (Nystatin) 100,000 Unit/Ml Oral.susp, 500,000 UNIT PO QID Prescribed by: CIPRIANO SMITH on 11/05/21 1122 Oxycodone HCl/Acetaminophen (Percocet 5-325 mg Tablet) 5 Mg-325 Mg Tablet, 1 TAB PO Q6H PRN for PAIN BREAKTROUGH Prescribed by: AMADOR GUILLEN on 07/26/22 1805 Pantoprazole Sodium (Pantoprazole Sodium) 40 Mg Tablet.dr, 40 MG PO BID, (Reported) Entered as Reported by: ELENA AVILA on 12/17/20 1432 Rosuvastatin Calcium (Rosuvastatin Calcium) 10 Mg Tablet, 10 MG PO DAILY, (Reported) Entered as Reported by: ELENA AVILA on 12/17/20 1432 Sumatriptan Succinate (Sumatriptan Succinate) 50 Mg Tablet, 50 MG PO UD PRN for MIGRAINE, (Reported) Entered as Reported by: ELENA AVILA on 12/17/20 1432 Tizanidine HCl (Zanaflex) 4 Mg Tablet, 4 MG PO TID, (Reported) Entered as Reported by: TONEY FARFAN on 02/13/22 1358 Topiramate (Topiramate) 100 Mg Tablet, 100 MG PO BID, (Reported) Entered as Reported by: ELENA AVILA on 12/17/20 1432 Review of Systems Review of Systems Constitutional: no symptoms reported EENTM: See HPI Respiratory: See HPI Cardiovascular: See HPI Gastrointestinal: No Symptoms Reported Genitourinary: No Symptoms Reported Musculoskeletal: no symptoms reported Skin: no symptoms reported Psychiatric/Neurological: No Symptoms Reported Endocrine: No Symptoms Reported Past Bginuxt-Dgywbg-Zbyupm Hx Patient Social History Tobacco Use?: Yes Tobacco type used: Cigarettes Smoking Status: Current Someday Smoker Substance use?: No Alcohol Use?: No Pt feels they are or have been: No Immunizations Up To Date Tetanus Booster (TDap): Unknown Influenza Vaccine Up-to-Date: Yes; Up-to-Date First/Initial COVID19 Vaccinat: 07/16/2020 Second COVID19 Vaccination Scot: 08/13/2020 Third COVID19 Vaccination Date: 2021 Seasonal Allergies Seasonal Allergies: Yes Past Medical History Surgery/Hospitalization HX: SINUS SURGERY X 2RIGHT KNEE ACL REPAIRBILATERAL CARPAL TUNNEL SURGERYLEFT UPPER LOBECTOMYLARYNGECTOMY AND PERMANENT TRACHEOSTOMYLEFT SHOULDER SURGERY 12/2016, 04/2017, 12/2017LEFT CARPAL TUNNEL 12/2017CARDIAC CATH 10/[address] CONTRERASUSION:1. Mild to moderate stenosis up to 40 percent stenosis in the midrightcoronary artery otherwise mild disease nonobstructive disease2. Normal left ventricular end-diastolic pressureAPPENDECTOMYCHOLECYSTECTOMY Surgeries: Yes (Sinus surgery X2, ACL RIGHT KNEE, BILAT CTS L UPPER LOBECTOMY, LARYNGECTOMY) Appendectomy, Cardiac, Gallbladder, Lobectomy, Orthopedic, Thyroidectomy, Tracheostomy Respiratory: Yes (Pulmonary nodules, HX LUNG CA--PERMANENT TRACHEOSTOMY FOR LARYNGEAL CA, ) Asthma, COPD Currently Using CPAP: No Currently Using BIPAP: No Cardiac: Yes (CARDIAC CATH 10/2019--NO INTERVENTION, BP MEDS TO PROTECT LIVER) Coronary Artery Disease, High Cholesterol Neurological: Yes Headaches /Migraines, Neuropathy Reproductive Disorders: No Sexually Transmitted Disease: No HIV/AIDS: No Genitourinary: Yes Benign Prostatic Hyperpl, Renal Failure Gastrointestinal: Yes Gastroesophageal Reflux, Chronic Constipation, Polyps, Gall Bladder Disease Musculoskeletal: Yes Degenerate Disk Disease, Arthritis, Chronic Back Pain Endocrine: Yes Diabetes, Non-Insulin dep HEENT: Yes (LARYNGEAL CANCER-S/P TRACHEOSTOMY and laryngectomy) Loss of Vision: Bilateral Hearing Impairment: Denies Cancer: Yes (THROAT) Lung Did You Recieve Any Treatments: Yes What Type of Treatment Did You: Radiation, Surgical Intervention Psychosocial: Yes Anxiety, Depression Integumentary: Yes (LEFT EAR MASS) Blood Disorders: No Adverse Reaction/Blood Tranf: No (N/A) Family Medical History Diabetes, Hypertension Physical Exam Vital Signs Capillary Refill : Less Than 3 Seconds Height, Weight, BMI Height: 5'9.00" Weight: 182lbs. 0.0oz. 82.192839bk; 29.00 BMI Method:Stated General Appearance: No Apparent Distress, WD/WN HEENT: Normal ENT Inspection Neck: Normal Inspection; No JVD Respiratory: Chest Non Tender, No Accessory Muscle Use, No Respiratory Distress, Wheezing Cardiovascular: Regular Rate, Rhythm, No Edema, No Murmur Gastrointestinal: Non Tender, Soft Extremity: Normal Inspection, Non Tender, No Pedal Edema Neurologic/Psychiatric: Alert, Oriented x3, No Motor/Sensory Deficits, Normal Mood/Affect Skin: Normal Color, Warm/Dry Progress/Results/Core Measures Results/Orders Lab Results Laboratory Tests Test 07/26/22 13:55 07/26/22 14:00 07/26/22 14:09 07/26/22 15:55 Range/Units White Blood Count 9.3 4.3-11.0 10^3/uL Red Blood Count 4.47 4.30-5.52 10^6/uL Hemoglobin 11.0 L 13.3-17.7 g/dL Hematocrit 35 L 40-54 % Mean Corpuscular Volume 79 L 80-99 fL Mean Corpuscular Hemoglobin 25 25-34 pg Mean Corpuscular Hemoglobin Concent 31 L 32-36 g/dL Red Cell Distribution Width 15.0 H 10.0-14.5 % Platelet Count 311 130-400 10^3/uL Mean Platelet Volume 10.0 9.0-12.2 fL Immature Granulocyte % (Auto) 0 % Neutrophils (%) (Auto) 73 42-75 % Lymphocytes (%) (Auto) 17 12-44 % Monocytes (%) (Auto) 8 0-12 % Eosinophils (%) (Auto) 2 0-10 % Basophils (%) (Auto) 0 0-10 % Neutrophils # (Auto) 6.7 1.8-7.8 10^3/uL Lymphocytes # (Auto) 1.6 1.0-4.0 10^3/uL Monocytes # (Auto) 0.7 0.0-1.0 10^3/uL Eosinophils # (Auto) 0.2 0.0-0.3 10^3/uL Basophils # (Auto) 0.0 0.0-0.1 10^3/uL Immature Granulocyte # (Auto) 0.0 0.0-0.1 10^3/uL Erythrocyte Sedimentation Rate 52 H 0-30 MM/HR Prothrombin Time 13.1 12.2-14.7 SEC INR Comment 0.9 0.8-1.4 Activated Partial Thromboplast Time 32 24-35 SEC Sodium Level 138 135-145 MMOL/L Potassium Level 4.1 3.6-5.0 MMOL/L Chloride Level 104 98-107 MMOL/L Carbon Dioxide Level 22 21-32 MMOL/L Anion Gap 12 5-14 MMOL/L Blood Urea Nitrogen 36 H 7-18 MG/DL Creatinine 1.43 H 0.60-1.30 MG/DL Estimat Glomerular Filtration Rate 57 BUN/Creatinine Ratio 25 Glucose Level 300 H 70-105 MG/DL Calcium Level 9.0 8.5-10.1 MG/DL Corrected Calcium 8.8 8.5-10.1 MG/DL Magnesium Level 2.1 1.6-2.4 MG/DL Total Bilirubin 0.1 0.1-1.0 MG/DL Aspartate Amino Transf (AST/SGOT) 10 5-34 U/L Alanine Aminotransferase (ALT/SGPT) 15 0-55 U/L Alkaline Phosphatase 89 40-136 U/L Myoglobin 51.4 10.0-92.0 NG/ML Troponin I < 0.028 <0.028 NG/ML Total Protein 7.8 6.4-8.2 GM/DL Albumin 4.3 3.2-4.5 GM/DL C-Reactive Protein High Sensitivity 6.09 H 0.00-0.50 MG/DL Influenza Type A (RT-PCR) Not Detected Not Detecte Influenza Type B (RT-PCR) Not Detected Not Detecte SARS-CoV-2 RNA (RT-PCR) Not Detected Not Detecte D-Dimer 1.28 H 0.00-0.49 UG/ML Test 07/26/22 16:10 Range/Units Troponin I < 0.028 <0.028 NG/ML My Orders Orders - AMADOR RETANA MD Cbc With Automated Diff (07/26/22 13:58) Magnesium (07/26/22 13:58) Ekg Tracing (07/26/22 13:58) Comprehensive Metabolic Panel (07/26/22 13:58) Myoglobin Serum (07/26/22 13:58) Protime With Inr (07/26/22 13:58) Partial Thromboplastin Time (07/26/22 13:58) O2 (07/26/22 13:58) Monitor-Rhythm Ecg Trace Only (07/26/22 13:58) Ed Iv/Invasive Line Start (07/26/22 13:58) Troponin I Harper (07/26/22 13:58) Ketorolac Injection (Toradol Injection) (07/26/22 14:00) Hs C Reactive Protein (07/26/22 14:00) Covid 19 Inhouse Test (07/26/22 14:00) Influenza A And B By Pcr (07/26/22 14:00) Albuterol/Ipra Inhalation Soln (Duoneb I (07/26/22 14:00) Svn Small Volume Nebulizer (07/26/22 14:00) Chest Pa/Lat (2 View) (07/26/22 14:53) Troponin I Marizol (07/26/22 16:00) Fibrin Degradation Products (07/26/22 15:27) Lactated Ringers (Lr 1000 Ml Iv Solution (07/26/22 15:45) Ct Ana Chest/Noang Abd-Pelv W (07/26/22 16:00) Iohexol Injection (Omnipaque 350 Mg/Ml 1 (07/26/22 16:15) Received Contrast (Hold Metformin- Contr (07/26/22 16:15) Sodium Chloride Flush (Catheter Flush Sy (07/26/22 16:15) Ns (Ivpb) (Sodium Chloride 0.9% Ivpb Bag (07/26/22 16:15) Erythrocyte Sedimentation Rate (07/26/22 17:10) Lidocaine 2% Viscous 15 Ml (Xylocaine Vi (07/26/22 17:15) Antacid Suspension (Mylanta Suspension (07/26/22 17:15) Oxycodone/Apap 5/325mg Tablet (Percocet (07/26/22 18:00) Iv Push Net Lead Architect Ed (07/26/22 ) Medications Given in ED Vital Signs/I&O Blood Pressure Mean: 111 Progress Progress Note : Progress Note Patient was interviewed and examined. Chart was reviewed. Wheezing was treated with albuterol with improvement. Chest pain was treated with Toradol with some improvement. GI cocktail was later provided which did not improve the pain. He was further treated with a Percocet tablet. Labs were obtained which demonstrated multiple abnormalities. Mild anemia was noted on the CBC. There was no elevation in WBC. Chemistry revealed mildly elevated creatinine and a blood sugar of 300. Chemistry was otherwise relatively unremarkable. Inflammatory markers including ESR and CRP were elevated suggesting some inflammatory process. D-dimer was mildly elevated but clinically significant. CT angiogram of the chest with not angiogram study of the abdomen and pelvis was obtained. Abdomen pelvis was included because of his radiation of pain into the back and flank as well as his cancer history. CT revealed no pulmonary emboli or acute abdominal pathology. However, a mild pericardial effusion was noted. Patient is scheduled to have echocardiogram and is established with cardiology. He was encouraged to follow through with this work-up. Pain is being treated in the meantime. See discharge instructions for further discussion. Initial ECG Impression Date: Jul 26, 2022 Initial ECG Impression Time: 14:04 Initial ECG Rate: 88 Initial ECG Rhythm: Normal Sinus Initial ECG Intervals: Normal Initial ECG Impression: Normal Comment Normal sinus rhythm with no ST elevation or depression. No abnormal intervals or axis deviation. Diagnostic Imaging Diagonstic Imaging: Xray Plain Films/CT/US/NM/MRI: chest Comments NAME: ROGER CHANEY [facility] REC#: [id number] PT STATUS: REG ER : 1965 PHYSICIAN: AMADOR RETANA MD ADMIT DATE: 07/26/22/ER Signed Date of Exam:07/26/22 CHEST PA/LAT (2 VIEW) INDICATION: Chest pain. TECHNIQUE: Two view chest 3:14 PM CORRELATION STUDY: None FINDINGS: The heart size, mediastinal configuration and pulmonary vasculature are within normal limits. Multiple surgical clips thoracic outlet. The lungs are clear with no consolidating infiltrate. Scarlike formation left upper lobe. There is no significant pleural effusion or pneumothorax. [place] screws bilateral humeral head. IMPRESSION: 1. Generally stable chest and straight no acute asthmatic. Dictated by: Dictated on workstation # [id number] Dict: 07/26/22 1516 Trans: 07/26/22 1608 DO [id number] Interpreted by: MAITE CASTANON DO Electronically signed by: MAITE CASTANON DO 07/26/22 1608 Diagonstic Imaging: CT Plain Films/CT/US/NM/MRI: chest, abdomen, pelvis Comments NAME: ROGER CHANEY [facility] REC#: [id number] PT STATUS: REG ER : 1965 PHYSICIAN: AMADOR RETANA MD ADMIT DATE: 07/26/22/ER Signed Date of Exam:07/26/22 CT ANA CHEST/NOANG ABD-PELV W INDICATION: 57-year-old male, chest pain with history of lung cancer, esophageal cancer, post laryngectomy. CTA chest, abdomen and pelvis Thin axial sections through the chest, abdomen and pelvis are obtained following intravenous contrast bolus. Multiplanar MIP images were reconstructed and reviewed. All CT scans use one or more of the following dose optimizing techniques: automated exposure control, MA and/or KvP adjustment based on patient size and exam type or iterative reconstruction. CORRELATION STUDY: CT chest, abdomen and pelvis 01/11/2022. FINDINGS: CTA CHEST: Postoperative changes of a laryngectomy and tracheostomy. The airway below the ostomy is patent. Heart size enlarged with small pericardial effusion. Maximum thickness posteriorly 9 mm. Adversely changed from prior. Thoracic aorta unremarkable. No pathologic enlarged mediastinum lymph nodes. Multiple small shotty mediastinal, hilar and axillary lymph nodes are present. No pulmonary artery filling defects suggest pulmonary embolism. Trace left pleural effusion. Scarlike formation left upper lobe laterally, unchanged. No new infiltrate. Osseous structures demonstrate no acute findings. There appears to be an abscess of the left pectoralis muscle. CT ABDOMEN and PELVIS: Liver is enlarged at 23 cm with steatotic change. Gallbladder absent. No bile duct dilatation. Spleen, pancreas, adrenal glands and kidneys demonstrate no acute findings. Mild calcification of the abdominal aorta, nonaneurysmal. A left-sided IVC is present. A few shotty aortocaval lymph nodes. Moderate stool throughout the colon. No gastrointestinal tract obstruction. Urinary bladder is mildly distended. Prostate gland enlarged. Osseous structures demonstrate no acute findings of advanced degenerative change. IMPRESSION: CTA CHEST: 1. No CT evidence for pulmonary embolism or acute aortic syndrome. 2. Cardiac enlargement. Development of a small to moderate pericardial effusion. Maximum thickness just under [address] ABDOMEN and PELVIS: 1. Negative acute abnormality about the abdomen and/or pelvis. 2. Hepatomegaly with steatosis. 3. Constipation. Dictated by: Dictated on workstation # [id number] Dict: 07/26/226 Trans: 07/26/221700 CV [id number] Interpreted by: MAITE CASTANON DO Electronically signed by: MAITE CASTANON DO 07/26/221700 Departure Impression Primary Impression: Pleuritic chest pain Additional Impression: Pericardial effusion Disposition: HOME, SELF-CARE Condition: Improved Departure-Patient Inst. Decision time for Depature: 17:59 Referrals: [facility] (PCP) Primary Care Physician LEILANI ROQUE (Family) Primary Care Physician CINTHIA MANDEL MD Patient Instructions: Pericardial Effusion, Pleuritic Chest Pain ED Add. Discharge Instructions: You may continue taking your usual hydrocodone for pain. Add Percocet for pain not controlled by hydrocodone. If these medications do not control your pain. You may need to add some ibuprofen up to 400 mg 3 times a day. Take ibuprofen with food or milk to help prevent stomach upset. Use an antacid such as omeprazole or Pepcid on days you take ibuprofen. You should use ibuprofen sparingly as it may damage your kidney function if overused. It should only be used for very short-term management of pain. Follow through with your echocardiogram as scheduled. Follow-up with your primary care provider and your food service representative as soon as possible. Please call on Thursday for follow-up appointments. Work toward quitting smoking as rapidly as possible. Return to the emergency room if you have worsening symptoms despite following these instructions. All discharge instructions reviewed with patient and/or family. Voiced understanding. Scripts Oxycodone HCl/Acetaminophen (Percocet 5-325 mg Tablet) 5 Mg-325 Mg Tablet 1 TAB PO Q6H PRN for PAIN BREAKTROUGH MDD 6, #10 TAB Prov: AMADOR RETANA MD 07/26/22 Copy Copies To 1: CINTHIA MANDEL MD Copies To 2: [facility]/AMADOR LYLES MD Jul 26, 2022 14:12
[2022-07-26 14:13] LABS: ALBUMIN 4.3 GM/DL (3.2-4.5)
[2022-07-26 14:14] LABS: INR 0.9 (0.8-1.4); POTASSIUM 4.1 MMOL/L (3.6-5.0); PROTHROMBIN TIME PATIENT 13.1 SEC (12.2-14.7)
[2022-07-26 14:16] LABS: TOTAL PROTEIN 7.8 GM/DL (6.4-8.2)
[2022-07-26 14:18] LABS: BILIRUBIN,TOTAL 0.1 MG/DL (0.1-1.0)
[2022-07-26 14:20] LABS: CREATININE SERUM 1.43 MG/DL (0.60-1.30)
[2022-07-26 14:23] LABS: MAGNESIUM 2.1 MG/DL (1.6-2.4)
--- NOTE | 2022-07-26 15:18 | Diagnostic Imaging Report ---
INDICATION: Chest pain. TECHNIQUE: Two view chest 3:14 PM CORRELATION STUDY: None FINDINGS: The heart size, mediastinal configuration and pulmonary vasculature are within normal limits. Multiple surgical clips thoracic outlet. The lungs are clear with no consolidating infiltrate. Scarlike formation left upper lobe. There is no significant pleural effusion or pneumothorax. [place] screws bilateral humeral head. IMPRESSION: 1. Generally stable chest and straight no acute asthmatic. Dictated by: Dictated on workstation # [id number]
[2022-07-26] MEDS ORDERED: LACTATED RINGERS 1,000 ML IV ONE (15:45)
[2022-07-26] MEDS ORDERED: NS 100 ML (IVPB) BAG IV ONE (16:15)
[2022-07-26] MEDS ORDERED: IOHEXOL 350 MG/ML 100 ML (OMNIPAQUE 350) VIAL IV ONE (16:15)
[2022-07-26] MEDS ORDERED: HOLD METFORMIN - RECEIVED CONTRAST 20 ML VIAL IV SCH (16:15)
[2022-07-26] MEDS ORDERED: CATHETER FLUSH 10 ML SYR IV PRN (16:15)
--- NOTE | 2022-07-26 17:00 | Diagnostic Imaging Report ---
INDICATION: 57-year-old male, chest pain with history of lung cancer, esophageal cancer, post laryngectomy. CTA chest, abdomen and pelvis Thin axial sections through the chest, abdomen and pelvis are obtained following intravenous contrast bolus. Multiplanar MIP images were reconstructed and reviewed. All CT scans use one or more of the following dose optimizing techniques: automated exposure control, MA and/or KvP adjustment based on patient size and exam type or iterative reconstruction. CORRELATION STUDY: CT chest, abdomen and pelvis 01/11/2022. FINDINGS: CTA CHEST: Postoperative changes of a laryngectomy and tracheostomy. The airway below the ostomy is patent. Heart size enlarged with small pericardial effusion. Maximum thickness posteriorly 9 mm. Adversely changed from prior. Thoracic aorta unremarkable. No pathologic enlarged mediastinum lymph nodes. Multiple small shotty mediastinal, hilar and axillary lymph nodes are present. No pulmonary artery filling defects suggest pulmonary embolism. Trace left pleural effusion. Scarlike formation left upper lobe laterally, unchanged. No new infiltrate. Osseous structures demonstrate no acute findings. There appears to be an abscess of the left pectoralis muscle. CT ABDOMEN and PELVIS: Liver is enlarged at 23 cm with steatotic change. Gallbladder absent. No bile duct dilatation. Spleen, pancreas, adrenal glands and kidneys demonstrate no acute findings. Mild calcification of the abdominal aorta, nonaneurysmal. A left-sided IVC is present. A few shotty aortocaval lymph nodes. Moderate stool throughout the colon. No gastrointestinal tract obstruction. Urinary bladder is mildly distended. Prostate gland enlarged. Osseous structures demonstrate no acute findings of advanced degenerative change. IMPRESSION: CTA CHEST: 1. No CT evidence for pulmonary embolism or acute aortic syndrome. 2. Cardiac enlargement. Development of a small to moderate pericardial effusion. Maximum thickness just under [address] ABDOMEN and PELVIS: 1. Negative acute abnormality about the abdomen and/or pelvis. 2. Hepatomegaly with steatosis. 3. Constipation. Dictated by: Dictated on workstation # [id number]
[2022-07-26] MEDS ORDERED: LIDOCAINE 2% VISCOUS 15 ML UDC PO ONE (17:15)
[2022-07-26] MEDS ORDERED: ANTACID SUSP 30 ML UDC (MYLANTA) PO ONE (17:15)
[2022-07-26] MEDS ORDERED: oxyCODONE/APAP 5/325MG (PERCOCET 5) TABLET PO ONE (18:00)
[2022-07-26] MEDS ORDERED: OXYC-199 PO (18:04)
[2022-07-26 18:08] VITALS: BP 86/67
== END 2022-07-26 18:13 | disposition home or self-care (01) ==
LOC: EDUNIT# 13:45 → ER 13:50
DX: I31.39 Other pericardial effusion (noninflammatory) (principal); F17.210 Nicotine dependence, cigarettes, uncomplicated; Z91.040 Latex allergy status; Z88.5 Allergy status to narcotic agent; Z20.822 Contact with and (suspected) exposure to COVID-19
CPT/HCPCS: 36415; 71046; 71275; 74177; 80053; 83735; 83874; 84484; 85025; 85379; 85610; 85652; 85730; 86141; 87636; 93005; 94640; 96361; 96374

== ENCOUNTER → 2022-07-29 | Outpatient (CLI) | payer MEDICARE ==
[~2022-07-29] MED LIST changes: +OXYC-199 PO
== END ==
LOC: CARD 13:00
DX: I11.9 Hypertensive heart disease without heart failure (principal); I34.0 Nonrheumatic mitral (valve) insufficiency; R07.9 Chest pain, unspecified
CPT/HCPCS: 93306

== ENCOUNTER 2022-08-02 17:01 | Emergency (ER) | payer MEDICARE ==
[~2022-08-02] VITALS: Ht 175 cm; Wt 100.0 kg
[2022-08-02 17:33] LABS: BILIRUBIN,URINE NEGATIVE (NEGATIVE); CLARITY,URINE CLEAR; COLOR,URINE YELLOW; GLUCOSE, URINE (UA) 3+ (NEGATIVE); KETONES,URINE NEGATIVE (NEGATIVE); LEUKOCYTE ESTERASE ,URINE NEGATIVE (NEGATIVE); NITRITE,URINE NEGATIVE (NEGATIVE); PROTEIN,URINE NEGATIVE (NEGATIVE)
--- NOTE | 2022-08-02 17:37 | ED Back Pain ---
General Stated Complaint: LEFT KIDNEY PAIN Source of Information: Patient Exam Limitations: No Limitations History of Present Illness Date Seen by Provider: Aug 02, 2022 Time Seen by Provider: 17:33 Initial Comments Patient is a 57-year-old male with a history of laryngeal cancer with a tracheostomy, lung cancer, cholecystectomy, appendectomy, coronary artery disease who presents to ED with left flank pain. acute onset yesterday evening. Pain has been constant. Described as a sharp stabbing pain with dull achy pain. No radiation. Denies of any trauma or falls. He reports chronic numbness and tingling in the lower extremities secondary to a hip surgery. Denies of any frequent urination, pain with urination, hematuria or history of kidney stones. Denies of any abdominal pain, vomiting or diarrhea. Patient denies taking anything for pain at home. Denies history of similar type pain. Pain has been constant without radiation. Patient denies chest pain, shortness of breath, cough, headache, fever, dizziness. He denies of any pain in his lower extremities with walking. Denies of any skin color changes in his lower extremity. Allergies and Home Medications Allergies Coded Allergies: latex (Verified Allergy, Intermediate, RASH, 05/01/22) Penicillins (Unverified Allergy, Unknown, RASH, 05/01/22) Nnhpltz-CXG-YoS Reductase Inhibitor (Verified Allergy, Unknown, RASH, 05/01/22) ondansetron (Unverified Allergy, Unknown, RASH, 05/01/22) morphine (Verified Adverse Reaction, Unknown, HEADACHE, pt has rec Lortab in the past, 05/01/22) Patient Home Medication List Home Medication List Reviewed: Yes Aripiprazole (Aripiprazole) 5 Mg Tablet, 5 MG PO HS, (Reported) Entered as Reported by: NICK LAY on 07/24/21 1118 Aspirin (Aspirin EC) 81 Mg Tablet.dr, 81 MG PO DAILY, (Reported) Entered as Reported by: NICK LAY on 11/02/19 1417 Cetirizine HCl (Zyrtec) 10 Mg Tablet, 10 MG PO HS, (Reported) Entered as Reported by: NICK LAY on 11/02/19 1417 Dapagliflozin/Metformin HCl (Xigduo Xr 2.5 mg-1,000 mg Tab) Unknown Strength Tab.bp.24h, Unknown Dose PO, (Reported) Entered as Reported by: TONEY FARFAN on 10/04/21 1013 Diclofenac Sodium (Diclofenac Sodium) 75 Mg Tablet., 75 MG PO BID, (Reported) Entered as Reported by: ELENA AVILA on 12/17/20 1432 Duloxetine HCl (Duloxetine HCl) 60 Mg Capsule.dr, 60 MG PO BID, (Reported) Entered as Reported by: LINH MEDINA on 12/01/20 1110 Fenofibrate (Fenofibrate) 160 Mg Tablet, 160 MG PO DAILY, (Reported) Entered as Reported by: ELENA AVILA on 12/17/20 143 Gabapentin (Gabapentin) 600 Mg Tablet, 1,200 MG PO DAILY, (Reported) Entered as Reported by: ELENA AVILA on 12/17/20 143 Gabapentin (Gabapentin) 600 Mg Tablet, 1,800 MG PO HS, (Reported) Entered as Reported by: NICK LAY on 07/24/21 1118 Insulin Aspart (Novolog) 100 Unit/1 Ml Susp, 4 UNIT SQ AC, (Reported) Entered as Reported by: ELENA AVILA on 12/17/20 1432 Insulin Detemir (Levemir Flextouch) 100 Unit/1 Ml Insuln.pen, 20 UNIT SQ BID, (Reported) Entered as Reported by: ELENA AVILA on 12/17/20 143 Ipratropium/Albuterol Sulfate (Iprat-Albut 0.5-3(2.5) mg/3 ml) 3 Ml Ampul.neb, 3 ML IH Q4H PRN for SHORTNESS OF BREATH, (Reported) Entered as Reported by: ELENA AVILA on 12/17/20 1432 Levothyroxine Sodium (Levothyroxine Sodium) 125 Mcg Tablet, 125 MCG PO DAILY, (Reported) Entered as Reported by: LINH MEDINA on 12/01/20 1110 Lidocaine (Lidocaine Pain Relief) 4 % Adh..patch, 1 EACH TP DAILY Prescribed by: Desirae Archibald on 07/09/22 1731 Losartan Potassium (Losartan Potassium) 25 Mg Tablet, 25 MG PO DAILY, (Reported) Entered as Reported by: TONEY FARFAN on 10/04/21 1013 Mupirocin Calcium (Mupirocin) 2 % Cream..g., 15 GM TP UD, (Reported) Entered as Reported by: TONEY FARFAN on 10/03/21 1519 Naloxone HCl (Naloxone HCl) 0.4 Mg/Ml Soln, 0.4 MG IJ UD, (Reported) Entered as Reported by: TONEY FARFAN on 10/03/21 1519 Nystatin (Nystatin) 100,000 Unit/Ml Oral.susp, 500,000 UNIT PO QID Prescribed by: CIPRIANO SMITH on 11/05/21 1122 Oxycodone HCl/Acetaminophen (Percocet 5-325 mg Tablet) 5 Mg-325 Mg Tablet, 1 TAB PO Q6H PRN for PAIN BREAKTROUGH Prescribed by: AMADOR GUILLEN on 07/26/22 1805 Pantoprazole Sodium (Pantoprazole Sodium) 40 Mg Tablet.dr, 40 MG PO BID, (Reported) Entered as Reported by: ELENA AVILA on 12/17/20 143 Rosuvastatin Calcium (Rosuvastatin Calcium) 10 Mg Tablet, 10 MG PO DAILY, (Repor maurilio) Entered as Reported by: ELENA AVILA on 12/17/20 1432 Sumatriptan Succinate (Sumatriptan Succinate) 50 Mg Tablet, 50 MG PO UD PRN for MIGRAINE, (Reported) Entered as Reported by: ELENA AVILA on 12/17/20 1432 Tizanidine HCl (Zanaflex) 4 Mg Tablet, 4 MG PO TID, (Reported) Entered as Reported by: TONEY FARFAN on 02/13/22 1358 Topiramate (Topiramate) 100 Mg Tablet, 100 MG PO BID, (Reported) Entered as Reported by: ELENA AVILA on 12/17/20 1432 Review of Systems Constitutional: No chills, No diaphoresis, No malaise, No weakness EENTM: No ear pain, No blurred vision, No double vision, No mouth pain Respiratory: No cough, No dyspnea on exertion Cardiovascular: No chest pain, No edema Gastrointestinal: No abdominal pain, No diarrhea, No nausea, No vomiting Genitourinary: No decreased output, No discharge Musculoskeletal: back pain; No joint pain Skin: No change in color, No change in hair/nails All Other Systems Reviewed Negative Unless Noted: Yes Past Cgbhsxm-Efagen-Avyyhk Hx Immunizations Up To Date Tetanus Booster (TDap): Unknown First/Initial COVID19 Vaccinat: 07/16/2020 Second COVID19 Vaccination Scot: 08/13/2020 Third COVID19 Vaccination Date: 2021 Seasonal Allergies Seasonal Allergies: Yes Past Medical History Surgery/Hospitalization HX: SINUS SURGERY X 2RIGHT KNEE ACL REPAIRBILATERAL CARPAL TUNNEL SURGERYLEFT UPPER LOBECTOMYLARYNGECTOMY AND PERMANENT TRACHEOSTOMYLEFT SHOULDER SURGERY 12/2016, 04/2017, 12/2017LEFT CARPAL TUNNEL 12/2017CARDIAC CATH 10/[address] CONTRERASUSION:1. Mild to moderate stenosis up to 40 percent stenosis in the midrightcoronary artery otherwise mild disease nonobstructive disease2. Normal left ventricular end-diastolic pressureAPPENDECTOMYCHOLECYSTECTOMY Surgeries: Yes (Sinus surgery X2, ACL RIGHT KNEE, BILAT CTS L UPPER LOBECTOMY, LARYNGECTOMY) Appendectomy, Cardiac, Gallbladder, Lobectomy, Orthopedic, Thyroidectomy, Tracheostomy Respiratory: Yes (Pulmonary nodules, HX LUNG CA--PERMANENT TRACHEOSTOMY FOR L ARYNGEAL CA, ) Asthma, COPD Currently Using CPAP: No Currently Using BIPAP: No Cardiac: Yes (CARDIAC CATH 10/2019--NO INTERVENTION, BP MEDS TO PROTECT LIVER) High Cholesterol Neurological: Yes Headaches /Migraines, Neuropathy Reproductive Disorders: No Sexually Transmitted Disease: No HIV/AIDS: No Genitourinary: No Benign Prostatic Hyperpl, Renal Failure Gastrointestinal: Yes Gastroesophageal Reflux, Chronic Constipation, Polyps, Gall Bladder Disease Musculoskeletal: Yes Degenerate Disk Disease, Arthritis, Chronic Back Pain Endocrine: Yes Diabetes, Non-Insulin dep HEENT: Yes (LARYNGEAL CANCER-S/P TRACHEOSTOMY) Loss of Vision: Bilateral Hearing Impairment: Denies Cancer: Yes (THROAT) Lung Did You Recieve Any Treatments: Yes What Type of Treatment Did You: Radiation, Surgical Intervention Psychosocial: Yes Anxiety, Depression Integumentary: Yes (LEFT EAR MASS) Blood Disorders: No Adverse Reaction/Blood Tranf: No (N/A) Family Medical History Diabetes, Hypertension Physical Exam Vital Signs Vital Signs - First Documented 08/02/22 17:45 Temp 36.8 Pulse 82 Resp 18 B/P (MAP) 109/69 (82) Pulse Ox 94 O2 Delivery Room Air Capillary Refill : Height, Weight, BMI Height: 5'9.00" Weight: 182lbs. 0.0oz. 82.710170lt; 29.00 BMI Method:Stated General Appearance: No Apparent Distress, WD/WN HEENT: PERRL/EOMI, TMs Normal, Normal ENT Inspection, Pharynx Normal Neck: Full Range of Motion, Normal Inspection, Non Tender, Supple Cardiovascular: Regular Rate, Rhythm, No Edema, No Gallop, No JVD, No Murmur Respiratory: Chest Non Tender, Lungs Clear, Normal Breath Sounds, No Accessory Muscle Use Peripheral Pulses: 2+ Dorsalis Pedis (R), 2+ Left Dors-Pedis (L) Gastrointestinal: Normal Bowel Sounds, No Organomegaly, No Pulsatile Mass, Non Tender, Soft Back: No Vertebral Tenderness, CVA Tenderness (L) Extremity: Normal Capillary Refill, Normal Inspection, Normal Range of Motion, Non Tender Neurologic/Psychiatric: Alert, Oriented x3, No Motor/Sensory Deficits, Normal Mood/Affect, elevator 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-XII Norm as Tested Skin: Normal Color Progress/Results/Core Measures Results/Orders Lab Results Laboratory Tests Test 08/02/22 17:25 08/02/22 17:35 08/02/22 18:45 Range/Units Urine Color YELLOW Urine Clarity CLEAR Urine pH 6.0 5-9 Urine Specific [place] 1.015 L 1.016-1.022 Urine Protein NEGATIVE NEGATIVE Urine Glucose (UA) 3+ H NEGATIVE Urine Ketones NEGATIVE NEGATIVE Urine Nitrite NEGATIVE NEGATIVE Urine Bilirubin NEGATIVE NEGATIVE Urine Urobilinogen 0.2 < = 1.0 MG/DL Urine Leukocyte Esterase NEGATIVE NEGATIVE Urine RBC (Auto) NEGATIVE NEGATIVE Urine RBC NONE /HPF Urine WBC NONE /HPF Urine Squamous Epithelial Cells RARE /HPF Urine Crystals NONE /LPF Urine Bacteria NEGATIVE /HPF Urine Casts NONE /LPF Urine Mucus NEGATIVE /LPF Urine Culture Indicated NO White Blood Count 8.5 4.3-11.0 10^3/uL Red Blood Count 4.19 L 4.30-5.52 10^6/uL Hemoglobin 10.4 L 13.3-17.7 g/dL Hematocrit 33 L 40-54 % Mean Corpuscular Volume 78 L 80-99 fL Mean Corpuscular Hemoglobin 25 25-34 pg Mean Corpuscular Hemoglobin Concent 32 32-36 g/dL Red Cell Distribution Width 14.6 H 10.0-14.5 % Platelet Count 506 H 130-400 10^3/uL Mean Platelet Volume 10.1 9.0-12.2 fL Immature Granulocyte % (Auto) 1 % Neutrophils (%) (Auto) 66 42-75 % Lymphocytes (%) (Auto) 22 12-44 % Monocytes (%) (Auto) 8 0-12 % Eosinophils (%) (Auto) 3 0-10 % Basophils (%) (Auto) 1 0-10 % Neutrophils # (Auto) 5.7 1.8-7.8 10^3/uL Lymphocytes # (Auto) 1.9 1.0-4.0 10^3/uL Monocytes # (Auto) 0.7 0.0-1.0 10^3/uL Eosinophils # (Auto) 0.2 0.0-0.3 10^3/uL Basophils # (Auto) 0.0 0.0-0.1 10^3/uL Immature Granulocyte # (Auto) 0.1 0.0-0.1 10^3/uL Sodium Level 137 135-145 MMOL/L Potassium Level 4.0 3.6-5.0 MMOL/L Chloride Level 103 98-107 MMOL/L Carbon Dioxide Level 23 21-32 MMOL/L Anion Gap 11 5-14 MMOL/L Blood Urea Nitrogen 42 H 7-18 MG/DL Creatinine 1.46 H 0.60-1.30 MG/DL Estimat Glomerular Filtration Rate 55 BUN/Creatinine Ratio 29 Glucose Level 155 H 70-105 MG/DL Calcium Level 9.1 8.5-10.1 MG/DL Corrected Calcium 9.0 8.5-10.1 MG/DL Total Bilirubin 0.2 0.1-1.0 MG/DL Aspartate Amino Transf (AST/SGOT) 13 5-34 U/L Alanine Aminotransferase (ALT/SGPT) 13 0-55 U/L Alkaline Phosphatase 91 40-136 U/L Total Protein 7.9 6.4-8.2 GM/DL Albumin 4.1 3.2-4.5 GM/DL Lipase 20 8-78 U/L Troponin I < 0.028 <0.028 NG/ML B-Type Natriuretic Peptide 60.0 <100.0 PG/ML My Orders Orders - ELIZA BINGHAM Ua Culture If Indicated (08/02/22 17:26) Cbc With Automated Diff (08/02/22 17:31) Comprehensive Metabolic Panel (08/02/22 17:31) Lipase (08/02/22 17:31) Ct Abd/Pelvis Wo(Kidney Stone) (08/02/22 17:31) Ketorolac Injection (Toradol Injection) (08/02/22 17:45) Ns Iv 1000 Ml (Sodium Chloride 0.9%) (08/02/22 18:27) Troponin I [place] (08/02/22 18:42) Bnp Marizol (08/02/22 18:42) Chest 1 View, Ap/Pa Only (08/02/22 18:42) Ekg Tracing (08/02/22 18:42) Ns Iv 1000 Ml (Sodium Chloride 0.9%) (08/02/22 18:36) Medications Given in ED Vital Signs/I&O 08/02/22 08/02/22 17:45 20:20 Temp 36.8 Pulse 82 86 Resp 18 18 B/P (MAP) 109/69 (82) 113/68 Pulse Ox 94 98 O2 Delivery Room Air Trach Collar Comment Sinus rhythm, borderline prolonged MO interval, 77 bpm, QRS duration 99 MS, QTc 440 MS Departure Communication (PCP) Reviewed previous ER visits, H&P, lab testing. Patient is a 57-year-old male who presents to the ED left flank pain since last night. No radiating pain. Denies of any trauma. States he has had intermittent chest pain over the past few weeks. Patient was seen here in July 26 noted to have a pericardial effusion and diagnosed with pericardial chest pain. Similiar chest pain, with episode this morning but has resolved. patient had a echo performed by Dr. Sepulveda on the july with ejection fraction of 50 to 55%. Small pericardial effusion noted. Mild diastolic CHF. Currently on losartan for blood pressure. Denies of any increasing shortness of breath or leg swelling. States he is scheduled for a chemical stress test later this month. Reported some chest pain earlier this morning but that has improved. Due to the chest pain and flank pain EKG, cardiac work-up, urinalysis, CBC, CMP was ordered. EKG showed sinus rhythm. Chest x-ray showed cardiomegaly and prominent interstitial markings. Likely chronic. CBC hemoglobin 10.2, white blood count 8.5, platelets 500. Chronic anemia. Platelets likely reactive. Denies of any rectal bleeding, hematemesis or abdominal pain. Soft abdomen. Left flank tenderness. No thoracic or lumbar midline tenderness. He reports chronic numbness and tingling in the lower extremity secondary to a previous injury. Afebrile. No neurological red flag findings. Urinalysis without evidence of infection or hematuria. Due to the left flank tenderness CT abdomen pelvis was ordered which did show nonobstructing nephrolithiasis. No other acute abnormality. Chronic small pericardial effusion. Patient was slightly hyportensive as low as 89/63 on a few BP readings. Switched blood pressure cuffs with improvement. Patient was given a liter of fluid. His chemistry did return with chronic kidney disease creatinine 1.46 with a GFR 55 which is fairly stable from previous lab work. Patient blood pressure continued to improve and remained over 113/86. Patient was given Toradol with resolution of pain. Patient is currently asymptomatic requesting to be discharged. Due to reassuring lab work, cardiac work-up. Discussed outpatient follow-up. Continue follow up with cardiology Dr. Sepulveda regarding the pericardial effusion. No evidence suggesting cardiac tamponade at this time. No increasing size of the pericardial effusion. Patient had only 2 lower blood pressures. That improved after a liter of NS saline and changed of blood pressure cuff. No evidence of muffled heart sounds or bulging neck veins. Continue with your pain medication at home. Recommend hydration. If any worsening pain to return back to ED. Continue monitoring blood pressure at home. Impression Primary Impression: Left flank pain Additional Impressions: Nephrolithiasis Pericardial effusion Disposition: HOME, SELF-CARE Condition: Stable Departure-Patient Inst. Decision time for Depature: 20:05 Referrals: [facility] (PCP) Primary Care Physician LEILANI ROQUE (Family) Primary Care Physician Patient Instructions: Kidney Stone, Adult ED ELIZA BINGHAM Aug 02, 2022 17:37
[2022-08-02] MEDS ORDERED: KETOROLAC 30 MG/ML VIAL IVP ONE (17:45)
[2022-08-02 17:52] LABS: BASOPHILS % (AUTO) 1 % (0-10); EOSINOPHILS # (AUTO) 0.2 10^3/uL (0.0-0.3); EOSINOPHILS % (AUTO) 3 % (0-10); HEMATOCRIT 33 % (40-54); HEMOGLOBIN 10.4 g/dL (13.3-17.7); LYMPHOCYTES # (AUTO) 1.9 10^3/uL (1.0-4.0); LYMPHOCYTES % (AUTO) 22 % (12-44); MEAN CORPUSCULAR HEMOGLOBIN 25 pg (25-34); MEAN CORPUSCULAR HGB CONC 32 g/dL (32-36); MEAN CORPUSCULAR VOLUME 78 fL (80-99); MEAN PLATELET VOLUME 10.1 fL (9.0-12.2); MONOCYTES # (AUTO) 0.7 10^3/uL (0.0-1.0); MONOCYTES % (AUTO) 8 % (0-12); NEUTROPHILS # (AUTO) 5.7 10^3/uL (1.8-7.8); NEUTROPHILS % (AUTO) 66 % (42-75); PLATELET COUNT 506 10^3/uL (130-400); WHITE BLOOD COUNT 8.5 10^3/uL (4.3-11.0)
[2022-08-02 17:54] LABS: ALBUMIN 4.1 GM/DL (3.2-4.5)
[2022-08-02 17:56] LABS: CALCIUM 9.1 MG/DL (8.5-10.1)
[2022-08-02 17:57] LABS: TOTAL PROTEIN 7.9 GM/DL (6.4-8.2)
[2022-08-02 17:59] LABS: BILIRUBIN,TOTAL 0.2 MG/DL (0.1-1.0)
[2022-08-02 17:59] LABS: BACTERIA,URINE NEGATIVE /HPF; SQUAMOUS EPITHELIAL CELL,UR RARE /HPF
[2022-08-02 18:01] LABS: CREATININE SERUM 1.46 MG/DL (0.60-1.30)
[2022-08-02] MEDS ORDERED: NS IV 1000 ML 1,000 ML IV STA (18:27)
[2022-08-02] MEDS ORDERED: NS IV 1000 ML 1,000 ML ONE (18:36)
--- NOTE | 2022-08-02 18:36 | Diagnostic Imaging Report ---
PROCEDURE: CT urinary tract, rule out kidney stone. TECHNIQUE: Multiple contiguous axial images were obtained through the abdomen and pelvis without the use of intravenous contrast. Auto Exposure Controls were utilized during the CT exam to meet ALARA standards for radiation dose reduction. INDICATION: Left flank pain. COMPARISON: 07/26/2022. FINDINGS: There is persistent pericardial effusion with small amount of left pleural fluid. Below the diaphragm, unenhanced images of liver and spleen reveal no focal abnormality. Gallbladder is surgically absent. There is a small hiatal hernia. No pancreatic or adrenal gland abnormality is seen. Exophytic cyst is again seen along the lateral margin of right kidney. Punctate calcifications are seen in the kidneys, bilaterally, without hydronephrosis or hydroureter. Bladder wall is thickened, which could be due to inflammation. There is no evidence of bladder calculus. There is mild to moderate aortoiliac atherosclerotic calcification. Mild prostatic calcifications are seen. There is no evidence of organized fluid collection or focal inflammation within the abdomen or pelvis. There is mild diffuse lumbar spondylosis. IMPRESSION: Minimal bilateral nephrolithiasis without evidence of obstructive uropathy. Note is made of pericardial effusion and small amount of left pleural fluid similar to previous study. Dictated by: Dictated on workstation # [id number]
--- NOTE | 2022-08-02 19:19 | Diagnostic Imaging Report ---
INDICATION: Chest pain. EXAMINATION: Single AP view of the chest was obtained. COMPARISON: Study of 11/01/2021. FINDINGS: There is mild cardiomegaly. There is mild emphysema. Prominent interstitial markings are seen throughout the lungs. There is no pneumothorax. Surgical findings are seen in the thyroid bed. There is no significant pleural fluid. IMPRESSION: Cardiomegaly and prominent interstitial markings. This is likely chronic in nature without evidence of new abnormality. Dictated by: Dictated on workstation # [id number]
[2022-08-02 20:20] VITALS: BP 113/68
== END 2022-08-02 20:21 | disposition home or self-care (01) ==
LOC: EDUNIT# 17:01 → ER 17:02
DX: N20.0 Calculus of kidney (principal); I31.39 Other pericardial effusion (noninflammatory); I50.9 Heart failure, unspecified; I51.7 Cardiomegaly; E11.22 Type 2 diabetes mellitus with diabetic chronic kidney disease; N18.9 Chronic kidney disease, unspecified; D63.1 Anemia in chronic kidney disease; Z90.49 Acquired absence of other specified parts of digestive tract; Z98.61 Coronary angioplasty status; Z91.040 Latex allergy status
CPT/HCPCS: 36415; 71045; 74176; 80053; 81000; 83690; 83880; 84484; 85025; 93005

== ENCOUNTER 2022-09-02 11:45 | Emergency (ER) | payer MEDICARE ==
[~2022-09-02] VITALS: Ht 175 cm; Wt 91.0 kg
[2022-09-02] MEDS ORDERED: NS IV 1000 ML 1,000 ML IV SCH ×2 (12:15→14:00)
--- NOTE | 2022-09-02 12:23 | ED Syncope ---
General Chief Complaint: Dizziness/Syncope Stated Complaint: LT KNEE SWELLING | FALL Nursing Triage Note: PT TO TRIAGE. PT CO OF FALL ON THURSDAY AND L KNEE PAIN 12/04. PT ALSO STATES HE HAS BEEN DIZZY, B/P 73/54 PT TAKEN TO RM 9. PT HAS TRACH, IS ABLE TO COMMUNICATE W STAFF. Source of Information: Patient Exam Limitations: Physical Impairments History of Present Illness Date Seen by Provider: September 02, 2022 Time Seen by Provider: 12:07 Initial Comments 57-year-old male presents to the ED with complaints of left knee pain and swelling since last Thursday. He reports difficulty walking since then. Patient states that he had a syncopal episode on Thursday causing him to fall. States that he has had intermittent episodes of dizziness since Thursday. Patient was found to be hypotensive here. He reports he has a lot of stomach issues, is scheduled to have an endoscopy soon. Does report 3 weeks of midsternal chest pain, thinks it is related to his GI issues. Denies fevers, shortness of air, abdominal pain. Reports 2 episodes of vomiting over the last 3 weeks. Denies diarrhea. Patient takes losartan 25 mg. He states that he takes this for his kidneys due to his diabetes, not for hypertension. Allergies and Home Medications Allergies Coded Allergies: latex (Verified Allergy, Intermediate, RASH, 05/01/22) Penicillins (Unverified Allergy, Unknown, RASH, 05/01/22) Mzkfzux-VHR-BrV Reductase Inhibitor (Verified Allergy, Unknown, RASH, 05/01/22) ondansetron (Unverified Allergy, Unknown, RASH, 05/01/22) morphine (Verified Adverse Reaction, Unknown, HEADACHE, pt has rec Lortab in the past, 05/01/22) Patient Home Medication List Home Medication List Reviewed: Yes Aripiprazole (Aripiprazole) 5 Mg Tablet, 5 MG PO HS, (Reported) Entered as Reported by: NICK LAY on 07/24/21 1118 Aspirin (Aspirin EC) 81 Mg Tablet.dr, 81 MG PO DAILY, (Reported) Entered as Reported by: NICK LAY on 11/02/19 1417 Cetirizine HCl (Zyrtec) 10 Mg Tablet, 10 MG PO HS, (Reported) Entered as Reported by: NICK LAY on 11/02/19 141 Dapagliflozin/Metformin HCl (Xigduo Xr 2.5 mg-1,000 mg Tab) Unknown Strength Tab.bp.24h, Unknown Dose PO, (Reported) Entered as Reported by: TONEY FARFAN on 10/04/21 1013 Diclofenac Sodium (Diclofenac Sodium) 75 Mg Tablet.dr, 75 MG PO BID, (Reported) Entered as Reported by: ELENA AVILA on 12/17/20 1432 Duloxetine HCl (Duloxetine HCl) 60 Mg Capsule.dr, 60 MG PO BID, (Reported) Entered as Reported by: LINH MEDINA on 12/01/20 1110 Fenofibrate (Fenofibrate) 160 Mg Tablet, 160 MG PO DAILY, (Reported) Entered as Reported by: ELENA AVILA on 12/17/20 143 Gabapentin (Gabapentin) 600 Mg Tablet, 1,200 MG PO DAILY, (Reported) Entered as Reported by: ELENA AVILA on 12/17/20 143 Gabapentin (Gabapentin) 600 Mg Tablet, 1,800 MG PO HS, (Reported) Entered as Reported by: NICK LAY on 07/24/21 1118 Insulin Aspart (Novolog) 100 Unit/1 Ml Susp, 4 UNIT SQ AC, (Reported) Entered as Reported by: ELENA AVILA on 12/17/20 143 Insulin Detemir (Levemir Flextouch) 100 Unit/1 Ml Insuln.pen, 20 UNIT SQ BID, (Reported) Entered as Reported by: ELENA AVILA on 12/17/20 143 Ipratropium/Albuterol Sulfate (Iprat-Albut 0.5-3(2.5) mg/3 ml) 3 Ml Ampul.neb, 3 ML IH Q4H PRN for SHORTNESS OF BREATH, (Reported) Entered as Reported by: ELENA AVILA on 12/17/20 1432 Levothyroxine Sodium (Levothyroxine Sodium) 125 Mcg Tablet, 125 MCG PO DAILY, (Reported) Entered as Reported by: LINH MEDINA on 12/01/20 1110 Lidocaine (Lidocaine Pain Relief) 4 % Adh..patch, 1 EACH TP DAILY Prescribed by: Desirae Xavier on 07/09/22 1731 Losartan Potassium (Losartan Potassium) 25 Mg Tablet, 25 MG PO DAILY, (Reported) Entered as Reported by: TONEY FARFAN on 10/04/21 1013 Mupirocin Calcium (Mupirocin) 2 % Cream..g., 15 GM TP UD, (Reported) Entered as Reported by: TONEY FARFAN on 10/03/21 1519 Naloxone HCl (Naloxone HCl) 0.4 Mg/Ml Soln, 0.4 MG IJ UD, (Reported) Entered as Reported by: TONEY FARFAN on 10/03/21 1519 Nystatin (Nystatin) 100,000 Unit/Ml Oral.susp, 500,000 UNIT PO QID Prescribed by: CIPRIANO SMITH on 11/05/21 1122 Oxycodone HCl/Acetaminophen (Percocet 5-325 mg Tablet) 5 Mg-325 Mg Tablet, 1 TAB PO Q6H PRN for PAIN BREAKTROUGH Prescribed by: AMADOR GUILLEN on 07/26/22 1805 Pantoprazole Sodium (Pantoprazole Sodium) 40 Mg Tablet.dr, 40 MG PO BID, (Reported) Entered as Reported by: ELENA AVILA on 12/17/20 1432 Rosuvastatin Calcium (Rosuvastatin Calcium) 10 Mg Tablet, 10 MG PO DAILY, (Reported) Entered as Reported by: ELENA AVILA on 12/17/20 1432 Sumatriptan Succinate (Sumatriptan Succinate) 50 Mg Tablet, 50 MG PO UD PRN for MIGRAINE, (Reported) Entered as Reported by: ELENA AVILA on 12/17/20 1432 Tizanidine HCl (Zanaflex) 4 Mg Tablet, 4 MG PO TID, (Reported) Entered as Reported by: TONEY FARFAN on 02/13/22 1358 Topiramate (Topiramate) 100 Mg Tablet, 100 MG PO BID, (Reported) Entered as Reported by: ELENA AVILA on 12/17/20 1432 Review of Systems Constitutional: see HPI Past Emeuyzq-Vlzrla-Zobvzi Hx Patient Social History Tobacco Use?: Yes Tobacco type used: Cigarettes Smoking Status: Current Everyday Smoker Substance use?: No Alcohol Use?: No Pt feels they are or have been: No Immunizations Up To Date Tetanus Booster (TDap): Unknown Influenza Vaccine Up-to-Date: No; Not Current First/Initial COVID19 Vaccinat: 07/16/2020 Second COVID19 Vaccination Scot: 08/13/2020 Third COVID19 Vaccination Date: 2021 Seasonal Allergies Seasonal Allergies: Yes Past Medical History Surgery/Hospitalization HX: SINUS SURGERY X 2RIGHT KNEE ACL REPAIRBILATERAL CARPAL TUNNEL SURGERYLEFT UPPER LOBECTOMYLARYNGECTOMY AND PERMANENT TRACHEOSTOMYLEFT SHOULDER SURGERY 12/2016, 04/2017, 12/2017LEFT CARPAL TUNNEL 12/2017CARDIAC CATH 10/[address] CONTRERASUSION:1. Mild to moderate stenosis up to 40 percent stenosis in the midrightcoronary artery otherwise mild disease nonobstructive disease2. Normal left ventricular end-diastolic pressureAPPENDECTOMYCHOLECYSTECTOMY Surgeries: Yes (Sinus surgery X2, ACL RIGHT KNEE, BILAT CTS L UPPER LOBECTOMY, LARYNGECTOMY) Appendectomy, Cardiac, Gallbladder, Lobectomy, Orthopedic, Thyroidectomy, Tracheostomy Respiratory: Yes (Pulmonary nodules, HX LUNG CA--PERMANENT TRACHEOSTOMY FOR LARYNGEAL CA, ) Asthma, COPD Currently Using CPAP: No Currently Using BIPAP: No Cardiac: Yes (CARDIAC CATH 10/2019--NO INTERVENTION, BP MEDS TO PROTECT LIVER) High Cholesterol Neurological: Yes Headaches /Migraines, Neuropathy Reproductive Disorders: No Sexually Transmitted Disease: No HIV/AIDS: No Genitourinary: No Benign Prostatic Hyperpl, Renal Failure Gastrointestinal: Yes Gastroesophageal Reflux, Chronic Constipation, Polyps, Gall Bladder Disease Musculoskeletal: Yes Degenerate Disk Disease, Arthritis, Chronic Back Pain Endocrine: Yes Diabetes, Non-Insulin dep HEENT: Yes (LARYNGEAL CANCER-S/P TRACHEOSTOMY) Loss of Vision: Bilateral Hearing Impairment: Denies Cancer: Yes (THROAT) Lung Did You Recieve Any Treatments: Yes What Type of Treatment Did You: Radiation, Surgical Intervention Psychosocial: Yes Anxiety, Depression Integumentary: Yes (LEFT EAR MASS) Blood Disorders: No Adverse Reaction/Blood Tranf: No (N/A) Family Medical History Diabetes, Hypertension Physical Exam Vital Signs Vital Signs - First Documented 09/02/22 11:55 Temp 36.5 Pulse 94 Resp 16 B/P (MAP) 73/54 (60) Pulse Ox 100 O2 Delivery Room Air Capillary Refill : Less Than 3 Seconds Height, Weight, BMI Height: 5'9.00" Weight: 182lbs. 0.0oz. 82.136291wu; 29.00 BMI Method:Stated General Appearance: No Apparent Distress, WD/WN HEENT: PERRL/EOMI Neck: Non Tender, Supple Cardiovascular: Regular Rate, Rhythm Respiratory: Lungs Clear, Normal Breath Sounds, No Accessory Muscle Use, No Respiratory Distress Extremities: Swelling (Left knee), Other (Medial left knee tender to palpation, has full range of motion, but pain with range of motion) Neurologic/Psychiatric: Alert, Normal Mood/Affect Cranial Nerves: Normal Hearing, PERRL Skin: Normal Color, Warm/Dry Progress/Results/Core Measures Results/Orders Lab Results Laboratory Tests Test 09/02/22 12:40 09/02/22 15:25 Range/Units White Blood Count 9.2 4.3-11.0 10^3/uL Red Blood Count 4.45 4.30-5.52 10^6/uL Hemoglobin 10.6 L 13.3-17.7 g/dL Hematocrit 35 L 40-54 % Mean Corpuscular Volume 79 L 80-99 fL Mean Corpuscular Hemoglobin 24 L 25-34 pg Mean Corpuscular Hemoglobin Concent 30 L 32-36 g/dL Red Cell Distribution Width 15.9 H 10.0-14.5 % Platelet Count 257 130-400 10^3/uL Mean Platelet Volume 10.2 9.0-12.2 fL Immature Granulocyte % (Auto) 0 % Neutrophils (%) (Auto) 75 42-75 % Lymphocytes (%) (Auto) 17 12-44 % Monocytes (%) (Auto) 6 0-12 % Eosinophils (%) (Auto) 2 0-10 % Basophils (%) (Auto) 0 0-10 % Neutrophils # (Auto) 6.9 1.8-7.8 10^3/uL Lymphocytes # (Auto) 1.5 1.0-4.0 10^3/uL Monocytes # (Auto) 0.5 0.0-1.0 10^3/uL Eosinophils # (Auto) 0.2 0.0-0.3 10^3/uL Basophils # (Auto) 0.0 0.0-0.1 10^3/uL Immature Granulocyte # (Auto) 0.0 0.0-0.1 10^3/uL Sodium Level 137 135-145 MMOL/L Potassium Level 4.3 3.6-5.0 MMOL/L Chloride Level 106 98-107 MMOL/L Carbon Dioxide Level 23 21-32 MMOL/L Anion Gap 8 5-14 MMOL/L Blood Urea Nitrogen 29 H 7-18 MG/DL Creatinine 1.43 H 0.60-1.30 MG/DL Estimat Glomerular Filtration Rate 57 BUN/Creatinine Ratio 20 Glucose Level 280 H 70-105 MG/DL Calcium Level 8.5 8.5-10.1 MG/DL Corrected Calcium 8.6 8.5-10.1 MG/DL Magnesium Level 1.8 1.6-2.4 MG/DL Total Bilirubin 0.2 0.1-1.0 MG/DL Aspartate Amino Transf (AST/SGOT) 12 5-34 U/L Alanine Aminotransferase (ALT/SGPT) 16 0-55 U/L Alkaline Phosphatase 79 40-136 U/L Troponin I < 0.028 <0.028 NG/ML Total Protein 7.0 6.4-8.2 GM/DL Albumin 3.9 3.2-4.5 GM/DL Urine Color YELLOW Urine Clarity CLEAR Urine pH 6.0 5-9 Urine Specific [place] <=1.005 1.016-1.022 Urine Protein NEGATIVE NEGATIVE Urine Glucose (UA) 3+ H NEGATIVE Urine Ketones NEGATIVE NEGATIVE Urine Nitrite NEGATIVE NEGATIVE Urine Bilirubin NEGATIVE NEGATIVE Urine Urobilinogen 0.2 < = 1.0 MG/DL Urine Leukocyte Esterase NEGATIVE NEGATIVE Urine RBC (Auto) NEGATIVE NEGATIVE Urine RBC NONE /HPF Urine WBC NONE /HPF Urine Crystals NONE /LPF Urine Bacteria NEGATIVE /HPF Urine Casts NONE /LPF Urine Mucus NEGATIVE /LPF Urine Culture Indicated NO My Orders Orders - DESIRAE XAVIER [employer] Cbc With Automated Diff (09/02/22 12:15) Magnesium (09/02/22 12:15) Chest 1 View, Ap/Pa Only (09/02/22 12:15) Ekg Tracing (09/02/22 12:15) Comprehensive Metabolic Panel (09/02/22 12:15) Monitor-Rhythm Ecg Trace Only (09/02/22 12:15) Ed Iv/Invasive Line Start (09/02/22 12:15) Troponin I Marizol (09/02/22 12:15) Ns Iv 1000 Ml (Sodium Chloride 0.9%) (09/02/22 12:15) Knee, Left, 3 Views (09/02/22 12:15) Orthostatic Vital Signs (Adult (09/02/22 13:12) Ns Iv 1000 Ml (Sodium Chloride 0.9%) (09/02/22 14:00) Fentanyl Inj (Sublimaze Injection) (09/02/22 14:30) Urinalysis (09/02/22 14:55) Fentanyl Inj (Sublimaze Injection) (09/02/22 15:45) Metoclopramide Injection (Reglan Injecti (09/02/22 15:45) Orthostatic Vital Signs (Adult (09/02/22 15:46) Medications Given in ED Vital Signs/I&O 09/02/22 09/02/22 09/02/22 09/02/22 11:55 13:52 15:56 16:20 Temp 36.5 36.5 Pulse 94 89 86 91 90 87 90 88 Resp 16 16 B/P (MAP) 73/54 (60) 101/63 (76) 100/72 (81) 111/76 88/62 (71) 101/66 (78) 89/55 (66) 112/68 (83) Pulse Ox 100 97 O2 Delivery Room Air Room Air Blood Pressure Mean: 60 Progress Progress Note : Time: 12:23 Progress Note Patient seen and evaluated, resting comfortably in bed, no acute distress. Based on exam and symptoms, work-up initiated including CBC, CMP, magnesium, troponin, EKG, chest x-ray, left knee x-ray. IV fluids ordered. Labs and x-rays reviewed. CBC shows decreased hemoglobin 10.6, decreased hematocrit 35. These are similar to previous labs. CMP shows elevated BUN 29, creatinine 1.43, GFR 57. These are also similar to previous, BUN improved on today's labs. Glucose elevated to 80. Troponin negative. Magnesium normal 1.8. UA shows 3+ glucose, negative for infection. CT chest negative for acute cardiopulmonary process. Knee x-ray shows degenerative disease without acute fracture. Patient's blood pressure improved with IV fluids. Results discussed with patient. Discharge instructions and return precautions provided. Initial ECG Impression Date: September 02, 2022 Initial ECG Impression Time: 12:30 Initial ECG Rhythm: Normal Sinus Initial ECG Intervals: NV (First-degree block, NV interval 234) Initial ECG Impression: Nonspecific Changes Initial ECG Comparisson: Unchanged (NV interval slightly longer) Comment No significant Q waves, ST elevation, or T wave inversion. EKG appears similar to previous which was completed on 08/02/2022. NV interval was prolonged on previous EKG, NV is slightly longer today. Diagnostic Imaging Diagonstic Imaging: Xray Plain Films/CT/US/NM/MRI: chest Comments [facility]. [place], [place] NAME: ROGER CHANEY [facility] REC#: [id number] PT STATUS: DEP ER : 1965 PHYSICIAN: DESIRAE XAVIER APRN ADMIT DATE: 09/02/22/ER Signed Date of Exam:09/02/22 CHEST 1 VIEW, AP/PA ONLY CLINICAL INDICATION: Patient is status post fall with left knee pain. EXAM: Portable chest x-ray, upright view. COMPARISON: Chest x-ray dated 08/02/2022. FINDINGS: Lungs/pleura: There is mild bibasilar atelectasis. There is no lung infiltrate. There is no pneumothorax. There is no pleural effusion. Mediastinum: Unremarkable. Pulmonary vasculature: Unremarkable. Heart: Heart size is within normal limits for a portable projection. Bones/extrathoracic soft tissue: Unremarkable. IMPRESSION: 1: There is no radiographic evidence of acute cardiopulmonary process. 2: There is mild bibasilar atelectasis. Dictated by: Dictated on workstation # [id number] Dict: 09/02/22 1243 Trans: 09/02/22 175 [id number] Interpreted by: ARABELLA FLORES MD Electronically signed by: ARABELLA FLORES MD 09/02/22 175 Diagonstic Imaging: Xray Plain Films/CT/US/NM/MRI: knee Comments [facility] [place] [facility]. [place], [place] NAME: ROGER CHANEY [facility] REC#: [id number] PT STATUS: DEP ER : 1965 PHYSICIAN: DESIRAE XAVIER APRN ADMIT DATE: 09/02/22/ER Signed Date of Exam:09/02/22 KNEE, LEFT, 3 VIEWS CLINICAL INDICATION: Patient fell on Thursday and has left knee pain. EXAM: X-ray of the left knee, 3 views. COMPARISON: None. FINDINGS: There is no acute fracture or dislocation. There is prepatellar soft tissue swelling and appearance of a left knee effusion. There are mild to moderately hypertrophic tricompartmental spurs. IMPRESSION: There is degenerative disease of the left knee with no acute fracture. Dictated by: Dictated on workstation # [id number] Dict: 09/02/22 1241 Trans: 09/02/221758 [id number] Interpreted by: ARABELLA FLORES MD Electronically signed by: ARABELLA FLORES MD 09/02/221758 Departure Impression Primary Impression: Sprain, knee Additional Impressions: Hypotension Dehydration Osteoarthritis Anemia Chronic kidney disease First degree heart block Disposition: HOME, SELF-CARE Condition: Stable Departure-Patient Inst. Referrals: LEILANI ROQUE (PCP/Family) Primary Care Physician Patient Instructions: Orthostatic Hypotension (DC) Add. Discharge Instructions: Follow-up with primary care provider this week. Be sure to drink plenty of water. Return for severe headache, chest pain, shortness of air, persistent vomiting, vision changes, or any other new, concerning, or worsening symptoms. All discharge instructions reviewed with patient and/or family. Voiced understanding. DES[employer]AE [employer] September 02, 2022 12:23
--- NOTE | 2022-09-02 12:46 | Diagnostic Imaging Report ---
CLINICAL INDICATION: Patient fell on Thursday and has left knee pain. EXAM: X-ray of the left knee, 3 views. COMPARISON: None. FINDINGS: There is no acute fracture or dislocation. There is prepatellar soft tissue swelling and appearance of a left knee effusion. There are mild to moderately hypertrophic tricompartmental spurs. IMPRESSION: There is degenerative disease of the left knee with no acute fracture. Dictated by: Dictated on workstation # [id number]
--- NOTE | 2022-09-02 12:47 | Diagnostic Imaging Report ---
CLINICAL INDICATION: Patient is status post fall with left knee pain. EXAM: Portable chest x-ray, upright view. COMPARISON: Chest x-ray dated 08/02/2022. FINDINGS: Lungs/pleura: There is mild bibasilar atelectasis. There is no lung infiltrate. There is no pneumothorax. There is no pleural effusion. Mediastinum: Unremarkable. Pulmonary vasculature: Unremarkable. Heart: Heart size is within normal limits for a portable projection. Bones/extrathoracic soft tissue: Unremarkable. IMPRESSION: 1: There is no radiographic evidence of acute cardiopulmonary process. 2: There is mild bibasilar atelectasis. Dictated by: Dictated on workstation # [id number]
[2022-09-02 12:48] LABS: BASOPHILS % (AUTO) 0 % (0-10); EOSINOPHILS # (AUTO) 0.2 10^3/uL (0.0-0.3); EOSINOPHILS % (AUTO) 2 % (0-10); HEMATOCRIT 35 % (40-54); HEMOGLOBIN 10.6 g/dL (13.3-17.7); LYMPHOCYTES # (AUTO) 1.5 10^3/uL (1.0-4.0); LYMPHOCYTES % (AUTO) 17 % (12-44); MEAN CORPUSCULAR HEMOGLOBIN 24 pg (25-34); MEAN CORPUSCULAR HGB CONC 30 g/dL (32-36); MEAN CORPUSCULAR VOLUME 79 fL (80-99); MEAN PLATELET VOLUME 10.2 fL (9.0-12.2); MONOCYTES # (AUTO) 0.5 10^3/uL (0.0-1.0); MONOCYTES % (AUTO) 6 % (0-12); NEUTROPHILS # (AUTO) 6.9 10^3/uL (1.8-7.8); NEUTROPHILS % (AUTO) 75 % (42-75); PLATELET COUNT 257 10^3/uL (130-400); WHITE BLOOD COUNT 9.2 10^3/uL (4.3-11.0)
[2022-09-02 12:58] LABS: ALBUMIN 3.9 GM/DL (3.2-4.5)
[2022-09-02 12:59] LABS: POTASSIUM 4.3 MMOL/L (3.6-5.0)
[2022-09-02 13:00] LABS: CALCIUM 8.5 MG/DL (8.5-10.1)
[2022-09-02 13:03] LABS: BILIRUBIN,TOTAL 0.2 MG/DL (0.1-1.0)
[2022-09-02 13:05] LABS: CREATININE SERUM 1.43 MG/DL (0.60-1.30)
[2022-09-02 13:07] LABS: MAGNESIUM 1.8 MG/DL (1.6-2.4)
[2022-09-02 13:52] VITALS: BP_SYST 101; BP_SYST 88; BP_SYST 89; BP_DIAS 55; BP_DIAS 62; BP_DIAS 63
[2022-09-02] MEDS ORDERED: fentaNYL INJ 100 MCG/2 ML AMP IVP ONE ×2 (14:30→15:45)
[2022-09-02 15:34] LABS: BILIRUBIN,URINE NEGATIVE (NEGATIVE); CLARITY,URINE CLEAR; COLOR,URINE YELLOW; GLUCOSE, URINE (UA) 3+ (NEGATIVE); KETONES,URINE NEGATIVE (NEGATIVE); LEUKOCYTE ESTERASE ,URINE NEGATIVE (NEGATIVE); NITRITE,URINE NEGATIVE (NEGATIVE); PROTEIN,URINE NEGATIVE (NEGATIVE)
[2022-09-02 15:41] LABS: BACTERIA,URINE NEGATIVE /HPF
[2022-09-02] MEDS ORDERED: METOCLOPRAMIDE INJ 10 MG/2 ML (REGLAN) IVP ONE (15:45)
[2022-09-02 15:56] VITALS: BP_SYST 100; BP_SYST 101; BP_SYST 112; BP_DIAS 66; BP_DIAS 68; BP_DIAS 72
[2022-09-02 16:20] VITALS: BP 111/76
== END 2022-09-02 16:20 | disposition home or self-care (01) ==
LOC: EDUNIT# 11:45 → ER 11:47
DX: S83.92XA Sprain of unspecified site of left knee, initial encounter (principal); I95.9 Hypotension, unspecified; E86.0 Dehydration; M19.90 Unspecified osteoarthritis, unspecified site; I44.0 Atrioventricular block, first degree; D63.1 Anemia in chronic kidney disease; E11.22 Type 2 diabetes mellitus with diabetic chronic kidney disease; N18.9 Chronic kidney disease, unspecified; R79.89 Other specified abnormal findings of blood chemistry; F17.210 Nicotine dependence, cigarettes, uncomplicated; Z91.040 Latex allergy status; Z79.899 Other long term (current) drug therapy; Z98.890 Other specified postprocedural states; W18.30XA Fall on same level, unspecified, initial encounter
CPT/HCPCS: 36415; 71045; 73562; 80053; 81000; 83735; 84484; 85025; 93005; 93041

== ENCOUNTER → 2022-12-08 | Outpatient (CLI) | payer MEDICARE ==
[~2022-12-08] MED LIST changes: +CATHETER FLUSH 10 ML SYR IVP PRN; +REGADENOSON 0.4 MG/5 ML SYR (LEXISCAN) IV ONE
[2022-12-08 09:04] VITALS: BP 137/80
--- NOTE | 2022-12-08 10:47 | Cardiology Stress Test Report ---
Stress Test Report Date of Procedure/Referring: Date of Procedure: Dec 08, 2022 PCP Mateusz Gabriel Admitting Physician Admitting Physician: Attending Physician: Shital Guzman Baseline Heart Rate: 77 Baseline Blood Pressure: Blood Pressure Systolic: 137 Blood Pressure Diastolic: 80 Baseline Vitals Vital Signs Date Time Temp Pulse Resp B/P (MAP) Pulse Ox O2 Delivery O2 Flow Rate FiO2 12/08/22 09:04 76 137/80 (99) Baseline EKG: Baseline EKG: NSR Summary After explaining the procedure to the patient, he signed a consent and then brought to the stress nuclear laboratory. Patient received 0.4 mg Lexiscan for stress test, ECG, heart rate and blood pressure were monitored continuously. Resting and stress dose of radio tracer were injected, imaging was acquired and reviewed in short axis, horizontal long axis and vertical long axis views. TID: 1.04 SSS: 0 SDS: 0 EF: 56 Patient tolerated Lexiscan well No ischemia or infarction noted on SPECT images Normal left ventricular size, ejection fraction 56% CC CINTHIA Peters MD Dec 08, 2022 10:47
== END ==
LOC: CARD 07:38
PROVIDERS: ATTEND Physician Assistant
DX: I10 Essential (primary) hypertension (principal); R07.9 Chest pain, unspecified
CPT/HCPCS: 78452; 93017; A9502

== ENCOUNTER 2022-12-16 20:43 | Emergency (ER) | payer OTHER, MEDICARE ==
[~2022-12-16 20:43] MED LIST changes: -CATHETER FLUSH 10 ML SYR IVP PRN; -REGADENOSON 0.4 MG/5 ML SYR (LEXISCAN) IV ONE
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
--- NOTE | 2022-12-16 22:13 | Diagnostic Imaging Report ---
SHOULDER, RIGHT, 3 VIEWS DATE: 12/16/2022 9:46 PM INDICATION: right shoulder pain, elevated COMPARISON: None. TECHNIQUE: AP views in internal/external rotation and a scapula Y view FINDINGS: Bones: There is no evidence of acute fracture or dislocation. Joints: The joint spaces are normal. The acromiohumeral distance is not narrowed. Miscellaneous: No abnormal soft tissue calcifications in the shoulder. IMPRESSION: No evidence of acute fracture. Dictated by: Dictated on workstation # [id number]
[2022-12-16 22:21] VITALS: BP 114/72
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
== END 2022-12-16 22:21 | disposition home or self-care (01) ==
LOC: EDUNIT# 20:43 → ER 20:45
DX: S16.1XXA Strain of muscle, fascia and tendon at neck level, initial encounter (principal); M25.511 Pain in right shoulder; M54.50 Low back pain, unspecified; F17.210 Nicotine dependence, cigarettes, uncomplicated; Z91.040 Latex allergy status; V89.2XXA Person injured in unspecified motor-vehicle accident, traffic, initial encounter; Y92.410 Unspecified street and highway as the place of occurrence of the external cause
CPT/HCPCS: 71045; 72125; 72131; 73030

== ENCOUNTER 2023-02-18 20:11 | Emergency (ER) | payer MEDICARE ==
[~2023-02-18] VITALS: Ht 175.2 cm; Wt 88.4 kg
[2023-02-18 20:42] LABS: BASOPHILS % (AUTO) 1 % (0-10); EOSINOPHILS # (AUTO) 0.2 10^3/uL (0.0-0.3); EOSINOPHILS % (AUTO) 4 % (0-10); HEMATOCRIT 38 % (40-54); HEMOGLOBIN 12.1 g/dL (13.3-17.7); LYMPHOCYTES # (AUTO) 1.9 10^3/uL (1.0-4.0); LYMPHOCYTES % (AUTO) 35 % (12-44); MEAN CORPUSCULAR HEMOGLOBIN 25 pg (25-34); MEAN CORPUSCULAR HGB CONC 32 g/dL (32-36); MEAN CORPUSCULAR VOLUME 80 fL (80-99); MEAN PLATELET VOLUME 10.4 fL (9.0-12.2); MONOCYTES # (AUTO) 0.5 10^3/uL (0.0-1.0); MONOCYTES % (AUTO) 8 % (0-12); NEUTROPHILS # (AUTO) 2.8 10^3/uL (1.8-7.8); NEUTROPHILS % (AUTO) 52 % (42-75); PLATELET COUNT 236 10^3/uL (130-400); WHITE BLOOD COUNT 5.3 10^3/uL (4.3-11.0)
--- NOTE | 2023-02-18 20:43 | ED Cardiac General ---
History of Present Illness General Chief Complaint: Dizziness/Syncope Stated Complaint: DIZZY Nursing Triage Note: 1600 STARTED FEELING LIGHT HEADED AND DIZZY. DID NOT RESOLVE SO WANTED HIM TO GET CHECKED OUT. LOW BLOOD PRESSURE PER HOME DEVICE. Source: patient Exam Limitations: physical impairment (Trachea in place, difficult to understand) History of Present Illness Date Seen by Provider: Feb 18, 2023 Time Seen by Provider: 20:30 Initial Comments 57-year-old male presents to the ER for dizziness. 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 He feels as though his head is floating. He reports that he took his blood pressure when he got home and it was low. The only blood pressure medication patient takes is low-dose losartan for any protection due to his diabetes. He states that he thinks he has been drinking a lot of water. Denies fever, cough, chest pain, shortness of air, abdominal pain, nausea, vomiting, diarrhea. Allergies and Home Medications Allergies Coded Allergies: latex (Verified Allergy, Intermediate, RASH, 02/18/23) Penicillins (Unverified Allergy, Unknown, RASH, 02/18/23) Bhllccc-XBI-UgD Reductase Inhibitor (Verified Allergy, Unknown, RASH, 02/18/23) ondansetron (Unverified Allergy, Unknown, RASH, 02/18/23) morphine (Verified Adverse Reaction, Unknown, HEADACHE, pt has rec Lortab in the past, 02/18/23) Patient Home Medication List Home Medication List Reviewed: Yes Aripiprazole (Aripiprazole) 5 Mg Tablet, 5 MG PO HS, (Reported) Entered as Reported by: NICK LAY on 07/24/21 1118 Aspirin (Aspirin EC) 81 Mg Tablet.dr, 81 MG PO DAILY, (Reported) Entered as Reported by: NICK LAY on 11/02/19 1417 Cetirizine HCl (Zyrtec) 10 Mg Tablet, 10 MG PO HS, (Reported) Entered as Reported by: NICK LAY on 11/02/19 1417 Dapagliflozin/Metformin HCl (Xigduo Xr 2.5 mg-1,000 mg Tab) Unknown Strength Tab.bp.24h, Unknown Dose PO, (Reported) Entered as Reported by: TONEY FARFAN on 10/04/21 1013 Diclofenac Sodium (Diclofenac Sodium) 75 Mg Tablet.dr, 75 MG PO BID, (Reported) Entered as Reported by: ELENA AVILA on 12/17/20 1432 Duloxetine HCl (Duloxetine HCl) 60 Mg Capsule.dr, 60 MG PO BID, (Reported) Entered as Reported by: LINH MEDINA on 12/01/20 1110 Fenofibrate (Fenofibrate) 160 Mg Tablet, 160 MG PO DAILY, (Reported) Entered as Reported by: ELENA AVILA on 12/17/20 1432 Gabapentin (Gabapentin) 600 Mg Tablet, 1,200 MG PO DAILY, (Reported) Entered as Reported by: ELENA AVILA on 12/17/20 1432 Gabapentin (Gabapentin) 600 Mg Tablet, 1,800 MG PO HS, (Reported) Entered as Reported by: NICK LAY on 07/24/21 1118 Insulin Aspart (Novolog) 100 Unit/1 Ml Susp, 4 UNIT SQ AC, (Reported) Entered as Reported by: ELENA AVILA on 12/17/20 1432 Insulin Detemir (Levemir Flextouch) 100 Unit/1 Ml Insuln.pen, 20 UNIT SQ BID, (Reported) Entered as Reported by: ELENA AVILA on 12/17/20 1432 Ipratropium/Albuterol Sulfate (Iprat-Albut 0.5-3(2.5) mg/3 ml) 3 Ml Ampul.neb, 3 ML IH Q4H PRN for SHORTNESS OF BREATH, (Reported) Entered as Reported by: ELENA AVILA on 12/17/20 1432 Levothyroxine Sodium (Levothyroxine Sodium) 125 Mcg Tablet, 125 MCG PO DAILY, (Reported) Entered as Reported by: LINH MEDINA on 12/01/20 1110 Lidocaine (Lidocaine Pain Relief) 4 % Adh..patch, 1 EACH TP DAILY Prescribed by: Desirae Archibald on 07/09/22 1731 Losartan Potassium (Losartan Potassium) 25 Mg Tablet, 25 MG PO DAILY, (Reported) Entered as Reported by: TONEY FARFAN on 10/04/21 1013 Mupirocin Calcium (Mupirocin) 2 % Cream..g., 15 GM TP UD, (Reported) Entered as Reported by: TONEY FARFAN on 10/03/21 1519 Naloxone HCl (Naloxone HCl) 0.4 Mg/Ml Soln, 0.4 MG IJ UD, (Reported) Entered as Reported by: TONEY FARFAN on 10/03/21 1519 Nystatin (Nystatin) 100,000 Unit/Ml Oral.susp, 500,000 UNIT PO QID Prescribed by: CIPRIANO SMITH on 11/05/21 1122 Nystatin (Nystatin) 100,000 Unit/Ml Oral.susp, 5 ML PO QID Prescribed by: Desirae Archibald on 02/18/23 2218 Oxycodone HCl/Acetaminophen (Percocet 5-325 mg Tablet) 5 Mg-325 Mg Tablet, 1 TAB PO Q6H PRN for PAIN BREAKTROUGH Prescribed by: AMADOR GUILLEN on 07/26/22 1805 Pantoprazole Sodium (Pantoprazole Sodium) 40 Mg Tablet.dr, 40 MG PO BID, (Reported) Entered as Reported by: ELENA AVILA on 12/17/20 1432 Rosuvastatin Calcium (Rosuvastatin Calcium) 10 Mg Tablet, 10 MG PO DAILY, (Reported) Entered as Reported by: ELENA AVILA on 12/17/20 1432 Sumatriptan Succinate (Sumatriptan Succinate) 50 Mg Tablet, 50 MG PO UD PRN for MIGRAINE, (Reported) Entered as Reported by: ELENA AVILA on 12/17/20 1432 Tizanidine HCl (Zanaflex) 4 Mg Tablet, 4 MG PO TID, (Reported) Entered as Reported by: TONEY FARFAN on 02/13/22 1358 Topiramate (Topiramate) 100 Mg Tablet, 100 MG PO BID, (Reported) Entered as Reported by: ELENA AVILA on 12/17/20 1432 Review of Systems Review of Systems Constitutional: see HPI Past Jrnvbfb-Pfosqw-Wuxbvu Hx Patient Social History Tobacco Use?: Yes Tobacco type used: Cigarettes Smoking Status: Current Everyday Smoker Use of E-Cig and/or Vaping dev: No Substance use?: No Alcohol Use?: No Pt feels they are or have been: No Immunizations Up To Date Tetanus Booster (TDap): Unknown Influenza Vaccine Up-to-Date: Yes; Up-to-Date First/Initial COVID19 Vaccinat: 4 SHOTS Second COVID19 Vaccination Scot: 08/13/2020 Third COVID19 Vaccination Date: 2021 Seasonal Allergies Seasonal Allergies: Yes Past Medical History Surgery/Hospitalization HX: DIABETES, HTN, COPD, ACID REFLUX LARYNECTOMY, GB, APPY, "20%LUNG" Surgeries: Yes (Sinus surgery X2, ACL RIGHT KNEE, BILAT CTS L UPPER LOBECTOMY, LARYNGECTOMY) Appendectomy, Cardiac, Gallbladder, Lobectomy, Orthopedic, Thyroidectomy, Tracheostomy Respiratory: Yes (Pulmonary nodules, HX LUNG CA--PERMANENT TRACHEOSTOMY FOR LARYNGEAL CA, ) Asthma, COPD Currently Using CPAP: No Currently Using BIPAP: No Cardiac: Yes (CARDIAC CATH 10/2019--NO INTERVENTION, BP MEDS TO PROTECT LIVER) High Cholesterol Neurological: Yes Headaches /Migraines, Neuropathy Reproductive Disorders: No Sexually Transmitted Disease: No HIV/AIDS: No Genitourinary: No Benign Prostatic Hyperpl, Renal Failure Gastrointestinal: Yes Gastroesophageal Reflux, Chronic Constipation, Polyps, Gall Bladder Disease Musculoskeletal: Yes Degenerate Disk Disease, Arthritis, Chronic Back Pain Endocrine: Yes Diabetes, Non-Insulin dep HEENT: Yes (LARYNGEAL CANCER-S/P TRACHEOSTOMY) Loss of Vision: Bilateral Hearing Impairment: Denies Cancer: Yes (THROAT) Lung Did You Recieve Any Treatments: Yes What Type of Treatment Did You: Radiation, Surgical Intervention Psychosocial: Yes Anxiety, Depression Integumentary: Yes (LEFT EAR MASS) Blood Disorders: No Adverse Reaction/Blood Tranf: No (N/A) Family Medical History Diabetes, Hypertension Physical Exam Vital Signs Vital Signs - First Documented 02/18/23 20:18 Temp 36.5 Pulse 82 Resp 18 B/P (MAP) 102/62 (75) Pulse Ox 99 O2 Delivery Room Air Capillary Refill : Less Than 3 Seconds Height, Weight, BMI Height: 5'9.00" Weight: 182lbs. 0.0oz. 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 Norm as Tested Skin: Normal Color, Warm/Dry Progress/Results/Core Measures Results/Orders Lab Results Laboratory Tests Test 02/18/23 20:30 02/18/23 22:00 Range/Units White Blood Count 5.3 4.3-11.0 10^3/uL Red Blood Count 4.82 4.30-5.52 10^6/uL Hemoglobin 12.1 L 13.3-17.7 g/dL Hematocrit 38 L 40-54 % Mean Corpuscular Volume 80 80-99 fL Mean Corpuscular Hemoglobin 25 25-34 pg Mean Corpuscular Hemoglobin Concent 32 32-36 g/dL Red Cell Distribution Width 19.0 H 10.0-14.5 % Platelet Count 236 130-400 10^3/uL Mean Platelet Volume 10.4 9.0-12.2 fL Immature Granulocyte % (Auto) 0 % Neutrophils (%) (Auto) 52 42-75 % Lymphocytes (%) (Auto) 35 12-44 % Monocytes (%) (Auto) 8 0-12 % Eosinophils (%) (Auto) 4 0-10 % Basophils (%) (Auto) 1 0-10 % Neutrophils # (Auto) 2.8 1.8-7.8 10^3/uL Lymphocytes # (Auto) 1.9 1.0-4.0 10^3/uL Monocytes # (Auto) 0.5 0.0-1.0 10^3/uL Eosinophils # (Auto) 0.2 0.0-0.3 10^3/uL Basophils # (Auto) 0.0 0.0-0.1 10^3/uL Immature Granulocyte # (Auto) 0.0 0.0-0.1 10^3/uL Sodium Level 138 135-145 MMOL/L Potassium Level 3.9 3.6-5.0 MMOL/L Chloride Level 108 H 98-107 MMOL/L Carbon Dioxide Level 18 L 21-32 MMOL/L Anion Gap 12 5-14 MMOL/L Blood Urea Nitrogen 38 H 7-18 MG/DL Creatinine 1.38 H 0.60-1.30 MG/DL Estimat Glomerular Filtration Rate 59 BUN/Creatinine Ratio 28 Glucose Level 266 H 70-105 MG/DL Calcium Level 9.1 8.5-10.1 MG/DL Corrected Calcium 9.1 8.5-10.1 MG/DL Magnesium Level 2.1 1.6-2.4 MG/DL Total Bilirubin 0.2 0.1-1.0 MG/DL Aspartate Amino Transf (AST/SGOT) 13 5-34 U/L Alanine Aminotransferase (ALT/SGPT) 18 0-55 U/L Alkaline Phosphatase 85 40-136 U/L Total Protein 7.1 6.4-8.2 GM/DL Albumin 4.0 3.2-4.5 GM/DL TSH [place] Testing 2.43 0.35-4.94 UIU/ML Urine Color YELLOW Urine Clarity CLEAR Urine pH 5.0 5-9 Urine Specific [place] 1.010 L 1.016-1.022 Urine Protein NEGATIVE NEGATIVE Urine Glucose (UA) 3+ H NEGATIVE Urine Ketones NEGATIVE NEGATIVE Urine Nitrite NEGATIVE NEGATIVE Urine Bilirubin NEGATIVE NEGATIVE Urine Urobilinogen 0.2 < = 1.0 MG/DL Urine Leukocyte Esterase NEGATIVE NEGATIVE Urine RBC (Auto) NEGATIVE NEGATIVE Urine RBC NONE /HPF Urine WBC NONE /HPF Urine Squamous Epithelial Cells RARE /HPF Urine Crystals NONE /LPF Urine Bacteria NEGATIVE /HPF Urine Casts NONE /LPF Urine Mucus NEGATIVE /LPF Urine Culture Indicated NO My Orders Orders - DESIRAE BUTLER APRN Cbc And Automated Diff (02/18/23 20:34) Magnesium (02/18/23 20:34) Chest 1 View, Ap/Pa Only (02/18/23 20:34) Ekg Tracing (02/18/23 20:34) Comprehensive Metabolic Panel (02/18/23 20:34) Monitor-Rhythm Ecg Trace Only (02/18/23 20:34) Ed Iv/Invasive Line Start (02/18/23 20:34) Ua Culture If Indicated (02/18/23 20:34) Ns Iv 1000 Ml (Ns Iv 1000 Ml) (02/18/23 20:45) Thyroid Analyzer (02/18/23 20:37) Ns Iv 500 Ml (Ns Iv 500 Ml) (02/18/23 22:00) Medications Given in ED Current Medications Medications Dose Ordered Sig/Evelyn Route Start Time Stop Time Status Last Admin Dose Admin Sodium Chloride 500 ml @ 0 mls/hr Q0M ONCE IV 02/18/23 22:00 02/18/23 22:01 DC 02/18/23 21:56 500 MLS/HR Vital Signs/I&O 02/18/23 20:18 Temp 36.5 Pulse 82 Resp 18 B/P (MAP) 102/62 (75) Pulse Ox 99 O2 Delivery Room Air Blood Pressure Mean: 75 Progress Progress Note : Progress Note Patient seen and evaluated, resting comfortably in bed, no acute distress. Blood pressure was found to be low, 80s systolic. Based on exam and symptoms, work-up initiated included CBC, CMP, magnesium, chest x-ray, EKG, urinalysis. Liter of normal saline ordered. Patient appears to have thrush in his mouth. Patient states that is because he drinks a lot of milk. I scraped his tongue, some white residue came off, but significant amount would not scrape off. This is likely thrush. Will treat with nystatin. 2154 Labs and x-ray reviewed. CBC shows decreased hemoglobin 12.1, slightly decreased hematocrit 38. CMP shows elevated chloride 108, decreased CO2 18, BUN elevated 38, creatinine elevated 1.38, GFR decreased at 59. These are at baseline. Glucose elevated to 66. TSH normal 2.43. Chest x-ray shows no acute abnormality. Blood pressure has improved to low 100s systolic. Patient reports some improvement in dizziness. Will give another 500 mils of fluid. Patient's last EF was 56%. 2038 urinalysis negative for infection. Blood pressure has remained above 100 systolic for the last few cycles. Patient reports improvement in symptoms since blood pressure has improved. Patient is stable for discharge. Patient instructed to hold his losartan if his blood pressure is less than 120 systolic. Patient instructed to call Dr. Watts first thing in the morning to let him know about his low blood pressure. Patient states he has an appointment scheduled with Dr. Duarte next Thursday. Initial ECG Impression Date: Feb 18, 2023 Initial ECG Impression Time: 20:46 Initial ECG Rate: 80 Initial ECG Rhythm: Normal Sinus Initial ECG Intervals: CT (246) Initial ECG Impression: Nonspecific Changes Initial ECG Comparisson: Unchanged Diagnostic Imaging Diagonstic Imaging: Xray Plain Films/CT/US/NM/MRI: chest Comments [facility] [place], [place] NAME: ROGER CHANEY [facility] REC#: [id number] PT STATUS: REG ER : 1965 PHYSICIAN: DESIRAE BUTLER APRN ADMIT DATE: 02/18/23/ER Draft Date of Exam:02/18/23 CHEST 1 VIEW, AP/PA ONLY INDICATION: Chest pain Single AP view of chest is obtained with comparison made to study of 12/16/2022. Heart size and pulmonary vascularity are within normal limits. There is no pneumothorax or consolidation. Surgical clips in lower neck, surgical findings also noted in the shoulders. No pleural fluid is seen. IMPRESSION: No acute abnormality or adverse change. Dictated on workstation # [id number] Dict: 02/18/232108 Trans: 02/18/232110 CV [id number] Interpreted by: PRISCILLA ALLAN MD Electronically signed by: Departure Impression Primary Impression: Dizziness Additional Impressions: Dehydration Thrush Disposition: HOME, SELF-CARE Condition: Stable Departure-Patient Inst. Decision time for Depature: 22:37 Referrals: [facility] (PCP/Family) Primary Care Physician Patient Instructions: Dehydration, Adult (DC) Add. Discharge Instructions: Tomorrow before you take your losartan, check your blood pressure. If it is less than 120 systolic, do not take the losartan. Call Dr. Gabriel in the morning and let him know that you were seen in the ER and your blood pressure was significantly low. Use the nystatin swish and swallow 4 times a day for the next 10 days. Return for continued low blood pressures, severe dizziness, or any other new, concerning, or worsening symptoms. All discharge instructions reviewed with patient and/or family. Voiced understanding. Scripts Nystatin (Nystatin) 100,000 Unit/Ml Oral.susp 5 ML PO QID for 10 Days, #200 ML 0 Refills Prov: DESIRAE BUTLER APRN 02/18/23 DESIRAE BUTLER APRN Feb 18, 2023 20:43
[2023-02-18] MEDS ORDERED: NS IV 1000 ML 1,000 ML IV SCH (20:45)
[2023-02-18 20:54] LABS: POTASSIUM 3.9 MMOL/L (3.6-5.0)
[2023-02-18 20:55] LABS: CALCIUM 9.1 MG/DL (8.5-10.1)
[2023-02-18 20:56] LABS: TOTAL PROTEIN 7.1 GM/DL (6.4-8.2)
[2023-02-18 20:58] LABS: BILIRUBIN,TOTAL 0.2 MG/DL (0.1-1.0)
[2023-02-18 21:00] LABS: CREATININE SERUM 1.38 MG/DL (0.60-1.30)
[2023-02-18 21:03] LABS: MAGNESIUM 2.1 MG/DL (1.6-2.4)
--- NOTE | 2023-02-18 21:11 | Diagnostic Imaging Report ---
INDICATION: Chest pain Single AP view of chest is obtained with comparison made to study of 12/16/2022. Heart size and pulmonary vascularity are within normal limits. There is no pneumothorax or consolidation. Surgical clips in lower neck, surgical findings also noted in the shoulders. No pleural fluid is seen. IMPRESSION: No acute abnormality or adverse change. Dictated by: Dictated on workstation # [id number]
[2023-02-18 21:23] LABS: TSH (THYROID ANALYZER) 2.43 UIU/ML (0.35-4.94)
[2023-02-18] MEDS ORDERED: NS IV 500 ML 500 ML IV ONE (22:00)
[2023-02-18] MEDS ORDERED: NYST1000 PO (22:18)
[2023-02-18 22:28] LABS: CLARITY,URINE CLEAR; COLOR,URINE YELLOW
[2023-02-18 22:29] LABS: BACTERIA,URINE NEGATIVE /HPF; BILIRUBIN,URINE NEGATIVE (NEGATIVE); GLUCOSE, URINE (UA) 3+ (NEGATIVE); KETONES,URINE NEGATIVE (NEGATIVE); LEUKOCYTE ESTERASE ,URINE NEGATIVE (NEGATIVE); NITRITE,URINE NEGATIVE (NEGATIVE); PROTEIN,URINE NEGATIVE (NEGATIVE); SQUAMOUS EPITHELIAL CELL,UR RARE /HPF
[2023-02-18 22:47] VITALS: BP 102/62
== END 2023-02-18 22:49 | disposition home or self-care (01) ==
LOC: EDUNIT# 20:11 → ER 20:13
DX: E86.0 Dehydration (principal); B37.9 Candidiasis, unspecified; R79.89 Other specified abnormal findings of blood chemistry; F17.210 Nicotine dependence, cigarettes, uncomplicated; Z91.040 Latex allergy status
CPT/HCPCS: 36415; 71045; 80053; 81000; 83735; 84443; 85025; 93005; 93041